=== PATIENT | male | born 1960 | race Caucasian/White ===

== ENCOUNTER → 2016-11-28 | Outpatient (CLI) | payer BC ==
--- NOTE | 2016-11-28 08:28 | US ---
EXAMINATION TYPE: US abdomen complete DATE OF EXAM: 11/28/2016 7:59 AM COMPARISON: NONE CLINICAL HISTORY: 56-year-old male Alcoholic cirrhosis of liver without ascites k70.3. TECHNIQUE: Multiple sonographic images of the abdomen were obtained. FINDINGS: EXAM MEASUREMENTS: Liver Length: 14.6 cm Gallbladder Wall: 0.3 cm CBD: 0.4 cm Spleen: 19.2 cm Right Kidney: 10.2 x 5.6 x 5.4 cm Left Kidney: 12.0 x 5.5 x 4.5 cm Pancreas: Slightly heterogeneous appearance of the pancreatic body of uncertain clinical significanc e. Liver: 2 small adjacent simple cysts are present measuring 1.1 cm and 0.9 cm near the junction of th e right and left hepatic lobes. Otherwise, no focal lesion is seen. The main portal vein is patent wi th appropriate hepatopedal flow and monophasic waveform. Gallbladder: The gallbladder is mildly hydropic but shows no abnormal wall thickening or pericholecy stic fluid. 9 mm shadowing calculus is noted near the gallbladder neck. Evidence for sonographic Griffin's sign: No CBD: Within normal limits. Spleen: Enlarged. Right Kidney: No hydronephrosis. Left Kidney: 1.7 cm cyst in the upper to midpole. No hydronephrosis. Upper IVC: Within normal limits. Abd Aorta: Moderate atherosclerotic calcifications noted in the distal abdominal aorta. IMPRESSION: 1. A couple small simple cysts in the liver measuring up to 1.1 cm. No sonographic evidence for hepat noel. 2. Patent main portal vein with appropriate directional flow. 3. Splenomegaly (19.2 cm) suggests underlying portal venous hypertension.
== END | disposition home or self-care (01) ==
LOC: RADUSWWP 07:24
PROVIDERS: ATTEND Internal Medicine
DX: K76.89 Other specified diseases of liver (principal); R16.1 Splenomegaly, not elsewhere classified
CPT/HCPCS: 76700

== ENCOUNTER → 2017-07-20 | Outpatient (CLI) | payer OTHER ==
--- NOTE | 2017-07-20 11:42 | US ---
EXAMINATION TYPE: US abdomen complete DATE OF EXAM: 07/20/2017 COMPARISON: Prior US and CT in PACS CLINICAL HISTORY: K70.30 Alcoholic cirrhosis of liver. Difficult exam due to overlying bowel gas. EXAM MEASUREMENTS: Liver Length: 14.4 cm Gallbladder Wall: 0.4 cm CBD: 0.5 cm Spleen: 19.8 cm Right Kidney: 10.3 x 5.5 x 5.0 cm Left Kidney: 11.4 x 4.2 x 4.4 cm Pancreas: Obscured by bowel gas Liver: Heterogeneous, echogenic echotexture. This finding limits evaluation for hepatic masses. Nodu lar contour. Cyst visualized right lobe measuring 1.0 x 0.6 x 0.8 cm Gallbladder: Wall appears thickened, stone visualized measuring 0.8 cm Evidence for sonographic Griffin's sign: No CBD: wnl as visualized Spleen: Enlarged Right Kidney: No hydronephrosis or masses seen Left Kidney: Cystic area visualized measuring 2.2 x 1.1 x 1.4 cm Upper IVC: wnl Abd Aorta: Obscured by overlying bowel gas, visualized portions appear to measuring wnl Mild amount of ascites visualized within the abdomen IMPRESSION: 1. Coarsened hepatic echotexture compatible with the patient's known history of hepatic cirrhosis. Pe rihepatic ascites is small volume. No gross evidence of hepatic mass. 1 cm simple hepatic cyst is pre sent. 2. Portal vein appears patent. 3. Diffuse gallbladder wall thickening that may be partially attributable to the patient's adjacent h epatocellular disease, however an 8 mm shadowing stone is seen near the gallbladder neck in could bec ome intermittently impacted resulting in acute cholecystitis. No enlargement of the common bile duct at this time, gallbladder enlargement, or pericholecystic fluid to currently suggest acute cholecysti tis. 4. Splenomegaly as a result of portal venous hypertension. 5. Minimally complex left renal sinus cyst.
== END | disposition home or self-care (01) ==
LOC: RADUSWWP 09:55
PROVIDERS: ATTEND Internal Medicine
DX: K76.89 Other specified diseases of liver (principal); K82.8 Other specified diseases of gallbladder; K76.6 Portal hypertension; R18.8 Other ascites; R16.1 Splenomegaly, not elsewhere classified; N28.1 Cyst of kidney, acquired
CPT/HCPCS: 76700

== ENCOUNTER 2017-08-31 06:27 | Day surgery (SDC) | payer OTHER ==
[2017-08-29 14:29] VITALS: BMI 24.4
[~2017-08-31 06:27] MED LIST: LACTATED RINGERS 1,000 ML IV SCH; MIDAZOLAM 2 MG/2 ML VIAL IV PRN; MORPHINE SULFATE 2 MG/ML SYRINGE IV PRN; ONDANSETRON 4 MG/2 ML VIAL IVP PRN; SODIUM CHLORIDE 0.9% 500 ML IV ONE
[2017-08-31 06:56] VITALS: TEMP 97.4
[2017-08-31 07:02] LABS: Glucose,Whole Blood 194 mg/dL (75-99)
[2017-08-31] MEDS ORDERED: LIDOCAINE 1% INJ 10MG/ML (20 ML MDV) ONE (07:09)
[2017-08-31] MEDS ORDERED: PROPOFOL 10 MG/ML 20 ML VIAL IV ONE (07:09)
[2017-08-31 07:36] VITALS: RESP 15
[2017-08-31 07:46] VITALS: BP 108/59; PULSE 75
[2017-08-31 07:49] LABS: Glucose,Whole Blood 179 mg/dL (75-99)
[2017-08-31 08:07] LABS: Anisocytosis Slight; Basophils % (A) 0 %; CH 33.4; CHCM 32.1; Eosinophils % (A) 0 %; HCT 24.5 % (39.0-53.0); HDW 2.81; HGB 7.9 gm/dL (13.0-17.5); Luc # (Auto) 0; Luc % (Auto) 0; Lymphocytes # (A) 0.2 k/uL (1.0-4.8); Lymphocytes % (A) 9 %; MCH 33.8 pg (25.0-35.0); MCHC 32.1 g/dL (31.0-37.0); Macrocytosis Marked; Mean Platelet Volume 8.8; Monocytes # (A) 0.1 k/uL (0-1.0); Monocytes % (A) 4 %; Neutrophils # (A) 2.4 k/uL (1.3-7.7); Neutrophils % (A) 87 %; RBC 2.33 m/uL (4.30-5.90); WBC 2.8 k/uL (3.8-10.6); WBC (Perox) 2.79
[2017-08-31 08:10] LABS: MCV 105.2 fL (80.0-100.0)
--- NOTE | 2017-08-31 09:41 | PCN ---
PROCEDURE NOTE DATE OF PROCEDURE: 08/31/2017 PREOPERATIVE DIAGNOSIS: Pancytopenia. POSTOPERATIVE DIAGNOSIS: Pancytopenia. PROCEDURE: Bone marrow aspirate and biopsies right iliac crest. DESCRIPTION OF PROCEDURE: Utilizing sterile technique, the skin overlying the right iliac crest was prepared with Betadine and alcohol. After adequate sterile draping, local anesthesia and systemic sedation, size 11, 4-inch Jamshidi needle was utilized to access the periosteum with ease. A total of 18 mL of aspirate as well as four centimeter bone core biopsies were obtained. The patient tolerated the procedure very well. There was no immediate procedure-related complication. TOTAL BLOOD LOSS: Less than 1 mL. RESULTS: Pending. MMODL / IJN: [id number] /
[2017-08-31 09:58] LABS: Manual Review Performed
[2017-09-07 15:57] LABS: Bone Marrow Cell Count See Pathology Report
== END 2017-08-31 08:03 | disposition home or self-care (01) ==
LOC: OR 06:27
PROVIDERS: ATTEND Internal Medicine Hematology & Oncology
DX: D61.818 Other pancytopenia (principal); J45.909 Unspecified asthma, uncomplicated; M15.9 Polyosteoarthritis, unspecified; K74.60 Unspecified cirrhosis of liver; D83.9 Common variable immunodeficiency, unspecified; Z79.899 Other long term (current) drug therapy
CPT/HCPCS: 85025; 38221; J2001; J2704; G0364

== ENCOUNTER → 2017-09-11 | Outpatient (CLI) | payer OTHER ==
[2017-09-11 14:39] LABS: ALT 67 U/L (21-72); AST 75 U/L (17-59); Alkaline Phosphatase 235 U/L (38-126); Anion Gap 8 mmol/L; Blood Urea Nitrogen 26 mg/dL (9-20); Calcium 8.7 mg/dL (8.4-10.2); Carbon Dioxide 23 mmol/L (22-30); Chloride 105 mmol/L (98-107); Glucose 153 mg/dL (74-99); Non-African American GFR(MDRD) >60 (>60 ml/min/1.73 sqM); Potassium 4.8 mmol/L (3.5-5.1); Sodium 136 mmol/L (137-145); Total Bilirubin 2.7 mg/dL (0.2-1.3); Total Protein 5.7 g/dL (6.3-8.2)
== END | disposition home or self-care (01) ==
LOC: LABWHC1 13:45
PROVIDERS: ATTEND Internal Medicine
DX: K70.31 Alcoholic cirrhosis of liver with ascites (principal)
CPT/HCPCS: 36415; 80053

== ENCOUNTER 2017-11-14 11:00 | Inpatient (IN) | payer OTHER ==
[2017-11-14 12:16] LABS: Glucose,Whole Blood 206 mg/dL (75-99)
[2017-11-14 12:54] LABS: Anisocytosis Slight; Basophils % (A) 0 %; Eosinophils % (A) 0 %; HCT 33.8 % (39.0-53.0); HGB 10.8 gm/dL (13.0-17.5); Hypochromasia Slight; Lymphocytes # (A) 0.2 k/uL (1.0-4.8); Lymphocytes % (A) 4 %; MCHC 31.9 g/dL (31.0-37.0); MCV 106.5 fL (80.0-100.0); Macrocytosis Marked; Mean Platelet Volume 8.7; Monocytes # (A) 0.3 k/uL (0-1.0); Monocytes % (A) 5 %; Neutrophils % (A) 90 %; RBC 3.17 m/uL (4.30-5.90); RDW 17.9 % (11.5-15.5); WBC 5.5 k/uL (3.8-10.6)
[2017-11-14 12:58] LABS: ALT 101 U/L (21-72); AST 89 U/L (17-59); Albumin 2.9 g/dL (3.5-5.0); Alkaline Phosphatase 238 U/L (38-126); Anion Gap 9 mmol/L; Blood Urea Nitrogen 34 mg/dL (9-20); Calcium 8.8 mg/dL (8.4-10.2); Carbon Dioxide 21 mmol/L (22-30); Chloride 107 mmol/L (98-107); Glucose 192 mg/dL (74-99); Sodium 137 mmol/L (137-145); Total Protein 5.7 g/dL (6.3-8.2)
[2017-11-14 13:26] LABS: INR 1.2 (<1.2); Prothrombin Time 11.5 sec (9.0-12.0)
[2017-11-14] MEDS: ACETAMINOPHEN TAB 325 MG TAB PO PRN ×2 (13:45→21:43)
[2017-11-14] MEDS: SODIUM CHLORIDE 0.9% 1,000 ML IV SCH ×2 (13:53→21:43)
[2017-11-14] MEDS ORDERED: PNEUMONIA PROTOCOL UTILIZED 1 EACH MISC PO PRN (13:55)
[2017-11-14] MEDS ORDERED: IPRATROPIUM-ALBUTEROL 3 ML NEB INHALATION PRN (13:55)
--- NOTE | 2017-11-14 13:55 | P.HPIM ---
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 Osullivan's office for severe bronchitis or pneumonia. Patient has been using systemic strides in his medicine at home patient has is worsening shortness of breath for a few days denied any fever chills denied any nausea vomiting. Patient does have chronically elevated liver enzymes his liver enzymes are bit elevated patient is on the liver transplant list patient appears to have had alcholic cirrhosis. Patient will be started on systemic steroids antibiotic regimen decisions. Will be left to pulmonology who knows the patient very well and patient is comparing of illicit sputum production. Review of Systems REVIEW OF SYSTEMS: CONSTITUTIONAL: No fever, no malaise, no fatigue. HEENT: No recent visual problems or hearing problems. Denied any sore throat. CARDIOVASCULAR: No chest pain, orthopnea, PND, no palpitations, no syncope. PULMONARY: Mentioned in HPI GASTROINTESTINAL: No diarrhea, no nausea, no vomiting, no abdominal pain. Normoactive bowel sounds. NEUROLOGICAL: No headaches, no weakness, no numbness. HEMATOLOGICAL: Denies any bleeding or petechiae. GENITOURINARY: Denies any burning micturition, frequency, or urgency. MUSCULOSKELETAL/RHEUMATOLOGICAL: Denies any joint pain, swelling, or any muscle pain. ENDOCRINE: Denies any polyuria or polydipsia. The rest of the 14-point review of systems is negative. Past Medical History Past Medical History: Asthma, GI Bleed, Hypertension, Pneumonia Additional Past Medical History / Comment(s): Cirrhosis-pt completing testing in order to go onto liver transplant list, hypogammaglobulinemia, common variable immunoglobulin deficiency-receives IV IG with last infusion 11/08/17- gets infusions q 3 weeks, ascities, anemia, bronchitis, neuropathy in hands and legs but less so since gluten free diet, ciliac disease, diverticulosis, rectal bleed, umbilical hernia, R inguinal hernia, necrotizing fascitis under L arm 20 yrs ago. History of Any Multi-Drug Resistant Organisms: None Reported Additional Past Surgical History / Comment(s): vasectomy, mediport placement x 3 -for IVIG-currently in L side of chest, bilateral cataract/lens surgery, removal of cervical lymph node-benign, BMA, colonoscopies and EGDs, bilateral myringotomy, abdominal paracentesis. Past Anesthesia/Blood Transfusion Reactions: No Reported Reaction Additional Past Anesthesia/Blood Transfusion Reaction / Comment(s): no problems prior blood transfusion Smoking Status: Former smoker - Past Family History Father Family Medical History: Thyroid Disorder Additional Family Medical History / Comment(s): Father has hypothyroidism. He is 89 yrs old. Mother Family Medical History: Liver Disease Additional Family Medical History / Comment(s): Mother from hepatitis C at the age of 60. Medications and Allergies Home Medications Medication Instructions Recorded Confirmed Type Montelukast [Singulair] 10 mg PO DAILY 10/15/14 11/14/17 History Ferrous Sulfate [Iron] 325 mg PO DAILY 07/20/17 11/14/17 History Albuterol Nebulized [Ventolin 2.5 mg INHALATION RT-QID PRN 08/29/17 11/14/17 History Nebulized] Azithromycin [Zithromax] 500 mg PO DAILY 08/29/17 11/14/17 History predniSONE See Taper PO DIRECTED 08/29/17 11/14/17 History Epoetin Messi [Procrit] 40,000 unit INJ Q14D 11/14/17 11/14/17 History Furosemide [Lasix] 20 mg PO DAILY 11/14/17 11/14/17 History Gabapentin [Neurontin] 300 mg PO BID 11/14/17 11/14/17 History Mometasone/Formoterol [Dulera 200 2 puff INHALATION RT-BID 11/14/17 11/14/17 History Mcg/5 Mcg Inhaler] Promethazine HCl/Codeine 5 ml PO Q6H PRN 11/14/17 11/14/17 History [Prometh-Codein 6.25-10 mg/5 ml] Spironolactone [Aldactone] 50 mg PO DAILY 11/14/17 11/14/17 History Allergies Allergy/AdvReac Type Severity Reaction Status Date / Time wheat AdvReac Severe Nausea & Verified 11/14/17 12:22 Vomiting & Diarrhea,flu like symptoms gluten AdvReac Nausea & Verified 11/14/17 12:22 Vomiting & Diarrhea Physical Exam Vitals: Vital Signs Temp Pulse Resp BP Pulse Ox 11/14/17 11:54 96.9 F L 80 16 133/60 99 Intake and Output 11/13/17 11/14/17 11/14/17 22:59 06:59 14:59 Other: Voiding Method Toilet Weight 83.461 kg Patient Weight 11/15/17 06:59 Weight 83.461 kg PHYSICAL EXAMINATION: GENERAL: The patient is alert and oriented x3, not in any acute distress. Well developed, well nourished. HEENT: Pupils are round and equally reacting to light. EOMI. No scleral icterus. No conjunctival pallor. Normocephalic, atraumatic. No pharyngeal erythema. No thyromegaly. CARDIOVASCULAR: S1 and S2 present. No murmurs, rubs, or gallops. PULMONARY: Fairly good air entry into bilateral lung ball from those with sounds minimal expiratory wheezing was appreciated. ABDOMEN: Soft, nontender, nondistended, normoactive bowel sounds. No palpable organomegaly. MUSCULOSKELETAL: No joint swelling or deformity. EXTREMITIES: No cyanosis, clubbing, or pedal edema. NEUROLOGICAL: Gross neurological examination did not reveal any focal deficits. SKIN: No rashes. Results CBC & Chem 7: 11/14/17 12:13 11/14/17 12:13 Labs: Abnormal Lab Results - Last 24 Hours (Table) 11/14/17 11/14/17 11/14/17 Range/Units 12:13 12:13 12:13 RBC 3.17 L (4.30-5.90) m/uL Hgb 10.8 L (13.0-17.5) gm/dL Hct 33.8 L (39.0-53.0) % MCV 106.5 H (80.0-100.0) fL RDW 17.9 H (11.5-15.5) % INR 1.2 H (<1.2) Carbon Dioxide 21 L (22-30) mmol/L BUN 34 H (9-20) mg/dL Glucose 192 H (74-99) mg/dL POC Glucose (mg/dL) (75-99) mg/dL Total Bilirubin 3.0 H (0.2-1.3) mg/dL AST 89 H (17-59) U/L ALT 101 H (21-72) U/L Alkaline Phosphatase 238 H (38-126) U/L Total Protein 5.7 L (6.3-8.2) g/dL Albumin 2.9 L (3.5-5.0) g/dL 11/14/17 Range/Units 12:14 RBC (4.30-5.90) m/uL Hgb (13.0-17.5) gm/dL Hct (39.0-53.0) % MCV (80.0-100.0) fL RDW (11.5-15.5) % INR (<1.2) Carbon Dioxide (22-30) mmol/L BUN (9-20) mg/dL Glucose (74-99) mg/dL POC Glucose (mg/dL) 206 H (75-99) mg/dL Total Bilirubin (0.2-1.3) mg/dL AST (17-59) U/L ALT (21-72) U/L Alkaline Phosphatase (38-126) U/L Total Protein (6.3-8.2) g/dL Albumin (3.5-5.0) g/dL Thrombosis Risk Factor Assmnt - Choose All That Apply Any of the Below Risk Factors Present?: Yes Each Factor Represents 1 point: Age 41-60 years, Serious lung disease incl. pneumonia (< 1month) Other Risk Factors: No Other congenital or acquired thrombophilia - If yes, enter type in comment: No Thrombosis Risk Factor Assessment Total Risk Factor Score: 2 Thrombosis Risk Factor Assessment Level: Low Risk Assessment and Plan Plan: I spent shortness of breath: Secondary to symmetrical bronchitis and pneumonia along with asthma exacerbation for which patient will be started on systemic steroids antibiotic regimen as per pulmonology. Inhalational treatments will be continued. -History of immunoglobulin deficiency for which patient receives IVIG transfusions to be continued -History of alcoholic cirrhosis with chronically elevated liver enzymes -History of chronic persistent asthma with acute exacerbation now -Hypertension next For above-mentioned chronic medical problems patient will be resumed on appropriate home medications.
[2017-11-14 14:09] LABS: Platelet Count 77 k/uL (150-450)
[2017-11-14] MEDS: LEVOFLOXACIN 750MG-D5W PMX 750 MG in DEXTROSE/WATER 1 150ML.BAG IVPB SCH (15:27)
[2017-11-14] MEDS ORDERED: methylPREDNISolone SOD SUCCI 40 MG/ML 1 ML VIAL IV SCH (16:00)
[2017-11-14] MEDS: IPRATROPIUM-ALBUTEROL 3 ML NEB INHALATION SCH ×2 (16:50→21:03)
[2017-11-14] MEDS: methylPREDNISolone SOD SUCCI 125 MG/2 ML VIAL IVP SCH ×2 (16:59→23:34)
[2017-11-14] MEDS: PIPERACILLIN-TAZOBACTAM 3.375 GM in DEXTROSE/WATER 1 50ML.BAG IVPB SCH ×2 (16:59→23:34)
[2017-11-14 17:09] LABS: Glucose,Whole Blood 152 mg/dL (75-99)
[2017-11-14] MEDS: INSULIN ASPART 100 UNIT/ML 1 ML 10 ML VIAL SQ SCH ×2 (17:46→21:42)
[2017-11-14] MEDS: SYMBICORT 160-4.5 MCG INHALER INHALATION SCH (21:02)
[2017-11-14 21:16] LABS: Glucose,Whole Blood 286 mg/dL (75-99)
[2017-11-14] MEDS: FERROUS SULFATE 325 MG TAB PO SCH (21:42)
[2017-11-14 23:40] LABS: Glucose,Whole Blood 198 mg/dL (75-99)
[2017-11-15] MEDS: methylPREDNISolone SOD SUCCI 125 MG/2 ML VIAL IVP SCH ×4 (06:18→23:46)
[2017-11-15] MEDS: IPRATROPIUM-ALBUTEROL 3 ML NEB INHALATION SCH ×4 (07:48→20:03)
[2017-11-15] MEDS: SYMBICORT 160-4.5 MCG INHALER INHALATION SCH ×2 (07:48→20:03)
[2017-11-15] MEDS: SPIRONOLACTONE 25 MG TAB PO SCH (07:55)
[2017-11-15] MEDS: SODIUM CHLORIDE 0.9% 1,000 ML IV SCH ×2 (07:56→16:56)
[2017-11-15] MEDS: PIPERACILLIN-TAZOBACTAM 3.375 GM in DEXTROSE/WATER 1 50ML.BAG IVPB SCH ×3 (07:56→23:46)
[2017-11-15] MEDS: MONTELUKAST 10 MG TAB PO SCH (07:56)
[2017-11-15] MEDS: FERROUS SULFATE 325 MG TAB PO SCH ×2 (07:56→20:06)
[2017-11-15] MEDS: INSULIN ASPART 100 UNIT/ML 1 ML 10 ML VIAL SQ SCH ×4 (07:56→21:23)
[2017-11-15] MEDS: FUROSEMIDE 20 MG TAB PO SCH (07:56)
[2017-11-15] MEDS: PANTOPRAZOLE 40 MG TABLET PO SCH (07:56)
[2017-11-15 08:00] LABS: Glucose,Whole Blood 161 mg/dL (75-99)
[2017-11-15 08:30] LABS: ALT 91 U/L (21-72); AST 71 U/L (17-59); Albumin 2.5 g/dL (3.5-5.0); Alkaline Phosphatase 229 U/L (38-126); Anion Gap 7 mmol/L; Blood Urea Nitrogen 32 mg/dL (9-20); Calcium 8.5 mg/dL (8.4-10.2); Carbon Dioxide 22 mmol/L (22-30); Chloride 108 mmol/L (98-107); Glucose 160 mg/dL (74-99); Potassium 4.8 mmol/L (3.5-5.1); Sodium 137 mmol/L (137-145); Total Bilirubin 2.3 mg/dL (0.2-1.3); Total Protein 5.1 g/dL (6.3-8.2)
[2017-11-15 08:44] LABS: Anisocytosis Slight; Basophils % (A) 0 %; Eosinophils % (A) 0 %; HCT 31.7 % (39.0-53.0); HGB 9.7 gm/dL (13.0-17.5); Hypochromasia Moderate; Lymphocytes # (A) 0.1 k/uL (1.0-4.8); Lymphocytes % (A) 6 %; MCH 33.2 pg (25.0-35.0); MCHC 30.6 g/dL (31.0-37.0); MCV 108.6 fL (80.0-100.0); Macrocytosis Marked; Mean Platelet Volume 9.2; Monocytes # (A) 0.1 k/uL (0-1.0); Monocytes % (A) 3 %; Neutrophils # (A) 2.2 k/uL (1.3-7.7); Neutrophils % (A) 91 %; RBC 2.92 m/uL (4.30-5.90); RDW 18.9 % (11.5-15.5); WBC 2.4 k/uL (3.8-10.6)
[2017-11-15] MEDS ORDERED: FERROUS SULFATE 325 MG TAB PO SCH (09:00)
[2017-11-15 10:29] LABS: Platelet Count 43 k/uL (150-450)
--- NOTE | 2017-11-15 11:23 | XR ---
EXAMINATION TYPE: XR chest 2V DATE OF EXAM: 11/15/2017 COMPARISON: 05/10/2016 HISTORY: Follow-up for pneumonia TECHNIQUE: Frontal and lateral views of the chest are obtained. FINDINGS: The left-sided Mediport coils within the region of the left internal jugular vein, however this is unchanged in comparison to the exam of 05/10/2016 and terminates in the region of the brachio cephalic vein. Minimal platelike left midlung atelectasis is seen peripherally. No focal consolidation, pleural effu paz or pneumothorax. Cardiomediastinal silhouette is upper limits of normal. IMPRESSION: 1. No focal consolidation to suggest pneumonia. 2. Left midlung platelike subsegmental atelectasis.
[2017-11-15 12:22] LABS: Glucose,Whole Blood 366 mg/dL (75-99)
[2017-11-15] MEDS: LEVOFLOXACIN 750MG-D5W PMX 750 MG in DEXTROSE/WATER 1 150ML.BAG IVPB SCH (15:05)
--- NOTE | 2017-11-15 15:18 | P.CNPUL ---
History of Present Illness Consult date: 11/15/17 Requesting physician: Renu Moss Reason for consult: dyspnea, cough Chief complaint: Increased dyspnea, cough, wheezing History of present illness: Franc is a 57-year-old white male patient that sees Dr. Norris in our office for his chronic persistent bronchial asthma, with a baseline FEV1 of 51% of predicted, who went to see Dr. Norris/Dr. Andrade on Monday with complaints of cough, chest congestion, and increasing shortness of breath. He was given a Depo-Medrol IM, a new course of Zithromax. He had completed his Bactrim course on 11/10/2017, and he was finishing his prednisone taper, prescribed to him by Dr. Norris. However his symptoms did not get better, actually got worse, and he was seen again in the office by Dr. Osullivan on 11/14/2017. He was still on his last day of 40 mg of prednisone, was feeling worse. He was then admitted to the hospital for further management for what appears to be acute exacerbation of asthma, with failed outpatient therapy. 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 Patient is currently awaiting evaluation for liver transplantation at [facility]. Patient's maintenance asthma medications include Dulera, Singulair, albuterol nebulizer and Ventolin HFA. Patient is a former smoker. Chest x-ray taken in the emergency room on 11/15/2017 shows no focal consolidation to suggest pneumonia, left midlung platelike subsegmental atelectasis. Patient is afebrile, on room air, O2 sat is 97-99%. Blood cultures were obtained and sent, and show no growth at the 24-hour timur. Patient was started on Symbicort, DuoNeb nebulized treatments, Levaquin, and Zosyn as well as IV steroids and admitted for further management. Review of Systems All systems: negative Constitutional: Denies chills, Denies fever Eyes: denies blurred vision, denies pain Ears, nose, mouth and throat: Denies headache, Denies sore throat Cardiovascular: Denies chest pain, Denies shortness of breath Respiratory: Denies cough Gastrointestinal: Denies abdominal pain, Denies diarrhea, Denies nausea, Denies vomiting Musculoskeletal: Denies myalgias Integumentary: Denies pruritus, Denies rash Neurological: Denies numbness, Denies weakness Psychiatric: Denies anxiety, Denies depression Endocrine: Denies fatigue, Denies weight change Past Medical History Past Medical History: Asthma, GI Bleed, Hypertension, Pneumonia Additional Past Medical History / Comment(s): Cirrhosis-pt completing testing in order to go onto liver transplant list, hypogammaglobulinemia, common variable immunoglobulin deficiency-receives IV IG with last infusion 11/08/17- gets infusions q 3 weeks, ascities, anemia, bronchitis, neuropathy in hands and legs but less so since gluten free diet, ciliac disease, diverticulosis, rectal bleed, umbilical hernia, R inguinal hernia, necrotizing fascitis under L arm 20 yrs ago. History of Any Multi-Drug Resistant Organisms: None Reported Additional Past Surgical History / Comment(s): vasectomy, mediport placement x 3 -for IVIG-currently in L side of chest, bilateral cataract/lens surgery, removal of cervical lymph node-benign, BMA, colonoscopies and EGDs, bilateral myringotomy, abdominal paracentesis. Past Anesthesia/Blood Transfusion Reactions: No Reported Reaction Additional Past Anesthesia/Blood Transfusion Reaction / Comment(s): no problems prior blood transfusion Smoking Status: Former smoker - Past Family History Father Family Medical History: Thyroid Disorder Additional Family Medical History / Comment(s): Father has hypothyroidism. He is 89 yrs old. Mother Family Medical History: Liver Disease Additional Family Medical History / Comment(s): Mother from hepatitis C at the age of 60. Medications and Allergies Home Medications Medication Instructions Recorded Confirmed Type Montelukast [Singulair] 10 mg PO DAILY 10/15/14 11/14/17 History Ferrous Sulfate [Iron] 325 mg PO DAILY 07/20/17 11/14/17 History Albuterol Nebulized [Ventolin 2.5 mg INHALATION RT-QID PRN 08/29/17 11/14/17 History Nebulized] Azithromycin [Zithromax] 500 mg PO DAILY 08/29/17 11/14/17 History predniSONE See Taper PO DIRECTED 08/29/17 11/14/17 History Epoetin Messi [Procrit] 40,000 unit INJ Q14D 11/14/17 11/14/17 History Furosemide [Lasix] 20 mg PO DAILY 11/14/17 11/14/17 History Gabapentin [Neurontin] 300 mg PO BID 11/14/17 11/14/17 History Mometasone/Formoterol [Dulera 200 2 puff INHALATION RT-BID 11/14/17 11/14/17 History Mcg/5 Mcg Inhaler] Promethazine HCl/Codeine 5 ml PO Q6H PRN 11/14/17 11/14/17 History [Prometh-Codein 6.25-10 mg/5 ml] Spironolactone [Aldactone] 50 mg PO DAILY 11/14/17 11/14/17 History Allergies Allergy/AdvReac Type Severity Reaction Status Date / Time wheat AdvReac Severe Nausea & Verified 11/14/17 12:22 Vomiting & Diarrhea,flu like symptoms gluten AdvReac Nausea & Verified 11/14/17 12:22 Vomiting & Diarrhea Physical Exam Vitals: Vital Signs Temp Pulse Pulse Resp BP Pulse Ox 11/15/17 11:36 96 11/15/17 11:24 92 11/15/17 08:01 80 11/15/17 07:48 76 11/15/17 07:00 97.1 F L 66 16 155/75 96 11/14/17 23:00 96.9 F L 79 18 131/62 94 L 11/14/17 21:19 82 11/14/17 21:03 80 11/14/17 17:03 78 11/14/17 16:51 80 11/14/17 15:00 97.4 F L 79 18 126/61 97 Intake and Output 11/14/17 11/15/17 11/15/17 22:59 06:59 14:59 Other: Voiding Method Toilet Toilet # Voids 1 2 1 GENERAL EXAM: Alert, active, comfortable in no apparent distress. HEAD: Normocephalic/atraumatic. EYES: Normal reaction of pupils, equal size. Conjunctiva pink, sclera white. NOSE: Clear with pink turbinates. THROAT: No erythema or exudates. NECK: No masses, no JVD, no thyroid enlargement, no adenopathy. CHEST: No chest wall deformity. Symmetrical expansion. LUNGS: Equal air entry with diffuse wheezes throughout, there is prolongation of expiratory phase CVS: Regular rate and rhythm, normal S1 and S2, no gallops, no murmurs, no rubs ABDOMEN: Soft, nontender. No hepatosplenomegaly, normal bowel sounds, no guarding or rigidity. EXTREMITIES: No clubbing, no edema, no cyanosis, 2+ pulses and upper and lower extremities. MUSCULOSKELETAL: Muscle strength and tone normal. SPINE: No scoliosis or deformity SKIN: No rashes CENTRAL NERVOUS SYSTEM: Alert and oriented -3. No focal deficits, tone is normal in all 4 extremities. PSYCHIATRIC: Alert and oriented -3. Appropriate affect. Intact judgment and insight. Results - Laboratory Findings CBC and BMP: 11/15/17 07:15 11/15/17 07:15 PT/INR, D-dimer PT 11.5 sec (9.0-12.0) 11/14/17 12:13 INR 1.2 (<1.2) H 11/14/17 12:13 Abnormal lab findings: Abnormal Labs 11/14/17 11/14/17 11/14/17 12:13 12:13 12:13 WBC RBC 3.17 L Hgb 10.8 L Hct 33.8 L MCV 106.5 H MCHC RDW 17.9 H Plt Count 77 L Lymphocytes # 0.2 L INR 1.2 H Chloride Carbon Dioxide 21 L BUN 34 H Glucose 192 H POC Glucose (mg/dL) Total Bilirubin 3.0 H AST 89 H ALT 101 H Alkaline Phosphatase 238 H Total Protein 5.7 L Albumin 2.9 L 11/14/17 11/14/17 11/14/17 12:14 17:05 21:14 WBC RBC Hgb Hct MCV MCHC RDW Plt Count Lymphocytes # INR Chloride Carbon Dioxide BUN Glucose POC Glucose (mg/dL) 206 H 152 H 286 H Total Bilirubin AST ALT Alkaline Phosphatase Total Protein Albumin 11/14/17 11/15/17 11/15/17 23:38 07:15 07:15 WBC 2.4 L RBC 2.92 L Hgb 9.7 L Hct 31.7 L MCV 108.6 H MCHC 30.6 L RDW 18.9 H Plt Count 43 L* Lymphocytes # 0.1 L INR Chloride 108 H Carbon Dioxide BUN 32 H Glucose 160 H POC Glucose (mg/dL) 198 H Total Bilirubin 2.3 H AST 71 H ALT 91 H Alkaline Phosphatase 229 H Total Protein 5.1 L Albumin 2.5 L 11/15/17 11/15/17 07:16 12:16 WBC RBC Hgb Hct MCV MCHC RDW Plt Count Lymphocytes # INR Chloride Carbon Dioxide BUN Glucose POC Glucose (mg/dL) 161 H 366 H Total Bilirubin AST ALT Alkaline Phosphatase Total Protein Albumin - Diagnostic Findings Chest x-ray: report reviewed Assessment and Plan Plan: Assessment: #1. Acute exacerbation of chronic persistent asthma, with failed outpatient treatment #2. Leukopenia, on today's labs, WBCs down to 2.4, possibly related to sepsis #3. Thrombocytopenia, patient has an underlying chronic liver disease, alcoholic cirrhosis, does have chronic thrombocytopenia, came in on 11/14/2017 with a platelet count of 77, on today's labs on 11/15/2017, platelet count is down to 43. Previously on 2016 his platelet count was at 102. This could be related to sepsis #4. Macrocytic anemia #5. Hypogammaglobulinemia, receives IVIG infusions every 3 weeks #6. History of alcoholic cirrhosis, ascites, with periodic paracentesis. His alcohol use is currently in remission, patient is awaiting evaluation for liver transplantation at [facility] #7. Neuropathy #8. History of benign cervical lymph node removal Plan: Continue patient on IV steroids, Zosyn, and Levaquin, continue DuoNeb, continue Symbicort, continue his Lasix and Aldactone. Blood cultures have been obtained and sent, will await the final results. Continue monitoring his white count and platelet count, sepsis related thrombocytopenia is suspected. I performed a history & physical examination of the patient and discussed their management with my nurse practitioner, Xochitl Briceno. I reviewed the nurse practitioner's note and agree with the documented findings and plan of care. Lung sounds are positive for diffuse wheezes throughout the lung ball. The findings and the impression was discussed with the patient. I attest to the documentation by the nurse practitioner. Time with Patient: Greater than 30
[2017-11-15] MEDS ORDERED: cefTRIAXone IN SWFI 1,000 MG/10 ML SYRINGE IVP SCH (16:00)
[2017-11-15 17:15] LABS: Glucose,Whole Blood 129 mg/dL (75-99)
[2017-11-15] MEDS: ACETAMINOPHEN TAB 325 MG TAB PO PRN (20:04)
[2017-11-15 20:55] LABS: Glucose,Whole Blood 207 mg/dL (75-99)
[2017-11-16] MEDS: SODIUM CHLORIDE 0.9% 1,000 ML IV SCH ×2 (06:07→11:40)
[2017-11-16] MEDS: methylPREDNISolone SOD SUCCI 125 MG/2 ML VIAL IVP SCH ×3 (06:08→17:13)
[2017-11-16] MEDS: PANTOPRAZOLE 40 MG TABLET PO SCH (07:14)
[2017-11-16] MEDS: FERROUS SULFATE 325 MG TAB PO SCH ×2 (07:14→21:27)
[2017-11-16] MEDS: MONTELUKAST 10 MG TAB PO SCH (07:14)
[2017-11-16] MEDS: INSULIN ASPART 100 UNIT/ML 1 ML 10 ML VIAL SQ SCH ×4 (07:15→21:27)
[2017-11-16] MEDS: PIPERACILLIN-TAZOBACTAM 3.375 GM in DEXTROSE/WATER 1 50ML.BAG IVPB SCH ×2 (07:16→15:44)
[2017-11-16] MEDS: SPIRONOLACTONE 25 MG TAB PO SCH (07:16)
[2017-11-16] MEDS: FUROSEMIDE 20 MG TAB PO SCH (07:16)
[2017-11-16 07:21] LABS: Glucose,Whole Blood 168 mg/dL (75-99)
[2017-11-16] MEDS: IPRATROPIUM-ALBUTEROL 3 ML NEB INHALATION SCH ×4 (07:44→20:27)
[2017-11-16] MEDS: SYMBICORT 160-4.5 MCG INHALER INHALATION SCH ×2 (07:44→20:27)
[2017-11-16] MEDS ORDERED: LIDOCAINE 1% INJ 10MG/ML (20 ML MDV) ONE (10:47)
[2017-11-16] MEDS ORDERED: PROPOFOL 10 MG/ML 20 ML VIAL IV ONE (10:47)
[2017-11-16] MEDS ORDERED: fentaNYL (PF) 50 MCG/ML 2 ML AMP ONE (10:47)
[2017-11-16] MEDS ORDERED: IV FLUID CONTINUATION 1,000 ML IV ONE (10:47)
[2017-11-16] MEDS ORDERED: MIDAZOLAM 2 MG/2 ML VIAL ONE (10:47)
[2017-11-16] MEDS ORDERED: GLYCOPYRROLATE 0.2 MG/ML 2 ML VIAL ONE (10:47)
--- NOTE | 2017-11-16 10:50 | P.PN ---
Subjective Progress Note Date: 11/16/17 Principal diagnosis: Acute exacerbation of chronic obstructive pulmonary disease Franc is a 57-year-old white male patient that sees Dr. Norris in the office for his chronic persistent bronchial asthma, with a baseline FEV1 of 51% of predicted, who went to see Dr. Norris/Dr. Andrade on Monday with complaints of cough, chest congestion, and increasing shortness of breath. He was given a Depo-Medrol IM, a new course of Zithromax. He had completed his Bactrim course on 11/10/2017, and he was finishing his prednisone taper, prescribed to him by Dr. Norris. However his symptoms did not get better, actually got worse, and he was seen again in the office by Dr. Osullivan on 11/14/2017. He was still on his last day of 40 mg of prednisone, was feeling worse. He was then admitted to the hospital for further management for what appears to be acute exacerbation of asthma, with failed outpatient therapy. 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 Patient is currently awaiting evaluation for liver transplantation at [facility]. Patient's maintenance asthma medications include Dulera, Singulair, albuterol nebulizer and Ventolin HFA. Patient is a former smoker. Chest x-ray taken in the emergency room on 11/15/2017 shows no focal consolidation to suggest pneumonia, left midlung platelike subsegmental atelectasis. Patient is afebrile, on room air, O2 sat is 97-99%. Blood cultures were obtained and sent, and show no growth at the 24-hour timur. Patient was started on Symbicort, DuoNeb nebulized treatments, Levaquin, and Zosyn as well as IV steroids and admitted for further management. The patient is seen again today 11/16/2017 in follow-up on in the bronchoscopy suite. He is awake and alert in no acute distress. He is breathing easier today as compared to yesterday. He continues with a loose nonproductive cough. No chills or night sweats. Maintaining good O2 saturations in the 90s on room air. He has been afebrile. Blood cultures reveal no growth. Objective - Vital Signs Vital signs: Vital Signs Temp 97.1 F L 11/16/17 07:00 Pulse 96 11/16/17 07:44 Resp 16 11/16/17 07:00 BP 137/72 11/16/17 07:00 Pulse Ox 95 11/16/17 07:00 Intake & Output 11/15/17 11/16/17 11/16/17 18:59 06:59 18:59 Other: Voiding Method Toilet Toilet Toilet # Voids 1 1 - Exam GENERAL EXAM: Alert, active, comfortable in no apparent distress. HEAD: Normocephalic/atraumatic. EYES: Normal reaction of pupils, equal size. Conjunctiva pink, sclera white. NOSE: Clear with pink turbinates. THROAT: No erythema or exudates. NECK: No masses, no JVD, no thyroid enlargement, no adenopathy. CHEST: No chest wall deformity. Symmetrical expansion. LUNGS: Equal air entry with diffuse wheezes throughout, there is prolongation of expiratory phase CVS: Regular rate and rhythm, normal S1 and S2, no gallops, no murmurs, no rubs ABDOMEN: Soft, nontender. No hepatosplenomegaly, normal bowel sounds, no guarding or rigidity. EXTREMITIES: No clubbing, no edema, no cyanosis, 2+ pulses and upper and lower extremities. MUSCULOSKELETAL: Muscle strength and tone normal. SPINE: No scoliosis or deformity SKIN: No rashes CENTRAL NERVOUS SYSTEM: Alert and oriented -3. No focal deficits, tone is normal in all 4 extremities. PSYCHIATRIC: Alert and oriented -3. Appropriate affect. Intact judgment and insight. - Labs CBC & Chem 7: 11/15/17 07:15 11/15/17 07:15 Labs: Abnormal Lab Results - Last 24 Hours (Table) 11/15/17 11/15/17 11/15/17 Range/Units 07:15 12:16 17:13 Lymphocytes # 0.1 L (1.0-4.8) k/uL POC Glucose (mg/dL) 366 H 129 H (75-99) mg/dL 11/15/17 11/16/17 Range/Units 20:52 07:11 Lymphocytes # (1.0-4.8) k/uL POC Glucose (mg/dL) 207 H 168 H (75-99) mg/dL Microbiology - Last 24 Hours (Table) 11/14/17 14:32 Blood Culture - Preliminary Blood No Growth after 24 hours 11/14/17 14:11 Blood Culture - Preliminary Blood No Growth after 24 hours 11/14/17 12:35 Blood Culture - Preliminary Blood No Growth after 24 hours 11/14/17 12:13 Blood Culture - Preliminary Blood No Growth after 24 hours Assessment and Plan Assessment: Assessment: #1. Acute exacerbation of chronic persistent asthma, with failed outpatient treatment #2. Leukopenia, on today's labs, WBCs down to 2.4, possibly related to sepsis #3. Thrombocytopenia, patient has an underlying chronic liver disease, alcoholic cirrhosis, does have chronic thrombocytopenia, came in on 11/14/2017 with a platelet count of 77, on today's labs on 11/15/2017, platelet count is up to 43. Previously on 2016 his platelet count was at 102. This could be related to sepsis #4. Macrocytic anemia #5. Hypogammaglobulinemia, receives IVIG infusions every 3 weeks #6. History of alcoholic cirrhosis, ascites, with periodic paracentesis. His alcohol use is currently in remission, patient is awaiting evaluation for liver transplantation at [facility] #7. Neuropathy #8. History of benign cervical lymph node removal Plan: The patient is seen and evaluated today by Dr. Norris. The plan is for bronchoscopy with BAL. We'll continue with his current medications for now. We 'll increase his activity as tolerated. We'll continue to follow. I, the cosigning physician, performed a history & physical examination of the patient. Lungs sounds have few scattered rhonchi. Maintaining good O2 saturations in the 90s on room air. I discussed the assessment and plan of care with my nurse practitioner, Padmini Andrade. I attest to the above note as dictated by her.
[2017-11-16] MEDS ORDERED: LIDOCAINE 2% INJ 20 MG/ML INTRATRACH ONE (11:05)
[2017-11-16] MEDS ORDERED: LACTATED RINGERS 1,000 ML IV ONE (11:06)
[2017-11-16 11:33] LABS: Glucose,Whole Blood 196 mg/dL (75-99)
--- NOTE | 2017-11-16 11:47 | PCN ---
PROCEDURE NOTE PROCEDURE: Bronchoscopy airway examination, therapeutic lavage, BAL right middle lobe. PREOPERATIVE DIAGNOSIS: Asthma/retained secretions. POSTOPERATIVE DIAGNOSIS: Asthma/retained secretions. There was universal timeout, there was informed consent. The patient's procedure took place in room #3 [facility]. GLOBE CHANGER provided general anesthesia, unconscious sedation. After the patient was adequately sedated and being fully monitored, the bronchoscope was inserted through the right nostril. It passed through the right nasopharynx into the oropharynx. The hypopharynx was identified and topicalized. The hypopharyngeal structures appear normal. There was some yeast noted in the hypopharynx. Anterior commissure, true cords, false cords, arytenoids, piriform sinuses, right and left vallecula all appeared relatively normal. After topicalization, bronchoscope was passed through the glottic opening into the trachea. Trachea appeared normal. Tracheal ino was sharp. Right and left mainstem were topicalized. Right upper lobe and its 3 segments, the right middle lobe and its 2 segments, the right lower lobe and its 5 segments, left upper lobe proper and its 2 segments, lingula and its 2 segments, left lower lobe and its 4 segments all have similar findings of diffuse erythema and hyperemia. The airways were very inflamed. There is vascular engorgement. There was mucosal friability. The airways bled easily. There were thick secretions noted throughout. They were yellow green in color. They were suctioned without difficulty. After all the secretions were removed, the bronchoscope was wedged into the right middle lobe. The BAL took place. The patient tolerated the procedure well. There was no immediate complication. The fluid will be sent to the laboratory for analysis. The patient will be recovered and sent back to his room. MMODL / IJN: [id number] /
--- NOTE | 2017-11-16 12:25 | P.PN ---
Subjective Progress Note Date: 11/15/17 Progress note being dictated for Dr. Morelos. 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 Osullivan's office for severe bronchitis or pneumonia. Patient has been using systemic strides in his medicine at home patient has is worsening shortness of breath for a few days denied any fever chills denied any nausea vomiting. Patient does have chronically elevated liver enzymes his liver enzymes are bit elevated patient is on the liver transplant list patient appears to have had alcholic cirrhosis. Patient will be started on systemic steroids antibiotic regimen decisions. Will be left to pulmonology who knows the patient very well and patient is comparing of illicit sputum production. Review of Systems REVIEW OF SYSTEMS: CONSTITUTIONAL: No fever, no malaise, no fatigue. HEENT: No recent visual problems or hearing problems. Denied any sore throat. CARDIOVASCULAR: No chest pain, orthopnea, PND, no palpitations, no syncope. PULMONARY: Mentioned in HPI GASTROINTESTINAL: No diarrhea, no nausea, no vomiting, no abdominal pain. Normoactive bowel sounds. NEUROLOGICAL: No headaches, no weakness, no numbness. HEMATOLOGICAL: Denies any bleeding or petechiae. GENITOURINARY: Denies any burning micturition, frequency, or urgency. MUSCULOSKELETAL/RHEUMATOLOGICAL: Denies any joint pain, swelling, or any muscle pain. ENDOCRINE: Denies any polyuria or polydipsia. The rest of the 14-point review of syst 11/15/17 maintained on nebulized bronchodilators, systemic steroids, antibiotics of Zosyn, Levaquin. Chest x-ray reporting left midlung platelike subsegmental atelectasis, no focal consolidation. Breathing mildly improved, nonproductive cough, wheezing persists. Denies chest pressure, chest pain, palpitations. Objective - Vital Signs Vital signs: Vital Signs Temp 96.1 F L 11/15/17 15:00 Pulse 100 11/15/17 16:39 Resp 16 11/15/17 15:00 BP 133/63 11/15/17 15:00 Pulse Ox 95 11/15/17 15:00 Intake & Output 11/14/17 11/15/17 11/15/17 18:59 06:59 18:59 Weight 83.461 kg Other: Voiding Method Toilet Toilet Toilet # Voids 2 2 1 - Exam GENERAL:Patient is sitting up in bed, alert and oriented x3, respiratory effort mildly increased. Well developed, well nourished. HEENT: Pupils are round and equally reacting to light. EOMI. No scleral icterus. No conjunctival pallor. Normocephalic, atraumatic. No pharyngeal erythema. No thyromegaly. CARDIOVASCULAR: S1 and S2 present. No murmurs, rubs, or gallops. PULMONARY: Fairly good air entry into bilateral lung ball from those with diffuse expiratory wheezing throughout ABDOMEN: Soft, nontender, nondistended, normoactive bowel sounds. No palpable organomegaly. MUSCULOSKELETAL: No joint swelling or deformity. EXTREMITIES: No cyanosis, clubbing, or pedal edema. NEUROLOGICAL: Gross neurological examination did not reveal any focal deficits. SKIN: No rashes. - Labs CBC & Chem 7: 11/15/17 07:15 11/15/17 07:15 Labs: Abnormal Lab Results - Last 24 Hours (Table) 11/14/17 11/14/17 11/15/17 Range/Units 21:14 23:38 07:15 WBC 2.4 L (3.8-10.6) k/uL RBC 2.92 L (4.30-5.90) m/uL Hgb 9.7 L (13.0-17.5) gm/dL Hct 31.7 L (39.0-53.0) % MCV 108.6 H (80.0-100.0) fL MCHC 30.6 L (31.0-37.0) g/dL RDW 18.9 H (11.5-15.5) % Plt Count 43 L* (150-450) k/uL Lymphocytes # 0.1 L (1.0-4.8) k/uL Chloride (98-107) mmol/L BUN (9-20) mg/dL Glucose (74-99) mg/dL POC Glucose (mg/dL) 286 H 198 H (75-99) mg/dL Total Bilirubin (0.2-1.3) mg/dL AST (17-59) U/L ALT (21-72) U/L Alkaline Phosphatase (38-126) U/L Total Protein (6.3-8.2) g/dL Albumin (3.5-5.0) g/dL 11/15/17 11/15/17 11/15/17 Range/Units 07:15 07:16 12:16 WBC (3.8-10.6) k/uL RBC (4.30-5.90) m/uL Hgb (13.0-17.5) gm/dL Hct (39.0-53.0) % MCV (80.0-100.0) fL MCHC (31.0-37.0) g/dL RDW (11.5-15.5) % Plt Count (150-450) k/uL Lymphocytes # (1.0-4.8) k/uL Chloride 108 H (98-107) mmol/L BUN 32 H (9-20) mg/dL Glucose 160 H (74-99) mg/dL POC Glucose (mg/dL) 161 H 366 H (75-99) mg/dL Total Bilirubin 2.3 H (0.2-1.3) mg/dL AST 71 H (17-59) U/L ALT 91 H (21-72) U/L Alkaline Phosphatase 229 H (38-126) U/L Total Protein 5.1 L (6.3-8.2) g/dL Albumin 2.5 L (3.5-5.0) g/dL 11/15/17 Range/Units 17:13 WBC (3.8-10.6) k/uL RBC (4.30-5.90) m/uL Hgb (13.0-17.5) gm/dL Hct (39.0-53.0) % MCV (80.0-100.0) fL MCHC (31.0-37.0) g/dL RDW (11.5-15.5) % Plt Count (150-450) k/uL Lymphocytes # (1.0-4.8) k/uL Chloride (98-107) mmol/L BUN (9-20) mg/dL Glucose (74-99) mg/dL POC Glucose (mg/dL) 129 H (75-99) mg/dL Total Bilirubin (0.2-1.3) mg/dL AST (17-59) U/L ALT (21-72) U/L Alkaline Phosphatase (38-126) U/L Total Protein (6.3-8.2) g/dL Albumin (3.5-5.0) g/dL Microbiology - Last 24 Hours (Table) 11/14/17 14:32 Blood Culture - Preliminary Blood No Growth after 24 hours 11/14/17 14:11 Blood Culture - Preliminary Blood No Growth after 24 hours 11/14/17 12:35 Blood Culture - Preliminary Blood No Growth after 24 hours 11/14/17 12:13 Blood Culture - Preliminary Blood No Growth after 24 hours Assessment and Plan Assessment: Acute shortness of breath: Secondary to symmetrical bronchitis along with asthma exacerbation, failed outpatient treatment, pneumonia ruled out as per pulmonary. 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 Maintain nebulized bronchodilators, empiric antibiotics, steroids. Bronchoscopy scheduled for tomorrow pulmonary. The impression and plan of care has been dictated as directed. : I performed a history and examination of this patient, discussed the same with the dictator. I agree with the dictator's note ,documented as a scribe. Any additional findings or plans will be noted.
--- NOTE | 2017-11-16 12:29 | P.PN ---
Subjective Progress Note Date: 11/16/17 Progress note being dictated for Dr. Morelos. 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 Osullivan's office for severe bronchitis or pneumonia. Patient has been using systemic strides in his medicine at home patient has is worsening shortness of breath for a few days denied any fever chills denied any nausea vomiting. Patient does have chronically elevated liver enzymes his liver enzymes are bit elevated patient is on the liver transplant list patient appears to have had alcholic cirrhosis. Patient will be started on systemic steroids antibiotic regimen decisions. Will be left to pulmonology who knows the patient very well and patient is comparing of illicit sputum production. Review of Systems REVIEW OF SYSTEMS: CONSTITUTIONAL: No fever, no malaise, no fatigue. HEENT: No recent visual problems or hearing problems. Denied any sore throat. CARDIOVASCULAR: No chest pain, orthopnea, PND, no palpitations, no syncope. PULMONARY: Mentioned in HPI GASTROINTESTINAL: No diarrhea, no nausea, no vomiting, no abdominal pain. Normoactive bowel sounds. NEUROLOGICAL: No headaches, no weakness, no numbness. HEMATOLOGICAL: Denies any bleeding or petechiae. GENITOURINARY: Denies any burning micturition, frequency, or urgency. MUSCULOSKELETAL/RHEUMATOLOGICAL: Denies any joint pain, swelling, or any muscle pain. ENDOCRINE: Denies any polyuria or polydipsia. The rest of the 14-point review of syst 11/15/17 maintained on nebulized bronchodilators, systemic steroids, antibiotics of Zosyn, Levaquin. Chest x-ray reporting left midlung platelike subsegmental atelectasis, no focal consolidation. Breathing mildly improved, nonproductive cough, wheezing persists. Denies chest pressure, chest pain, palpitations. 11/16/2017 breathing improved, continues to have nonproductive cough. Wheezing persists.NPO for Bronschopy today. Afebrile. Preliminary BC Negative. Objective - Vital Signs Vital signs: Vital Signs Temp 97.1 F L 11/16/17 07:00 Pulse 100 11/16/17 11:29 Resp 16 11/16/17 07:00 BP 137/72 11/16/17 07:00 Pulse Ox 95 11/16/17 07:00 Intake & Output 11/15/17 11/16/17 11/16/17 18:59 06:59 18:59 Intake Total 325 Balance 325 Intake: IV 325 Other: Voiding Method Toilet Toilet Toilet # Voids 1 1 2 - Exam GENERAL:Patient is sitting up in bed, alert and oriented x3, no acute distress. Well developed, well nourished. HEENT: Pupils are round and equally reacting to light. EOMI. No scleral icterus. No conjunctival pallor. Normocephalic, atraumatic. No pharyngeal erythema. No thyromegaly. CARDIOVASCULAR: S1 and S2 present. No murmurs, rubs, or gallops. PULMONARY: Fairly good air entry into bilateral lung ball from those with diffuse expiratory wheezing throughout ABDOMEN: Soft, nontender, nondistended, normoactive bowel sounds. No palpable organomegaly. MUSCULOSKELETAL: No joint swelling or deformity. EXTREMITIES: No cyanosis, clubbing, or pedal edema. NEUROLOGICAL: Gross neurological examination did not reveal any focal deficits. SKIN: No rashes. Microbiology 11/14/17 14:32 Blood Blood Culture - Preliminary No Growth after 24 hours 11/14/17 14:11 Blood Blood Culture - Preliminary No Growth after 24 hours 11/14/17 12:35 Blood Blood Culture - Preliminary No Growth after 24 hours 11/14/17 12:13 Blood Blood Culture - Preliminary No Growth after 24 hours - Labs CBC & Chem 7: 11/15/17 07:15 11/15/17 07:15 Labs: Abnormal Lab Results - Last 24 Hours (Table) 11/15/17 11/15/17 11/15/17 Range/Units 07:15 12:16 17:13 Lymphocytes # 0.1 L (1.0-4.8) k/uL POC Glucose (mg/dL) 366 H 129 H (75-99) mg/dL 11/15/17 11/16/17 11/16/17 Range/Units 20:52 07:11 11:32 Lymphocytes # (1.0-4.8) k/uL POC Glucose (mg/dL) 207 H 168 H 196 H (75-99) mg/dL Microbiology - Last 24 Hours (Table) 11/14/17 14:32 Blood Culture - Preliminary Blood No Growth after 24 hours 01/16/18 14:11 Blood Culture - Preliminary Blood No Growth after 24 hours 11/14/17 12:35 Blood Culture - Preliminary Blood No Growth after 24 hours 11/14/17 12:13 Blood Culture - Preliminary Blood No Growth after 24 hours Assessment and Plan Assessment: Acute shortness of breath: Secondary to symmetrical bronchitis along with asthma exacerbation, failed outpatient treatment, pneumonia ruled out as per pulmonary. 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 Maintain nebulized bronchodilators, empiric antibiotics, steroids. Bronchoscopy pending. The impression and plan of care has been dictated as directed. : I performed a history and examination of this patient, discussed the same with the dictator. I agree with the dictator's note ,documented as a scribe. Any additional findings or plans will be noted.
[2017-11-16 15:09] LABS: Appearance,BF Bloody; Color,BF Red; Nucleated Cells, Body Fluid 500 /uL; RBC, Body Fluid 31100 /uL
[2017-11-16 15:19] LABS: Mononuclear WBC,Body Fluid 5 %; Polynuclear WBC,Body Fluid 95 %; Total Cells Counted,Body Fluid 100
[2017-11-16] MEDS: FLUCONAZOLE 100 MG TAB PO SCH (15:47)
[2017-11-16] MEDS: ACETAMINOPHEN TAB 325 MG TAB PO PRN (15:57)
[2017-11-16] MEDS ORDERED: LEVOFLOXACIN 750 MG TAB PO SCH (16:00)
[2017-11-16 17:32] LABS: Glucose,Whole Blood 237 mg/dL (75-99)
[2017-11-16 20:56] LABS: Glucose,Whole Blood 245 mg/dL (75-99)
[2017-11-17] MEDS: PIPERACILLIN-TAZOBACTAM 3.375 GM in DEXTROSE/WATER 1 50ML.BAG IVPB SCH ×2 (00:28→08:42)
[2017-11-17] MEDS: methylPREDNISolone SOD SUCCI 125 MG/2 ML VIAL IVP SCH ×2 (00:28→06:31)
[2017-11-17] MEDS: SODIUM CHLORIDE 0.9% 1,000 ML IV SCH ×3 (00:29→08:11)
[2017-11-17 07:03] LABS: Glucose,Whole Blood 205 mg/dL (75-99)
[2017-11-17 08:10] VITALS: BP 130/63; RESP 18; TEMP 97.7
[2017-11-17] MEDS: SPIRONOLACTONE 25 MG TAB PO SCH (08:41)
[2017-11-17] MEDS: FUROSEMIDE 20 MG TAB PO SCH (08:41)
[2017-11-17] MEDS: FERROUS SULFATE 325 MG TAB PO SCH (08:41)
[2017-11-17] MEDS: MONTELUKAST 10 MG TAB PO SCH (08:41)
[2017-11-17] MEDS: FLUCONAZOLE 100 MG TAB PO SCH (08:41)
[2017-11-17] MEDS ORDERED: predniSONE 20 MG TAB PO SCH (09:00)
--- NOTE | 2017-11-17 09:03 | P.DS ---
Providers Date of admission: 11/14/17 11:20 Attending physician: Renu Moss Consults: 11/14/17 11:54 Consult Physician Routine Consulting Provider: Brian Norris Consult Reason/Comments: pneumonia Do you want consulting provider notified?: Yes Primary care physician: Renu Moss Hospital Course: Patient was admitted for bronchial asthma exacerbation with possibility of pneumonia and patient underwent bronchoscopy significant improvement in his respiratory status. Patient is presently on Zosyn and levofloxacin and Diflucan orally with anti-medic management to pulmonary and patient will be discharged today patient also has alcoholic cirrhosis with thrombocytopenia. PHYSICAL EXAMINATION: GENERAL: The patient is alert and oriented x3, not in any acute distress. Well developed, well nourished. HEENT: Pupils are round and equally reacting to light. EOMI. No scleral icterus. No conjunctival pallor. Normocephalic, atraumatic. No pharyngeal erythema. No thyromegaly. CARDIOVASCULAR: S1 and S2 present. No murmurs, rubs, or gallops. PULMONARY: Chest is clear to auscultation, no wheezing or crackles. Mild rhonchus breath sounds ABDOMEN: Soft, nontender, nondistended, normoactive bowel sounds. No palpable organomegaly. MUSCULOSKELETAL: No joint swelling or deformity. EXTREMITIES: No cyanosis, clubbing, or pedal edema. NEUROLOGICAL: Gross neurological examination did not reveal any focal deficits. SKIN: No rashes. 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, continued -History of alcoholic cirrhosis with chronically elevated liver enzymes -chronic persistent asthma with acute exacerbation now -Hypertension -Thrombocytopenia secondary to chronic liver disease Plan - Discharge Summary Discharge Rx Participant: Yes New Discharge Prescriptions: New predniSONE 10 mg PO DAILY #30 tab Discontinued Azithromycin [Zithromax] 500 mg PO DAILY No Action Montelukast [Singulair] 10 mg PO DAILY Ferrous Sulfate [Iron] 325 mg PO DAILY Albuterol Nebulized [Ventolin Nebulized] 2.5 mg INHALATION RT-QID PRN PRN Reason: Shortness Of Breath predniSONE See Taper PO DIRECTED Epoetin Messi [Procrit] 40,000 unit INJ Q14D Furosemide [Lasix] 20 mg PO DAILY Gabapentin [Neurontin] 300 mg PO BID Mometasone/Formoterol [Dulera 200 Mcg/5 Mcg Inhaler] 2 puff INHALATION RT-BID Promethazine HCl/Codeine [Prometh-Codein 6.25-10 mg/5 ml] 5 ml PO Q6H PRN PRN Reason: Cough Spironolactone [Aldactone] 50 mg PO DAILY Discharge Medication List Montelukast [Singulair] 10 mg PO DAILY 10/15/14 [History] Ferrous Sulfate [Iron] 325 mg PO DAILY 07/20/17 [History] Albuterol Nebulized [Ventolin Nebulized] 2.5 mg INHALATION RT-QID PRN 08/29/17 [ History] predniSONE See Taper PO DIRECTED 08/29/17 [History] Epoetin Messi [Procrit] 40,000 unit INJ Q14D 11/14/17 [History] Furosemide [Lasix] 20 mg PO DAILY 11/14/17 [History] Gabapentin [Neurontin] 300 mg PO BID 11/14/17 [History] Mometasone/Formoterol [Dulera 200 Mcg/5 Mcg Inhaler] 2 puff INHALATION RT-BID [History] Promethazine HCl/Codeine [Prometh-Codein 6.25-10 mg/5 ml] 5 ml PO Q6H PRN [History] Spironolactone [Aldactone] 50 mg PO DAILY 11/14/17 [History] predniSONE 10 mg PO DAILY #30 tab 11/17/17 [Rx] Patient Instructions/Handouts: Pneumonia (DC)
[2017-11-17 09:10] LABS: Anisocytosis Slight; Basophils % (A) 0 %; Eosinophils % (A) 0 %; Hypochromasia Slight; Lymphocytes # (A) 0.1 k/uL (1.0-4.8); Lymphocytes % (A) 4 %; MCH 34.6 pg (25.0-35.0); MCHC 32.3 g/dL (31.0-37.0); MCV 107.1 fL (80.0-100.0); Macrocytosis Marked; Monocytes # (A) 0.2 k/uL (0-1.0); Monocytes % (A) 6 %; Neutrophils # (A) 2.8 k/uL (1.3-7.7); Neutrophils % (A) 89 %; RDW 17.6 % (11.5-15.5); WBC 3.2 k/uL (3.8-10.6)
[2017-11-17] MEDS: PANTOPRAZOLE 40 MG TABLET PO SCH (09:13)
[2017-11-17] MEDS: INSULIN ASPART 100 UNIT/ML 1 ML 10 ML VIAL SQ SCH (09:13)
[2017-11-17 09:21] LABS: Platelet Count 34 k/uL (150-450)
[2017-11-17] MEDS: IPRATROPIUM-ALBUTEROL 3 ML NEB INHALATION SCH (09:24)
[2017-11-17] MEDS: SYMBICORT 160-4.5 MCG INHALER INHALATION SCH (09:24)
[2017-11-17 09:28] LABS: Anion Gap 8 mmol/L; Blood Urea Nitrogen 56 mg/dL (9-20); Calcium 8.5 mg/dL (8.4-10.2); Carbon Dioxide 19 mmol/L (22-30); Chloride 113 mmol/L (98-107); Glucose 190 mg/dL (74-99); Potassium 4.1 mmol/L (3.5-5.1); Sodium 140 mmol/L (137-145)
[2017-11-17 09:35] VITALS: PULSE 88
--- NOTE | 2017-11-17 09:47 | P.PN ---
Subjective Progress Note Date: 11/17/17 Principal diagnosis: Acute exacerbation of chronic obstructive pulmonary disease Franc is a 57-year-old white male patient that sees Dr. Norris in the office for his chronic persistent bronchial asthma, with a baseline FEV1 of 51% of predicted, who went to see Dr. Norris/Dr. Andrade on Monday with complaints of cough, chest congestion, and increasing shortness of breath. He was given a Depo-Medrol IM, a new course of Zithromax. He had completed his Bactrim course on 11/10/2017, and he was finishing his prednisone taper, prescribed to him by Dr. Norris. However his symptoms did not get better, actually got worse, and he was seen again in the office by Dr. Osullivan on 11/14/2017. He was still on his last day of 40 mg of prednisone, was feeling worse. He was then admitted to the hospital for further management for what appears to be acute exacerbation of asthma, with failed outpatient therapy. 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 Patient is currently awaiting evaluation for liver transplantation at [facility]. Patient's maintenance asthma medications include Dulera, Singulair, albuterol nebulizer and Ventolin HFA. Patient is a former smoker. Chest x-ray taken in the emergency room on 11/15/2017 shows no focal consolidation to suggest pneumonia, left midlung platelike subsegmental atelectasis. Patient is afebrile, on room air, O2 sat is 97-99%. Blood cultures were obtained and sent, and show no growth at the 24-hour timur. Patient was started on Symbicort, DuoNeb nebulized treatments, Levaquin, and Zosyn as well as IV steroids and admitted for further management. The patient is seen again today 11/16/2017 in follow-up on in the bronchoscopy suite. He is awake and alert in no acute distress. He is breathing easier today as compared to yesterday. He continues with a loose nonproductive cough. No chills or night sweats. Maintaining good O2 saturations in the 90s on room air. He has been afebrile. Blood cultures reveal no growth. On 11/17/2017 patient seen in follow-up on medical surgical floor. Reports significant improvement in terms of his dyspnea, and wheezing. No significant cough, or sputum production. Patient underwent bronchoscopy with bronchoalveolar lavage on 11/16/2017. Bronchial washing cultures are still pending at this time. Patient was started on Diflucan, for evidence of candidiasis in upper airways during the bronchoscopy. Patient remains stable, afebrile. Currently on room air with O2 sat at 96-97%. Has been ambulating, tolerating it well. From pulmonary standpoint he is stable for discharge home today. We'll need follow-up with Dr. Norris in the office next week. Objective - Vital Signs Vital signs: Vital Signs Temp 97.7 F 11/17/17 07:00 Pulse 88 11/17/17 09:34 Resp 18 11/17/17 07:00 BP 130/63 11/17/17 07:00 Pulse Ox 97 11/17/17 07:00 Intake & Output 11/16/17 11/17/17 11/17/17 18:59 06:59 18:59 Intake Total 325 Balance 325 Intake: IV 325 Other: Voiding Method Toilet Toilet # Voids 2 2 - Exam GENERAL EXAM: Alert, active, comfortable in no apparent distress. HEAD: Normocephalic/atraumatic. EYES: Normal reaction of pupils, equal size. Conjunctiva pink, sclera white. NOSE: Clear with pink turbinates. THROAT: No erythema or exudates. NECK: No masses, no JVD, no thyroid enlargement, no adenopathy. CHEST: No chest wall deformity. Symmetrical expansion. LUNGS: Equal air entry with hardly any wheezing, there is prolongation of expiratory phase CVS: Regular rate and rhythm, normal S1 and S2, no gallops, no murmurs, no rubs ABDOMEN: Soft, nontender. No hepatosplenomegaly, normal bowel sounds, no guarding or rigidity. EXTREMITIES: No clubbing, no edema, no cyanosis, 2+ pulses and upper and lower extremities. MUSCULOSKELETAL: Muscle strength and tone normal. SPINE: No scoliosis or deformity SKIN: No rashes CENTRAL NERVOUS SYSTEM: Alert and oriented -3. No focal deficits, tone is normal in all 4 extremities. PSYCHIATRIC: Alert and oriented -3. Appropriate affect. Intact judgment and insight. - Labs CBC & Chem 7: 11/17/17 08:08 11/17/17 08:08 Labs: Abnormal Lab Results - Last 24 Hours (Table) 11/16/17 11/16/17 11/16/17 Range/Units 11:32 17:01 20:53 WBC (3.8-10.6) k/uL RBC (4.30-5.90) m/uL Hgb (13.0-17.5) gm/dL Hct (39.0-53.0) % MCV (80.0-100.0) fL RDW (11.5-15.5) % Plt Count (150-450) k/uL Chloride (98-107) mmol/L Carbon Dioxide (22-30) mmol/L BUN (9-20) mg/dL Creatinine (0.66-1.25) mg/dL Glucose (74-99) mg/dL POC Glucose (mg/dL) 196 H 237 H 245 H (75-99) mg/dL 11/17/17 11/17/17 11/17/17 Range/Units 06:51 08:08 08:08 WBC 3.2 L (3.8-10.6) k/uL RBC 2.90 L (4.30-5.90) m/uL Hgb 10.0 L (13.0-17.5) gm/dL Hct 31.0 L (39.0-53.0) % MCV 107.1 H (80.0-100.0) fL RDW 17.6 H (11.5-15.5) % Plt Count 34 L* (150-450) k/uL Chloride 113 H (98-107) mmol/L Carbon Dioxide 19 L (22-30) mmol/L BUN 56 H (9-20) mg/dL Creatinine 1.27 H (0.66-1.25) mg/dL Glucose 190 H (74-99) mg/dL POC Glucose (mg/dL) 205 H (75-99) mg/dL Microbiology - Last 24 Hours (Table) 11/16/17 10:30 Acid Fast Bacilli Smear - Final Bronchial Washings - Right Acid Fast Bacilli Culture - Preliminary 11/16/17 10:30 Gram Stain - Preliminary Bronchial Washings - Right Bronchial Washings Culture - Preliminary 11/16/17 10:30 Fungal Culture - Preliminary Bronchial Washings - Right 11/14/17 14:32 Blood Culture - Preliminary Blood No Growth after 48 hours 11/14/17 14:11 Blood Culture - Preliminary Blood No Growth after 48 hours 11/14/17 12:35 Blood Culture - Preliminary Blood No Growth after 48 hours 11/14/17 12:13 Blood Culture - Preliminary Blood No Growth after 48 hours Assessment and Plan Plan: Assessment: #1. Acute exacerbation of chronic persistent asthma, with failed outpatient treatment #2. Leukopenia, on today's labs, WBCs down to 2.4, possibly related to sepsis. Improving, WBC is up to 3.2 on today's labs #3. Thrombocytopenia, patient has an underlying chronic liver disease, alcoholic cirrhosis, does have chronic thrombocytopenia, came in on 11/14/2017 with a platelet count of 77, on today's labs on 11/15/2017, platelet count is down to 43. Previously on 2016 his platelet count was at 102. On today' s blood work, platelet count is 34, no evidence of bleeding. We will stop the Zosyn. Patient will be sent home on oral Levaquin and Diflucan. #4. Macrocytic anemia #5. Hypogammaglobulinemia, receives IVIG infusions every 3 weeks #6. History of alcoholic cirrhosis, ascites, with periodic paracentesis. His alcohol use is currently in remission, patient is awaiting evaluation for liver transplantation at [facility] #7. Neuropathy #8. History of benign cervical lymph node removal Plan: Patient is improved in terms of dyspnea and wheezing. Has been ambulating, tolerating it well. On room air, vitals are stable. Bronchial washing cultures are pending. Blood cultures remain negative so far. Patient is stable for discharge home today on outpatient course of Levaquin, Diflucan, prednisone taper. Continue maintenance inhalers and nebulizers. Will need a follow-up appointment with Dr. Norris next week. I performed a history & physical examination of the patient and discussed their management with my nurse practitioner, Xochitl Briceno. I reviewed the nurse practitioner's note and agree with the documented findings and plan of care. Lung sounds reveal hardly any wheezing. The findings and the impression was discussed with the patient. I attest to the documentation by the nurse practitioner. Time with Patient: Less than 30
[2017-11-17 10:23] LABS: Poikilocytosis (M) Present
== END 2017-11-17 11:27 | disposition home or self-care (01) | DRG 166 ==
LOC: 4MS4W 11:20
PROVIDERS: ADMIT Hospitalist; ATTEND Hospitalist
PROC: 0B9D8ZX Drainage of Right Middle Lung Lobe, Via Natural or Artificial Opening Endoscopic, Diagnostic (ICD-10-PCS; principal; 2017-11-16 11:00)
DX: J44.1 Chronic obstructive pulmonary disease with (acute) exacerbation (principal); J18.9 Pneumonia, unspecified organism; D80.1 Nonfamilial hypogammaglobulinemia; D69.59 Other secondary thrombocytopenia; J45.901 Unspecified asthma with (acute) exacerbation; G62.9 Polyneuropathy, unspecified; K70.30 Alcoholic cirrhosis of liver without ascites; J44.0 Chronic obstructive pulmonary disease with (acute) lower respiratory infection; Z96.1 Presence of intraocular lens; K21.9 Gastro-esophageal reflux disease without esophagitis; K90.0 Celiac disease; D53.9 Nutritional anemia, unspecified; J30.9 Allergic rhinitis, unspecified; F10.21 Alcohol dependence, in remission; I10 Essential (primary) hypertension; Z91.018 Allergy to other foods; Z79.899 Other long term (current) drug therapy; Z87.891 Personal history of nicotine dependence; Z87.01 Personal history of pneumonia (recurrent); Z87.19 Personal history of other diseases of the digestive system; Z98.41 Cataract extraction status, right eye; Z98.42 Cataract extraction status, left eye
CPT/HCPCS: 31624; 71046; 80048; 80053; 83036; 85025; 85610; 86140; 87040; 87070; 87102; 87116; 87205; 87206; 87252; 87496; 87498; 87502; 87529; 87634; 87798; 88108; 88305; 89050; 94640

== ENCOUNTER → 2018-01-08 | Outpatient (CLI) | payer OTHER ==
--- NOTE | 2018-01-08 11:12 | US ---
EXAMINATION TYPE: US abdomen complete DATE OF EXAM: 01/08/2018 COMPARISON: Abdominal ultrasound 2017 CLINICAL HISTORY: K70.31 ALCOHOLIC CIRRHOSIS OF LIVER WITH ASCITIES. Patient states no other symptoms . EXAM MEASUREMENTS: Liver Length: 15.6 cm Gallbladder Wall: 0.3 cm CBD: 0.5 cm Spleen: 19.9 cm Right Kidney: 10.3 x 5.9 x 5.4 cm Left Kidney: 11.6 x 6.6 x 4.1 cm Pancreas: limited by overlying midline bowel gas Liver: heterogeneous, increased echogenicity, somewhat nodular contour, cystic lesion right lobe aureliano suring 1.7cm that previously measured 1.0 cm on the exam of 07/20/2017, prominent portal vein appears patent with hepatopedal flow Gallbladder: wall measures in upper limits of normal, 2 echogenic shadowing foci seen: smaller one w ithin neck measures 0.5cm, larger one measures 1.0cm Evidence for sonographic Griffin's sign: no CBD: visualized portions wnl, limited by overlying bowel gas Spleen: enlarged Right Kidney: wnl Left Kidney: cystic area mid pole measuring 1.6 x 2.0 x 1.6cm Upper IVC: wnl Abd Aorta: visualized portions wnl, prox/mid portion limited by overlying midline bowel gas The liver is homogenous. The intrahepatic portion of the IVC and proximal abdominal aorta are within normal limits. There is no evidence of cholelithiasis. Common bile duct is unremarkable. The visu alized portions of the pancreas are homogenous. The spleen is unremarkable. Kidneys are symmetric a nd free of hydronephrosis. No renal lesions are seen. IMPRESSION: 1. Interval growth of the previously seen cystic appearing lesion within the right lobe of the liver now measuring 1.7 cm and previously measuring 1.0 cm on the exam of 07/20/2017. Therefore given the pa sully's background hepatocellular disease and cirrhosis further evaluation with dynamic enhanced CT o r MR of the abdomen is recommended despite the appearance of a cystic nature this lesion. 2. Sequela portal venous hypertension with splenomegaly and prominence of the main portal vein. Hepat opedal flow is seen. 3. Cholelithiasis and redemonstration of gallbladder wall prominence likely secondary to the adjacent hepatocellular disease. 4. Overall stable left renal cyst.
== END | disposition home or self-care (01) ==
LOC: RADUSWWP 08:27
PROVIDERS: ATTEND Internal Medicine
DX: N28.1 Cyst of kidney, acquired (principal); K80.20 Calculus of gallbladder without cholecystitis without obstruction; K76.89 Other specified diseases of liver; K76.6 Portal hypertension; R16.1 Splenomegaly, not elsewhere classified; K74.60 Unspecified cirrhosis of liver
CPT/HCPCS: 76700

== ENCOUNTER → 2018-02-06 | Outpatient (CLI) | payer OTHER ==
[2018-02-06 10:09] LABS: Albumin 2.9 g/dL (3.5-5.0); Calcium 8.6 mg/dL (8.4-10.2); Potassium 4.8 mmol/L (3.5-5.1); Total Bilirubin 2.3 mg/dL (0.2-1.3); Total Protein 6.2 g/dL (6.3-8.2)
== END | disposition home or self-care (01) ==
LOC: LABWHC1 08:58
PROVIDERS: ATTEND Internal Medicine
DX: K70.30 Alcoholic cirrhosis of liver without ascites (principal)
CPT/HCPCS: 36415; 80053

== ENCOUNTER → 2018-02-09 | Outpatient (CLI) | payer OTHER | END | disposition home or self-care (01) | LOC: LABWHC1 15:54 | PROVIDERS: ATTEND Internal Medicine | DX: R50.9 Fever, unspecified (principal) | CPT/HCPCS: 36415; 87040; 87077; 87186 ==

== ENCOUNTER → 2018-02-09 | Outpatient (CLI) | payer OTHER ==
--- NOTE | 2018-02-09 15:59 | XR ---
EXAMINATION TYPE: XR chest 2V DATE OF EXAM: 02/09/2018 COMPARISON: 12/02/2017 INDICATION: Fever, chills TECHNIQUE: Frontal and lateral views of the chest are obtained. FINDINGS: The heart size is normal. The pulmonary vasculature is normal. Some posterior pleural thickening or fluid may be present.. There is a port present on the left with the tip directed towards the brachiocephalic vein. There is a curl within the neck which is stable f rom prior exam IMPRESSION: 1. Clinical consideration for posterior pleural effusion or some pleural thickening is recommended. 2. An acute pulmonary process is not otherwise identified.
== END | disposition home or self-care (01) ==
LOC: RADXRMAIN 15:41
PROVIDERS: ATTEND Internal Medicine
DX: R50.9 Fever, unspecified (principal)
CPT/HCPCS: 71046

== ENCOUNTER 2018-02-12 10:12 | Emergency (ER) | payer OTHER ==
[2018-02-12 10:41] VITALS: RESP 18
[2018-02-12] MEDS ORDERED: SODIUM CHLORIDE 0.9% 1,000 ML IV STA (11:15)
[2018-02-12 12:09] LABS: Anisocytosis Slight; Basophils % (A) 1 %; Eosinophils # (A) 0.1 k/uL (0-0.7); Eosinophils % (A) 2 %; HCT 31.1 % (39.0-53.0); Lymphocytes # (A) 0.9 k/uL (1.0-4.8); Lymphocytes % (A) 26 %; MCHC 32.3 g/dL (31.0-37.0); MCV 96.1 fL (80.0-100.0); Macrocytosis Slight; Mean Platelet Volume 8.5; Monocytes # (A) 0.2 k/uL (0-1.0); Monocytes % (A) 7 %; Neutrophils # (A) 2.2 k/uL (1.3-7.7); Neutrophils % (A) 63 %; Poikilocytosis Slight; RBC 3.23 m/uL (4.30-5.90); RDW 18.9 % (11.5-15.5); WBC 3.5 k/uL (3.8-10.6)
[2018-02-12 12:15] LABS: Platelet Count 97 k/uL (150-450)
[2018-02-12 12:19] LABS: ALT 23 U/L (21-72); AST 52 U/L (17-59); Albumin 2.4 g/dL (3.5-5.0); Alkaline Phosphatase 173 U/L (38-126); Anion Gap 10 mmol/L; Blood Urea Nitrogen 20 mg/dL (9-20); Calcium 8.1 mg/dL (8.4-10.2); Carbon Dioxide 20 mmol/L (22-30); Chloride 107 mmol/L (98-107); Glucose 140 mg/dL (74-99); Magnesium 1.5 mg/dL (1.6-2.3); Phosphorus 3.4 mg/dL (2.5-4.5); Potassium 4.7 mmol/L (3.5-5.1); Sodium 137 mmol/L (137-145); Total Bilirubin 3.2 mg/dL (0.2-1.3)
--- NOTE | 2018-02-12 12:24 | ED ---
General Adult HPI - General Chief complaint: Recheck/Abnormal Lab/Rx Stated complaint: abnormal labs Time Seen by Provider: 02/12/18 10:47 Source: patient, RN notes reviewed, old records reviewed Mode of arrival: ambulatory Limitations: no limitations - History of Present Illness Initial comments: This is a 37-year-old male to the ER for evaluation. Patient is ER today for evaluation of abnormal outpatient lab test. Patient is liver transplant patient. Patient had outpatient labs done 3 days ago, including x-ray. Patient was told that he had positive blood cultures, patient does admit to feeling fevers and chills. Denies cough or congestion no specific abdominal pain nausea vomiting or diarrhea. - Related Data Home Medications Medication Instructions Recorded Confirmed Montelukast [Singulair] 10 mg PO DAILY 10/15/14 02/12/18 Ferrous Sulfate [Iron] 325 mg PO DAILY 07/20/17 02/12/18 Albuterol Nebulized [Ventolin 2.5 mg INHALATION RT-QID PRN 08/29/17 02/12/18 Nebulized] Epoetin Messi [Procrit] 40,000 unit INJ Q14D 11/14/17 02/12/18 Furosemide [Lasix] 20 mg PO DAILY 11/14/17 02/12/18 Gabapentin [Neurontin] 300 mg PO BID 11/14/17 02/12/18 Mometasone/Formoterol [Dulera 200 2 puff INHALATION RT-BID 11/14/17 02/12/18 Mcg/5 Mcg Inhaler] Spironolactone [Aldactone] 50 mg PO DAILY 11/14/17 02/12/18 Allergies Allergy/AdvReac Type Severity Reaction Status Date / Time wheat AdvReac Severe Nausea & Verified 02/12/18 10:57 Vomiting & Diarrhea,flu like symptoms gluten AdvReac Nausea & Verified 02/12/18 10:57 Vomiting & Diarrhea levofloxacin [From Levaquin] AdvReac TENDON PAIN Verified 02/12/18 10:57 Review of Systems ROS Statement: Those systems with pertinent positive or pertinent negative responses have been documented in the HPI. ROS Other: All systems not noted in ROS Statement are negative. Past Medical History Past Medical History: Asthma, GI Bleed, Hypertension, Pneumonia Additional Past Medical History / Comment(s): Cirrhosis-pt on liver transplant list, hypogammaglobulinemia, common variable immunoglobulin deficiency-receives IV IG with last infusion 11/08/17-gets infusions q 3 weeks, ascities, anemia, bronchitis, neuropathy in hands and legs but less so since gluten free diet, ciliac disease, diverticulosis, rectal bleed, umbilical hernia, R inguinal hernia, necrotizing fascitis under L arm 20 yrs ago. History of Any Multi-Drug Resistant Organisms: None Reported Additional Past Surgical History / Comment(s): vasectomy, mediport placement x 3 -for IVIG-currently in L side of chest, bilateral cataract/lens surgery, removal of cervical lymph node-benign, BMA, colonoscopies and EGDs, bilateral myringotomy, abdominal paracentesis. Past Anesthesia/Blood Transfusion Reactions: No Reported Reaction Additional Past Anesthesia/Blood Transfusion Reaction / Comment(s): no problems prior blood transfusion Past Psychological History: No Psychological Hx Reported Smoking Status: Former smoker Past Alcohol Use History: None Reported Past Drug Use History: None Reported - Past Family History Father Family Medical History: Thyroid Disorder Additional Family Medical History / Comment(s): Father has hypothyroidism. He is 89 yrs old. Mother Family Medical History: Liver Disease Additional Family Medical History / Comment(s): Mother from hepatitis C at the age of 60. General Exam Limitations: no limitations General appearance: alert, in no apparent distress Head exam: Present: atraumatic, normocephalic, normal inspection Eye exam: Present: normal appearance, PERRL, EOMI. Absent: scleral icterus, conjunctival injection, periorbital swelling ENT exam: Present: normal exam, mucous membranes moist Neck exam: Present: normal inspection. Absent: tenderness, meningismus, lymphadenopathy Respiratory exam: Present: normal lung sounds bilaterally. Absent: respiratory distress, wheezes, rales, rhonchi, stridor Cardiovascular Exam: Present: regular rate, normal rhythm, normal heart sounds. Absent: systolic murmur, diastolic murmur, rubs, gallop, clicks GI/Abdominal exam: Present: soft, normal bowel sounds. Absent: distended, tenderness, guarding, rebound, rigid Extremities exam: Present: normal inspection, full ROM, normal capillary refill. Absent: tenderness, pedal edema, joint swelling, calf tenderness Back exam: Present: normal inspection Neurological exam: Present: alert, oriented X3, CN II-XII intact Psychiatric exam: Present: normal affect, normal mood Skin exam: Present: warm, dry, intact, normal color. Absent: rash Course Vital Signs 02/12/18 10:38 Temperature 98.9 F Pulse Rate 87 Respiratory 18 Rate Blood Pressure 122/63 O2 Sat by Pulse 100 Oximetry - Reevaluation(s) Reevaluation #1: 02/12/18 12:24 Medical record outpatient lab tests are reviewed including cultures Medical Decision Making - Medical Decision Making 57 male the ER for outpatient lab tests abnormality. Lab tests are reviewed, patient had positive blood cultures although positive for contaminant. Patient can be discharged home as he is asymptomatic lab values are normal and patient has no fever - Lab Data Result diagrams: 02/12/18 11:48 02/12/18 11:48 Lab Results 02/12/18 02/12/18 02/12/18 Range/Units 11:48 11:48 11:48 WBC 3.5 L (3.8-10.6) k/uL RBC 3.23 L (4.30-5.90) m/uL Hgb 10.0 L (13.0-17.5) gm/dL Hct 31.1 L (39.0-53.0) % MCV 96.1 (80.0-100.0) fL MCH 31.0 (25.0-35.0) pg MCHC 32.3 (31.0-37.0) g/dL RDW 18.9 H (11.5-15.5) % Plt Count 97 L (150-450) k/uL Neutrophils % 63 % Lymphocytes % 26 % Monocytes % 7 % Eosinophils % 2 % Basophils % 1 % Neutrophils # 2.2 (1.3-7.7) k/uL Lymphocytes # 0.9 L (1.0-4.8) k/uL Monocytes # 0.2 (0-1.0) k/uL Eosinophils # 0.1 (0-0.7) k/uL Basophils # 0.0 (0-0.2) k/uL Poikilocytosis Slight Anisocytosis Slight Macrocytosis Slight PT (9.0-12.0) sec INR (<1.2) APTT (22.0-30.0) sec Sodium 137 (137-145) mmol/L Potassium 4.7 (3.5-5.1) mmol/L Chloride 107 (98-107) mmol/L Carbon Dioxide 20 L (22-30) mmol/L Anion Gap 10 mmol/L BUN 20 (9-20) mg/dL Creatinine 0.90 (0.66-1.25) mg/dL Est GFR (CKD-EPI)AfAm >90 (>60 ml/min/1.73 sqM) Est GFR (CKD-EPI)NonAf >90 (>60 ml/min/1.73 sqM) Glucose 140 H (74-99) mg/dL Plasma Lactic Acid Sky (0.7-2.0) mmol/L Calcium 8.1 L (8.4-10.2) mg/dL Phosphorus 3.4 (2.5-4.5) mg/dL Magnesium 1.5 L (1.6-2.3) mg/dL Total Bilirubin 3.2 H (0.2-1.3) mg/dL AST 52 (17-59) U/L ALT 23 (21-72) U/L Alkaline Phosphatase 173 H (38-126) U/L Total Creatine Kinase <20 L (55-170) U/L CK-MB (CK-2) 0.3 (0.0-2.4) ng/mL CK-MB (CK-2) Rel Index Troponin I <0.012 (0.000-0.034) ng/mL Total Protein 5.0 L (6.3-8.2) g/dL Albumin 2.4 L (3.5-5.0) g/dL 02/12/18 02/12/18 Range/Units 11:48 11:48 WBC (3.8-10.6) k/uL RBC (4.30-5.90) m/uL Hgb (13.0-17.5) gm/dL Hct (39.0-53.0) % MCV (80.0-100.0) fL MCH (25.0-35.0) pg MCHC (31.0-37.0) g/dL RDW (11.5-15.5) % Plt Count (150-450) k/uL Neutrophils % % Lymphocytes % % Monocytes % % Eosinophils % % Basophils % % Neutrophils # (1.3-7.7) k/uL Lymphocytes # (1.0-4.8) k/uL Monocytes # (0-1.0) k/uL Eosinophils # (0-0.7) k/uL Basophils # (0-0.2) k/uL Poikilocytosis Anisocytosis Macrocytosis PT 11.5 (9.0-12.0) sec INR 1.2 H (<1.2) APTT 29.1 (22.0-30.0) sec Sodium (137-145) mmol/L Potassium (3.5-5.1) mmol/L Chloride (98-107) mmol/L Carbon Dioxide (22-30) mmol/L Anion Gap mmol/L BUN (9-20) mg/dL Creatinine (0.66-1.25) mg/dL Est GFR (CKD-EPI)AfAm (>60 ml/min/1.73 sqM) Est GFR (CKD-EPI)NonAf (>60 ml/min/1.73 sqM) Glucose (74-99) mg/dL Plasma Lactic Acid Sky 2.0 (0.7-2.0) mmol/L Calcium (8.4-10.2) mg/dL Phosphorus (2.5-4.5) mg/dL Magnesium (1.6-2.3) mg/dL Total Bilirubin (0.2-1.3) mg/dL AST (17-59) U/L ALT (21-72) U/L Alkaline Phosphatase (38-126) U/L Total Creatine Kinase (55-170) U/L CK-MB (CK-2) (0.0-2.4) ng/mL CK-MB (CK-2) Rel Index Troponin I (0.000-0.034) ng/mL Total Protein (6.3-8.2) g/dL Albumin (3.5-5.0) g/dL Disposition Clinical Impression: Abnormal laboratory test Narrative: Normal Lab test Disposition: HOME SELF-CARE Condition: Fair Instructions: Normal Exam (ED) Is patient prescribed a controlled substance at discharge?: No If prescribed controlled substance>3 days was MAPS reviewed?: No When asked, does pt state using other controlled substances?: No Referrals: None,Stated [Primary Care Provider] - 1-2 days
[2018-02-12 12:28] LABS: Creatine Kinase <20 U/L (55-170)
[2018-02-12 12:42] LABS: Creatine Kinase MB 0.3 ng/mL (0.0-2.4); Troponin I <0.012 ng/mL (0.000-0.034)
[2018-02-12 12:48] LABS: INR 1.2 (<1.2); Partial Thromboplastin Time 29.1 sec (22.0-30.0); Prothrombin Time 11.5 sec (9.0-12.0)
[2018-02-12] MEDS ORDERED: SODIUM CHLORIDE 0.9% 1,000 ML IV ONE (12:51)
[2018-02-12] MEDS ORDERED: VANCOMYCIN IV PER PHARMACY 1 EACH MISC MISCELLANE PRN (12:51)
[2018-02-12] MEDS ORDERED: AMPICILLIN-SULBACTAM 3 GM in SODIUM CHLORIDE 0.9% 100 ML IVPB STA (12:56)
[2018-02-12 13:06] VITALS: BP 113/57; PULSE 82; TEMP 97.8
[2018-02-12] MEDS ORDERED: AMPICILLIN-SULBACTAM 3 GM in SODIUM CHLORIDE 0.9% 100 ML IVPB SCH (18:00)
== END 2018-02-12 13:07 | disposition home or self-care (01) ==
LOC: EC 10:12
DX: R78.9 Finding of unspecified substance, not normally found in blood (principal); J45.909 Unspecified asthma, uncomplicated; D64.9 Anemia, unspecified; K74.60 Unspecified cirrhosis of liver; Z87.891 Personal history of nicotine dependence; Z79.51 Long term (current) use of inhaled steroids; Z79.899 Other long term (current) drug therapy; Z88.1 Allergy status to other antibiotic agents; Z91.018 Allergy to other foods; Z87.01 Personal history of pneumonia (recurrent)
CPT/HCPCS: 36415; 80053; 82550; 82553; 83605; 83735; 84100; 84484; 85025; 85610; 85730; 87040; 87077; 87186; 96360; 99284

== ENCOUNTER → 2018-02-12 | Outpatient (CLI) | payer OTHER | END | disposition home or self-care (01) | LOC: LABWHC1 15:26 | PROVIDERS: ATTEND Internal Medicine | DX: R78.81 Bacteremia (principal) | CPT/HCPCS: 36415; 87040; 87077; 87186 ==

== ENCOUNTER → 2018-02-28 | Outpatient (CLI) | payer OTHER ==
--- NOTE | 2018-02-28 14:50 | US ---
EXAMINATION TYPE: US venous doppler duplex LE BI DATE OF EXAM: 02/28/2018 2:39 PM COMPARISON: NONE CLINICAL HISTORY: 57-year-old male swelling R22.41 R22.42. swelling to lower legs, no h/o DVT, not in jury SIDE PERFORMED: Bilateral TECHNIQUE: The lower extremity deep venous system is examined utilizing real time linear array sonog selene with graded compression, doppler sonography and color-flow sonography. FINDINGS: VESSELS IMAGED: External Iliac Vein (EIV) Common Femoral Vein Deep Femoral Vein Greater Saphenous Vein * Femoral Vein Popliteal Vein Small Saphenous Vein * Proximal Calf Veins (* superficial vessels) Right Leg: Appears negative for DVT Left Leg: Appears negative for DVT tech impression to Zehra at office Mild subcutaneous edema of both legs. IMPRESSION: No evidence for DVT within the bilateral lower extremities imaged from the groin to the upper calves. Mild subcutaneous edema noted in both legs.
--- NOTE | 2018-02-28 15:14 | XR ---
EXAMINATION TYPE: XR chest 2V DATE OF EXAM: 02/28/2018 COMPARISON: 02/09/2018 HISTORY: Shortness of breath TECHNIQUE: Frontal and lateral views of the chest are obtained. FINDINGS: Scattered senescent parenchymal changes noted. Right-sided PICC line is appropriately placed with its distal tip overlying the SVC. Increasing left basilar pleural-parenchymal density which may reflect pleural effusion however underl jose de jesus infiltrate or other process is not excluded. Continued follow-up advised. Heart size is stable. Mediastinal structures are stable and grossly unremarkable. No evidence for hilar prominence. Degenerative changes dorsal spine. IMPRESSION: 1. Increasing left basilar pleural-parenchymal density which may reflect pleural effusion however und erlying infiltrate or other process is not excluded. Continued follow-up advised.
== END | disposition home or self-care (01) ==
LOC: RADUSWWP 14:06
PROVIDERS: ATTEND Internal Medicine Hematology & Oncology
DX: R91.8 Other nonspecific abnormal finding of lung field (principal); R60.0 Localized edema
CPT/HCPCS: 71046; 80053; 83735; 93970

== ENCOUNTER → 2018-03-22 | Outpatient (CLI) | payer OTHER ==
[2018-03-22 09:18] LABS: Anisocytosis Slight; Basophils % (A) 1 %; Eosinophils # (A) 0.3 k/uL (0-0.7); Eosinophils % (A) 9 %; HCT 29.5 % (39.0-53.0); HGB 9.2 gm/dL (13.0-17.5); Hypochromasia Moderate; Lymphocytes # (A) 1.2 k/uL (1.0-4.8); Lymphocytes % (A) 32 %; MCH 31.6 pg (25.0-35.0); MCHC 31.4 g/dL (31.0-37.0); MCV 100.6 fL (80.0-100.0); Macrocytosis Moderate; Mean Platelet Volume 8.4; Monocytes # (A) 0.2 k/uL (0-1.0); Monocytes % (A) 5 %; Neutrophils % (A) 51 %; Platelet Count 108 k/uL (150-450); RBC 2.93 m/uL (4.30-5.90); RDW 19.5 % (11.5-15.5); WBC 3.8 k/uL (3.8-10.6)
[2018-03-22 09:23] LABS: Albumin 2.6 g/dL (3.5-5.0); Calcium 8.3 mg/dL (8.4-10.2); Potassium 5.1 mmol/L (3.5-5.1); Total Bilirubin 2.6 mg/dL (0.2-1.3); Total Protein 4.7 g/dL (6.3-8.2)
== END | disposition home or self-care (01) ==
LOC: LABWHC1 08:52
PROVIDERS: ATTEND Nurse Practitioner Family
DX: R78.81 Bacteremia (principal); D83.9 Common variable immunodeficiency, unspecified
CPT/HCPCS: 36415; 80053; 85025

== ENCOUNTER → 2018-04-02 | Outpatient (CLI) | payer OTHER ==
[2018-04-02 13:46] LABS: INR 1.2 (<1.2); Prothrombin Time 11.7 sec (9.0-12.0)
[2018-04-02 13:53] LABS: Albumin 2.6 g/dL (3.5-5.0); Calcium 8.3 mg/dL (8.4-10.2); Potassium 3.8 mmol/L (3.5-5.1); Total Bilirubin 2.6 mg/dL (0.2-1.3); Total Protein 5.1 g/dL (6.3-8.2)
== END | disposition home or self-care (01) ==
LOC: LABWHC1 12:58
PROVIDERS: ATTEND Internal Medicine
DX: Z01.812 Encounter for preprocedural laboratory examination (principal); K70.30 Alcoholic cirrhosis of liver without ascites
CPT/HCPCS: 36415; 80053; 85610; 86850; 86900; 86901

== ENCOUNTER 2018-04-22 02:32 | Inpatient (IN) | payer OTHER ==
[2018-04-22] MEDS ORDERED: PIPERACILLIN-TAZOBACTAM 3.375 GM in DEXTROSE/WATER 1 50ML.BAG IVPB STA (03:07)
[2018-04-22] MEDS ORDERED: MORPHINE SULFATE 2 MG/ML SYRINGE IV STA ×2 (03:08→06:01)
[2018-04-22] MEDS ORDERED: VANCOMYCIN IV PER PHARMACY 1 EACH MISC MISCELLANE PRN (03:08)
[2018-04-22 03:15] LABS: Anisocytosis Moderate; Basophils % (A) 0 %; Eosinophils % (A) 0 %; HCT 30.1 % (39.0-53.0); HGB 9.4 gm/dL (13.0-17.5); Hypochromasia Moderate; Lymphocytes # (A) 0.4 k/uL (1.0-4.8); Lymphocytes % (A) 15 %; MCH 31.2 pg (25.0-35.0); MCHC 31.1 g/dL (31.0-37.0); MCV 100.2 fL (80.0-100.0); Macrocytosis Moderate; Mean Platelet Volume 8.7; Monocytes # (A) 0.1 k/uL (0-1.0); Monocytes % (A) 3 %; Neutrophils # (A) 2.3 k/uL (1.3-7.7); Neutrophils % (A) 80 %; Platelet Count 149 k/uL (150-450); Poikilocytosis Slight; RBC 3.01 m/uL (4.30-5.90); RDW 20.3 % (11.5-15.5); WBC 2.8 k/uL (3.8-10.6)
[2018-04-22 03:26] LABS: INR 1.3 (<1.2); Partial Thromboplastin Time 24.7 sec (22.0-30.0); Prothrombin Time 12.3 sec (9.0-12.0)
[2018-04-22 03:28] LABS: Albumin 2.4 g/dL (3.5-5.0); Calcium 7.7 mg/dL (8.4-10.2); Potassium 4.7 mmol/L (3.5-5.1); Total Bilirubin 2.6 mg/dL (0.2-1.3)
[2018-04-22 03:28] LABS: Appearance,Urine Clear (Clear); Bilirubin,Urine Negative (Negative); Blood,Urine Negative (Negative); Color,Urine Yellow; Glucose,Urine (UA) Negative (Negative); Ketones,Urine Negative (Negative); Leukocyte Esterase,Urine Negative (Negative); Nitrite,Urine Negative (Negative); PH, Urine 5.5 (5.0-8.0); Protein,Urine Negative (Negative); Specific Gravity,Urine 1.012 (1.001-1.035); Urobilinogen,Urine <2.0 mg/dL (<2.0)
[2018-04-22] MEDS ORDERED: VANCOMYCIN 1,500 MG in SODIUM CHLORIDE 0.9% 250 ML IVPB ONE (03:30)
[2018-04-22] MEDS: SODIUM CHLORIDE 0.9% 500 ML IV SCH (03:34)
[2018-04-22] MEDS ORDERED: IBUPROFEN 800 MG TAB PO STA (03:38)
--- NOTE | 2018-04-22 03:59 | XR ---
EXAMINATION TYPE: XR chest 1V portable DATE OF EXAM: 04/22/2018 COMPARISON: February 28, 2018 HISTORY: Fever leg swelling TECHNIQUE: Single frontal view of the chest is obtained. FINDINGS: Heart is normal. There is some blunting of the costophrenic angles and more on the left si de. There is no gross heart failure. There is probably infiltrate behind the heart in the left lower lobe. There is some lucency at the left lung apex on the lateral aspect that could relate to a pneumo thorax. IMPRESSION: Possible new pneumothorax compared to old exam. There is been removal of the right centr al venous catheter. Left pleural effusion and left lower lobe infiltrate appear not significantly dif ferent. This exam was discussed with ER physician at 4:00 AM.
--- NOTE | 2018-04-22 04:59 | XR ---
EXAMINATION TYPE: XR chest 2V DATE OF EXAM: 04/22/2018 COMPARISON: Today HISTORY: Possible pneumothorax. Short of breath. TECHNIQUE: Frontal and lateral views of the chest are obtained. FINDINGS: Inspiration and expiration views of the chest and lateral view were obtained and show no s ign of a pneumothorax. There is blunting of the left posterior costophrenic angle consistent with ple ural fluid. There is evidence for some infiltrates at the left lung base. IMPRESSION: No pneumothorax. Pleural fluid and infiltrate at the left posterior lung base. No heart failure.
[2018-04-22] MEDS ORDERED: ENOXAPARIN 100 MG/ML SYRINGE SQ STA (05:17)
[2018-04-22] MEDS ORDERED: SODIUM CHLORIDE 0.9% 2,600 ML IV ONE (05:20)
[2018-04-22] MEDS ORDERED: GENTAMICIN PER PHARMACY MISCELLANE SCH (06:15)
--- NOTE | 2018-04-22 07:06 | ED ---
Fever HPI - General Chief Complaint: Extremity Injury, Lower Stated Complaint: Leg swelling, MOE Time Seen by Provider: 04/22/18 02:41 Source: patient, EMS Mode of arrival: EMS Limitations: no limitations - History of Present Illness Initial Comments: This patient is a 57-year-old man who presents with chief complaint of having left leg pain and swelling. This is been coming on over the past hours tonight. The patient also noted that the leg is feeling somewhat warmer than usual. Patient states that the pain is now limiting his getting up and walking. He does have some history of recent bilateral lower extremity edema and recently had a duplex study that was negative. Here the patient does have fever, and on the review of systems he notes that he has a chronic cough with some occasional yellow sputum. MD Complaint: fever, other -: hour(s) (Left leg pain) Temperature Source: subjective Associated Symptoms: cough - Related Data Home Medications Medication Instructions Recorded Confirmed Montelukast [Singulair] 10 mg PO DAILY 10/15/14 04/22/18 Ferrous Sulfate [Iron] 325 mg PO DAILY 07/20/17 04/22/18 Albuterol Nebulized [Ventolin 2.5 mg INHALATION RT-QID PRN 08/29/17 04/22/18 Nebulized] Furosemide [Lasix] 20 mg PO DAILY 11/14/17 04/22/18 Gabapentin [Neurontin] 300 mg PO BID 11/14/17 04/22/18 Mometasone/Formoterol [Dulera 200 2 puff INHALATION RT-BID 11/14/17 04/22/18 Mcg/5 Mcg Inhaler] Spironolactone [Aldactone] 50 mg PO DAILY 11/14/17 04/22/18 Epoetin Messi [Procrit] 60,000 unit INJ WE 04/22/18 04/22/18 Allergies Allergy/AdvReac Type Severity Reaction Status Date / Time wheat AdvReac Severe Nausea & Verified 04/22/18 10:43 Vomiting & Diarrhea,flu like symptoms gluten AdvReac Nausea & Verified 04/22/18 10:43 Vomiting & Diarrhea levofloxacin [From Levaquin] AdvReac TENDON PAIN Verified 04/22/18 10:43 Review of Systems ROS Statement: Those systems with pertinent positive or pertinent negative responses have been documented in the HPI. ROS Other: All systems not noted in ROS Statement are negative. Constitutional: Reports: fever. Denies: chills, weakness Respiratory: Reports: cough. Denies: dyspnea, wheezes Cardiovascular: Reports: edema. Denies: chest pain, palpitations, dyspnea on exertion, orthopnea, syncope Gastrointestinal: Denies: abdominal pain, nausea, vomiting, diarrhea Genitourinary: Denies: dysuria, hematuria Musculoskeletal: Denies: back pain Skin: Denies: rash Neurological: Denies: headache, weakness, numbness Past Medical History Past Medical History: Asthma, GI Bleed, Hypertension, Pneumonia Additional Past Medical History / Comment(s): Cirrhosis-pt on liver transplant list, hypogammaglobulinemia, common variable immunoglobulin deficiency-receives IV IG with last infusion 11/08/17-gets infusions q 3 weeks, ascities, anemia, bronchitis, neuropathy in hands and legs but less so since gluten free diet, ciliac disease, diverticulosis, rectal bleed, umbilical hernia, R inguinal hernia, necrotizing fascitis under L arm 20 yrs ago. History of Any Multi-Drug Resistant Organisms: MRSA Additional Past Surgical History / Comment(s): vasectomy, mediport placement x 3 -for IVIG-currently in L side of chest, bilateral cataract/lens surgery, removal of cervical lymph node-benign, BMA, colonoscopies and EGDs, bilateral myringotomy, abdominal paracentesis. Past Anesthesia/Blood Transfusion Reactions: No Reported Reaction Additional Past Anesthesia/Blood Transfusion Reaction / Comment(s): no problems prior blood transfusion Past Psychological History: No Psychological Hx Reported Smoking Status: Former smoker Past Alcohol Use History: None Reported Past Drug Use History: None Reported - Past Family History Father Family Medical History: Thyroid Disorder Additional Family Medical History / Comment(s): Father has hypothyroidism. He is 89 yrs old. Mother Family Medical History: Liver Disease Additional Family Medical History / Comment(s): Mother from hepatitis C at the age of 60. General Exam Limitations: no limitations General appearance: alert, in distress Head exam: Present: normocephalic Eye exam: Present: normal appearance. Absent: scleral icterus, conjunctival injection ENT exam: Present: mucous membranes dry Neck exam: Present: normal inspection, full ROM. Absent: meningismus Respiratory exam: Present: normal lung sounds bilaterally. Absent: respiratory distress, wheezes, rales, rhonchi, stridor, accessory muscle use, decreased breath sounds, prolonged expiratory Cardiovascular Exam: Present: normal rhythm, tachycardia, normal heart sounds. Absent: systolic murmur, diastolic murmur, rubs, gallop GI/Abdominal exam: Present: soft. Absent: distended, tenderness, guarding, rebound, rigid, mass, pulsatile mass, hernia Extremities exam: Present: tenderness, pedal edema, calf tenderness, other ( Patient has bilateral leg edema but it is worse on the left, and the left is associated with erythema and warmth, consistent with cellulitis.). Absent: normal capillary refill Back exam: Present: normal inspection. Absent: CVA tenderness (R), CVA tenderness (L) Neurological exam: Present: alert, oriented X3 Skin exam: Present: warm, dry, intact Course Vital Signs 04/22/18 04/22/18 04/22/18 02:42 03:43 04:23 Temperature 103.1 F H 102.7 F H Pulse Rate 125 H 116 H 113 H Respiratory 16 20 20 Rate Blood Pressure 144/65 147/70 117/58 Blood Pressure [Right Arm] O2 Sat by Pulse 98 98 97 Oximetry 04/22/18 04/22/18 04/22/18 05:43 07:15 07:25 Temperature 98.7 F 97.0 F L Pulse Rate 103 H 104 H 105 H Respiratory 20 16 Rate Blood Pressure 111/53 89/51 82/49 Blood Pressure [Right Arm] O2 Sat by Pulse 97 96 Oximetry 04/22/18 04/22/18 04/22/18 07:44 08:10 09:08 Temperature Pulse Rate 105 H 100 100 Respiratory 16 16 16 Rate Blood Pressure 91/49 86/47 112/61 Blood Pressure [Right Arm] O2 Sat by Pulse 97 95 95 Oximetry 04/22/18 04/22/18 04/22/18 10:08 11:00 11:14 Temperature 97.7 F Pulse Rate 98 92 Respiratory 16 18 24 Rate Blood Pressure 100/61 94/54 Blood Pressure 83/46 [Right Arm] O2 Sat by Pulse 96 94 L Oximetry 04/22/18 04/22/18 04/22/18 11:15 11:30 11:49 Temperature 97.4 F L Pulse Rate 94 96 97 Respiratory 18 18 18 Rate Blood Pressure 97/53 98/50 91/54 Blood Pressure [Right Arm] O2 Sat by Pulse 93 L 98 98 Oximetry 04/22/18 04/22/18 04/22/18 12:00 13:15 15:29 Temperature 97.0 F L Pulse Rate 96 96 100 Respiratory 18 18 18 Rate Blood Pressure 95/53 98/56 92/54 Blood Pressure [Right Arm] O2 Sat by Pulse 94 L 99 98 Oximetry Procedures - Sepsis Sepsis Focused Exam #1 Sepsis Focused Exam Complete: Yes Vital Signs & RN Notes Reviewed: Yes Capillary Refill: < 2 Seconds: Fingers Peripheral Pulses: Normal: Radial (R) Skin Color: Erythema Respiratory Exam: normal lung sounds Cardiovascular Exam: normal rhythm, tachycardia (Rate approximately 104 at my exam), normal heart sounds Medical Decision Making - Medical Decision Making Patient's 57-year-old man presenting with acute onset of left lower extremity pain and swelling worsening over tonight. The primary concern is for left leg cellulitis, and the patient is started on empiric anabiotic's here, and cultures are sent. He is also found to have probable left lower lobe infiltrate. Case discussed with Dr. Romero, covering for the physicians primary care doctor. We'll also consult infectious disease and given that the patient appears septic will consult Dr. Mcintyre. - Lab Data Result diagrams: 04/23/18 05:40 04/23/18 05:40 Lab Results 04/22/18 04/22/18 04/22/18 Range/Units 02:45 02:45 02:45 WBC 2.8 L (3.8-10.6) k/uL RBC 3.01 L (4.30-5.90) m/uL Hgb 9.4 L (13.0-17.5) gm/dL Hct 30.1 L (39.0-53.0) % MCV 100.2 H (80.0-100.0) fL MCH 31.2 (25.0-35.0) pg MCHC 31.1 (31.0-37.0) g/dL RDW 20.3 H (11.5-15.5) % Plt Count 149 L (150-450) k/uL Neutrophils % 80 % Lymphocytes % 15 % Monocytes % 3 % Eosinophils % 0 % Basophils % 0 % Neutrophils # 2.3 (1.3-7.7) k/uL Lymphocytes # 0.4 L (1.0-4.8) k/uL Monocytes # 0.1 (0-1.0) k/uL Eosinophils # 0.0 (0-0.7) k/uL Basophils # 0.0 (0-0.2) k/uL Hypochromasia Moderate Poikilocytosis Slight Anisocytosis Moderate Macrocytosis Moderate PT (9.0-12.0) sec INR (<1.2) APTT (22.0-30.0) sec Sodium 136 L (137-145) mmol/L Potassium 4.7 (3.5-5.1) mmol/L Chloride 107 (98-107) mmol/L Carbon Dioxide 13 L (22-30) mmol/L Anion Gap 16 mmol/L BUN 52 H (9-20) mg/dL Creatinine 1.50 H (0.66-1.25) mg/dL Est GFR (CKD-EPI)AfAm 60 (>60 ml/min/1.73 sqM) Est GFR (CKD-EPI)NonAf 52 (>60 ml/min/1.73 sqM) Glucose 124 H (74-99) mg/dL Lactic Ac Sepsis Rflx Plasma Lactic Acid Sky 5.1 H* (0.7-2.0) mmol/L Calcium 7.7 L (8.4-10.2) mg/dL Total Bilirubin 2.6 H (0.2-1.3) mg/dL AST 50 (17-59) U/L ALT 32 (21-72) U/L Alkaline Phosphatase 233 H (38-126) U/L Total Protein 5.0 L (6.3-8.2) g/dL Albumin 2.4 L (3.5-5.0) g/dL Urine Color Urine Appearance (Clear) Urine pH (5.0-8.0) Ur Specific [place] (1.001-1.035) Urine Protein (Negative) Urine Glucose (UA) (Negative) Urine Ketones (Negative) Urine Blood (Negative) Urine Nitrite (Negative) Urine Bilirubin (Negative) Urine Urobilinogen (<2.0) mg/dL Ur Leukocyte Esterase (Negative) 04/22/18 04/22/18 04/22/18 Range/Units 02:45 03:19 03:31 WBC (3.8-10.6) k/uL RBC (4.30-5.90) m/uL Hgb (13.0-17.5) gm/dL Hct (39.0-53.0) % MCV (80.0-100.0) fL MCH (25.0-35.0) pg MCHC (31.0-37.0) g/dL RDW (11.5-15.5) % Plt Count (150-450) k/uL Neutrophils % % Lymphocytes % % Monocytes % % Eosinophils % % Basophils % % Neutrophils # (1.3-7.7) k/uL Lymphocytes # (1.0-4.8) k/uL Monocytes # (0-1.0) k/uL Eosinophils # (0-0.7) k/uL Basophils # (0-0.2) k/uL Hypochromasia Poikilocytosis Anisocytosis Macrocytosis PT 12.3 H (9.0-12.0) sec INR 1.3 H (<1.2) APTT 24.7 (22.0-30.0) sec Sodium (137-145) mmol/L Potassium (3.5-5.1) mmol/L Chloride (98-107) mmol/L Carbon Dioxide (22-30) mmol/L Anion Gap mmol/L BUN (9-20) mg/dL Creatinine (0.66-1.25) mg/dL Est GFR (CKD-EPI)AfAm (>60 ml/min/1.73 sqM) Est GFR (CKD-EPI)NonAf (>60 ml/min/1.73 sqM) Glucose (74-99) mg/dL Lactic Ac Sepsis Rflx Y Plasma Lactic Acid Sky (0.7-2.0) mmol/L Calcium (8.4-10.2) mg/dL Total Bilirubin (0.2-1.3) mg/dL AST (17-59) U/L ALT (21-72) U/L Alkaline Phosphatase (38-126) U/L Total Protein (6.3-8.2) g/dL Albumin (3.5-5.0) g/dL Urine Color Yellow Urine Appearance Clear (Clear) Urine pH 5.5 (5.0-8.0) Ur Specific [place] 1.012 (1.001-1.035) Urine Protein Negative (Negative) Urine Glucose (UA) Negative (Negative) Urine Ketones Negative (Negative) Urine Blood Negative (Negative) Urine Nitrite Negative (Negative) Urine Bilirubin Negative (Negative) Urine Urobilinogen <2.0 (<2.0) mg/dL Ur Leukocyte Esterase Negative (Negative) Disposition Clinical Impression: Fever, Cellulitis, Pneumonia, Sepsis Disposition: ADMITTED IP TO THIS HOSP Condition: Serious
[2018-04-22] MEDS ORDERED: NOREPINEPHRINE 4 MG in DEXTROSE 5% IN WATER 250 ML IV SCH ×2 (07:30)
--- NOTE | 2018-04-22 07:44 | US ---
EXAMINATION TYPE: US venous doppler duplex LE LT DATE OF EXAM: 04/22/2018 6:10 AM COMPARISON: US 02/28/2018 CLINICAL HISTORY: 57-year-old male Pain. Left leg swelling, fever, and skin redness since last night; patient stated ran out of Lasix and is on a liver transplant list SIDE PERFORMED: Left TECHNIQUE: The lower extremity deep venous system is examined utilizing real time linear array sonog selene with graded compression, doppler sonography and color-flow sonography. FINDINGS: VESSELS IMAGED: Common Femoral Vein Deep Femoral Vein Greater Saphenous Vein * Femoral Vein Popliteal Vein Small Saphenous Vein * Proximal Calf Veins Posterior tibial vein (* superficial vessels) Some subcutaneous soft tissue edema is noted while scanning the calf. Left Leg: Negative for DVT; couple of lymph nodes are noted left groin with the largest measuring 2. 2 x 1.2 x 0.7cm, prominent but not enlarged by size criteria IMPRESSION: 1. No evidence for DVT within the left lower extremity. 2. Some subcutaneous edema in the calf.
[2018-04-22] MEDS ORDERED: SPIRONOLACTONE 25 MG TAB PO SCH (09:00)
[2018-04-22] MEDS ORDERED: GENTAMICIN 160 MG in SODIUM CHLORIDE 0.9% 100 ML IVPB SCH (09:00)
[2018-04-22] MEDS: FERROUS SULFATE 325 MG TAB PO SCH (09:05)
[2018-04-22] MEDS: GABAPENTIN 300 MG CAP PO SCH ×2 (09:05→21:22)
[2018-04-22] MEDS: MONTELUKAST 10 MG TAB PO SCH (09:06)
[2018-04-22] MEDS: SYMBICORT 160-4.5 MCG INHALER INHALATION SCH ×2 (09:10→19:31)
[2018-04-22] MEDS: PIPERACILLIN-TAZOBACTAM 3.375 GM in DEXTROSE/WATER 1 50ML.BAG IVPB SCH ×2 (12:21→21:22)
[2018-04-22] MEDS ORDERED: HEPARIN SODIUM,PORCINE 5,000 UNIT/ML 1 ML VIAL SQ SCH (16:00)
[2018-04-22 16:09] LABS: Glucose,Whole Blood 107 mg/dL (75-99)
--- NOTE | 2018-04-22 16:28 | P.CNPUL ---
History of Present Illness Consult date: 04/22/18 Chief complaint: Sepsis, lower extremity cellulitis, edema. History of present illness: 57-year-old patient presented with lower extremity swelling in addition to erythema warmth and hotness in the left lower extremity more than the right. The patient was suspected of cellulitis with secondary sepsis. The patient was hypotensive and the MRSA problem. The patient had a lactic acidosis of 5.2. Given a total of 2 L of IV fluids and following that the patient was started on pressors and currently he is on 70 mics of levo fed for hemodynamic support. Urine output is no other of 30 mL an hour. He will placed on normal saline today to 75 mL. Follow-up lactic acid level is pending. Doppler of lower extremities shows no evidence of DVT. The patient has also no evidence of pneumonia on his chest x-ray. 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 No nausea. No vomiting. Some abdominal essentially due to liver cirrhosis and the patient is an umbilical hernia and the right groin hernia. Review of Systems 12 point review of system was done positive findings were mentioned above Past Medical History Past Medical History: Asthma, GI Bleed, Hypertension, Pneumonia Additional Past Medical History / Comment(s): Cirrhosis-pt on liver transplant list, hypogammaglobulinemia, common variable immunoglobulin deficiency-receives IV IG with last infusion 11/08/17-gets infusions q 3 weeks, ascities, anemia, bronchitis, neuropathy in hands and legs but less so since gluten free diet, ciliac disease, diverticulosis, rectal bleed, umbilical hernia, R inguinal hernia, necrotizing fascitis under L arm 20 yrs ago. History of Any Multi-Drug Resistant Organisms: MRSA Additional Past Surgical History / Comment(s): vasectomy, mediport placement x 3 -for IVIG-currently in L side of chest, bilateral cataract/lens surgery, removal of cervical lymph node-benign, BMA, colonoscopies and EGDs, bilateral myringotomy, abdominal paracentesis. Past Anesthesia/Blood Transfusion Reactions: No Reported Reaction Additional Past Anesthesia/Blood Transfusion Reaction / Comment(s): no problems prior blood transfusion Past Psychological History: No Psychological Hx Reported Smoking Status: Former smoker Past Alcohol Use History: None Reported Past Drug Use History: None Reported - Past Family History Father Family Medical History: Thyroid Disorder Additional Family Medical History / Comment(s): Father has hypothyroidism. He is 89 yrs old. Mother Family Medical History: Liver Disease Additional Family Medical History / Comment(s): Mother from hepatitis C at the age of 60. Medications and Allergies Home Medications Medication Instructions Recorded Confirmed Type Montelukast [Singulair] 10 mg PO DAILY 10/15/14 04/22/18 History Ferrous Sulfate [Iron] 325 mg PO DAILY 07/20/17 04/22/18 History Albuterol Nebulized [Ventolin 2.5 mg INHALATION RT-QID PRN 08/29/17 04/22/18 History Nebulized] Furosemide [Lasix] 20 mg PO DAILY 11/14/17 04/22/18 History Gabapentin [Neurontin] 300 mg PO BID 11/14/17 04/22/18 History Mometasone/Formoterol [Dulera 200 2 puff INHALATION RT-BID 11/14/17 04/22/18 History Mcg/5 Mcg Inhaler] Spironolactone [Aldactone] 50 mg PO DAILY 11/14/17 04/22/18 History Epoetin Messi [Procrit] 60,000 unit INJ WE 04/22/18 04/22/18 History Allergies Allergy/AdvReac Type Severity Reaction Status Date / Time wheat AdvReac Severe Nausea & Verified 04/22/18 10:43 Vomiting & Diarrhea,flu like symptoms gluten AdvReac Nausea & Verified 04/22/18 10:43 Vomiting & Diarrhea levofloxacin [From Levaquin] AdvReac TENDON PAIN Verified 04/22/18 10:43 Physical Exam Vitals: Vital Signs Temp Pulse Resp BP Pulse Ox 04/22/18 15:29 97.0 F L 100 18 92/54 98 04/22/18 13:15 96 18 98/56 99 04/22/18 12:00 96 18 95/53 94 L 04/22/18 11:49 97.4 F L 97 18 91/54 98 04/22/18 11:30 96 18 98/50 98 04/22/18 11:15 94 18 97/53 93 L 04/22/18 11:00 92 18 94/54 94 L 04/22/18 10:08 98 16 100/61 96 04/22/18 09:08 100 16 112/61 95 04/22/18 08:10 100 16 86/47 95 04/22/18 07:44 105 H 16 91/49 97 04/22/18 07:25 105 H 82/49 04/22/18 07:15 97.0 F L 104 H 16 89/51 96 04/22/18 05:43 98.7 F 103 H 20 111/53 97 04/22/18 04:23 102.7 F H 113 H 20 117/58 97 04/22/18 03:43 116 H 20 147/70 98 04/22/18 02:42 103.1 F H 125 H 16 144/65 98 Intake and Output 04/22/18 04/22/18 04/22/18 06:59 14:59 22:59 Output Total 100 Balance -100 Output: Urine 100 Other: Weight 86.183 kg GENERAL EXAM: Alert, active, comfortable in no apparent distress. HEAD: Normocephalic/atraumatic. EYES: Normal reaction of pupils, equal size. Conjunctiva pink, sclera white. NOSE: Clear with pink turbinates. THROAT: No erythema or exudates. NECK: No masses, no JVD, no thyroid enlargement, no adenopathy. CHEST: No chest wall deformity. Symmetrical expansion. LUNGS: Equal air entry with diffuse wheezes throughout, there is prolongation of expiratory phase CVS: Regular rate and rhythm, normal S1 and S2, no gallops, no murmurs, no rubs ABDOMEN: Soft, nontender. No hepatosplenomegaly, normal bowel sounds, no guarding or rigidity patient has ascites and the patient has an umbilical hernia.. EXTREMITIES: No clubbing, no edema, no cyanosis, 2+ pulses and upper and lower extremities. The patient has increased edema lower extremities bilaterally, more than right and the patient has some increased erythema and warmth and hotness in the upper thigh area. MUSCULOSKELETAL: Muscle strength and tone normal. SPINE: No scoliosis or deformity SKIN: No rashes CENTRAL NERVOUS SYSTEM: Alert and oriented -3. No focal deficits, tone is normal in all 4 extremities. PSYCHIATRIC: Alert and oriented -3. Appropriate affect. Intact judgment and insight. Results - Laboratory Findings CBC and BMP: 04/22/18 02:45 04/22/18 02:45 PT/INR, D-dimer PT 12.3 sec (9.0-12.0) H 04/22/18 02:45 INR 1.3 (<1.2) H 04/22/18 02:45 Abnormal lab findings: Abnormal Labs 04/22/18 04/22/18 04/22/18 02:45 02:45 02:45 WBC 2.8 L RBC 3.01 L Hgb 9.4 L Hct 30.1 L MCV 100.2 H RDW 20.3 H Plt Count 149 L Lymphocytes # 0.4 L PT INR Sodium 136 L Carbon Dioxide 13 L BUN 52 H Creatinine 1.50 H Glucose 124 H POC Glucose (mg/dL) Plasma Lactic Acid Sky 5.1 H* Calcium 7.7 L Total Bilirubin 2.6 H Alkaline Phosphatase 233 H Total Protein 5.0 L Albumin 2.4 L 04/22/18 04/22/18 02:45 16:06 WBC RBC Hgb Hct MCV RDW Plt Count Lymphocytes # PT 12.3 H INR 1.3 H Sodium Carbon Dioxide BUN Creatinine Glucose POC Glucose (mg/dL) 107 H Plasma Lactic Acid Sky Calcium Total Bilirubin Alkaline Phosphatase Total Protein Albumin - Diagnostic Findings Chest x-ray: image reviewed Assessment and Plan Plan: Assessment 1 acute sepsis, likely secondary left lower extremity cellulitis 2 acute hypotension currently on pressors at 7 mics of levo fed. The patient was resuscitated IV fluids and the patient is already received 2 L of IV fluids since arrival to the emergency department 3 chronic immunosuppression related to common variable hypogammaglobulinemia maintained on IVIG 4 liver cirrhosis of an alcoholic in nature 5 chronic ascites 6 severe persistent bronchial asthma 7 a medical hernia 8 right inguinal hernia 9 chronic pancytopenia related to hypersplenism and liver cirrhosis 10 lactic acidosis/anion gap metabolic acidosis secondary to sepsis Plan Give the patient additional bolus of 1 L. Maintenance normal saline at the rate of 75 mL's an hour. Continue Zosyn and vancomycin. Pressors to maintain a systolic blood pressure above 90. Monitor lactic acid level. Triple lumen catheter was inserted. We'll continue to follow. Condition is critical and the patient will be monitored here in the intensive care unit. Outpatient medication will be resumed with the exception of Lasix and Aldactone which will placed on hold for now.
[2018-04-22] MEDS ORDERED: NALOXONE 0.4 MG/ML 1 ML VIAL IV PRN (16:36)
[2018-04-22] MEDS ORDERED: SODIUM CHLORIDE 0.9% 1,000 ML IV ONE (16:40)
[2018-04-22] MEDS ORDERED: ALBUTEROL NEBULIZED 2.5 MG/3 ML INHALATION PRN (16:41)
[2018-04-22 16:50] VITALS: BMI 26.4
[2018-04-22] MEDS: VANCOMYCIN 1,500 MG in SODIUM CHLORIDE 0.9% 250 ML IVPB SCH ×2 (16:52→21:24)
[2018-04-22] MEDS: PANTOPRAZOLE 40 MG/10 ML VIAL IVP SCH (17:01)
[2018-04-22] MEDS: SODIUM CHLORIDE 0.9% 1,000 ML IV SCH (17:01)
[2018-04-22] MEDS: NOREPINEPHRINE 16 MG in SODIUM CHLORIDE 0.9% 250 ML IV SCH (17:56)
[2018-04-22] MEDS ORDERED: SODIUM CHLORIDE 0.9% 2,000 ML IV ONE (18:48)
[2018-04-22] MEDS: ALBUTEROL NEBULIZED 2.5 MG/3 ML INHALATION PRN (22:26)
--- NOTE | 2018-04-23 00:31 | OP ---
OPERATIVE REPORT PREOPERATIVE DIAGNOSIS: Sepsis. POSTOPERATIVE DIAGNOSIS: Sepsis. PROCEDURE: Triple lumen catheter placement. INDICATIONS: Hemodynamic monitoring/Intravenous access. DESCRIPTION OF PROCEDURE: A time-out was completed verifying correct patient, procedure, site, positioning, and implant(s) or special equipment if applicable. The patient was placed in a dependent position appropriate for triple lumen catheter placement based on the vein to be cannulated. The patient's right groin was prepped and draped in sterile fashion. 1% Lidocaine was used to anesthetize the surrounding skin area. A triple lumen 9F Cordis catheter was introduced into the subclavian or internal jugular or common femoral vein using Seldinger technique. The catheter was threaded smoothly over the guide wire and appropriate blood return was obtained. Each lumen of the catheter was evacuated of air and flushed with sterile saline. The catheter was then sutured in place to the skin and a sterile dressing applied. Perfusion to the extremity distal to the point of catheter insertion was checked and found to be adequate. No bedside complications or bleeding. MMODL / IJN: [id number] /
[2018-04-23] MEDS: PIPERACILLIN-TAZOBACTAM 3.375 GM in DEXTROSE/WATER 1 50ML.BAG IVPB SCH ×2 (03:22→11:18)
[2018-04-23 05:16] VITALS: TEMP 98.3
[2018-04-23 05:55] LABS: Anisocytosis Moderate; HGB 9.6 gm/dL (13.0-17.5); Hypochromasia Marked; MCH 31.5 pg (25.0-35.0); MCHC 30.2 g/dL (31.0-37.0); MCV 104.4 fL (80.0-100.0); Macrocytosis Marked; Mean Platelet Volume 8.8; Platelet Count 105 k/uL (150-450); Poikilocytosis Slight; RBC 3.06 m/uL (4.30-5.90); RDW 20.4 % (11.5-15.5); WBC 19.2 k/uL (3.8-10.6)
[2018-04-23] MEDS ORDERED: ACETAMINOPHEN TAB 500 MG TAB PO PRN (06:11)
[2018-04-23] MEDS: SODIUM CHLORIDE 0.9% 1,000 ML IV SCH (06:14)
[2018-04-23 06:27] LABS: Calcium 6.8 mg/dL (8.4-10.2); Magnesium 1.6 mg/dL (1.6-2.3); Phosphorus 4.4 mg/dL (2.5-4.5); Potassium 4.8 mmol/L (3.5-5.1)
[2018-04-23 06:40] LABS: Band Neutrophils % 10 %; Lymphocytes # (M) 1.54 k/uL (1.0-4.8); Monocytes # (M) 0.19 k/uL (0-1.0); Myelocytes # (M) 0.19 k/uL (0); Myelocytes % 1 %; Neutrophils % (M) 80 %; Nucleated Red Blood Cells 0 /100 WBC (0-0); RBC Fragments Present; Total Cells Counted 200
[2018-04-23] MEDS: SYMBICORT 160-4.5 MCG INHALER INHALATION SCH (07:52)
[2018-04-23] MEDS: ALBUTEROL NEBULIZED 2.5 MG/3 ML INHALATION PRN ×2 (07:52→12:05)
[2018-04-23] MEDS: MAGNESIUM SULFATE-D5W PMX 1 GM in DEXTROSE/WATER 1 100ML.BAG IVPB SCH ×2 (08:26→09:43)
[2018-04-23] MEDS: MONTELUKAST 10 MG TAB PO SCH (08:29)
[2018-04-23] MEDS: GABAPENTIN 300 MG CAP PO SCH (08:29)
[2018-04-23] MEDS: FERROUS SULFATE 325 MG TAB PO SCH (08:29)
[2018-04-23] MEDS: PANTOPRAZOLE 40 MG/10 ML VIAL IVP SCH (08:29)
[2018-04-23] MEDS ORDERED: DILTIAZEM DRIP BOLUS FROM BAG 1 MG SOLN IV ONE (09:31)
[2018-04-23] MEDS ORDERED: FUROSEMIDE 10 MG/ML 4 ML VIAL IV STA (09:34)
[2018-04-23] MEDS: DILTIAZEM 50 MG in SODIUM CHLORIDE 0.9% 40 ML IV SCH ×2 (09:41→10:47)
[2018-04-23] MEDS ORDERED: METOPROLOL TARTRATE 25 MG TAB PO SCH (10:15)
[2018-04-23 11:01] VITALS: RESP 22
--- NOTE | 2018-04-23 11:08 | CT ---
EXAMINATION TYPE: CT lower extremity LT wo con DATE OF EXAM: 04/23/2018 COMPARISON: Correlation Doppler ultrasound 04/22/2018 HISTORY: 57-year-old male complains of leg pain and difficulty holding leg still. Patients leg is swo llen and red. TECHNIQUE: Contiguous axial scanning of the left lower extremity without IV contrast. Coronal and sag ittal reconstructions performed. CT DLP: 1285.1 mGycm Automated exposure control for dose reduction was used. FINDINGS: There is marked diffuse anasarca-type change and underlying ascites as well as sigmoid diverticulosis . Dunham catheter is present. Severe subcutaneous soft tissue swelling throughout the left lower extremity up to the hip level. Some deep fascial edema is present in the upper to mid thigh. The fluid measuring 3.0 cm tracking maribeth ng the popliteus tendon sheath. Mild tracking deep soft tissue edema in the upper calf, axial image 1 10. No tracking soft tissue air at this time. No discrete abscess. Extensive vascular calcifications are present. Small to moderate knee joint effusion is nonspecific. IMPRESSION: 1. MARKED DIFFUSE SOFT TISSUE SWELLING THROUGHOUT THE LEFT LOWER EXTREMITY. THE MOST CONFLUENT EDEMA IS LOCATED IN THE SUBCUTANEOUS TISSUES. CORRELATE FOR CELLULITIS OR FLUID OVERLOAD. 2. HOWEVER, ADDITIONAL DEEP FASCIAL EDEMA IS PRESENT IN THE UPPER TO MID THIGH AND ALSO IN THE UPPER CALF. DIFFERENTIAL CONSIDERATIONS FOR THIS FINDING INCLUDE MYOSITIS, AGGRESSIVE SOFT TISSUE INFECTION INCLUDING NECROTIZING FASCIITIS, NONSPECIFIC CAUSES OF NONNECROTIZING FASCIITIS, COMPARTMENT SYNDROM E, AND DVT (NO DVT WAS SEEN ON THE ULTRASOUND PERFORMED YESTERDAY). FURTHER CLINICAL CORRELATION AND WORKUP IS RECOMMENDED.
[2018-04-23] MEDS: NOREPINEPHRINE 16 MG in SODIUM CHLORIDE 0.9% 250 ML IV SCH (11:14)
[2018-04-23 12:07] VITALS: PULSE 95
--- NOTE | 2018-04-23 12:13 | P.PN ---
Subjective Progress Note Date: 04/23/18 Principal diagnosis: Acute septic shock secondary to gram-negative sepsis and bacteremia. 57-year-old patient presented with lower extremity swelling in addition to erythema warmth and hotness in the left lower extremity more than the right. The patient was suspected of cellulitis with secondary sepsis. The patient was hypotensive and the MRSA problem. The patient had a lactic acidosis of 5.2. Given a total of 2 L of IV fluids and following that the patient was started on pressors and currently he is on 70 mics of levo fed for hemodynamic support. Urine output is no other of 30 mL an hour. He will placed on normal saline today to 75 mL. Follow-up lactic acid level is pending. Doppler of lower extremities shows no evidence of DVT. The patient has also no evidence of pneumonia on his chest x-ray. 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 No nausea. No vomiting. Some abdominal essentially due to liver cirrhosis and the patient is an umbilical hernia and the right groin hernia. I evaluated this patient briefly this morning on 04/23/2018, and shortly after I saw him patient had a CT of the lower extremity, it showed marked diffuse soft tissue swelling throughout the left lower extremity, and confluent edema located in the subcutaneous tissues and there was evidence of deep fascial edema present in the upper to mid thigh and also in the upper calf were and the possibility of necrotizing fasciitis was strongly considered. Patient came back to the ICU and transferred planning to [facility] is in progress at this point. During my evaluation, patient was in acute supraventricular tachycardia, and RVR, hence I recommended cardiac consultation, and the meantime I recommended Cardizem bolus and Cardizem drip. Reviewed his cultures , and blood cultures came back positive for gram-negative bacilli. Labs showed leukocytosis with WBC count of 19.2 hemoglobin 9.6. There is evidence of acute kidney injury with BUN of 56 and creatinine of 2.03. There was also evidence of persistently elevated lactic acid in the range of 4.7. All of this is clearly pointing to acute sepsis, septic shock, and most likely secondary to cellulitis/necrotizing fasciitis. Infectious disease consultation is pending. In the meantime the patient did receive Broad-spectrum antibiotics coverage. Patient was complaining of shortness of breath earlier, however he was in SVT with rapid ventricular response, given Lasix 40 mg IV push times one. Chest x-ray from yesterday showed left pleural effusion at the left base, no evidence of infiltrate. Objective - Vital Signs Vital signs: Vital Signs Temp 98.3 F 04/23/18 08:00 Pulse 123 H 04/23/18 11:00 Resp 22 04/23/18 11:00 BP 95/39 04/23/18 11:00 Pulse Ox 98 04/23/18 11:00 Intake & Output 04/22/18 04/23/18 04/23/18 18:59 06:59 18:59 Intake Total 6168.930 8543.042 599.412 Output Total 185 595 295 Balance 082.753 1098.042 304.412 Weight 86.2 kg 91.4 kg Intake: IV 1075 2100 575 Magnesium Sulfate-D5w Pmx 200 1 gm In Dextrose/Water 1 100ml.bag @ 100 mls/hr IVPB Q1H [facility] Rx#: [id number] Sodium Chloride 0.9% 1, 75 600 375 000 ml @ 75 mls/hr IV . [id number] [facility] Rx#:[id number] Sodium Chloride 0.9% 1, 1000 000 ml @ 999 mls/hr IV . Q1H1M ONE Rx#:[id number] Sodium Chloride 0.9% 2, 1500 000 ml @ 999 mls/hr IV . Q2H1M ONE Rx#:[id number] Intake, IV Titration 21.546 231.042 24.412 Amount Diltiazem 50 mg In Sodium 11 Chloride 0.9% 40 ml @ 10 MG/HR 10 mls/hr IV .Q5H [facility] Rx#:[id number] Norepinephrine 16 mg In 21.546 231.042 13.412 Sodium Chloride 0.9% 250 ml @ Titrate IV .Q0M [facility] Rx#:[id number] Output: Urine 185 595 295 Other: Voiding Method Indwelling Catheter Indwelling Catheter Indwelling Catheter - Exam GENERAL EXAM: Revealed a 57-year-old white male, tachycardic, in mild respiratory distress. HEAD: Normocephalic/atraumatic. EYES: Normal reaction of pupils, equal size. Conjunctiva pink, sclera white. NOSE: Clear with pink turbinates. THROAT: No erythema or exudates. NECK: No masses, no JVD, no thyroid enlargement, no adenopathy. CHEST: No chest wall deformity. Symmetrical expansion. LUNGS: Equal air entry with diffuse wheezes throughout, there is prolongation of expiratory phase CVS: Tachycardic, irregular rhythm, no S3 gallop was appreciated. ABDOMEN: Soft, nontender. No hepatosplenomegaly, normal bowel sounds, no guarding or rigidity patient has ascites and the patient has an umbilical hernia.. EXTREMITIES: No clubbing, no edema, no cyanosis, 2+ pulses and upper and lower extremities. The patient has increased edema lower extremities bilaterally, more than right and the patient has some increased erythema and warmth and hotness in the upper thigh area. MUSCULOSKELETAL: Muscle strength and tone normal. SPINE: No scoliosis or deformity SKIN: No rashes CENTRAL NERVOUS SYSTEM: Alert and oriented -3. No focal deficits, tone is normal in all 4 extremities. PSYCHIATRIC: Alert and oriented -3. Appropriate affect. Intact judgment and insight. - Labs CBC & Chem 7: 04/23/18 05:40 04/23/18 05:40 Labs: Abnormal Lab Results - Last 24 Hours (Table) 04/22/18 04/22/18 04/22/18 Range/Units 16:06 17:06 20:38 WBC (3.8-10.6) k/uL RBC (4.30-5.90) m/uL Hgb (13.0-17.5) gm/dL Hct (39.0-53.0) % MCV (80.0-100.0) fL MCHC (31.0-37.0) g/dL RDW (11.5-15.5) % Plt Count (150-450) k/uL Neutrophils # (Manual) (1.3-7.7) k/uL Myelocytes # (Manual) (0) k/uL Sodium (137-145) mmol/L Chloride (98-107) mmol/L Carbon Dioxide (22-30) mmol/L BUN (9-20) mg/dL Creatinine (0.66-1.25) mg/dL Glucose (74-99) mg/dL POC Glucose (mg/dL) 107 H (75-99) mg/dL Plasma Lactic Acid Sky 5.3 H* 4.7 H* (0.7-2.0) mmol/L Calcium (8.4-10.2) mg/dL 04/23/18 04/23/18 04/23/18 Range/Units 05:40 05:40 05:40 WBC 19.2 H (3.8-10.6) k/uL RBC 3.06 L (4.30-5.90) m/uL Hgb 9.6 L (13.0-17.5) gm/dL Hct 32.0 L (39.0-53.0) % MCV 104.4 H (80.0-100.0) fL MCHC 30.2 L (31.0-37.0) g/dL RDW 20.4 H (11.5-15.5) % Plt Count 105 L (150-450) k/uL Neutrophils # (Manual) 17.20 H (1.3-7.7) k/uL Myelocytes # (Manual) 0.19 H (0) k/uL Sodium 136 L (137-145) mmol/L Chloride 110 H (98-107) mmol/L Carbon Dioxide 12 L (22-30) mmol/L BUN 56 H (9-20) mg/dL Creatinine 2.03 H (0.66-1.25) mg/dL Glucose 113 H (74-99) mg/dL POC Glucose (mg/dL) (75-99) mg/dL Plasma Lactic Acid Sky 4.6 H* (0.7-2.0) mmol/L Calcium 6.8 L (8.4-10.2) mg/dL 04/23/18 Range/Units 09:38 WBC (3.8-10.6) k/uL RBC (4.30-5.90) m/uL Hgb (13.0-17.5) gm/dL Hct (39.0-53.0) % MCV (80.0-100.0) fL MCHC (31.0-37.0) g/dL RDW (11.5-15.5) % Plt Count (150-450) k/uL Neutrophils # (Manual) (1.3-7.7) k/uL Myelocytes # (Manual) (0) k/uL Sodium (137-145) mmol/L Chloride (98-107) mmol/L Carbon Dioxide (22-30) mmol/L BUN (9-20) mg/dL Creatinine (0.66-1.25) mg/dL Glucose (74-99) mg/dL POC Glucose (mg/dL) (75-99) mg/dL Plasma Lactic Acid Sky 4.7 H* (0.7-2.0) mmol/L Calcium (8.4-10.2) mg/dL Microbiology - Last 24 Hours (Table) 04/22/18 03:19 Blood Culture - Final Blood 04/22/18 03:19 Blood Culture Gram Stain - Preliminary Blood Blood Culture - Preliminary Gram Neg Bacilli 04/22/18 03:19 Urine Culture - Preliminary Urine,Catheterized Assessment and Plan Assessment: 1 acute sepsis, septic shock, gram-negative bacteremia and necrotizing fasciitis. 2 acute hypotension currently on pressors at 4 mics of levo fed. 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 Plan: Agree with transfer plans to [facility], especially with the findings on the CT of the lower extremity suggestive of necrotizing fasciitis. Critical care time is 40 minutes. Time with Patient: Greater than 30
[2018-04-23] MEDS ORDERED: CLINDAMYCIN 900 MG in DEXTROSE 5% IN WATER 50 ML IVPB SCH ×2 (12:15)
--- NOTE | 2018-04-23 12:36 | ECHOF ---
Referral Reason:afib MEASUREMENTS -------- HEIGHT: 162.6 cm WEIGHT: 91.2 kg BP: IVSd: 1.3 cm (0.6 - 1.1) LVIDd: 3.8 cm (3.9 - 5.3) LVPWd: 1.0 cm (0.6 - 1.1) IVSs: 1.4 cm LVIDs: 2.8 cm LVPWs: 1.4 cm LA Diam: 4.5 cm (2.7 - 3.8) LAESV Index (A-L): 53.96 ml/m Ao Diam: 3.0 cm (2.0 - 3.7) AV Cusp: 1.5 cm (1.5 - 2.6) LA Diam: 5.3 cm (2.7 - 3.8) MV EXCURSION: 22.126 mm (> 18.000) MV EF SLOPE: 95 mm/s (70 - 150) EPSS: 0.3 cm AV maxP.50 mmHg AV meanP.89 mmHg RAP: 5.00 mmHg RVSP: 49.31 mmHg FINDINGS -------- Atrial fibrillation. This was a technically adequate study. The left ventricular size is normal. There is mild concentric left ventricular hypertrophy. Overa ll left ventricular systolic function is normal with, an EF between 60 - 65 %. The right ventricle is normal in size. The left atrium is markedly dilated. LA is severely dilated >40 ml/m2 The right atrial size is normal. There is mild aortic valve sclerosis. There is moderate aortic stenosis present. Peak/mean gradie nt across the Aortic Valve is 40.50mmHg / 23.89mmHg. Mild mitral annular calcification present. Mild mitral regurgitation is present. Mild tricuspid regurgitation present. There is mild to moderate pulmonary hypertension. The right ventricular systolic pressure, as measured by Doppler, is 49.31mmHg. Trace/mild (physiologic) pulmonic regurgitation. The aortic root size is normal. There is no pericardial effusion. CONCLUSIONS -------- 1. The left ventricular size is normal. 2. There is mild concentric left ventricular hypertrophy. 3. Overall left ventricular systolic function is normal with, an EF between 60 - 65 %. 4. The right ventricle is normal in size. 5. The left atrium is markedly dilated. 6. LA is severely dilated >40 ml/m2 7. The right atrial size is normal. 8. There is mild aortic valve sclerosis. 9. There is moderate aortic stenosis present. 10. Peak/mean gradient across the Aortic Valve is 40.50mmHg / 23.89mmHg. 11. Mild mitral annular calcification present. 12. Mild mitral regurgitation is present. 13. Mild tricuspid regurgitation present. 14. There is mild to moderate pulmonary hypertension. 15. The right ventricular systolic pressure, as measured by Doppler, is 49.31mmHg. 16. Trace/mild (physiologic) pulmonic regurgitation. 17. The aortic root size is normal. 18. There is no pericardial effusion. RAND MAKER: Rosalva Oquendo RDCS
[2018-04-23] MEDS ORDERED: DILTIAZEM 50 MG in SODIUM CHLORIDE 0.9% 40 ML IV SCH (13:00)
[2018-04-23 13:15] VITALS: BP 75/45
[2018-04-23] MEDS ORDERED: VANCOMYCIN 1,500 MG in SODIUM CHLORIDE 0.9% 250 ML IVPB SCH (14:00)
--- NOTE | 2018-04-23 16:23 | CONS ---
CONSULTATION CHIEF COMPLAINT: Atrial fibrillation. Franc is a 57-year-old gentleman with complex medical history including chronic pancytopenia, cirrhosis of the liver. The patient is on liver transplant list. 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 He had cellulitis with sepsis and had elevated lactic acid at 5.2. The patient was resuscitated with fluids, pressors and is currently in ICU. The patient was in atrial fibrillation with poorly controlled ventricular rate when he came in, but the atrial fibrillation, the heart rate got elevated this morning, for which I have been consulted. The patient has already been started on IV Cardizem and will adjust the dose as needed for better control of the heart rate. He is not a candidate for anticoagulation at this time given the pancytopenia including the low platelet count. 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 MEDICATIONS: At home included: Aldactone, Singulair, Neurontin, Lasix, iron, Procrit. ALLERGIES: TO LEVAQUIN AND GLUTEN. FAMILY HISTORY: Negative for premature coronary artery disease. SOCIAL HISTORY: Negative for current smoking. REVIEW OF SYSTEMS: HEENT is unremarkable. Cardiac as described above. Respiratory as described. GI as described. Genitourinary negative. Allergy negative. Musculoskeletal as described above. Psychosocial negative. HEMATOLOGICAL: Negative. Derm as described. Constitutional as described. Rest of the system review is not relevant. PHYSICAL EXAM: Heart rate is 123 beats per minute, irregularly irregular. Blood pressure is 110/54, respiratory rate 18. Chest exam reveals diminished air entry at the bases. Heart exam reveals first and second heart sounds. Irregular rhythm. Abdomen appears distended. Exam of the extremities reveals bilateral edema more on the left side than on the right side with erythema and cellulitis. EKG shows atrial fibrillation with poorly controlled ventricular rate. LAB: Show a hemoglobin of 9.6, platelet count is 19.2. Potassium is 4.8, BUN is 56, creatinine is 2. ASSESSMENT: 1. New onset atrial fibrillation with poorly controlled ventricular rate. 2. Chronic thrombocytopenia and anemia. 3. Renal insufficiency. 4. Sepsis with lactic acidosis. PLAN: We will control the heart rate at this time. Obtain a 2D echo to evaluate her LV function. Not a candidate for anticoagulation at this time. We will reassess the issue later. MMODL / IJN: [id number] /
--- NOTE | 2018-04-23 17:38 | P.HPIM ---
History of Present Illness H&P Date: 04/23/18 Chief Complaint: BLE swelling, RLE pain, MOE Mr. Bruner is a very pleasant male pt of Dr. Scott who is seen for common variable immunodeficiency for which he receives IVIG every 3-4 weeks-for many years, he is also on procrit for low grade MDS anemia. Pt has cirrhosis of the liver for which he is being worked up by Dr. Sommers for at [facility] to be a transplant candidate. Pt states that about 2 weeks he forgot to take/was not taking his lasix, the swelling in his abd and BLE progressed to the point he could not stand, he came to ER last night, febrile, fluid bolus for hypotension, he is on vasopressors, doppler was negative for DVT, CXR suspicious for pneumothorax, possible pneumonia, cultures were pending, empiric abx started, he was transferred to [facility]. Right leg continued to increase in size , it is now hot and unrealistically tender to touch, he has blisters on the medial ankle. The abd, RLE, scrotal and penile distension and redness are not as painful as the left leg, CT suspicious for myositis, compartment syndrome or necrotizing fascitis, pt is being transferred out via [facility] to tertiary care facility. Review of Systems ROS as stated in HPI Past Medical History Past Medical History: Asthma, GI Bleed, Hypertension, Pneumonia Additional Past Medical History / Comment(s): Cirrhosis-pt on liver transplant list, hypogammaglobulinemia, common variable immunoglobulin deficiency-receives IV IG with last infusion 11/08/17-gets infusions q 3 weeks, ascities, anemia, bronchitis, neuropathy in hands and legs but less so since gluten free diet, ciliac disease, diverticulosis, rectal bleed, umbilical hernia, R inguinal hernia, necrotizing fascitis under L arm 20 yrs ago. History of Any Multi-Drug Resistant Organisms: MRSA Additional Past Surgical History / Comment(s): vasectomy, mediport placement x 3 -for IVIG-currently in L side of chest, bilateral cataract/lens surgery, removal of cervical lymph node-benign, BMA, colonoscopies and EGDs, bilateral myringotomy, abdominal paracentesis. Past Anesthesia/Blood Transfusion Reactions: No Reported Reaction Additional Past Anesthesia/Blood Transfusion Reaction / Comment(s): no problems prior blood transfusion Past Psychological History: No Psychological Hx Reported Smoking Status: Former smoker Past Alcohol Use History: None Reported Past Drug Use History: None Reported - Past Family History Father Family Medical History: Thyroid Disorder Additional Family Medical History / Comment(s): Father has hypothyroidism. He is 89 yrs old. Mother Family Medical History: Liver Disease Additional Family Medical History / Comment(s): Mother from hepatitis C at the age of 60. Medications and Allergies Home Medications Medication Instructions Recorded Confirmed Type Montelukast [Singulair] 10 mg PO DAILY 10/15/14 04/22/18 History Ferrous Sulfate [Iron] 325 mg PO DAILY 07/20/17 04/22/18 History Albuterol Nebulized [Ventolin 2.5 mg INHALATION RT-QID PRN 08/29/17 04/22/18 History Nebulized] Furosemide [Lasix] 20 mg PO DAILY 11/14/17 04/22/18 History Gabapentin [Neurontin] 300 mg PO BID 11/14/17 04/22/18 History Mometasone/Formoterol [Dulera 200 2 puff INHALATION RT-BID 11/14/17 04/22/18 History Mcg/5 Mcg Inhaler] Spironolactone [Aldactone] 50 mg PO DAILY 11/14/17 04/22/18 History Epoetin Messi [Procrit] 60,000 unit INJ WE 04/22/18 04/22/18 History Allergies Allergy/AdvReac Type Severity Reaction Status Date / Time wheat AdvReac Severe Nausea & Verified 04/22/18 10:43 Vomiting & Diarrhea,flu like symptoms gluten AdvReac Nausea & Verified 04/22/18 10:43 Vomiting & Diarrhea levofloxacin [From Levaquin] AdvReac TENDON PAIN Verified 04/22/18 10:43 Physical Exam Vitals: Vital Signs Temp Pulse Resp BP Pulse Ox 04/23/18 13:00 75/45 94 L 04/23/18 12:14 95 04/23/18 12:05 95 04/23/18 12:00 98 22 82/49 96 04/23/18 11:00 123 H 22 95/39 98 04/23/18 10:00 146 H 28 H 116/54 97 04/23/18 09:00 110 H 26 H 112/51 100 04/23/18 08:07 113 H 04/23/18 08:00 98.3 F 108 H 28 H 118/58 100 06/25/18 07:52 110 H 04/23/18 07:00 102 H 31 H 114/54 100 04/23/18 06:00 101 H 33 H 109/42 98 04/23/18 05:00 113 H 20 136/63 92 L 04/23/18 04:00 98.3 F 97 28 H 119/53 98 04/23/18 03:00 94 26 H 120/54 98 04/23/18 02:00 95 27 H 111/55 99 04/23/18 01:00 93 25 H 101/45 97 04/23/18 00:00 98.2 F 95 20 96/46 97 04/22/18 23:00 94 20 100/54 99 04/22/18 22:54 95 20 110/52 99 04/22/18 22:35 96 04/22/18 22:28 93 04/22/18 22:00 95 21 119/55 97 04/22/18 21:00 90 18 113/52 98 04/22/18 20:00 98.3 F 86 21 101/54 99 04/22/18 19:00 87 19 89/51 98 04/22/18 18:45 84 23 97/56 99 04/22/18 18:30 89 26 H 85/50 99 04/22/18 18:15 90 34 H 96/47 99 04/22/18 18:00 91 25 H 84/51 99 04/22/18 17:45 94 23 117/56 96 04/22/18 17:30 93 24 87/46 98 Intake and Output 04/23/18 04/23/18 04/23/18 06:59 14:59 22:59 Intake Total 831.042 756.323 Output Total 425 420 Balance 406.042 336.323 Intake: IV 600 725 Magnesium Sulfate-D5w Pmx 200 1 gm In Dextrose/Water 1 100ml.bag @ 100 mls/hr IVPB Q1H [facility] Rx#: [id number] Sodium Chloride 0.9% 1, 600 525 000 ml @ 75 mls/hr IV . [id number] [facility] Rx#:[id number] Intake, IV Titration 231.042 31.323 Amount Diltiazem 50 mg In Sodium 11 Chloride 0.9% 40 ml @ 10 MG/HR 10 mls/hr IV .Q5H [facility] Rx#:[id number] Norepinephrine 16 mg In 231.042 20.323 Sodium Chloride 0.9% 250 ml @ Titrate IV .Q0M [facility] Rx#:[id number] Output: Urine 425 420 Other: Voiding Method Indwelling Catheter Indwelling Catheter Weight 91.4 kg - Constitutional General appearance: average body habitus, cooperative, mild distress - EENT Eyes: anicteric sclerae, EOMI ENT: hearing grossly normal, normal oropharynx - Neck Neck: no lymphadenopathy - Respiratory Respiratory: bilateral: rales - Cardiovascular Heart sounds: normal: S1, S2 leg Peripheral Edema: right: 3+, left: 4+, Other (pain, blistering medial ankle), bilateral: Pitting - Gastrointestinal General gastrointestinal: distended Localized gastrointestinal: tender: epigastric periumbilical - Genitourinary Male genitourinary: scrotal edema - Integumentary blistering noted on lower abd, LLE Integumentary: pale - Neurologic Neurologic: CNII-XII intact - Musculoskeletal Musculoskeletal: generalized weakness, strength equal bilaterally - Psychiatric Psychiatric: A&O x's 3, appropriate affect, intact judgment & insight Results CBC & Chem 7: 04/23/18 05:40 04/23/18 05:40 Labs: Abnormal Lab Results - Last 24 Hours (Table) 04/22/18 04/22/18 04/23/18 Range/Units 17:06 20:38 05:40 WBC 19.2 H (3.8-10.6) k/uL RBC 3.06 L (4.30-5.90) m/uL Hgb 9.6 L (13.0-17.5) gm/dL Hct 32.0 L (39.0-53.0) % MCV 104.4 H (80.0-100.0) fL MCHC 30.2 L (31.0-37.0) g/dL RDW 20.4 H (11.5-15.5) % Plt Count 105 L (150-450) k/uL Neutrophils # (Manual) 17.20 H (1.3-7.7) k/uL Myelocytes # (Manual) 0.19 H (0) k/uL Sodium (137-145) mmol/L Chloride (98-107) mmol/L Carbon Dioxide (22-30) mmol/L BUN (9-20) mg/dL Creatinine (0.66-1.25) mg/dL Glucose (74-99) mg/dL Plasma Lactic Acid Sky 5.3 H* 4.7 H* (0.7-2.0) mmol/L Calcium (8.4-10.2) mg/dL 04/23/18 04/23/18 04/23/18 Range/Units 05:40 05:40 09:38 WBC (3.8-10.6) k/uL RBC (4.30-5.90) m/uL Hgb (13.0-17.5) gm/dL Hct (39.0-53.0) % MCV (80.0-100.0) fL MCHC (31.0-37.0) g/dL RDW (11.5-15.5) % Plt Count (150-450) k/uL Neutrophils # (Manual) (1.3-7.7) k/uL Myelocytes # (Manual) (0) k/uL Sodium 136 L (137-145) mmol/L Chloride 110 H (98-107) mmol/L Carbon Dioxide 12 L (22-30) mmol/L BUN 56 H (9-20) mg/dL Creatinine 2.03 H (0.66-1.25) mg/dL Glucose 113 H (74-99) mg/dL Plasma Lactic Acid Sky 4.6 H* 4.7 H* (0.7-2.0) mmol/L Calcium 6.8 L (8.4-10.2) mg/dL Microbiology - Last 24 Hours (Table) 04/22/18 03:19 Urine Culture - Final Urine,Catheterized 04/22/18 03:19 Blood Culture - Final Blood 04/22/18 03:19 Blood Culture Gram Stain - Preliminary Blood Blood Culture - Preliminary Gram Neg Bacilli Comments: CT LLE report reviewed Venous US: report reviewed Thrombosis Risk Factor Assmnt - Choose All That Apply Any of the Below Risk Factors Present?: Yes Each Factor Represents 1 point: Age 41-60 years, Medical pt on bed rest, Sepsis (< 1month) Other Risk Factors: Yes Each Risk Factor Represents 2 Points: Central venous access Other congenital or acquired thrombophilia - If yes, enter type in comment: No Thrombosis Risk Factor Assessment Total Risk Factor Score: 5 Thrombosis Risk Factor Assessment Level: High Risk Assessment and Plan (1) Pain and swelling of lower extremity Narrative/Plan: CT scan suspicious for myositis, compartment syndrom or necrotizing fascitis. Pt being transferred STAT to [facility]. Worked with Case Management, spoke to accepting Physicians Status: Acute Priority: High Code(s): M79.606 - PAIN IN LEG, UNSPECIFIED; M79.89 - OTHER SPECIFIED SOFT TISSUE DISORDERS SNOMED Code(s): 53275072 (2) Ascites due to alcoholic cirrhosis Narrative/Plan: Pt is being worked up for possible transplant with Dr. Sommers at [facility]. Status: Acute Priority: High Code(s): K70.31 - ALCOHOLIC CIRRHOSIS OF LIVER WITH ASCITES SNOMED Code(s): 2627693129009285 (3) Hypogammaglobulinemia Narrative/Plan: Pt receives IVIG about every 3-4 weeks outpatient Status: Chronic Priority: High Code(s): D80.1 - NONFAMILIAL HYPOGAMMAGLOBULINEMIA SNOMED Code(s): 730853819 (4) Common variable immunodeficiency Status: Chronic Priority: High Code(s): D83.9 - COMMON VARIABLE IMMUNODEFICIENCY, UNSPECIFIED SNOMED Code(s): 10002913 Plan: Pt is being transferred out via [facility]. Did start clindamycin per accepting Physician's recommendations. Doctor attests:I have performed a history and physical exam of this pt, discussed with dictator. I agree with dictated note, documented as a scribe. Time with Patient: Greater than 30 (coordinating care)
--- NOTE | 2018-04-23 17:40 | P.DS ---
Providers Date of admission: 04/22/18 06:06 Expected date of discharge: 04/23/18 Attending physician: Harris Scott Consults: 04/22/18 06:49 Consult Physician Urgent Consulting Provider: Felipe Healy Consult Reason/Comments: Cellulitis, Pneumonia Do you want consulting provider notified?: Yes 04/22/18 06:52 Consult Physician Routine Consulting Provider: aHrris Scott Consult Reason/Comments: Your patient Do you want consulting provider notified?: Already Contacted 04/22/18 07:03 Consult Physician Routine Consulting Provider: Peter Mcintyre Consult Reason/Comments: sepsis Do you want consulting provider notified?: Already Contacted 04/23/18 09:31 Consult Physician Urgent Consulting Provider: Jennifer Sparks Consult Reason/Comments: tachycardia Do you want consulting provider notified?: Yes 04/23/18 11:53 Consult Physician Stat Consulting Provider: Taran Tidwell Consult Reason/Comments: STAT eval LLE, CT was done, possible necrotizing fascitis Do you want consulting provider notified?: Already Contacted Primary care physician: Harris Scott - Discharge Diagnosis(es) (1) Pain and swelling of lower extremity Status: Acute Priority: High (2) Ascites due to alcoholic cirrhosis Status: Acute Priority: High (3) Hypogammaglobulinemia Status: Chronic Priority: High (4) Common variable immunodeficiency Status: Chronic Priority: High Hospital Course: Pt transferred to tertiary care facility for higher level of care after admit yesterday for fever/sepsis. Concern is for compartment syndrome or necrotizing fascitis. Patient Condition at Discharge: Serious Plan - Discharge Summary New Discharge Prescriptions: No Action Montelukast [Singulair] 10 mg PO DAILY Ferrous Sulfate [Iron] 325 mg PO DAILY Albuterol Nebulized [Ventolin Nebulized] 2.5 mg INHALATION RT-QID PRN PRN Reason: Shortness Of Breath Furosemide [Lasix] 20 mg PO DAILY Gabapentin [Neurontin] 300 mg PO BID Mometasone/Formoterol [Dulera 200 Mcg/5 Mcg Inhaler] 2 puff INHALATION RT-BID Spironolactone [Aldactone] 50 mg PO DAILY Epoetin Messi [Procrit] 60,000 unit INJ WE Discharge Medication List Montelukast [Singulair] 10 mg PO DAILY 10/15/14 [History] Ferrous Sulfate [Iron] 325 mg PO DAILY 07/20/17 [History] Albuterol Nebulized [Ventolin Nebulized] 2.5 mg INHALATION RT-QID PRN 08/29/17 [ History] Furosemide [Lasix] 20 mg PO DAILY 11/14/17 [History] Gabapentin [Neurontin] 300 mg PO BID 11/14/17 [History] Mometasone/Formoterol [Dulera 200 Mcg/5 Mcg Inhaler] 2 puff INHALATION RT-BID [History] Spironolactone [Aldactone] 50 mg PO DAILY 11/14/17 [History] Epoetin Messi [Procrit] 60,000 unit INJ WE 04/22/18 [History] Follow up Appointment(s)/Referral(s): Harris Scott MD [Primary Care Provider] - 1 Week Discharge Disposition: OTHER INSTITUTION NOT DEFINED Pending Studies Pending Results: Blood culture final pending
--- NOTE | 2018-05-01 10:00 | CDI ---
Last Revision, September 2017 Documentation Clarification Form Date: 05/01/18 From: Joaquina Blair Yojana Johnson, Ceo Na Hours-8:30 am & 5 pm M-F Admit Date: 04/22/2018 6:06:00 AM Patient Name: Franc Echavarria Visit Number: [id number] Discharge Date: 04/23/18 ATTENTION: The Clinical Documentation Specialists (CDI) and [facility] Coding Staff appreciate your assistance in clarifying documentation. Please respond to the clarification below the line at the bottom and electronically sign. The CDI & [facility] Coding staff will review the response and follow-up if needed. Please note: Queries are made part of the Legal Health Record. If you have any questions, please contact the author of this message via ITS. Dr. Bird Ty New onset atrial fibrillation is documented in your consult. History/Risk Factors: chr pancytopenia, cirrhosis, awaiting liver transplant, common variable immunoglobulin deficiency EKG/telemetry: atrial fibrilliation w poorly controlled ventricular rate Treatment: IV Cardizem In your professional opinion, can you please clarify the type of atrial fibrillation, if known? Chronic/Permanent Paroxysmal Persistent Other, please specify Unable to determine Please continue to document in your progress notes and discharge summary in order to capture severity of illness and risk of mortality. Include clinical findings that support your diagnosis. MTDD
--- NOTE | 2018-05-07 10:37 | CDI ---
Last Revision, September 2017 Documentation Clarification Form Date: 05/07/18 From: Joaquina Blair Yojana Johnson, Associate Professor Of Psychology Hours-8:30 am & 5 pm M-F Admit Date: 04/22/2018 6:06:00 AM Patient Name: Franc Echavarria Visit Number: [id number] Discharge Date: 04/23/18 ATTENTION: The Clinical Documentation Specialists (CDI) and [facility] Coding Staff appreciate your assistance in clarifying documentation. Please respond to the clarification below the line at the bottom and electronically sign. The CDI & [facility] Coding staff will review the response and follow-up if needed. Please note: Queries are made part of the Legal Health Record. If you have any questions, please contact the author of this message via ITS. Dr. Bird Ty New onset atrial fibrillation is documented in your consult. History/Risk Factors: chr pancytopenia, cirrhosis, awaiting liver transplant, common variable immunoglobulin deficiency EKG/telemetry: atrial fibrilliation w poorly controlled ventricular rate Treatment: IV Cardizem In your professional opinion, can you please clarify the type of atrial fibrillation, if known? Chronic/Permanent Paroxysmal Persistent Other, please specify Unable to determine Please continue to document in your progress notes and discharge summary in order to capture severity of illness and risk of mortality. Include clinical findings that support your diagnosis. MTDD
== END 2018-04-23 13:55 | disposition short-term general hospital (02) | DRG 871 ==
LOC: EC 02:32 → 6SEL 06:06 → 6ICU 08:59
PROVIDERS: ADMIT Internal Medicine Hematology & Oncology; ATTEND Internal Medicine Hematology & Oncology
PROC: 06HM33Z Insertion of Infusion Device into Right Femoral Vein, Percutaneous Approach (ICD-10-PCS; principal; 2018-04-22)
DX: A41.50 Gram-negative sepsis, unspecified (principal); R65.21 Severe sepsis with septic shock; M72.6 Necrotizing fasciitis; D80.1 Nonfamilial hypogammaglobulinemia; D83.9 Common variable immunodeficiency, unspecified; L03.116 Cellulitis of left lower limb; E87.2 Acidosis; D61.818 Other pancytopenia; I47.1 Supraventricular tachycardia; N17.9 Acute kidney failure, unspecified; J90 Pleural effusion, not elsewhere classified; Z76.82 Awaiting organ transplant status; G62.9 Polyneuropathy, unspecified; K70.31 Alcoholic cirrhosis of liver with ascites; D46.9 Myelodysplastic syndrome, unspecified; D63.8 Anemia in other chronic diseases classified elsewhere; K90.0 Celiac disease; D73.1 Hypersplenism; J45.50 Severe persistent asthma, uncomplicated; I10 Essential (primary) hypertension; K57.90 Diverticulosis of intestine, part unspecified, without perforation or abscess without bleeding; K42.9 Umbilical hernia without obstruction or gangrene; K40.90 Unilateral inguinal hernia, without obstruction or gangrene, not specified as recurrent; Z79.51 Long term (current) use of inhaled steroids; Z79.899 Other long term (current) drug therapy; Z86.14 Personal history of Methicillin resistant Staphylococcus aureus infection; Z87.01 Personal history of pneumonia (recurrent); Z98.42 Cataract extraction status, left eye; Z98.41 Cataract extraction status, right eye; Z96.1 Presence of intraocular lens; Z98.52 Vasectomy status; Z87.891 Personal history of nicotine dependence; Z88.1 Allergy status to other antibiotic agents; Z91.018 Allergy to other foods; Z83.49 Family history of other endocrine, nutritional and metabolic diseases; Z83.1 Family history of other infectious and parasitic diseases
CPT/HCPCS: 36415; 51702; 71045; 71046; 80048; 80053; 80202; 81003; 83605; 83735; 84100; 85025; 85610; 85730; 87040; 87077; 87086; 87186; 93005; 93306; 94640; 96365; 96366; 96367; 96368; 96372; 96375; 96376; 99285

== ENCOUNTER 2018-06-13 14:06 | Inpatient (IN) | payer OTHER ==
[2018-06-13] MEDS ORDERED: SODIUM CHLORIDE 0.9% 1,000 ML IV STA ×2 (15:37)
[2018-06-13 16:10] LABS: Anisocytosis Moderate; Basophils # (A) 0.1 k/uL (0-0.2); Basophils % (A) 1 %; Eosinophils # (A) 0.7 k/uL (0-0.7); Eosinophils % (A) 13 %; HCT 25.3 % (39.0-53.0); HGB 8.5 gm/dL (13.0-17.5); Lymphocytes # (A) 1.8 k/uL (1.0-4.8); Lymphocytes % (A) 34 %; MCH 31.8 pg (25.0-35.0); MCHC 33.7 g/dL (31.0-37.0); Macrocytosis Slight; Mean Platelet Volume 8.2; Monocytes # (A) 0.4 k/uL (0-1.0); Monocytes % (A) 7 %; Neutrophils # (A) 2.3 k/uL (1.3-7.7); Neutrophils % (A) 43 %; Platelet Count 123 k/uL (150-450); Poikilocytosis Slight; RBC 2.68 m/uL (4.30-5.90); WBC 5.4 k/uL (3.8-10.6)
[2018-06-13 16:14] LABS: MCV 94.4 fL (80.0-100.0)
[2018-06-13 16:19] LABS: Albumin 3.1 g/dL (3.5-5.0); Calcium 8.7 mg/dL (8.4-10.2); Magnesium 1.4 mg/dL (1.6-2.3); Potassium 3.8 mmol/L (3.5-5.1); Total Bilirubin 5.2 mg/dL (0.2-1.3)
--- NOTE | 2018-06-13 16:23 | ED ---
Fever HPI - General Chief Complaint: Fever Stated Complaint: Fever/Hx Blood issues Time Seen by Provider: 06/13/18 15:13 Source: patient, RN notes reviewed Mode of arrival: wheelchair Limitations: no limitations - History of Present Illness Initial Comments: This is a 51-year-old male who presents with complaints of the onset of a fever last evening. Was greater than 100. He's had a slight cough. Patient was just discharged from [facility] 2 days ago. He had a prolonged stay which included fasciotomies of his lower extremities sepsis VRE pneumonia. He brought in today because of recurrent fever. No dysuria no hematuria no overt chest pain no other complaints. MD Complaint: fever, other - Related Data Home Medications Medication Instructions Recorded Confirmed Montelukast [Singulair] 10 mg PO HS 10/15/14 06/13/18 Ferrous Sulfate [Iron] 325 mg PO DAILY 07/20/17 06/13/18 Albuterol Nebulized [Ventolin 2.5 mg INHALATION RT-QID PRN 08/29/17 06/13/18 Nebulized] Mometasone/Formoterol [Dulera 200 2 puff INHALATION RT-BID 11/14/17 06/13/18 Mcg/5 Mcg Inhaler] Aspirin EC [Ecotrin Low Dose] 81 mg PO DAILY 06/13/18 06/13/18 Atorvastatin [Lipitor] 10 mg PO HS 06/13/18 06/13/18 Digoxin [Lanoxin] 62.5 mcg PO Q48H 06/13/18 06/13/18 Epoetin Messi [Procrit] 40,000 unit INJ Q14D 06/13/18 06/13/18 Gabapentin [Neurontin] 100 mg PO Q12H 06/13/18 06/13/18 Gamunex-C(Immune Globulin 10% 1 dose IV Q21D 06/13/18 06/13/18 10gm/100ml Alley) Lactulose 20 gm PO BID 06/13/18 06/13/18 Melatonin 6 mg PO HS 06/13/18 06/13/18 Metoprolol Tartrate [Lopressor] 25 mg PO Q8H 06/13/18 06/13/18 Midodrine HCl [ProAmatine] 10 mg PO AC-TID 06/13/18 06/13/18 Omeprazole 20 mg PO AC-BID 06/13/18 06/13/18 Sodium Bicarbonate Tab 1,300 mg PO BID 06/13/18 06/13/18 diphenhydrAMINE [Benadryl] 50 mg PO Q21D 06/13/18 06/13/18 traMADol HCL [Ultram] 50 mg PO Q6HR PRN 06/13/18 06/13/18 Allergies Allergy/AdvReac Type Severity Reaction Status Date / Time wheat AdvReac Severe Nausea & Verified 06/13/18 15:44 Vomiting & Diarrhea,flu like symptoms gluten AdvReac Nausea & Verified 06/13/18 15:44 Vomiting & Diarrhea levofloxacin [From Levaquin] AdvReac TENDON PAIN Verified 06/13/18 15:44 Review of Systems ROS Statement: Those systems with pertinent positive or pertinent negative responses have been documented in the HPI. ROS Other: All systems not noted in ROS Statement are negative. Past Medical History Past Medical History: Asthma, GI Bleed, Hypertension, Pneumonia Additional Past Medical History / Comment(s): Cirrhosis-pt on liver transplant list, hypogammaglobulinemia, common variable immunoglobulin deficiency-receives IV IG with last infusion 11/08/17-gets infusions q 3 weeks, ascities, anemia, bronchitis, neuropathy in hands and legs but less so since gluten free diet, ciliac disease, diverticulosis, rectal bleed, umbilical hernia, R inguinal hernia, necrotizing fascitis under L arm 20 yrs ago. History of Any Multi-Drug Resistant Organisms: MRSA Additional Past Surgical History / Comment(s): vasectomy, mediport placement x 3 -for IVIG-currently in L side of chest, bilateral cataract/lens surgery, removal of cervical lymph node-benign, BMA, colonoscopies and EGDs, bilateral myringotomy, abdominal paracentesis. Past Anesthesia/Blood Transfusion Reactions: No Reported Reaction Additional Past Anesthesia/Blood Transfusion Reaction / Comment(s): no problems prior blood transfusion Past Psychological History: No Psychological Hx Reported Smoking Status: Former smoker Past Alcohol Use History: None Reported Past Drug Use History: None Reported - Past Family History Father Family Medical History: Thyroid Disorder Additional Family Medical History / Comment(s): Father has hypothyroidism. He is 89 yrs old. Mother Family Medical History: Liver Disease Additional Family Medical History / Comment(s): Mother from hepatitis C at the age of 60. General Exam - General Exam Comments Initial Comments: This is a well-developed asthenic appearing male who is awake alert oriented 3 Limitations: no limitations General appearance: alert, in no apparent distress Head exam: Present: atraumatic, normocephalic, normal inspection Eye exam: Present: normal appearance, PERRL, EOMI. Absent: scleral icterus, conjunctival injection, periorbital swelling ENT exam: Present: mucous membranes dry Neck exam: Present: normal inspection. Absent: tenderness, meningismus, lymphadenopathy Respiratory exam: Present: rhonchi (Some scattered rhonchi in the lower ball) , decreased breath sounds. Absent: respiratory distress, wheezes, rales, stridor Cardiovascular Exam: Present: regular rate, normal rhythm, normal heart sounds. Absent: systolic murmur, diastolic murmur, rubs, gallop, clicks GI/Abdominal exam: Present: soft, normal bowel sounds. Absent: distended, tenderness, guarding, rebound, rigid Extremities exam: Present: full ROM, normal capillary refill, other (( Fasciotomy wounds to the lower extremities which appear to be healing well no evidence of any localized cellulitis). Absent: tenderness, pedal edema, joint swelling, calf tenderness Back exam: Present: normal inspection Neurological exam: Present: alert, oriented X3, CN II-XII intact Psychiatric exam: Present: normal affect, normal mood Skin exam: Present: warm, dry, normal color. Absent: rash Course Vital Signs 06/13/18 06/13/18 14:47 17:08 Temperature 98.6 F Pulse Rate 70 69 Respiratory 20 20 Rate Blood Pressure 109/60 124/79 O2 Sat by Pulse 97 Oximetry Medical Decision Making - Medical Decision Making I did discuss findings with patient family and did discuss case Dr. Romero. Patient be admitted to Dr. Costello service. After Curtis will be consulted. - Lab Data Result diagrams: 06/13/18 15:50 06/13/18 15:50 Lab Results 06/13/18 06/13/18 06/13/18 Range/Units 15:50 15:50 15:50 WBC 5.4 (3.8-10.6) k/uL RBC 2.68 L (4.30-5.90) m/uL Hgb 8.5 L (13.0-17.5) gm/dL Hct 25.3 L (39.0-53.0) % MCV 94.4 D (80.0-100.0) fL MCH 31.8 (25.0-35.0) pg MCHC 33.7 (31.0-37.0) g/dL RDW 23.0 H (11.5-15.5) % Plt Count 123 L (150-450) k/uL Neutrophils % 43 % Lymphocytes % 34 % Monocytes % 7 % Eosinophils % 13 % Basophils % 1 % Neutrophils # 2.3 (1.3-7.7) k/uL Lymphocytes # 1.8 (1.0-4.8) k/uL Monocytes # 0.4 (0-1.0) k/uL Eosinophils # 0.7 (0-0.7) k/uL Basophils # 0.1 (0-0.2) k/uL Poikilocytosis Slight Anisocytosis Moderate Macrocytosis Slight D-Dimer 4.21 H (<0.60) mg/L FEU Sodium 139 (137-145) mmol/L Potassium 3.8 (3.5-5.1) mmol/L Chloride 111 H (98-107) mmol/L Carbon Dioxide 19 L (22-30) mmol/L Anion Gap 9 mmol/L BUN 35 H (9-20) mg/dL Creatinine 1.84 H (0.66-1.25) mg/dL Est GFR (CKD-EPI)AfAm 46 (>60 ml/min/1.73 sqM) Est GFR (CKD-EPI)NonAf 40 (>60 ml/min/1.73 sqM) Glucose 91 (74-99) mg/dL Plasma Lactic Acid Sky (0.7-2.0) mmol/L Calcium 8.7 (8.4-10.2) mg/dL Magnesium 1.4 L (1.6-2.3) mg/dL Total Bilirubin 5.2 H (0.2-1.3) mg/dL AST 42 (17-59) U/L ALT 26 (21-72) U/L Alkaline Phosphatase 149 H (38-126) U/L Total Protein 5.0 L (6.3-8.2) g/dL Albumin 3.1 L (3.5-5.0) g/dL Urine Color Urine Appearance (Clear) Urine pH (5.0-8.0) Ur Specific Hiltons (1.001-1.035) Urine Protein (Negative) Urine Glucose (UA) (Negative) Urine Ketones (Negative) Urine Blood (Negative) Urine Nitrite (Negative) Urine Bilirubin (Negative) Urine Urobilinogen (<2.0) mg/dL Ur Leukocyte Esterase (Negative) Urine RBC (0-5) /hpf Urine WBC (0-5) /hpf Urine WBC Clumps (None) /hpf Ur Squamous Epith Cells (0-4) /hpf Amorphous Sediment (None) /hpf Urine Bacteria (None) /hpf Granular Casts (0) /lpf Urine Mucus (None) /hpf 06/13/18 06/13/18 Range/Units 15:50 19:05 WBC (3.8-10.6) k/uL RBC (4.30-5.90) m/uL Hgb (13.0-17.5) gm/dL Hct (39.0-53.0) % MCV (80.0-100.0) fL MCH (25.0-35.0) pg MCHC (31.0-37.0) g/dL RDW (11.5-15.5) % Plt Count (150-450) k/uL Neutrophils % % Lymphocytes % % Monocytes % % Eosinophils % % Basophils % % Neutrophils # (1.3-7.7) k/uL Lymphocytes # (1.0-4.8) k/uL Monocytes # (0-1.0) k/uL Eosinophils # (0-0.7) k/uL Basophils # (0-0.2) k/uL Poikilocytosis Anisocytosis Macrocytosis D-Dimer (<0.60) mg/L FEU Sodium (137-145) mmol/L Potassium (3.5-5.1) mmol/L Chloride (98-107) mmol/L Carbon Dioxide (22-30) mmol/L Anion Gap mmol/L BUN (9-20) mg/dL Creatinine (0.66-1.25) mg/dL Est GFR (CKD-EPI)AfAm (>60 ml/min/1.73 sqM) Est GFR (CKD-EPI)NonAf (>60 ml/min/1.73 sqM) Glucose (74-99) mg/dL Plasma Lactic Acid Sky 1.5 (0.7-2.0) mmol/L Calcium (8.4-10.2) mg/dL Magnesium (1.6-2.3) mg/dL Total Bilirubin (0.2-1.3) mg/dL AST (17-59) U/L ALT (21-72) U/L Alkaline Phosphatase (38-126) U/L Total Protein (6.3-8.2) g/dL Albumin (3.5-5.0) g/dL Urine Color Dark Yellow Urine Appearance Cloudy (Clear) Urine pH 6.0 (5.0-8.0) Ur Specific Hiltons 1.013 (1.001-1.035) Urine Protein 2+ H (Negative) Urine Glucose (UA) Negative (Negative) Urine Ketones Negative (Negative) Urine Blood Small H (Negative) Urine Nitrite Negative (Negative) Urine Bilirubin 1+ H (Negative) Urine Urobilinogen <2.0 (<2.0) mg/dL Ur Leukocyte Esterase Small H (Negative) Urine RBC 2 (0-5) /hpf Urine WBC 25 H (0-5) /hpf Urine WBC Clumps Rare H (None) /hpf Ur Squamous Epith Cells <1 (0-4) /hpf Amorphous Sediment Rare H (None) /hpf Urine Bacteria Occasional H (None) /hpf Granular Casts 25 (0) /lpf Urine Mucus Rare H (None) /hpf - Radiology Data Radiology results: report reviewed (I did review the imaging and report or is some evidence of right lower lobe pneumonia and blunting of left costophrenic angle consistent with a small effusion.), image reviewed Disposition Clinical Impression: Pneumonia, Febrile illness, Anemia, History of recent hospitalization Disposition: ADMITTED IP TO THIS [facility] Condition: Stable Referrals: Harris Scott MD [Primary Care Provider] - 1-2 days
--- NOTE | 2018-06-13 17:20 | XR ---
EXAMINATION TYPE: XR chest 2V DATE OF EXAM: 06/13/2018 COMPARISON: 04/22/2018 HISTORY: Cough and fever TECHNIQUE: Frontal and lateral views of the chest are obtained. FINDINGS: There is coarsening of pulmonary interstitial markings. There is blunting of costophrenic angles. There is mild pulmonary vascular congestion. Bony thorax is intact. IMPRESSION: Mild congestive heart failure with pleural effusions. This is slightly worse than last e xam. Pleural fluid is increased. Acute pneumonia on the right side is possible.
[2018-06-13 19:20] LABS: Amorphous Sediment,Urine Rare /hpf; Appearance,Urine Cloudy (Clear); Bacteria,Urine Occasional /hpf; Bilirubin,Urine 1+ (Negative); Blood,Urine Small (Negative); Color,Urine Dark Yellow; Glucose,Urine (UA) Negative (Negative); Granular Casts,Urine 25 /lpf (0); Ketones,Urine Negative (Negative); Leukocyte Esterase,Urine Small (Negative); Mucus,Urine Rare /hpf; Nitrite,Urine Negative (Negative); Protein,Urine 2+ (Negative); RBC,Urine 2 /hpf (0-5); Specific Gravity,Urine 1.013 (1.001-1.035); Squamous Epithelial Cell,Urine <1 /hpf (0-4); Urobilinogen,Urine <2.0 mg/dL (<2.0); WBC,Urine 25 /hpf (0-5)
[2018-06-13] MEDS ORDERED: PNEUMONIA PROTOCOL UTILIZED 1 EACH MISC PO PRN (20:45)
[2018-06-13] MEDS ORDERED: VANCOMYCIN IV PER PHARMACY 1 EACH MISC MISCELLANE PRN (20:47)
[2018-06-13] MEDS ORDERED: ALBUTEROL NEBULIZED 2.5 MG/3 ML INHALATION PRN (20:48)
[2018-06-13] MEDS ORDERED: EPOETIN ALFA 40000 UNIT INJ SCH (21:00)
[2018-06-13] MEDS ORDERED: diphenhydrAMINE 50 MG CAP PO SCH (21:00)
[2018-06-13] MEDS ORDERED: GAMUNEX C IV SCH (21:00)
[2018-06-13] MEDS ORDERED: TOBRAMYCIN PER PHARMACY MISCELLANE ONE (21:30)
[2018-06-13] MEDS ORDERED: VANCOMYCIN 1,500 MG in SODIUM CHLORIDE 0.9% 250 ML IVPB ONE (22:00)
[2018-06-13] MEDS ORDERED: AZITHROMYCIN 500 MG in SODIUM CHLORIDE 0.9% 250 ML IVPB SCH (22:00)
[2018-06-13] MEDS: METOPROLOL TARTRATE 25 MG TAB PO SCH (23:04)
[2018-06-13] MEDS: SODIUM BICARBONATE TAB 650 MG TAB PO SCH (23:04)
[2018-06-13] MEDS: GABAPENTIN 100 MG CAP PO SCH (23:04)
[2018-06-13] MEDS: MELATONIN 3 MG TABLET PO SCH (23:04)
[2018-06-13] MEDS: ATORVASTATIN 10 MG TAB PO SCH (23:04)
[2018-06-13] MEDS: MONTELUKAST 10 MG TAB PO SCH (23:04)
[2018-06-13] MEDS: SODIUM CHLORIDE 0.9% 1,000 ML IV SCH (23:04)
[2018-06-13] MEDS: LACTULOSE 20 GM/30 ML CUP PO SCH (23:05)
[2018-06-14] MEDS ORDERED: TOBRAMYCIN SULFATE 160 MG in SODIUM CHLORIDE 0.9% 100 ML IVPB SCH ×2
[2018-06-14] MEDS ORDERED: IPRATROPIUM-ALBUTEROL 3 ML NEB INHALATION PRN (00:38)
[2018-06-14] MEDS: PIPERACILLIN-TAZOBACTAM 3.375 GM in DEXTROSE/WATER 1 50ML.BAG IVPB SCH ×4 (03:03→23:00)
[2018-06-14] MEDS: METOPROLOL TARTRATE 25 MG TAB PO SCH ×3 (05:41→21:13)
--- NOTE | 2018-06-14 06:05 | HP ---
HISTORY AND PHYSICAL DATE OF SERVICE: 06/14/2018 CHIEF COMPLAINT: Fever. HISTORY OF PRESENT ILLNESS: This 57-year-old gentleman with a past medical history of atrial fibrillation, asthma, GI bleed, hypertension, pneumonia, history of cirrhosis of the liver, patient is on transplant list, hypogammaglobinemia, common variable immunodeficiency and multiple other medical problems being followed by Dr. Scott in the outpatient setting recently was evaluated in the emergency room in [place] and the patient was found to have possible necrotizing fasciitis of the left lower leg and the patient was subsequently airlifted to [facility] where the patient spent about 52 days where the patient had multiple fasciotomies including the upper thigh and leg also. The patient apparently was in rehab also. The patient went home. Patient also had VRE pneumonia, sepsis, also. Currently the visiting nurse noted that the patient is running a fever and the patient is feeling weak and tired and patient came to [facility] and admitted for evaluation and treatment. WBC is 5.4, hemoglobin is 8.5, and the chest x- ray which was reviewed personally by me showed some mild CHF and pleural effusions. The patient admitted for further evaluation and treatment. There is no history of any headache, loss of consciousness, or seizures. No hematochezia or melena at this time. The patient had significant wounds which is partially healing at this time. PAST MEDICAL HISTORY: History of recent necrotizing fasciitis, multiple fasciotomies and complicated hospital course prolonged hospital course as detailed above, the atrial fibrillation, asthma, GI bleed, hypertension, hyperlipidemia, cirrhosis of the liver. MEDICATIONS: Medications prior to admission currently shows home medications: 1. Ultram 50 mg q.6h p.r.n. 2. Benadryl 50 mg b.i.d. 3. Sodium bicarbonate 1300 mg p.o. b.i.d. 4. Omeprazole 20 mg b.i.d. 5. Singular 10 mg at bedtime. 6. Dulera 2 puffs b.i.d. 7. ProAmatine 10 mg a.c. t.i.d. 8. Lopressor 25 mg p.o. q.8. 9. Melatonin 6 mg at bedtime. 10.Lactulose 20 grams p.o. b.i.d. 11.Immune Globulin q.21 days. 12.Neurontin 100 mg p.o. b.i.d. 13.Iron 325 mg daily. 14.Procrit 40,000 units take q.14 days. 15.Lanoxin 62.5 mg p.o. q.48 hours. 16.Lipitor 10 mg at bedtime. 17.Ecotrin 81 mg daily. 18.Ventolin 2.5 q.i.d. p.r.n. ALLERGIES: Allergies are WHEAT, GLUTEN and LEVAQUIN. FAMILY HISTORY: History of liver disease in the family. History of hepatitis C. SOCIAL HISTORY: Previous history of smoking, no current history of smoking or alcohol intake. REVIEW OF SYSTEMS: ENT: No diminished hearing or diminished vision. CARDIOVASCULAR SYSTEM: No angina. RESPIRATORY SYSTEM: As mentioned earlier. GI: As mentioned earlier. : No dysuria. NERVOUS SYSTEM: No numbness or weakness. ALLERGY/IMMUNOLOGY: ntd_. MUSCULOSKELETAL: As mentioned earlier. HEMATOLOGY/ONCOLOGY: No history of anemia. ENDOCRINE: As mentioned earlier. CONSTITUTIONAL: As mentioned earlier. DERMATOLOGY: As mentioned earlier. RHEUMATOLOGY: Negative. PSYCHIATRY: As mentioned earlier. PHYSICAL EXAMINATION: The patient is alert and oriented x3. Pulse 66, blood pressure 115/57, respirations 17, temperature 98.2, pulse ox 98% on room air. HEENT: Conjunctivae normal. Oral mucosa moist. Neck is no jugular venous distention. No carotid bruit. No lymph node enlargement. CARDIOVASCULAR: S1 and S2 muffled. RESPIRATORY: Breath sounds diminished at the bases. A few scattered rhonchi and crackles. ABDOMEN: Soft, nontender. No mass palpable. LEGS: Status post multiple surgeries and some minimal discharge also present and some tenderness also present. NERVOUS SYSTEM: Higher functions as mentioned. Moves all 4 limbs. No focal motor deficits. LYMPHATICS: No lymphadenopathy of the neck, axillae or groin. SKIN: No ulcer, rash or bleeding. LABS: WBC 5.4, hemoglobin is 8.5. Creatinine 1.84. ASSESSMENT: 1. Fever, possible sepsis. 2. Possible bilateral pneumonia possibly hospital-acquired pneumonia. 3. History of recent necrotizing fasciitis and multiple fasciotomies in the left leg. 4. History of VRE and history of pneumonia. 5. Increased creatinine with chronic kidney disease stage III. 6. History of cirrhosis of liver, on liver transplant list. 7. Hypogammaglobinemia. 8. History of atrial fibrillation. 9. History of asthma. 10.History of gastrointestinal bleed. 11.Hypertension. 12.History of pneumonia. 13.History of ascites. 14.History of peripheral neuropathy. 15.History of methicillin-resistant Staphylococcus aureus. 16.History of nicotine dependence. RECOMMENDATIONS AND DISCUSSION: In this 57-year-old gentleman who presented with multiple complex medical issues , will monitor the patient closely. Continue the current mediations, continue symptomatic treatment. Will initiate broad-spectrum IV antibiotics, obtain cultures. I would recommend continue the current medication, infectious disease evaluation, pulmonary evaluation. Otherwise, overall prognosis guarded because of multiple complex medical issues. We will also obtain old records from [facility]. Continue the rest of the medications and continue with DVT prophylaxis and proton pump inhibitors also. Once again, the prognosis guarded, Further recommendations to follow. See orders for details. MMODL / IJN: [id number] / MTDD
[2018-06-14] MEDS: SYMBICORT 160-4.5 MCG INHALER INHALATION SCH ×2 (07:31→19:28)
[2018-06-14] MEDS: IPRATROPIUM-ALBUTEROL 3 ML NEB INHALATION SCH ×3 (07:31→19:29)
[2018-06-14] MEDS: LACTULOSE 20 GM/30 ML CUP PO SCH ×3 (08:01→21:13)
[2018-06-14] MEDS: ASPIRIN 81 MG PO SCH (08:01)
[2018-06-14] MEDS: MIDODRINE 5 MG TAB PO SCH ×3 (08:01→18:22)
[2018-06-14] MEDS: PANTOPRAZOLE 40 MG TABLET PO SCH ×2 (08:01→18:21)
[2018-06-14] MEDS: SODIUM BICARBONATE TAB 650 MG TAB PO SCH ×2 (08:01→21:13)
[2018-06-14] MEDS: GABAPENTIN 100 MG CAP PO SCH ×2 (08:01→21:13)
[2018-06-14] MEDS: SODIUM CHLORIDE 0.9% 1,000 ML IV SCH (08:01)
[2018-06-14] MEDS: DIGOXIN 125 MCG TAB PO SCH (08:42)
[2018-06-14] MEDS ORDERED: HEPARIN SODIUM,PORCINE 5,000 UNIT/ML 1 ML VIAL SQ SCH (09:00)
--- NOTE | 2018-06-14 09:04 | XR ---
EXAMINATION TYPE: XR chest 2V DATE OF EXAM: 06/14/2018 COMPARISON: 06/13/2018 TECHNIQUE: PA and lateral views submitted. HISTORY: Cough FINDINGS: There is coarsening of pulmonary interstitial markings. There is blunting of costophrenic angles. The re is mild pulmonary vascular congestion. Bony thorax is intact. Subsegmental consolidation bilateral ly. IMPRESSION: 1. Bilateral infiltrate with small effusion. Correlate for underlying chronic interstitial lung disea se with superimposed acute pneumonitis or vascular congestion in the differential diagnosis.
--- NOTE | 2018-06-14 11:31 | P.CNPUL ---
History of Present Illness Consult date: 06/14/18 Reason for consult: dyspnea, cough, asthma, pneumonia, abnormal CXR/CT Chief complaint: Shortness of breath/cough/pneumonia History of present illness: Pulmonary consultation 06/14/2018 57-year-old male way see for chronic bronchial asthma. More recently, he's been extremely low. This started months ago, at which time he apparently developed an infection in his left thigh and leg area. The patient apparently was airlifted from here to [facility]. The patient ended up with overwhelming sepsis and respiratory failure and ended up there for 52 days about 3 weeks on the mechanical ventilator. He was eventually extubated. He apparently asked abated himself actually and eventually was discharged there and sent to rehab. Subsequent to that, right before discharge and rehab he apparently developed a fever again and developed pneumonia secondary to vancomycin-resistant enterococci. He apparently was readmitted for a number of days and then recently discharged against. More recently, he comes into the hospital with complaints of fever chest congestion cough phlegm production. He is possibly thought to have pneumonia again. Chest x-ray showed bilateral infiltrates. Some of these infiltrates could affect B chronic in nature. He is certainly behaving like; pneumonia given his fever chills cough phlegm chest congestion, etc. Most of the history is obtained from his was in the room with him. In addition to asthma, the patient has chronic liver disease from alcohol, and was previously being evaluated for liver transplantation at [facility]. In addition, the patient has a history of anemia hyperlipidemia and also hypogammaglobulinemia. For this, he gets immunoglobulin every 3 weeks. He also has a history of hypertension and in addition to seeing me, sees one of the oncologist here in town. He was laying flat in bed room he first walked into the room. I barely recognized him. Review of Systems A 14 point review of system is positive for chest congestion cough phlegm production fever chills shortness of breath, etc. He appears to have pneumonia again. 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 History of Any Multi-Drug Resistant Organisms: MRSA Date of last positivie culture/infection: unknown MDRO Source:: unknown Additional Past Surgical History / Comment(s): vasectomy, mediport placement and removed. bilateral cataract/lens surgery, removal of cervical lymph node- benign, BMA, colonoscopies and EGDs, bilateral myringotomy, abdominal paracentesis. Past Anesthesia/Blood Transfusion Reactions: No Reported Reaction Additional Past Anesthesia/Blood Transfusion Reaction / Comment(s): no problems prior blood transfusion Past Psychological History: No Psychological Hx Reported Additional Psychological History / Comment(s): Pt resides with his spouse and 1 adult children. He is independent. He uses no assistive device. He drives.has a nebulizer. Smoking Status: Former smoker Past Alcohol Use History: None Reported Additional Past Alcohol Use History / Comment(s): Pt used to drink Vodka 2 drinks/day and quit drinking August 2016. Pt chews 1 can of tobacco a week He used to smoke cigarettes-quit them in 1987 and only smoked for about 1-2 yrs. Past Drug Use History: None Reported Additional Drug Use History / Comment(s): Chews tobacco. - Past Family History Father Family Medical History: Thyroid Disorder Additional Family Medical History / Comment(s): Father has hypothyroidism. He is 89 yrs old. Mother Family Medical History: Liver Disease Additional Family Medical History / Comment(s): Mother from hepatitis C at the age of 60. Medications and Allergies Home Medications Medication Instructions Recorded Confirmed Type Montelukast [Singulair] 10 mg PO HS 10/15/14 06/13/18 History Ferrous Sulfate [Iron] 325 mg PO DAILY 07/20/17 06/13/18 History Albuterol Nebulized [Ventolin 2.5 mg INHALATION RT-QID PRN 08/29/17 06/13/18 History Nebulized] Mometasone/Formoterol [Dulera 200 2 puff INHALATION RT-BID 11/14/17 06/13/18 History Mcg/5 Mcg Inhaler] Aspirin EC [Ecotrin Low Dose] 81 mg PO DAILY 06/13/18 06/13/18 History Atorvastatin [Lipitor] 10 mg PO 06/13/18 06/13/18 History Digoxin [Lanoxin] 62.5 mcg PO Q48H 06/13/18 06/14/18 History Epoetin Messi [Procrit] 40,000 unit INJ Q14D 06/13/18 06/13/18 History Gabapentin [Neurontin] 100 mg PO Q12H 06/13/18 06/13/18 History Gamunex-C(Immune Globulin 10% 1 dose IV Q21D 06/13/18 06/13/18 History 10gm/100ml Alley) Lactulose 20 gm PO BID 06/13/18 06/13/18 History Melatonin 6 mg PO HS 06/13/18 06/13/18 History Metoprolol Tartrate [Lopressor] 25 mg PO Q8H 06/13/18 06/13/18 History Midodrine HCl [ProAmatine] 10 mg PO AC-TID 06/13/18 06/13/18 History Omeprazole 20 mg PO AC-BID 06/13/18 06/13/18 History Sodium Bicarbonate Tab 1,300 mg PO BID 06/13/18 06/13/18 History diphenhydrAMINE [Benadryl] 50 mg PO Q21D 06/13/18 06/13/18 History traMADol HCL [Ultram] 50 mg PO Q6HR PRN 06/13/18 06/13/18 History Allergies Allergy/AdvReac Type Severity Reaction Status Date / Time wheat AdvReac Severe Nausea & Verified 06/13/18 15:44 Vomiting & Diarrhea,flu like symptoms gluten AdvReac Nausea & Verified 06/13/18 15:44 Vomiting & Diarrhea levofloxacin [From Levaquin] AdvReac TENDON PAIN Verified 06/13/18 15:44 Physical Exam Osteopathic Statement: *. No significant issues noted on an osteopathic structural exam other than those noted in the History and Physical/Consult. Vitals: Vital Signs Temp Pulse Pulse Resp BP BP Pulse Ox 06/14/18 08:00 18 06/14/18 07:50 76 06/14/18 07:32 78 98 06/14/18 05:30 97.4 F L 76 28 H 108/52 96 06/13/18 21:33 98.2 F 66 17 115/57 98 06/13/18 21:05 97.5 F L 65 15 118/59 98 06/13/18 17:08 69 20 124/79 06/13/18 14:47 98.6 F 70 20 109/60 97 Intake and Output 06/13/18 06/14/18 06/14/18 22:59 06:59 14:59 Intake Total 1400 Balance 1400 Intake: Amount of Fluid Infused ( 1400 ml) Other: Voiding Method Toilet Urinal # Voids 2 No acute distress, oriented 3, he looks chronically ill and is very gaunt. HEENT examination is grossly unremarkable. Mucous membranes are moist. No oral lesions. Neck supple. Full range of motion. No adenopathy thyromegaly or neck vein distention. Cardiovascular examination reveals regular rhythm rate. S1-S2 normal. No S3 or S4. No discernible murmur noted. Lungs reveal coarse inspiratory and expiratory rhonchi and expiratory wheezes. A few crackles are noted. Her sounds are congested sounding. Breath sounds equal bilaterally. Abdomen soft bowel sounds are heard. No masses or tenderness. Extremities are intact. Left thigh and left leg is wrapped from previous fasciotomy because of compartment syndrome Skin is without rash or lesion. Neurologic examination is brief but nonfocal. Results - Laboratory Findings CBC and BMP: 06/13/18 15:50 06/13/18 15:50 PT/INR, D-dimer D-Dimer 4.21 mg/L FEU (<0.60) H 06/13/18 15:50 Abnormal lab findings: Abnormal Labs 06/13/18 06/13/18 06/13/18 15:50 15:50 15:50 RBC 2.68 L Hgb 8.5 L Hct 25.3 L RDW 23.0 H Plt Count 123 L D-Dimer 4.21 H Chloride 111 H Carbon Dioxide 19 L BUN 35 H Creatinine 1.84 H Magnesium 1.4 L Total Bilirubin 5.2 H Alkaline Phosphatase 149 H Total Protein 5.0 L Albumin 3.1 L Urine Protein Urine Blood Urine Bilirubin Ur Leukocyte Esterase Urine WBC Urine WBC Clumps Amorphous Sediment Urine Bacteria Urine Mucus 06/13/18 19:05 RBC Hgb Hct RDW Plt Count D-Dimer Chloride Carbon Dioxide BUN Creatinine Magnesium Total Bilirubin Alkaline Phosphatase Total Protein Albumin Urine Protein 2+ H Urine Blood Small H Urine Bilirubin 1+ H Ur Leukocyte Esterase Small H Urine WBC 25 H Urine WBC Clumps Rare H Amorphous Sediment Rare H Urine Bacteria Occasional H Urine Mucus Rare H - Diagnostic Findings Chest x-ray: report reviewed (Chest x-ray, labs and medications are reviewed.), image reviewed Assessment and Plan Assessment: Assessment Asthma exacerbation likely complicated by purulent tracheobronchitis and possible bronchopneumonia Previous history of vancomycin-resistant enterococcal pneumonia Previous history of severe left thigh infection with compartment syndrome sepsis fasciotomy and long-term mechanical ventilation History of chronic bronchial asthma History of hyperlipidemia History of hypogammaglobulinemia History of chronic liver disease and liver cirrhosis secondary to previous alcohol abuse History of GERD Anemia of chronic disease Chronic kidney disease Plan: Plan dated 06/14/2018 Labs medications and x-rays are all reviewed. The patient will be placed on standard therapy. Infectious disease has been consulted. He may very well have pneumonia again. It's hard to tell by his chest x-ray because some the changes are likely chronic. Clinically, he is behaving like pneumonia with fever chills cough chest congestion and phlegm production. I'm sure he'll be treated as such. His overall health has significantly declined. His was kind enough to give this all history. We will continue to follow make recommendations are appropriate. Time with Patient: Greater than 30
[2018-06-14] MEDS: FERROUS SULFATE 325 MG TAB PO SCH (11:50)
[2018-06-14] MEDS ORDERED: VANCOMYCIN 1,250 MG in SODIUM CHLORIDE 0.9% 250 ML IVPB SCH (12:00)
[2018-06-14 12:24] LABS: Calcium 7.9 mg/dL (8.4-10.2); Potassium 3.5 mmol/L (3.5-5.1)
--- NOTE | 2018-06-14 14:32 | NM ---
EXAMINATION TYPE: NM pul vent and perfuse DATE OF EXAM: 06/14/2018 COMPARISON: NONE HISTORY: Chest x-ray 06/14/2018 TECHNIQUE: Utilizing inhalation of 40.2 mCi Tc 99m DTPA aerosol and intravenous injection of 5.22 mC i of Tc 99m MAA, ventilation and perfusion images are acquired post injection in multiple projections . FINDINGS: There is markedly reduced uptake involving the ventilation images which results in a significantly li mited exam. This likely is related to chronic lung disease. A triple match is seen in the right upper lobe. IMPRESSION: Markedly limited exam due to reduced ventilation uptake likely secondary to chronic lung disease or C OPD. This results in a indeterminate probability for pulmonary embolism.
[2018-06-14] MEDS ORDERED: HEPARIN SODIUM,PORCINE 5,000 UNIT/ML 1 ML VIAL IV PRN (15:02)
[2018-06-14] MEDS ORDERED: HEPARIN SODIUM,PORCINE 5,000 UNIT/ML 1 ML VIAL IV ONE (15:02)
[2018-06-14] MEDS ORDERED: HEPARIN SOD,PORK IN 0.45% NACL 25,000 UNIT in 0.45% NACL 1 500ML.BAG IV SCH (15:15)
[2018-06-14 16:20] LABS: Partial Thromboplastin Time 51.4 sec (22.0-30.0)
[2018-06-14 16:21] LABS: Anisocytosis Moderate; Basophils % (A) 1 %; Eosinophils # (A) 0.3 k/uL (0-0.7); Eosinophils % (A) 12 %; HCT 21.7 % (39.0-53.0); HGB 7.4 gm/dL (13.0-17.5); Lymphocytes # (A) 0.7 k/uL (1.0-4.8); Lymphocytes % (A) 28 %; MCHC 34.3 g/dL (31.0-37.0); MCV 93.4 fL (80.0-100.0); Macrocytosis Slight; Mean Platelet Volume 8.6; Monocytes # (A) 0.2 k/uL (0-1.0); Monocytes % (A) 7 %; Neutrophils # (A) 1.3 k/uL (1.3-7.7); Neutrophils % (A) 51 %; Poikilocytosis Slight; RBC 2.32 m/uL (4.30-5.90); RDW 22.5 % (11.5-15.5); WBC 2.6 k/uL (3.8-10.6)
[2018-06-14 17:00] LABS: Platelet Count 90 k/uL (150-450)
[2018-06-14] MEDS: traMADol 50 MG TAB PO PRN (18:23)
[2018-06-14] MEDS ORDERED: Potassium Replacement Protocol 1 EACH MISC MISCELLANE PRN (20:40)
[2018-06-14] MEDS ORDERED: Magnesium Replacement Protocol 1 EACH MISC MISCELLANE PRN (20:40)
--- NOTE | 2018-06-14 20:57 | P.PN ---
Subjective Progress Note Date: 06/14/18 Progress Note being dictated for Dr. Moss Interval history: This is a 57-year-old gentleman admitted with fever, possible sepsis, possible bilateral pneumonia history of recent necrotizing fasciitis and multiple fasciotomies of the left leg, acute on chronic renal failure and multiple other medical issues. Renal function unchanged, CBC pending. Afebrile. VQ scan pending. Maintaining O2 sats in the high 90s on room air. Complaints of generalized weakness, poor appetite. Review of systems: CONSTITUTIONAL: Positive fatigue, generalized weakness HEENT: No recent visual problems or hearing problems. Denied any sore throat. CARDIOVASCULAR: No chest pain, no palpitations, no syncope. PULMONARY: Shortness of breath, positive cough, no hemoptysis. GASTROINTESTINAL: No diarrhea, no nausea, no vomiting, no abdominal pain. Poor appetite NEUROLOGICAL: No headaches, generalized weakness, no numbness. HEMATOLOGICAL: Denies any bleeding or petechiae. GENITOURINARY: Denies any burning micturition, frequency, or urgency. No dysuria ENDOCRINE: Denies any polyuria or polydipsia. PSYCHIATRIC: No anxiety, no depression The rest of the 14 point review of systems is negative Active Medications Albuterol/Ipratropium (Duoneb 0.5 Mg-3 Mg/3 Ml Soln) 3 ml INHALATION RT-TID PRN PRN Reason: Shortness Of Breath Or Wheezing Albuterol/Ipratropium (Duoneb 0.5 Mg-3 Mg/3 Ml Soln) 3 ml INHALATION RT-TID [facility] Last Admin: 06/14/18 19:29 Dose: Not Given Aspirin (Aspirin) 81 mg PO DAILY [facility] Last Admin: 06/14/18 08:01 Dose: 81 mg Atorvastatin Calcium (Lipitor) 10 mg PO HS [facility] Last Admin: 06/13/18 23:04 Dose: 10 mg Budesonide/Formoterol Fumarate (Symbicort 160-4.5 Mcg Inhaler) 2 puff INHALATION RT-BID [facility] Last Admin: 06/14/18 19:28 Dose: 2 puff Digoxin (Lanoxin) 62.5 mcg PO Q48H [facility] Last Admin: 06/14/18 08:42 Dose: 62.5 mcg Ferrous Sulfate (Feosol) 325 mg PO 1200 [facility] Last Admin: 06/14/18 11:50 Dose: 325 mg Gabapentin (Neurontin) 100 mg PO Q12H [facility] Last Admin: 06/14/18 08:01 Dose: 100 mg Piperacillin/Tazobactam/ (Dextrose 3.375 gm/ IV Solution) 50 mls @ 12.5 mls/hr IVPB Q8HR [facility] Stop: 06/24/18 22:01 Last Admin: 06/14/18 16:01 Dose: 12.5 mls/hr Sodium Chloride (Saline 0.9%) 1,000 mls @ 50 mls/hr IV .Q20H [facility] Last Admin: 06/14/18 08:01 Dose: 50 mls/hr Vancomycin HCl 1,250 mg/ (Sodium Chloride) 250 mls @ 125 mls/hr IVPB Q16H [facility] Last Admin: 06/14/18 12:41 Dose: 125 mls/hr Tobramycin Sulfate 160 mg/ (Sodium Chloride) 104 mls @ 104 mls/hr IVPB Q24H [facility] Last Admin: 06/13/18 23:05 Dose: 104 mls/hr Azithromycin 500 mg/ Sodium (Chloride) 250 mls @ 125 mls/hr IVPB [facility] Lactulose (Cephulac) 20 gm PO BID [facility] Last Admin: 06/14/18 08:05 Dose: Not Given Megestrol Acetate (Megace) 400 mg PO DAILY [facility] Melatonin (Melatonin) 6 mg PO [facility] Last Admin: 06/13/18 23:04 Dose: 6 mg Metoprolol Tartrate (Lopressor) 25 mg PO Q8H [facility] Last Admin: 06/14/18 14:25 Dose: Not Given Midodrine (Proamatine) 10 mg PO AC-TID [facility] Last Admin: 06/14/18 18:22 Dose: 10 mg Miscellaneous Information (Pneumonia Protocol Utilized) 1 each PO ONCE PRN PRN Reason: Per Protocol Miscellaneous Information (Magnesium Per Protocol) 1 each MISCELLANE DAILY PRN ; Protocol PRN Reason: Per Protocol Miscellaneous Information (Potassium Per Protocol) 1 each MISCELLANE DAILY PRN ; Protocol PRN Reason: Per Protocol Montelukast Sodium (Singulair) 10 mg PO [facility] Last Admin: 06/13/18 23:04 Dose: 10 mg Pantoprazole Sodium (Protonix) 40 mg PO AC-BID [facility] Last Admin: 06/14/18 18:21 Dose: 40 mg Sodium Bicarbonate (Sodium Bicarbonate Tab) 1,300 mg PO BID [facility] Last Admin: 06/14/18 08:01 Dose: 1,300 mg Tramadol HCl (Ultram) 50 mg PO Q6HR PRN PRN Reason: Moderate Pain Last Admin: 06/14/18 18:23 Dose: 50 mg Objective - Vital Signs Vital signs: Vital Signs Temp 98.1 F 06/14/18 14:30 Pulse 78 06/14/18 19:38 Resp 16 06/14/18 16:50 BP 122/57 06/14/18 14:30 Pulse Ox 98 06/14/18 14:30 Intake & Output 06/14/18 06/14/18 06/15/18 06:59 18:59 06:59 Intake Total 1400 Output Total 300 Balance 1400 -300 Intake: Amount of Fluid Infused ( 1400 ml) Output: Urine 300 Other: Voiding Method Toilet Urinal # Voids 2 1 - Exam PHYSICAL EXAM: VITAL SIGNS: As above GENERAL: Sitting up in bed, no acute distress HEENT: Conjunctivae normal. eyes normal. Oral mucosa moist NECK: No JVD. No thyroid enlargement. No LNs CARDIOVASCULAR: S1, S2 muffled. No murmur RESPIRATION: Breath sounds diminished in the bases. Congested with Occasional scattered rhonchi and crackles. expiratory wheezing ABDOMEN: Soft, nontender . No guarding. no masses palpable. Bowel sounds heard. LEGS: Status post multiple surgeries, minimal serous drainage, mild tenderness. Left leg dressing clean, dry and intact PSYCHIATRY: Alert and oriented -3, mood and affect normal. NERVOUS SYSTEM: Cranial N 2-12 grossly normal. Moves all 4 limbs. Diffuse weakness No focal deficits. Lymphatic system. No LN neck axilla or groin. Microbiology 06/14/18 13:08 Urine,Voided Urine Culture - Preliminary 06/13/18 15:50 Blood Blood Culture - Preliminary No Growth after 24 hours - Labs CBC & Chem 7: 06/14/18 15:43 06/14/18 11:22 Labs: Abnormal Lab Results - Last 24 Hours (Table) 06/14/18 06/14/18 06/14/18 Range/Units 11:22 15:43 15:43 WBC 2.6 L (3.8-10.6) k/uL RBC 2.32 L (4.30-5.90) m/uL Hgb 7.4 L (13.0-17.5) gm/dL Hct 21.7 L (39.0-53.0) % RDW 22.5 H (11.5-15.5) % Plt Count 90 L (150-450) k/uL Lymphocytes # 0.7 L (1.0-4.8) k/uL PT 18.0 H (9.0-12.0) sec INR 2.0 H (<1.2) APTT 51.4 H (22.0-30.0) sec Chloride 111 H (98-107) mmol/L Carbon Dioxide 16 L (22-30) mmol/L BUN 34 H (9-20) mg/dL Creatinine 1.80 H (0.66-1.25) mg/dL Calcium 7.9 L (8.4-10.2) mg/dL Microbiology - Last 24 Hours (Table) 06/14/18 13:08 Urine Culture - Preliminary Urine,Voided 06/13/18 15:50 Blood Culture - Preliminary Blood No Growth after 24 hours Assessment and Plan Assessment: 1. Fever, possible sepsis 2. Possible bilateral pneumonia, possibly hospital acquired pneumonia. 3. Acute Asthma exacerbation with purulent tracheobronchitis 4. Recent necrotizing fasciitis and multiple fasciotomies , compartment syndrome. 5. Acute on chronic renal failure, stage III 6. History of VRE pneumonia 7. Chronic liver disease 8. Anemia of chronic disease Plan: Continue on current medication regime ,monitoring and symptomatic treatment. VQ scan, BMP pending. Follow cultures closely. Maintain IV antibiotics as per infectious disease.[facility]. PT/OT. Follow closely with pulmonary. Balwinderce, ensure supplements added to med regime. Plan of care discussed at bedside with both patient and significant other including possible subacute rehab at discharge. Further recommendations to follow. The impression and plan of care has been dictated as directed. : I performed a history and examination of this patient, discussed the same with the dictator. I agree with the dictator's note ,documented as a scribe. Any additional findings or plans will be noted.
[2018-06-14] MEDS ORDERED: AZITHROMYCIN 500 MG in SODIUM CHLORIDE 0.9% 250 ML IVPB SCH (21:00)
[2018-06-14] MEDS: ATORVASTATIN 10 MG TAB PO SCH (21:13)
[2018-06-14] MEDS: MELATONIN 3 MG TABLET PO SCH (21:13)
[2018-06-14] MEDS: MONTELUKAST 10 MG TAB PO SCH (21:13)
[2018-06-14] MEDS: MEGESTROL 400 MG/10 ML CUP PO SCH (21:14)
[2018-06-15] MEDS: SODIUM CHLORIDE 0.9% 1,000 ML IV SCH (02:39)
[2018-06-15] MEDS: METOPROLOL TARTRATE 25 MG TAB PO SCH ×3 (05:42→20:53)
[2018-06-15] MEDS: IPRATROPIUM-ALBUTEROL 3 ML NEB INHALATION SCH ×3 (07:39→20:27)
[2018-06-15] MEDS: SYMBICORT 160-4.5 MCG INHALER INHALATION SCH ×2 (07:39→20:27)
--- NOTE | 2018-06-15 07:49 | CONS ---
CONSULTATION DATE OF SERVICE: 06/14/2018. REASON FOR CONSULTATION: Fever, sepsis and antibiotic recommendation. HISTORY OF PRESENT ILLNESS: The patient is a 57-year-old male with a past medical history significant for a cirrhosis of the liver, common variable immune deficiency, who recently did have necrotizing fasciitis involving his right foot in the left lower extremity for which the patient did have a prolonged stay at the [facility] totaling almost 52 days between the hospital and the rehab. The patient did have multiple surgeries on the left leg for his fasciotomy and his clinical course was also complicated by development of VRE bacteremia. The patient has completed antibiotic therapy as of 06/11/2018 and the patient subsequently has been discharged home. The patient now presenting to the [facility] with chief complaints of fevers. Apparently symptoms have been going on for a day or two prior to presentation to the hospital. The patient denies having any headache. No URI symptoms. The patient denies having any chest pain. However, he had to have a cough bringing up some sputum mostly dark color, but no hemoptysis. No chest pain. No abdominal pain. The patient denies having any worsening pain to his left leg area. He did have multiple wounds on his left leg, both in the thigh and the lower leg area, currently being treated with wet-to-dry dressing changes. With these symptoms, the patient has been evaluated by the ER physician. On arrival to the ER, the patient has been afebrile. His white count was 5.4, repeat is 2.6. The patient UA was not significantly positive. He did have chest x-ray which shows mild congestive heart failure with pleural effusion slightly worse than the last exam. He also had a repeat x-ray done this morning shows bilateral infiltrate with small effusion for underlying chronic interstitial lung disease with same post acute pneumonitis or vascular congestion. The VQ scan was nondiagnostic. The patient has been treated with vancomycin, tobramycin, Zosyn and Zithromax. Infectious Disease has been consulted for further recommendation regarding antibiotic therapy. REVIEW OF SYSTEMS: Constitutional: Positive for weakness and fever. Eyes: No complaint. ENT no complaint. Respiratory as per HPI. Cardiovascular: No complaint. Genitourinary no complaint. GASTROINTESTINAL: No complaint. Musculoskeletal no complaint. INTEGUMENTARY: As per HPI. Psychological no complaint. Endocrine no complaint. Neurological no complaints. PAST MEDICAL HISTORY: His past medical history significant for hypertension, asthma, cirrhosis of the liver, common antibiotic immunodeficiency, necrotizing fasciitis, VRE bacteremia. PAST SURGERY HISTORY: Vasectomy, MediPort placement x3, bilateral cataract surgery, colonoscopy, EGD, abdominal/pelvis and multiple surgeries of his left leg. SOCIAL HISTORY: Remote history of smoking and drinking. No drug use. FAMILY HISTORY: Father hypothyroidism. Mother from hepatitis C at the age of 60. ALLERGIES: LEVOFLOXACIN. MEDICATION: Medications include the patient is currently on DuoNeb, aspirin, Lipitor, Symbicort, Lanoxin, iron sulfate, Neurontin, lactulose, Megace, melatonin, Lopressor, Singulair, Protonix Zosyn and Ultram. EXAMINATION: His blood pressure is 122/57 with a pulse of 74, temperature 98.1. He is 98% on room air. General description is a middle-aged male lying in bed in no distress. HEENT: Shows pallor. No scleral icterus. Oral mucosa membranes dry. No significant pharyngeal erythema or thrush. Neck: Trachea central. No thyromegaly. Lungs unlabored breathing, decreased breath sounds in the bases. No wheeze or crackles. Heart S1, S2. Regular rate and rhythm. ABDOMEN: Soft, no guarding or rigidity. No organomegaly. Left leg with multiple wounds. Those wound looks clean with no slough tissue, surrounding redness or any tenderness. Neurological: Patient is awake, alert, oriented x3. Mood and affect normal. LABS: Hemoglobin 7.4, white count 2.6, BUN of 34, creatinine is 1.0. Urine is not significantly positive. Chest report as mentioned above. DIAGNOSTIC IMPRESSION AND PLAN: 1. Patient with admission to the hospital with a fever in a patient who did recently have a complicated stay at the [facility] for necrotizing fasciitis of the left leg with multiple surgeries and now associated with VRE bacteremia and pneumonia, now with predominant respiratory symptoms. Underlying nosocomial pneumonia not entirely excluded, likely from resistant gram positive as well as gram-negative pathogen. The patient abdomen was soft on clinical examination and left leg wound looks clean with no evidence of any cellulitis or deep infection. 2. Patient does have a borderline kidney function, high risk of nephrotoxicity from the antibiotics. PLAN: 1. We will discontinue the vancomycin, tobramycin to decrease risk of nephrotoxicity. 2. We will keep the patient on Zosyn at 3.375 g q.8h. Add Zyvox 600 b.i.d. to cover for possible MRSA as well as VRE infection. 3. Local wound care to the left leg with Aquacel Silver dressing to be changed every 48 hours. 4. We will try to obtain sputum for Gram stain culture and sensitivity. 5. We will follow up on clinical condition and culture to further adjust medication if needed. Thank you for this consultation. We will follow this patient along with you. MMODL / IJN: [id number] /
[2018-06-15] MEDS: PANTOPRAZOLE 40 MG TABLET PO SCH ×2 (08:23→17:03)
[2018-06-15] MEDS: MIDODRINE 5 MG TAB PO SCH ×3 (08:23→17:03)
[2018-06-15] MEDS: SODIUM BICARBONATE TAB 650 MG TAB PO SCH ×2 (08:23→20:54)
[2018-06-15] MEDS: GABAPENTIN 100 MG CAP PO SCH ×2 (08:23→20:52)
[2018-06-15] MEDS: MEGESTROL 400 MG/10 ML CUP PO SCH (08:24)
[2018-06-15] MEDS: LINEZOLID 600 MG TAB PO SCH ×2 (08:24→20:53)
[2018-06-15] MEDS: ASPIRIN 81 MG PO SCH (08:24)
[2018-06-15] MEDS: LACTULOSE 20 GM/30 ML CUP PO SCH ×2 (08:25→20:53)
[2018-06-15] MEDS: PIPERACILLIN-TAZOBACTAM 3.375 GM in DEXTROSE/WATER 1 50ML.BAG IVPB SCH ×2 (08:29→17:02)
[2018-06-15] MEDS: traMADol 50 MG TAB PO PRN (08:30)
[2018-06-15] MEDS: HEPARIN SODIUM,PORCINE 5,000 UNIT/ML 1 ML VIAL SQ SCH ×2 (08:34→20:52)
[2018-06-15] MEDS ORDERED: MEGESTROL 400 MG/10 ML CUP PO SCH (09:00)
[2018-06-15 09:39] LABS: Anisocytosis Moderate; Basophils % (A) 1 %; Eosinophils # (A) 0.5 k/uL (0-0.7); Eosinophils % (A) 12 %; HCT 23.6 % (39.0-53.0); HGB 7.5 gm/dL (13.0-17.5); Hypochromasia Slight; Lymphocytes # (A) 1.5 k/uL (1.0-4.8); Lymphocytes % (A) 37 %; MCH 30.2 pg (25.0-35.0); MCV 94.4 fL (80.0-100.0); Macrocytosis Slight; Mean Platelet Volume 8.1; Monocytes # (A) 0.3 k/uL (0-1.0); Monocytes % (A) 6 %; Neutrophils # (A) 1.8 k/uL (1.3-7.7); Neutrophils % (A) 44 %; Platelet Count 105 k/uL (150-450); Poikilocytosis Slight; RDW 22.6 % (11.5-15.5); WBC 4.2 k/uL (3.8-10.6)
[2018-06-15 09:55] LABS: Magnesium 1.3 mg/dL (1.6-2.3); Potassium 3.6 mmol/L (3.5-5.1)
[2018-06-15] MEDS: FERROUS SULFATE 325 MG TAB PO SCH (12:09)
[2018-06-15] MEDS: MAGNESIUM OXIDE 400 MG TAB PO SCH ×2 (12:09→20:53)
[2018-06-15] MEDS: MAGNESIUM SULFATE-D5W PMX 1 GM in DEXTROSE/WATER 1 100ML.BAG IVPB SCH ×3 (12:09→14:18)
--- NOTE | 2018-06-15 13:24 | P.PN ---
Subjective Progress Note Date: 06/15/18 Principal diagnosis: Asthma exacerbation/pneumonia Progress note dated 06/15/2018 This is a 57-year-old male with a history of chronic bronchial asthma. The patient has had a rough number of months here recently with multiple admissions to [facility] respiratory failure compartment syndrome fasciotomy and vancomycin-resistant enterococcal pneumonia. The patient was readmitted to the emergency room with shortness of breath chest congestion cough phlegm production and fever. He was seen by infectious disease. His asthma was active and I addressed that yesterday when I saw him in consultation. The patient is so emaciated is also much weight, I almost did not recognize and when I went into the room. He also has a history of hypogammaglobulinemia. In addition, he was being evaluated for possible liver transplantation at [facility]. He has alcoholic cirrhosis. Objective - Vital Signs Vital signs: Vital Signs Temp 97.5 F L 06/15/18 05:52 Pulse 66 06/15/18 12:14 Resp 18 06/15/18 08:00 BP 105/55 06/15/18 12:14 Pulse Ox 96 06/15/18 05:52 Intake & Output 06/14/18 06/15/18 06/15/18 18:59 06:59 18:59 Intake Total 100 Output Total 300 200 Balance -300 -100 Weight 78.018 kg Intake: Oral 100 Output: Urine 300 200 Other: Voiding Method Toilet Toilet Urinal Urinal # Voids 1 1 # Bowel Movements 1 - Exam No acute distress, oriented 3, he looks chronically ill and is very gaunt. HEENT examination is grossly unremarkable. Mucous membranes are moist. No oral lesions. Neck supple. Full range of motion. No adenopathy thyromegaly or neck vein distention. Cardiovascular examination reveals regular rhythm rate. S1-S2 normal. No S3 or S4. No discernible murmur noted. Lungs reveal coarse inspiratory and expiratory rhonchi and expiratory wheezes. A few crackles are noted. Her sounds are congested sounding. Breath sounds equal bilaterally. The patient's breath sounds are about the same way they the day prior. Abdomen soft bowel sounds are heard. No masses or tenderness. Extremities are intact. Left thigh and left leg is wrapped from previous fasciotomy because of compartment syndrome Skin is without rash or lesion. Neurologic examination is brief but nonfocal. - Labs CBC & Chem 7: 06/15/18 08:47 06/15/18 08:47 Labs: Abnormal Lab Results - Last 24 Hours (Table) 06/14/18 06/14/18 06/14/18 Range/Units 15:43 15:43 15:43 WBC 2.6 L (3.8-10.6) k/uL RBC 2.32 L (4.30-5.90) m/uL Hgb 7.4 L (13.0-17.5) gm/dL Hct 21.7 L (39.0-53.0) % RDW 22.5 H (11.5-15.5) % Plt Count 90 L (150-450) k/uL Lymphocytes # 0.7 L (1.0-4.8) k/uL PT 18.0 H (9.0-12.0) sec INR 2.0 H (<1.2) APTT 51.4 H (22.0-30.0) sec Sodium (137-145) mmol/L Chloride (98-107) mmol/L Carbon Dioxide (22-30) mmol/L BUN (9-20) mg/dL Creatinine (0.66-1.25) mg/dL Calcium (8.4-10.2) mg/dL Magnesium 1.3 L (1.6-2.3) mg/dL 06/15/18 06/15/18 Range/Units 08:47 08:47 WBC (3.8-10.6) k/uL RBC 2.50 L (4.30-5.90) m/uL Hgb 7.5 L (13.0-17.5) gm/dL Hct 23.6 L (39.0-53.0) % RDW 22.6 H (11.5-15.5) % Plt Count 105 L (150-450) k/uL Lymphocytes # (1.0-4.8) k/uL PT (9.0-12.0) sec INR (<1.2) APTT (22.0-30.0) sec Sodium 136 L (137-145) mmol/L Chloride 110 H (98-107) mmol/L Carbon Dioxide 16 L (22-30) mmol/L BUN 35 H (9-20) mg/dL Creatinine 2.05 H (0.66-1.25) mg/dL Calcium 8.0 L (8.4-10.2) mg/dL Magnesium 1.3 L (1.6-2.3) mg/dL Microbiology - Last 24 Hours (Table) 06/13/18 21:44 Blood Culture - Preliminary Blood No Growth after 24 hours 06/14/18 13:08 Urine Culture - Preliminary Urine,Voided 06/13/18 15:50 Blood Culture - Preliminary Blood No Growth after 24 hours Assessment and Plan Assessment: Assessment Asthma exacerbation likely complicated by purulent tracheobronchitis and possible bronchopneumonia Previous history of vancomycin-resistant enterococcal pneumonia Previous history of severe left thigh infection with compartment syndrome sepsis fasciotomy and long-term mechanical ventilation History of chronic bronchial asthma History of hyperlipidemia History of hypogammaglobulinemia History of chronic liver disease and liver cirrhosis secondary to previous alcohol abuse History of GERD Anemia of chronic disease Chronic kidney disease Plan: Plan dated 06/14/2018 Labs medications and x-rays are all reviewed. The patient will be placed on standard therapy. Infectious disease has been consulted. He may very well have pneumonia again. It's hard to tell by his chest x-ray because some the changes are likely chronic. Clinically, he is behaving like pneumonia with fever chills cough chest congestion and phlegm production. I'm sure he'll be treated as such. His overall health has significantly declined. His was kind enough to give this all history. We will continue to follow make recommendations are appropriate. Plan dated 06/15/2018 Currently, all microbiologic studies are negative. White count 4.2 hemoglobin 7.5 hematocrit 23.6 and platelet count 105,000. Sodium 136, potassium 3.6, chlorides 110, CO2 16 and anion gap is 10. BUN and creatinine were 35 and 2.05. A VQ scan was indeterminate probability. Current antibiotics are Zosyn and Zyvox. This was a recommendation by infectious disease. He is also currently on all his usual asthma medications including updrafts Singulair and Symbicort. Prognosis is guarded. Time with Patient: Less than 30
--- NOTE | 2018-06-15 15:22 | PN ---
PROGRESS NOTE DATE 0F SERVICE: 06/15/2018 REASON FOR FOLLOWUP: Fever and a question of possible pneumonia. INTERVAL HISTORY: The patient is currently afebrile. He is feeling slightly better. Main symptom remains to be weakness and tired. No mass or any chest pain or minimal cough, not bringing up sputum. No abdominal pain. Denies any pain to the left leg area. PHYSICAL EXAMINATION: Blood pressure 130/54 with a pulse of 71, temperature 97.5, he is 96% on room air. GENERAL DESCRIPTION: A middle-aged male,lying in bed in no distress. RESPIRATORY SYSTEM: Unlabored breathing, clear to auscultation anteriorly, HEART: S1, S2. Regular rate and rhythm. ABDOMEN: Soft, no tenderness. Left leg wound is dressed with no obvious drainage on the dressing. LABS: Hemoglobin 7.5, white count of 4.2 with a BUN of 35, creatinine 2.05. DIAGNOSTIC IMPRESSION AND PLAN: 1. Patient admitted to the hospital with a fever with concern for possible pneumonia. He is currently covered with Zosyn and Zyvox. Will continue to try to obtain a sputum. No antibiotics. 2. Left leg wound currently with no evidence of cellulitis. Local wound care. Continue with Aquacel silver dressing. Continue supportive care. MMODL / IJN: [id number] /
--- NOTE | 2018-06-15 19:10 | P.PN ---
Subjective Progress Note Date: 06/15/18 Progress Note being dictated for Dr. Moss Interval history: This is a 57-year-old gentleman admitted with fever, possible sepsis, possible bilateral pneumonia history of recent necrotizing fasciitis and multiple fasciotomies of the left leg, acute on chronic renal failure and multiple other medical issues. Renal function unchanged, CBC pending. Afebrile. VQ scan pending. Maintaining O2 sats in the high 90s on room air. Complaints of generalized weakness, poor appetite. Review of systems: CONSTITUTIONAL: Positive fatigue, generalized weakness HEENT: No recent visual problems or hearing problems. Denied any sore throat. CARDIOVASCULAR: No chest pain, no palpitations, no syncope. PULMONARY: Shortness of breath, positive cough, no hemoptysis. GASTROINTESTINAL: No diarrhea, no nausea, no vomiting, no abdominal pain. Poor appetite NEUROLOGICAL: No headaches, generalized weakness, no numbness. HEMATOLOGICAL: Denies any bleeding or petechiae. GENITOURINARY: Denies any burning micturition, frequency, or urgency. No dysuria ENDOCRINE: Denies any polyuria or polydipsia. PSYCHIATRIC: No anxiety, no depression The rest of the 14 point review of systems is negative Active Medications Albuterol/Ipratropium (Duoneb 0.5 Mg-3 Mg/3 Ml Soln) 3 ml INHALATION RT-TID PRN PRN Reason: Shortness Of Breath Or Wheezing Albuterol/Ipratropium (Duoneb 0.5 Mg-3 Mg/3 Ml Soln) 3 ml INHALATION RT-TID [facility] Last Admin: 06/14/18 19:29 Dose: Not Given Aspirin (Aspirin) 81 mg PO DAILY [facility] Last Admin: 06/14/18 08:01 Dose: 81 mg Atorvastatin Calcium (Lipitor) 10 mg PO HS [facility] Last Admin: 06/13/18 23:04 Dose: 10 mg Budesonide/Formoterol Fumarate (Symbicort 160-4.5 Mcg Inhaler) 2 puff INHALATION RT-BID [facility] Last Admin: 06/14/18 19:28 Dose: 2 puff Digoxin (Lanoxin) 62.5 mcg PO Q48H [facility] Last Admin: 06/14/18 08:42 Dose: 62.5 mcg Ferrous Sulfate (Feosol) 325 mg PO 1200 [facility] Last Admin: 06/14/18 11:50 Dose: 325 mg Gabapentin (Neurontin) 100 mg PO Q12H [facility] Last Admin: 06/14/18 08:01 Dose: 100 mg Piperacillin/Tazobactam/ (Dextrose 3.375 gm/ IV Solution) 50 mls @ 12.5 mls/hr IVPB Q8HR [facility] Stop: 06/24/18 22:01 Last Admin: 06/14/18 16:01 Dose: 12.5 mls/hr Sodium Chloride (Saline 0.9%) 1,000 mls @ 50 mls/hr IV .Q20H [facility] Last Admin: 06/14/18 08:01 Dose: 50 mls/hr Vancomycin HCl 1,250 mg/ (Sodium Chloride) 250 mls @ 125 mls/hr IVPB Q16H [facility] Last Admin: 06/14/18 12:41 Dose: 125 mls/hr Tobramycin Sulfate 160 mg/ (Sodium Chloride) 104 mls @ 104 mls/hr IVPB Q24H [facility] Last Admin: 06/13/18 23:05 Dose: 104 mls/hr Azithromycin 500 mg/ Sodium (Chloride) 250 mls @ 125 mls/hr IVPB [facility] Lactulose (Cephulac) 20 gm PO BID [facility] Last Admin: 06/14/18 08:05 Dose: Not Given Megestrol Acetate (Megace) 400 mg PO DAILY [facility] Melatonin (Melatonin) 6 mg PO [facility] Last Admin: 06/13/18 23:04 Dose: 6 mg Metoprolol Tartrate (Lopressor) 25 mg PO Q8H [facility] Last Admin: 06/14/18 14:25 Dose: Not Given Midodrine (Proamatine) 10 mg PO AC-TID [facility] Last Admin: 06/14/18 18:22 Dose: 10 mg Miscellaneous Information (Pneumonia Protocol Utilized) 1 each PO ONCE PRN PRN Reason: Per Protocol Miscellaneous Information (Magnesium Per Protocol) 1 each MISCELLANE DAILY PRN ; Protocol PRN Reason: Per Protocol Miscellaneous Information (Potassium Per Protocol) 1 each MISCELLANE DAILY PRN ; Protocol PRN Reason: Per Protocol Montelukast Sodium (Singulair) 10 mg PO [facility] Last Admin: 06/13/18 23:04 Dose: 10 mg Pantoprazole Sodium (Protonix) 40 mg PO AC-BID [facility] Last Admin: 06/14/18 18:21 Dose: 40 mg Sodium Bicarbonate (Sodium Bicarbonate Tab) 1,300 mg PO BID [facility] Last Admin: 06/14/18 08:01 Dose: 1,300 mg Tramadol HCl (Ultram) 50 mg PO Q6HR PRN PRN Reason: Moderate Pain Last Admin: 06/14/18 18:23 Dose: 50 mg 06/15/2018 maintained on IV antibiotics of Zosyn, Zyvox as per infectious disease. Continues on nebulized bronchodilators. Occasional cough, nonproductive. VQ scan indeterminate probability, further recommendations from pulmonary pending. Denies chest pain, palpitations or increasing shortness of breath. Denies left leg pain. No abdominal pain. Afebrile. Review of systems: CONSTITUTIONAL: No fever, positive fatigue. HEENT: No recent visual problems or hearing problems. Denied any sore throat. CARDIOVASCULAR: No chest pain, no palpitations, no syncope. PULMONARY: No shortness of breath, minimal nonproductive cough, no hemoptysis. GASTROINTESTINAL: No diarrhea, no nausea, no vomiting, no abdominal pain. Normoactive bowel sounds. NEUROLOGICAL: No headaches, no weakness, no numbness. HEMATOLOGICAL: Denies any bleeding or petechiae. GENITOURINARY: Denies any burning micturition, frequency, or urgency. MUSCULOSKELETAL/RHEUMATOLOGICAL: Denies any joint pain, swelling, or any muscle pain. ENDOCRINE: Denies any polyuria or polydipsia. PSYCHIATRIC: No anxiety, no depression The rest of the 14 point review of systems is negative Active Medications Generic Name Dose Route Start Last Admin Trade Name Freq PRN Reason Stop Dose Admin Albuterol/Ipratropium 3 ml 06/14/18 00:38 Duoneb 0.5 Mg-3 Mg/3 Ml Soln INHALATION RT-TID PRN Shortness Of Breath Or Wheezing Albuterol/Ipratropium 3 ml 06/14/18 08:00 06/15/18 13:41 Duoneb 0.5 Mg-3 Mg/3 Ml Soln INHALATION 3 ml RT-TID [facility] Administration Aspirin 81 mg 06/14/18 09:00 06/15/18 08:24 Aspirin PO 81 mg DAILY [facility] Administration Atorvastatin Calcium 10 mg 06/13/18 21:00 06/14/18 21:13 Lipitor PO 10 mg HS [facility] Administration Budesonide/Formoterol Fumarate 2 puff 06/14/18 08:00 06/15/18 07:39 Symbicort 160-4.5 Mcg Inhaler INHALATION 2 puff RT-BID [facility] Administration Digoxin 62.5 mcg 06/14/18 09:00 06/14/18 08:42 Lanoxin PO 62.5 mcg Q48H [facility] Administration Ferrous Sulfate 325 mg 06/14/18 12:00 06/15/18 12:09 Feosol PO 325 mg 1200 [facility] Administration Gabapentin 100 mg 06/13/18 21:00 06/15/18 08:23 Neurontin PO 100 mg Q12H [facility] Administration Heparin Sodium (Porcine) 5,000 unit 06/15/18 09:00 06/15/18 08:34 Heparin SQ 5,000 unit Q12HR [facility] Administration Piperacillin/Tazobactam/ 50 mls @ 12.5 mls/hr 06/13/18 22:00 06/15/18 17:02 Dextrose 3.375 gm/ IV Solution IVPB 06/24/18 22:01 12.5 mls/hr Q8HR [facility] Administration Sodium Chloride 1,000 mls @ 50 mls/hr 06/13/18 20:45 06/15/18 02:39 Saline 0.9% IV 50 mls/hr .Q20H [facility] Administration Lactulose 20 gm 06/13/18 21:00 06/15/18 08:25 Cephulac PO Not Given BID [facility] Linezolid 600 mg 06/15/18 09:00 06/15/18 08:24 Zyvox PO 600 mg Q12HR [facility] Administration Magnesium Oxide 400 mg 06/15/18 11:45 06/15/18 12:09 Mag-Ox PO 400 mg BID [facility] Administration Megestrol Acetate 400 mg 06/14/18 20:31 06/15/18 08:24 Megace PO 400 mg DAILY [facility] Administration Melatonin 6 mg 06/13/18 21:00 06/14/18 21:13 Melatonin PO 6 mg HS [facility] Administration Metoprolol Tartrate 25 mg 06/13/18 21:00 06/15/18 12:12 Lopressor PO Not Given Q8H [facility] Midodrine 10 mg 06/14/18 07:30 06/15/18 17:03 Proamatine PO 10 mg AC-TID [facility] Administration Miscellaneous Information 1 each 06/13/18 20:45 Pneumonia Protocol Utilized PO ONCE PRN Per Protocol Miscellaneous Information 1 each 06/14/18 20:40 Magnesium Per Protocol MISCELLANE DAILY PRN Per Protocol Protocol Miscellaneous Information 1 each 06/14/18 20:40 Potassium Per Protocol MISCELLANE DAILY PRN Per Protocol Protocol Montelukast Sodium 10 mg 06/13/18 21:00 06/14/18 21:13 Singulair PO 10 mg HS [facility] Administration Pantoprazole Sodium 40 mg 06/14/18 07:30 06/15/18 17:03 Protonix PO 40 mg AC-BID [facility] Administration Sodium Bicarbonate 1,300 mg 06/13/18 21:00 06/15/18 08:23 Sodium Bicarbonate Tab PO 1,300 mg BID [facility] Administration Tramadol HCl 50 mg 06/13/18 20:48 06/15/18 08:30 Ultram PO 50 mg Q6HR PRN Administration Moderate Pain Objective - Vital Signs Vital signs: Vital Signs Temp 98.2 F 06/15/18 15:00 Pulse 72 06/15/18 15:00 Resp 18 06/15/18 15:11 BP 112/54 06/15/18 15:00 Pulse Ox 97 06/15/18 15:00 Intake & Output 06/14/18 06/15/18 06/15/18 18:59 06:59 18:59 Intake Total 100 Output Total 300 200 Balance -300 -100 Weight 78.018 kg Intake: Oral 100 Output: Urine 300 200 Other: Voiding Method Toilet Toilet Urinal Urinal # Voids 1 1 0 # Bowel Movements 1 1 - Exam PHYSICAL EXAM: VITAL SIGNS: As above GENERAL: Sitting up in bed, no acute distress, fatigued HEENT: Conjunctivae normal. eyes normal. Oral mucosa moist NECK: No JVD. No thyroid enlargement. No LNs CARDIOVASCULAR: S1, S2 muffled. No murmur RESPIRATION: Breath sounds diminished in the bases. Congested with Occasional scattered rhonchi and crackles,expiratory wheezing ABDOMEN: Soft, nontender . No guarding. no masses palpable. Bowel sounds heard. LEGS: Status post multiple surgeries, minimal serous drainage, mild tenderness. Left leg dressing clean, dry and intact PSYCHIATRY: Alert and oriented -3, mood and affect normal. NERVOUS SYSTEM: Cranial N 2-12 grossly normal. Moves all 4 limbs. Diffuse weakness No focal deficits. Lymphatic system. No LN neck axilla or groin. Microbiology 06/13/18 15:50 Blood Blood Culture - Preliminary No Growth after 48 hours 06/13/18 21:44 Blood Blood Culture - Preliminary No Growth after 24 hours 06/14/18 13:08 Urine,Voided Urine Culture - Preliminary - Labs CBC & Chem 7: 06/15/18 08:47 06/15/18 08:47 Labs: Abnormal Lab Results - Last 24 Hours (Table) 06/14/18 06/15/18 06/15/18 Range/Units 15:43 08:47 08:47 RBC 2.50 L (4.30-5.90) m/uL Hgb 7.5 L (13.0-17.5) gm/dL Hct 23.6 L (39.0-53.0) % RDW 22.6 H (11.5-15.5) % Plt Count 105 L (150-450) k/uL Sodium 136 L (137-145) mmol/L Chloride 110 H (98-107) mmol/L Carbon Dioxide 16 L (22-30) mmol/L BUN 35 H (9-20) mg/dL Creatinine 2.05 H (0.66-1.25) mg/dL Calcium 8.0 L (8.4-10.2) mg/dL Magnesium 1.3 L 1.3 L (1.6-2.3) mg/dL Microbiology - Last 24 Hours (Table) 06/13/18 15:50 Blood Culture - Preliminary Blood No Growth after 48 hours 06/13/18 21:44 Blood Culture - Preliminary Blood No Growth after 24 hours 06/14/18 13:08 Urine Culture - Preliminary Urine,Voided Assessment and Plan Assessment: 1. Fever, possible sepsis 2. Possible bilateral pneumonia, possibly hospital acquired pneumonia. 3. Acute Asthma exacerbation with purulent tracheobronchitis 4. Recent necrotizing fasciitis and multiple fasciotomies , compartment syndrome. 5. Acute on chronic renal failure, stage III 6. History of VRE pneumonia 7. Chronic liver disease 8. Anemia of chronic disease Plan: Continue on current medication regime ,monitoring and symptomatic treatment. Sputum culture ordered .Follow cultures closely. Maintain IV antibiotics as per infectious disease. PT/OT. Follow closely with pulmonary. Further recommendations to follow. The impression and plan of care has been dictated as directed. : I performed a history and examination of this patient, discussed the same with the dictator. I agree with the dictator's note ,documented as a scribe. Any additional findings or plans will be noted.
[2018-06-15] MEDS: ATORVASTATIN 10 MG TAB PO SCH (20:52)
[2018-06-15] MEDS: MONTELUKAST 10 MG TAB PO SCH (20:53)
[2018-06-15] MEDS: MELATONIN 3 MG TABLET PO SCH (20:53)
[2018-06-16] MEDS: PIPERACILLIN-TAZOBACTAM 3.375 GM in DEXTROSE/WATER 1 50ML.BAG IVPB SCH ×4 (01:00→23:16)
[2018-06-16] MEDS: SODIUM CHLORIDE 0.9% 1,000 ML IV SCH ×3 (01:24→17:50)
[2018-06-16] MEDS: METOPROLOL TARTRATE 25 MG TAB PO SCH ×3 (05:38→20:03)
[2018-06-16] MEDS: IPRATROPIUM-ALBUTEROL 3 ML NEB INHALATION SCH ×3 (07:35→19:37)
[2018-06-16] MEDS: SYMBICORT 160-4.5 MCG INHALER INHALATION SCH ×2 (07:35→19:38)
[2018-06-16] MEDS: LACTULOSE 20 GM/30 ML CUP PO SCH ×2 (08:00→20:04)
[2018-06-16] MEDS: ASPIRIN 81 MG PO SCH (08:05)
[2018-06-16] MEDS: MEGESTROL 400 MG/10 ML CUP PO SCH (08:05)
[2018-06-16] MEDS: MAGNESIUM OXIDE 400 MG TAB PO SCH ×2 (08:05→20:03)
[2018-06-16] MEDS: DIGOXIN 125 MCG TAB PO SCH (08:05)
[2018-06-16] MEDS: LINEZOLID 600 MG TAB PO SCH ×2 (08:06→20:03)
[2018-06-16] MEDS: SODIUM BICARBONATE TAB 650 MG TAB PO SCH ×2 (08:06→20:03)
[2018-06-16] MEDS: PANTOPRAZOLE 40 MG TABLET PO SCH ×2 (08:06→16:22)
[2018-06-16] MEDS: MIDODRINE 5 MG TAB PO SCH ×3 (08:06→16:22)
[2018-06-16] MEDS: GABAPENTIN 100 MG CAP PO SCH ×2 (08:07→20:02)
[2018-06-16] MEDS: HEPARIN SODIUM,PORCINE 5,000 UNIT/ML 1 ML VIAL SQ SCH ×2 (08:07→20:04)
[2018-06-16 08:35] LABS: Anisocytosis Moderate; Basophils % (A) 1 %; Eosinophils # (A) 0.4 k/uL (0-0.7); Eosinophils % (A) 10 %; HCT 23.5 % (39.0-53.0); HGB 7.9 gm/dL (13.0-17.5); Hypochromasia Slight; Lymphocytes # (A) 1.4 k/uL (1.0-4.8); Lymphocytes % (A) 41 %; MCH 31.9 pg (25.0-35.0); MCHC 33.7 g/dL (31.0-37.0); MCV 94.8 fL (80.0-100.0); Macrocytosis Slight; Mean Platelet Volume 8.1; Monocytes # (A) 0.2 k/uL (0-1.0); Monocytes % (A) 5 %; Neutrophils # (A) 1.4 k/uL (1.3-7.7); Neutrophils % (A) 40 %; Platelet Count 78 k/uL (150-450); Poikilocytosis Slight; RBC 2.48 m/uL (4.30-5.90); RDW 22.8 % (11.5-15.5); WBC 3.4 k/uL (3.8-10.6)
[2018-06-16 08:40] LABS: Calcium 7.7 mg/dL (8.4-10.2)
[2018-06-16 10:07] LABS: Crenated RBC Present; RBC Fragments Present
--- NOTE | 2018-06-16 11:33 | P.PN ---
Subjective Progress Note Date: 06/16/18 Principal diagnosis: Asthma exacerbation/pneumonia Progress note dated 06/15/2018 This is a 57-year-old male with a history of chronic bronchial asthma. The patient has had a rough number of months here recently with multiple admissions to respiratory failure compartment syndrome fasciotomy and vancomycin-resistant enterococcal pneumonia. The patient was readmitted to the emergency room with shortness of breath chest congestion cough phlegm production and fever. He was seen by infectious disease. His asthma was active and I addressed that yesterday when I saw him in consultation. The patient is so emaciated is also much weight, I almost did not recognize and when I went into the room. He also has a history of hypogammaglobulinemia. In addition, he was being evaluated for possible liver transplantation at . He has alcoholic cirrhosis. Progress note dated 06/16/2018 57-year-old male with history of chronic liver disease secondary to alcohol abuse, chronic bronchial asthma, and admission to this hospital for likely purulent tracheobronchitis versus bronchopneumonia. The patient has recently had an episode of respiratory failure at with 21 days on the ventilator and a 52 day hospital stay. At that time, the patient developed an infection in his left leg compartment syndrome and need for fasciotomy. He also developed a episode of VRE pneumonia. The patient also has a history of hypogammaglobulinemia. He is doing a bit better today. Less short of breath. Much less in the way of chest congestion. No fever or chills currently. Not coughing up any blood. No GI or complaints at the current time. He was seen by infectious disease and antibiotic recommendations were made by them. Objective - Vital Signs Vital signs: Vital Signs Temp 97.3 F L 06/16/18 05:40 Pulse 76 06/16/18 07:45 Resp 20 06/16/18 05:40 BP 109/59 06/16/18 05:40 Pulse Ox 97 06/16/18 05:40 Intake & Output 06/15/18 06/16/18 06/16/18 18:59 06:59 18:59 Output Total 250 200 Balance -250 -200 Weight 78.018 kg Output: Urine 250 200 Other: Voiding Method Toilet Urinal # Voids 0 3 # Bowel Movements 1 - Exam No acute distress, oriented 3, he looks chronically ill and is very gaunt. Not displaying any signs or symptoms of respiratory distress such as nasal flaring, use of accessory muscles or audible wheezes. HEENT examination is grossly unremarkable. Mucous membranes are moist. No oral lesions. Neck supple. Full range of motion. No adenopathy thyromegaly or neck vein distention. Cardiovascular examination reveals regular rhythm rate. S1-S2 normal. No S3 or S4. No discernible murmur noted. Lungs reveal coarse inspiratory and expiratory rhonchi and expiratory wheezes. A few crackles are noted. Her sounds are congested sounding. Breath sounds equal bilaterally. Breath sounds are improved compared to the day prior. Abdomen soft bowel sounds are heard. No masses or tenderness. Extremities are intact. Left thigh and left leg is wrapped from previous fasciotomy because of compartment syndrome Skin is without rash or lesion. Neurologic examination is brief but nonfocal. - Labs CBC & Chem 7: 06/16/18 07:52 06/16/18 07:52 Labs: Abnormal Lab Results - Last 24 Hours (Table) 06/16/18 06/16/18 Range/Units 07:52 07:52 WBC 3.4 L (3.8-10.6) k/uL RBC 2.48 L (4.30-5.90) m/uL Hgb 7.9 L (13.0-17.5) gm/dL Hct 23.5 L (39.0-53.0) % RDW 22.8 H (11.5-15.5) % Plt Count 78 L (150-450) k/uL Sodium 135 L (137-145) mmol/L Chloride 109 H (98-107) mmol/L Carbon Dioxide 18 L (22-30) mmol/L BUN 37 H (9-20) mg/dL Creatinine 2.10 H (0.66-1.25) mg/dL Calcium 7.7 L (8.4-10.2) mg/dL Microbiology - Last 24 Hours (Table) 06/13/18 21:44 Blood Culture - Preliminary Blood No Growth after 48 hours 06/13/18 15:50 Blood Culture - Preliminary Blood No Growth after 48 hours Assessment and Plan Assessment: Assessment Asthma exacerbation likely complicated by purulent tracheobronchitis and possible bronchopneumonia Previous history of vancomycin-resistant enterococcal pneumonia Previous history of severe left thigh infection with compartment syndrome sepsis fasciotomy and long-term mechanical ventilation History of chronic bronchial asthma History of hyperlipidemia History of hypogammaglobulinemia History of chronic liver disease and liver cirrhosis secondary to previous alcohol abuse History of GERD Anemia of chronic disease Chronic kidney disease Plan: Plan dated 06/14/2018 Labs medications and x-rays are all reviewed. The patient will be placed on standard therapy. Infectious disease has been consulted. He may very well have pneumonia again. It's hard to tell by his chest x-ray because some the changes are likely chronic. Clinically, he is behaving like pneumonia with fever chills cough chest congestion and phlegm production. I'm sure he'll be treated as such. His overall health has significantly declined. His was kind enough to give this all history. We will continue to follow make recommendations are appropriate. Plan dated 06/15/2018 Currently, all microbiologic studies are negative. White count 4.2 hemoglobin 7.5 hematocrit 23.6 and platelet count 105,000. Sodium 136, potassium 3.6, chlorides 110, CO2 16 and anion gap is 10. BUN and creatinine were 35 and 2.05. A VQ scan was indeterminate probability. Current antibiotics are Zosyn and Zyvox. This was a recommendation by infectious disease. He is also currently on all his usual asthma medications including updrafts Singulair and Symbicort. Prognosis is guarded. Plan dated 06/16/2018 The patient appears to be doing a bit better. He seems less short of breath and less congested in his chest. He is laying flat in bed. Breathing comfortably. White count 3.4 hemoglobin 7.9 hematocrit 23.5 and platelet count 78,000. Sodium 135 potassium 4 chlorides 109 and CO2 18. BUN and creatinine were 37 and 2.10. C. diff studies were negative. Thus far all microbiologic studies are negative. He is on all usual asthma medications and his antibiotics include both Zosyn and Zyvox. We will continue to follow make recommendations were needed. Gnosis is guarded. Time with Patient: Less than 30
--- NOTE | 2018-06-16 11:53 | PN ---
PROGRESS NOTE DATE OF SERVICE: June 16, 2018 CHIEF COMPLAINT: Tired. Franc is seen today as a followup. He feels a little tired but overall better. No fever or chills. No nausea or vomiting. No melena or hematochezia or hematuria. His medication reviewed in electronic record. PHYSICAL EXAM: Alert and oriented x3. No acute distress. His vital signs are temperature 97.3, afebrile, pulse 70 regular, respiration 20, blood pressure 109/59. HEENT: Normocephalic, atraumatic. NECK: Supple. Chest equal expansion bilaterally. LUNGS: Clear. Heart and lungs are clear with few crackles at the bases. ABDOMEN: Soft. No tenderness. Extremities revealed the left leg is wrapped. RADIOGRAPHIC DATA: Recent V/Q scan was limited due to severe COPD and it was considered intermediate probability. LABORATORY DATA: WBC of 3.4, hemoglobin 7.9, hematocrit 23.5, platelets are 78. Sodium 135, potassium 4.5, chloride 109, CO2 is 18. The BUN is 37, creatinine 2.1. IMPRESSION: 1. Common variable immunodeficiency syndrome. The patient has been receiving IVIG on a regular basis. His last 1 was on 06/08/2018 and he has been getting it every 3 weeks basis. 2. Possible bilateral pneumonia, hospital-acquired. 3. Pancytopenia in part related to his low-grade MDS and also in part related to his liver cirrhosis. 4. Recent necrotizing fasciitis and which required fasciotomy. RECOMMENDATION: 1. I reviewed V/Q scan with the patient today. I doubt there is a pulmonary embolus. 2. Continue current management per Pulmonary service and Infectious Disease. 3. Monitor blood count. MMODL / IJN: [id number] /
--- NOTE | 2018-06-16 12:28 | P.NPCON ---
History of Present Illness - Reason for Consult Consult date: 06/16/18 acute renal failure - Chief Complaint Acute kidney injury - History of Present Illness This is a 57-year-old male seen in consultation because of acute kidney injury. He has a complicated long-standing medical history. He is known with common variable immunodeficiency and is on IVIG every 3 weeks. He is also known with asthma. Recent history is significant for admission to multiple hospitals including [facility] for a span of 52 days with necrotizing fasciitis neck requiring multiple chest anatomy especially on the left leg. He was released on June 11 to home and then was readmitted because of weakness cough shortness of breath. Also had temperature. He is seen now because of worsening creatinine. He is currently feels fairly well afebrile has some loose stools, he is refusing to take his lactulose which is given to him because of his cirrhosis. Denies any nausea vomiting appetite is fair. No chest pain dizziness shortness of breath cough abdominal pain or any problem with urination. Past history significant for atrial fibrillation and cirrhosis history of alcohol abuse in the past supposedly Past Medical History Past Medical History: Atrial Fibrillation, Asthma, GI Bleed, Hypertension, Pneumonia Additional Past Medical History / Comment(s): Cirrhosis-pt on liver transplant list, hypogammaglobulinemia, common variable immunoglobulin deficiency-receives IV IG with last infusion 11/08/17-gets infusions q 3 weeks, ascities, anemia, bronchitis, neuropathy in hands and legs but less so since gluten free diet, ciliac disease, diverticulosis, rectal bleed, umbilical hernia, R inguinal hernia, necrotizing fascitis under L arm 20 yrs ago. History of Any Multi-Drug Resistant Organisms: MRSA Date of last positivie culture/infection: unknown MDRO Source:: unknown Additional Past Surgical History / Comment(s): vasectomy, mediport placement and removed. bilateral cataract/lens surgery, removal of cervical lymph node- benign, BMA, colonoscopies and EGDs, bilateral myringotomy, abdominal paracentesis. Past Anesthesia/Blood Transfusion Reactions: No Reported Reaction Additional Past Anesthesia/Blood Transfusion Reaction / Comment(s): no problems prior blood transfusion Past Psychological History: No Psychological Hx Reported Additional Psychological History / Comment(s): Pt resides with his spouse and 1 adult children. He is independent. He uses no assistive device. He drives.has a nebulizer. Smoking Status: Former smoker Past Alcohol Use History: None Reported Additional Past Alcohol Use History / Comment(s): Pt used to drink Vodka 2 drinks/day and quit drinking August 2016. Pt chews 1 can of tobacco a week He used to smoke cigarettes-quit them in 1987 and only smoked for about 1-2 yrs. Past Drug Use History: None Reported Additional Drug Use History / Comment(s): Chews tobacco. - Past Family History Father Family Medical History: Thyroid Disorder Additional Family Medical History / Comment(s): Father has hypothyroidism. He is 89 yrs old. Mother Family Medical History: Liver Disease Additional Family Medical History / Comment(s): Mother from hepatitis C at the age of 60. Medications and Allergies Home Medications Medication Instructions Recorded Confirmed Type Montelukast [Singulair] 10 mg PO HS 10/15/14 06/13/18 History Ferrous Sulfate [Iron] 325 mg PO DAILY 07/20/17 06/13/18 History Albuterol Nebulized [Ventolin 2.5 mg INHALATION RT-QID PRN 08/29/17 06/13/18 History Nebulized] Mometasone/Formoterol [Dulera 200 2 puff INHALATION RT-BID 11/14/17 06/13/18 History Mcg/5 Mcg Inhaler] Aspirin EC [Ecotrin Low Dose] 81 mg PO DAILY 06/13/18 06/13/18 History Atorvastatin [Lipitor] 10 mg PO 06/13/18 06/13/18 History Digoxin [Lanoxin] 62.5 mcg PO Q48H 06/13/18 06/14/18 History Epoetin Messi [Procrit] 40,000 unit INJ Q14D 06/13/18 06/13/18 History Gabapentin [Neurontin] 100 mg PO Q12H 06/13/18 06/13/18 History Gamunex-C(Immune Globulin 10% 1 dose IV Q21D 06/13/18 06/13/18 History 10gm/100ml Alley) Lactulose 20 gm PO BID 06/13/18 06/13/18 History Melatonin 6 mg PO HS 06/13/18 06/13/18 History Metoprolol Tartrate [Lopressor] 25 mg PO Q8H 06/13/18 06/13/18 History Midodrine HCl [ProAmatine] 10 mg PO AC-TID 06/13/18 06/13/18 History Omeprazole 20 mg PO AC-BID 06/13/18 06/13/18 History Sodium Bicarbonate Tab 1,300 mg PO BID 06/13/18 06/13/18 History diphenhydrAMINE [Benadryl] 50 mg PO Q21D 06/13/18 06/13/18 History traMADol HCL [Ultram] 50 mg PO Q6HR PRN 06/13/18 06/13/18 History Allergies Allergy/AdvReac Type Severity Reaction Status Date / Time wheat AdvReac Severe Nausea & Verified 06/13/18 15:44 Vomiting & Diarrhea,flu like symptoms gluten AdvReac Nausea & Verified 06/13/18 15:44 Vomiting & Diarrhea levofloxacin [From Levaquin] AdvReac TENDON PAIN Verified 06/13/18 15:44 Physical Exam Vitals: Vital Signs Temp Pulse Pulse Resp BP Pulse Ox 06/16/18 07:45 76 06/16/18 07:36 70 06/16/18 05:40 97.3 F L 60 20 109/59 97 06/15/18 22:57 98.4 F 66 16 117/58 98 06/15/18 20:41 75 06/15/18 20:29 75 06/15/18 15:11 18 06/15/18 15:00 98.2 F 72 16 112/54 97 06/15/18 13:51 76 06/15/18 13:41 76 Intake and Output 06/15/18 06/16/18 06/16/18 22:59 06:59 14:59 Output Total 250 200 Balance -250 -200 Output: Urine 250 200 Other: Voiding Method Toilet Urinal # Voids 3 On examination is awake alert oriented comfortable. He is mildly jaundiced HEENT exam no JVP lymphadenopathy thyromegaly neck is supple no facial asymmetry Lungs are significant for an occasional coarse crackle at bases good air entry bilaterally Heart sounds are unremarkable no murmur rub gallop Abdomen soft nontender there may be bladder distention felt clinically. No masses are felt. Extremity exam was minimal to trace edema. Multiple dressings on his left leg. Neurologically awake alert oriented. Results - Lab Results Most recent lab results Calcium 7.7 mg/dL (8.4-10.2) L 06/16/18 07:52 Magnesium 2.0 mg/dL (1.6-2.3) 06/16/18 07:52 06/16/18 07:52 06/16/18 07:52 Assessment and Plan Assessment: Impression 1. Acute kidney injury secondary to prerenal from pneumonia. Creatinine is 2.1 , his baseline creatinine was 0.9 on 02/12/2018. He does have 2+ proteinuria dated 06/13/2018 25 WBCs and occasional bacteria but urine culture is negative so far. 2. Mild degree of non-gap acidosis from acute kidney injury 3. Admitted with pneumonia. 4. Mild diarrhea. 5. History of cirrhosis, supposedly on transplant list 6. History of immunodeficiency syndrome on immunoglobulin IV every 3 weeks for last 20 some years. 7. Recent admitted for necrotizing fasciitis, admitted for 52 days and recently discharge 06/11/2018 5 days ago. 8. Rule out urinary retention. 9. Pancytopenia. Recommendation. 1. Check her scan postvoid. 2. Agree with fluids normal saline at 75 an hour. 3. Urine protein to creatinine ratio 4. Continue bicarb 1300 mg by mouth twice a day 5. Monitor labs intake and output and blood pressure. Thank you for this consultation and will continue to follow closely
[2018-06-16] MEDS: FERROUS SULFATE 325 MG TAB PO SCH (12:36)
--- NOTE | 2018-06-16 18:08 | PN ---
PROGRESS NOTE DATE OF SERVICE: 06/16/2018 This 57-year-old gentleman who was admitted with significant pneumonia also had a history of recent cellulitis. Patient also had features of sepsis. The patient is being closely monitored. No chest pain. No palpitations. No fever. V/Q scan is indeterminate. Creatinine is still elevated. PAST MEDICAL HISTORY: Reviewed. REVIEW OF SYSTEMS: CARDIOVASCULAR: No angina. RESPIRATORY: As mentioned earlier. GI: As mentioned earlier. : No dysuria. NERVOUS: Diffusely weak and wasted and emaciated. SKIN: As mentioned earlier. LABS: WBC 3.5, hemoglobin is 7.9. Sodium 135, creatinine is 2.10. C. diff. is negative. Cultures are negative so far. ASSESSMENT: 1. Acute bilateral pneumonia possibly, hospital-acquired pneumonia with possible sepsis with fever present on admission. 2. Acute asthma exacerbation with acute purulent tracheobronchitis. 3. Recent necrotizing fasciitis of the left leg with multiple fasciotomies, compartment syndrome. 4. Acute on chronic renal failure, stage 3. 5. History of vancomycin-resistant Enterococcus pneumonia. 6. Chronic liver disease. 7. Anemia of chronic disease. 8. Diffuse wasting and weakness, severe gait dysfunction. RECOMMENDATIONS AND DISCUSSION: In this 57-year-old gentleman who presented with multiple complex medical issues, will monitor the patient closely, continue with the current medical management and continue symptomatic treatment and repeat labs. Creatinine is 2.10. As noted earlier, the patient has extremely significant difficulties with walking and weakness. Also, I recommend a PT/OT evaluation, possible ECF rehab also for continued monitoring. Otherwise, prognosis guarded. Discussed with the family at length and they understand and agree. Further recommendations to follow. MMODL / IJN: [id number] /
[2018-06-16] MEDS: MONTELUKAST 10 MG TAB PO SCH (20:02)
[2018-06-16] MEDS: MELATONIN 3 MG TABLET PO SCH (20:02)
[2018-06-16] MEDS: ATORVASTATIN 10 MG TAB PO SCH (20:04)
--- NOTE | 2018-06-17 04:47 | PN ---
PROGRESS NOTE DATE OF SERVICE: 06/16/2018. REASON FOR FOLLOWUP: Possible pneumonia. INTERVAL HISTORY: The patient is currently afebrile. He is breathing more comfortably. Denies significant chest pain. He did have some cough but not bringing any sputum. No abdominal pain. No diarrhea. EXAMINATION: Blood pressure 119/55 with a pulse of 62. Temperature 97.2. He is 98% on room air. General description is a middle-aged male lying in bed in no distress. RESPIRATORY SYSTEM: Unlabored breathing with decreased breath sounds in the bases. No wheeze. HEART: S1, S2. Regular rate and rhythm. ABDOMEN: Soft, no tenderness. Left leg wound is currently dressed up with no obvious drainage on the dressing. LABS: BUN of 37, creatinine is 2.10. DIAGNOSTIC IMPRESSION AND PLAN: 1. Patient with fever with concern for possible pneumonia. The patient's fever seemed to have resolved. He was unable to provide any sputum. Currently on Zosyn and Zyvox will be continued. Will try to obtain a sputum to narrow down his antibiotics. 2. Patient with left leg wound with no cellulitis to continue with local wound care with Aquacel Silver dressing. Family present at bedside. Questions were answered. MMODL / IJN: [id number] /
[2018-06-17] MEDS: SODIUM CHLORIDE 0.9% 1,000 ML IV SCH (05:31)
[2018-06-17] MEDS: METOPROLOL TARTRATE 25 MG TAB PO SCH ×3 (05:31→19:40)
[2018-06-17] MEDS: IPRATROPIUM-ALBUTEROL 3 ML NEB INHALATION SCH ×3 (07:30→19:39)
[2018-06-17] MEDS: SYMBICORT 160-4.5 MCG INHALER INHALATION SCH ×2 (07:32→19:39)
[2018-06-17 08:22] LABS: Anisocytosis Moderate; Basophils # (A) 0.1 k/uL (0-0.2); Basophils % (A) 1 %; Eosinophils # (A) 0.4 k/uL (0-0.7); Eosinophils % (A) 9 %; HCT 22.7 % (39.0-53.0); HGB 7.6 gm/dL (13.0-17.5); Hypochromasia Slight; Lymphocytes # (A) 1.7 k/uL (1.0-4.8); Lymphocytes % (A) 38 %; MCH 31.7 pg (25.0-35.0); MCHC 33.6 g/dL (31.0-37.0); MCV 94.4 fL (80.0-100.0); Macrocytosis Slight; Monocytes # (A) 0.3 k/uL (0-1.0); Monocytes % (A) 6 %; Neutrophils % (A) 44 %; Poikilocytosis Slight; RDW 22.8 % (11.5-15.5); WBC 4.5 k/uL (3.8-10.6)
[2018-06-17 08:32] LABS: Platelet Count 76 k/uL (150-450)
[2018-06-17 08:36] LABS: Calcium 7.6 mg/dL (8.4-10.2); Potassium 3.8 mmol/L (3.5-5.1)
[2018-06-17] MEDS: LACTULOSE 20 GM/30 ML CUP PO SCH ×2 (08:41→19:44)
[2018-06-17] MEDS: LINEZOLID 600 MG TAB PO SCH ×2 (08:43→19:40)
[2018-06-17] MEDS: SODIUM BICARBONATE TAB 650 MG TAB PO SCH ×2 (08:43→19:39)
[2018-06-17] MEDS: MAGNESIUM OXIDE 400 MG TAB PO SCH ×2 (08:43→19:40)
[2018-06-17] MEDS: MEGESTROL 400 MG/10 ML CUP PO SCH (08:43)
[2018-06-17] MEDS: PIPERACILLIN-TAZOBACTAM 3.375 GM in DEXTROSE/WATER 1 50ML.BAG IVPB SCH ×3 (08:43→23:08)
[2018-06-17] MEDS: MIDODRINE 5 MG TAB PO SCH ×3 (08:43→17:27)
[2018-06-17] MEDS: ASPIRIN 81 MG PO SCH (08:43)
[2018-06-17] MEDS: PANTOPRAZOLE 40 MG TABLET PO SCH ×2 (08:43→17:28)
[2018-06-17] MEDS: HEPARIN SODIUM,PORCINE 5,000 UNIT/ML 1 ML VIAL SQ SCH ×2 (08:43→19:40)
[2018-06-17] MEDS: GABAPENTIN 100 MG CAP PO SCH ×2 (08:43→19:40)
--- NOTE | 2018-06-17 09:31 | XR ---
EXAMINATION TYPE: XR chest 2V DATE OF EXAM: 06/17/2018 HISTORY: pneumonia. REFERENCE: Previous study dated 06/14/2018. FINDINGS: The heart is mildly prominent. There continue to be bibasilar infiltrates. There is vascula r congestion without terri interstitial change. There are small, bilateral effusions. IMPRESSION: NO SIGNIFICANT INTERVAL CHANGE IN THE APPEARANCE OF THE CHEST.
--- NOTE | 2018-06-17 11:28 | P.PN ---
Subjective Progress Note Date: 06/17/18 This is a 57-year-old male seen in consultation because of acute kidney injury. This is deemed to be from pneumonia. He continues to have cough with mild shortness of breath. No fever chills. Denies any nausea vomiting. A bladder scan showed less than 200 mL urine. Creatinine stable. His chest x-ray shows bilateral diffuse disease possible congestive heart failure versus pneumonia Her urine output is 8 and 38 mL for the last 24 hours. He has mild ascites Objective - Vital Signs Vital signs: Vital Signs Temp 97.1 F L 06/17/18 05:45 Pulse 80 06/17/18 07:47 Resp 20 06/17/18 05:45 BP 122/63 06/17/18 05:45 Pulse Ox 98 06/17/18 05:45 Intake & Output 06/16/18 06/17/18 06/17/18 18:59 06:59 18:59 Intake Total 200 Output Total 438 400 Balance -238 -400 Intake: Oral 200 Output: Urine 250 400 Post Void Residual 188 Other: Voiding Method Toilet Urinal # Bowel Movements 1 On examination is awake alert oriented, he is mildly jaundiced. HEENT exam no JVP noted neck is supple no facial asymmetry Lungs are significant for occasional bilateral coarse crackle fairly good air entry bilaterally. No dullness to percussion. Heart sounds are unremarkable for any murmur rub gallop Abdomen is soft somewhat distended with ascites. No masses were felt. Extremity exam was minimal edema Neurologically awake alert oriented No asterixis. Is mildly jaundiced. - Labs CBC & Chem 7: 06/17/18 07:56 06/17/18 07:56 Labs: Abnormal Lab Results - Last 24 Hours (Table) 06/16/18 06/17/18 06/17/18 Range/Units 19:05 07:56 07:56 RBC 2.40 L (4.30-5.90) m/uL Hgb 7.6 L (13.0-17.5) gm/dL Hct 22.7 L (39.0-53.0) % RDW 22.8 H (11.5-15.5) % Plt Count 76 L (150-450) k/uL Sodium 136 L (137-145) mmol/L Chloride 110 H (98-107) mmol/L Carbon Dioxide 17 L (22-30) mmol/L BUN 36 H (9-20) mg/dL Creatinine 2.10 H (0.66-1.25) mg/dL Calcium 7.6 L (8.4-10.2) mg/dL U Random Total Protein 76 H (<12) mg/dL Microbiology - Last 24 Hours (Table) 06/14/18 13:08 Urine Culture - Final Urine,Voided Makenna albicans 06/13/18 21:44 Blood Culture - Preliminary Blood No Growth after 72 hours 06/13/18 15:50 Blood Culture - Preliminary Blood No Growth after 72 hours Assessment and Plan Assessment: Impression 1. Acute kidney injury secondary to prerenal from pneumonia. Creatinine is 2.1 , his baseline creatinine was 0.9 on 02/12/2018. He does have 2+ proteinuria dated 06/13/2018 25 WBCs and occasional bacteria but urine culture is negative so far. Urine protein to creatinine ratio is 76 mg/93 mg. A serum protein electrophoresis in 2016 was unremarkable. 2. Mild degree of non-gap acidosis from acute kidney injury. Bicarb is down from 18-17, he is on oral bicarb 3. Admitted with pneumonia. Chest x-ray shows stability. Possibly he has mild CHF 4. Mild diarrhea. 5. History of cirrhosis, supposedly on transplant list 6. History of immunodeficiency syndrome on immunoglobulin IV every 3 weeks for last 20 some years. 7. Recent admitted for necrotizing fasciitis, admitted for 52 days and recently discharge 06/11/2018 5 days ago. 8. Pancytopenia. Recommendation. 1. Will give him 1 dose of Lasix 20 mg. 2. Hold his IV fluids and make it KVO at 20 mL an hour. 4. Continue bicarb 1300 mg by mouth twice a day 5. Monitor labs intake and output and blood pressure. Thank you for this consultation and will continue to follow closely
--- NOTE | 2018-06-17 11:41 | P.PN ---
Subjective Progress Note Date: 06/17/18 Principal diagnosis: Asthma exacerbation/pneumonia Progress note dated 06/15/2018 This is a 57-year-old male with a history of chronic bronchial asthma. The patient has had a rough number of months here recently with multiple admissions to [facility] respiratory failure compartment syndrome fasciotomy and vancomycin-resistant enterococcal pneumonia. The patient was readmitted to the emergency room with shortness of breath chest congestion cough phlegm production and fever. He was seen by infectious disease. His asthma was active and I addressed that yesterday when I saw him in consultation. The patient is so emaciated is also much weight, I almost did not recognize and when I went into the room. He also has a history of hypogammaglobulinemia. In addition, he was being evaluated for possible liver transplantation at [facility]. He has alcoholic cirrhosis. Progress note dated 06/16/2018 57-year-old male with history of chronic liver disease secondary to alcohol abuse, chronic bronchial asthma, and admission to this hospital for likely purulent tracheobronchitis versus bronchopneumonia. The patient has recently had an episode of respiratory failure at [facility] with 21 days on the ventilator and a 52 day hospital stay. At that time, the patient developed an infection in his left leg compartment syndrome and need for fasciotomy. He also developed a episode of VRE pneumonia. The patient also has a history of hypogammaglobulinemia. He is doing a bit better today. Less short of breath. Much less in the way of chest congestion. No fever or chills currently. Not coughing up any blood. No GI or complaints at the current time. He was seen by infectious disease and antibiotic recommendations were made by them. Progress note dated 06/17/2018 57-year-old male well-known to me. He has a history of chronic liver disease secondary to alcohol abuse and is being evaluated for liver transplantation at [facility]. In addition, the patient has a history of chronic bronchial asthma and hypogammaglobulinemia. More recently, he developed an episode of respiratory failure at [facility] secondary to sepsis and spent 21 days on mechanical ventilator and 52 total days in the hospital. Everything started off as an infection in his left leg. He developed overwhelming sepsis, a compartment syndrome on the left and required fasciotomy. Subsequently, he was discharged to rehab and unfortunately developed a vancomycin-resistant enterococcal pneumonia. This required another hospitalization. The patient is currently being evaluated for and treated for purulent tracheobronchitis as bronchopneumonia. He has been seen by infectious disease. Currently the patient is doing reasonably well. States he's feeling better. Still very short of breath. Still coughing a bit. Cough is congested and wet. Not producing any phlegm. No fever or chills. Objective - Vital Signs Vital signs: Vital Signs Temp 97.1 F L 06/17/18 05:45 Pulse 80 06/17/18 07:47 Resp 20 06/17/18 05:45 BP 122/63 06/17/18 05:45 Pulse Ox 98 06/17/18 05:45 Intake & Output 06/16/18 06/17/18 06/17/18 18:59 06:59 18:59 Intake Total 200 Output Total 438 400 Balance -238 -400 Intake: Oral 200 Output: Urine 250 400 Post Void Residual 188 Other: Voiding Method Toilet Urinal # Bowel Movements 1 - Exam No acute distress, oriented 3, he looks chronically ill and is very gaunt. Not displaying any signs or symptoms of respiratory distress such as nasal flaring, use of accessory muscles or audible wheezes. The patient is not requiring any supplemental oxygen. HEENT examination is grossly unremarkable. Mucous membranes are moist. No oral lesions. Neck supple. Full range of motion. No adenopathy thyromegaly or neck vein distention. Cardiovascular examination reveals regular rhythm rate. S1-S2 normal. No S3 or S4. No discernible murmur noted. Lungs reveal coarse inspiratory and expiratory rhonchi and expiratory wheezes. A few crackles are noted. Her sounds are congested sounding. Breath sounds equal bilaterally. Breath sounds are much improved. Air exchange is better. Abdomen soft bowel sounds are heard. No masses or tenderness. Extremities are intact. Left thigh and left leg is wrapped from previous fasciotomy because of compartment syndrome Skin is without rash or lesion. Neurologic examination is brief but nonfocal. - Labs CBC & Chem 7: 06/17/18 07:56 06/17/18 07:56 Labs: Abnormal Lab Results - Last 24 Hours (Table) 06/16/18 06/17/18 06/17/18 Range/Units 19:05 07:56 07:56 RBC 2.40 L (4.30-5.90) m/uL Hgb 7.6 L (13.0-17.5) gm/dL Hct 22.7 L (39.0-53.0) % RDW 22.8 H (11.5-15.5) % Plt Count 76 L (150-450) k/uL Sodium 136 L (137-145) mmol/L Chloride 110 H (98-107) mmol/L Carbon Dioxide 17 L (22-30) mmol/L BUN 36 H (9-20) mg/dL Creatinine 2.10 H (0.66-1.25) mg/dL Calcium 7.6 L (8.4-10.2) mg/dL U Random Total Protein 76 H (<12) mg/dL Microbiology - Last 24 Hours (Table) 06/14/18 13:08 Urine Culture - Final Urine,Voided Makenna albicans 06/13/18 21:44 Blood Culture - Preliminary Blood No Growth after 72 hours 06/13/18 15:50 Blood Culture - Preliminary Blood No Growth after 72 hours Assessment and Plan Assessment: Assessment Asthma exacerbation likely complicated by purulent tracheobronchitis and possible bronchopneumonia Previous history of vancomycin-resistant enterococcal pneumonia Previous history of severe left thigh infection with compartment syndrome, overwhelming sepsis, need for fasciotomy and long-term mechanical ventilation History of chronic bronchial asthma History of hyperlipidemia History of hypogammaglobulinemia History of chronic liver disease and liver cirrhosis secondary to previous alcohol abuse History of GERD Anemia of chronic disease Chronic kidney disease Plan: Plan dated 06/14/2018 Labs medications and x-rays are all reviewed. The patient will be placed on standard therapy. Infectious disease has been consulted. He may very well have pneumonia again. It's hard to tell by his chest x-ray because some the changes are likely chronic. Clinically, he is behaving like pneumonia with fever chills cough chest congestion and phlegm production. I'm sure he'll be treated as such. His overall health has significantly declined. His was kind enough to give this all history. We will continue to follow make recommendations are appropriate. Plan dated 06/15/2018 Currently, all microbiologic studies are negative. White count 4.2 hemoglobin 7.5 hematocrit 23.6 and platelet count 105,000. Sodium 136, potassium 3.6, chlorides 110, CO2 16 and anion gap is 10. BUN and creatinine were 35 and 2.05. A VQ scan was indeterminate probability. Current antibiotics are Zosyn and Zyvox. This was a recommendation by infectious disease. He is also currently on all his usual asthma medications including updrafts Singulair and Symbicort. Prognosis is guarded. Plan dated 06/16/2018 The patient appears to be doing a bit better. He seems less short of breath and less congested in his chest. He is laying flat in bed. Breathing comfortably. White count 3.4 hemoglobin 7.9 hematocrit 23.5 and platelet count 78,000. Sodium 135 potassium 4 chlorides 109 and CO2 18. BUN and creatinine were 37 and 2.10. C. diff studies were negative. Thus far all microbiologic studies are negative. He is on all usual asthma medications and his antibiotics include both Zosyn and Zyvox. We will continue to follow make recommendations were needed. Gnosis is guarded. Plan dated 06/17/2018 Clinically, the patient seemed to be improving. His white count is 4.5 hemoglobin 7.6 hematocrit 22.7 and platelet count 76,000. Sodium 136 potassium 3.8 chlorides 110 CO2 17 anion gap is normal and BUN/creatinine were 36 and 2.10. Microbiology assess far negative. C. difficile studies were negative. He is on his usual asthma medications and continues on Zyvox and Zosyn as antibiotics. We will continue to follow. Prognosis is guarded. Time with Patient: Less than 30
[2018-06-17] MEDS ORDERED: FUROSEMIDE 10 MG/ML 2 ML VIAL IV ONE (12:00)
[2018-06-17] MEDS: FERROUS SULFATE 325 MG TAB PO SCH (12:15)
[2018-06-17] MEDS: SODIUM CHLORIDE 0.9% 500 ML IV SCH (12:16)
[2018-06-17] MEDS: MELATONIN 3 MG TABLET PO SCH (19:39)
[2018-06-17] MEDS: MONTELUKAST 10 MG TAB PO SCH (19:40)
[2018-06-17] MEDS: ATORVASTATIN 10 MG TAB PO SCH (19:41)
--- NOTE | 2018-06-17 20:45 | PN ---
PROGRESS NOTE DATE OF SERVICE: 06/17/2018. INTERVAL HISTORY: This 57-year-old gentleman admitted with acute bilateral pneumonia is being closely monitored. PT/OT evaluating the patient. The patient is significantly emaciated. The patient had a protracted prolonged hospital course recently lasting for 2 months with multiple complications. The patient on broad IV antibiotics. The most recent chest x- ray showed continued bilateral infiltrates. No chest pain. No palpitations. PHYSICAL EXAM: Alert and oriented times three. Pulse 68, blood pressure 109/63, respirations 18 , temperature 97.1, pulse ox 98 percent on room air. HEENT: Conjunctivae normal. Oral mucosa moist. Neck is no jugular venous distention. No carotid bruit. No lymph node enlargement. Cardiovascular system: S1, S2 muffled. Respiratory: Breath sounds diminished in the bases. Bilateral scattered rhonchi and crackles. ABDOMEN: Soft, nontender. Legs are no edema, no swelling. Central nervous system: No focal deficits. LABS: WBC 4.2, hemoglobin 7.6, creatinine is 2.10. ASSESSMENT: 1. Acute bilateral pneumonia possibly hospital-acquired pneumonia with sepsis and fever, present on admission. 2. Acute asthma exacerbation with acute purulent tracheobronchitis. 3. Recent compartment syndrome and fascitis of the left leg with multiple fasciotomies compartment syndrome. 4. Acute on chronic renal failure stage 3. 5. History of VRE pneumonia. 6. Chronic liver disease. 7. Anemia of chronic disease. 8. Diffuse wasting weakness and severe gait dysfunction. RECOMMENDATIONS AND DISCUSSION: Recommend to continue current medications, management and symptomatic treatment. Continue with antibiotics and monitor closely with multiple consultants. PT/OT evaluation, possible ECF rehab. Guarded prognosis because of multiple complex medical issues. Further recommendations to follow. MMODL / IJN: [id number] / MTDD
--- NOTE | 2018-06-18 05:18 | PN ---
PROGRESS NOTE DATE OF SERVICE: 06/17/2018 REASON FOR FOLLOWUP: 1. Pneumonia. 2. Left leg wound. INTERVAL HISTORY: The patient is afebrile. He seemed to be breathing more comfortably. Denies significant chest pain. Occasional cough. drainage. No abdominal pain. No pain to the left leg area. PHYSICAL EXAMINATION: On examination, blood pressure is 109/66, pulse of 80, temperature 97.1. He is 98% on room air. General description is a middle aged male up in the bed in no distress. RESPIRATORY SYSTEM: Unlabored breathing with decreased breath sounds in the bases. No wheeze. HEART: S1, S2. Regular rate and rhythm. ABDOMEN: Soft, no tenderness. Left leg is currently dressed up. No obvious drainage on the dressing. LABS: Hemoglobin 7.6, white count 4.5, BUN of 36, creatinine is 2.10. Blood culture negative. No sputum was provided. DIAGNOSTIC IMPRESSION AND PLAN: 1. Patient admitted to the hospital with fever and cough with concern for underlying pneumonia. So far blood culture has been negative. Patient was unable to provide any sputum. He is on Zyvox and Zosyn antibiotic on discharge. 2. Patient with left leg wound. Continue local wound care with Aquacel Silver dressing. Continue supportive care. MMODL / IJN: [id number] /
[2018-06-18] MEDS: METOPROLOL TARTRATE 25 MG TAB PO SCH ×3 (06:27→20:16)
[2018-06-18] MEDS: SYMBICORT 160-4.5 MCG INHALER INHALATION SCH ×2 (08:13→19:25)
[2018-06-18] MEDS: IPRATROPIUM-ALBUTEROL 3 ML NEB INHALATION SCH ×3 (08:13→19:25)
[2018-06-18] MEDS: MEGESTROL 400 MG/10 ML CUP PO SCH (08:48)
[2018-06-18] MEDS: DIGOXIN 125 MCG TAB PO SCH (08:48)
[2018-06-18] MEDS: LINEZOLID 600 MG TAB PO SCH ×2 (08:48→20:16)
[2018-06-18] MEDS: MAGNESIUM OXIDE 400 MG TAB PO SCH ×2 (08:48→20:16)
[2018-06-18] MEDS: MIDODRINE 5 MG TAB PO SCH ×3 (08:48→17:13)
[2018-06-18] MEDS: SODIUM BICARBONATE TAB 650 MG TAB PO SCH ×2 (08:48→20:15)
[2018-06-18] MEDS: ASPIRIN 81 MG PO SCH (08:48)
[2018-06-18] MEDS: GABAPENTIN 100 MG CAP PO SCH ×2 (08:48→20:16)
[2018-06-18] MEDS: LACTULOSE 20 GM/30 ML CUP PO SCH ×2 (08:49→20:18)
[2018-06-18] MEDS: PIPERACILLIN-TAZOBACTAM 3.375 GM in DEXTROSE/WATER 1 50ML.BAG IVPB SCH ×2 (08:49→15:39)
[2018-06-18] MEDS: PANTOPRAZOLE 40 MG TABLET PO SCH ×2 (08:49→17:13)
[2018-06-18] MEDS: HEPARIN SODIUM,PORCINE 5,000 UNIT/ML 1 ML VIAL SQ SCH ×2 (08:49→20:15)
[2018-06-18 09:04] LABS: Potassium 4.2 mmol/L (3.5-5.1)
--- NOTE | 2018-06-18 10:44 | P.PN ---
Subjective Patient is seen in follow-up for acute kidney injury. Renal function worse with creatinine at 2.26 today. Patient currently resting in bed. Admits to good urine output. No hematuria or dysuria. No vomiting or diarrhea. Denies chest pain or shortness of breath. Currently being treated for pneumonia. Vital signs are stable. General: The patient appeared well nourished and normally developed. HEENT: Head exam is unremarkable. Neck is without jugular venous distension. LUNGS: Lungs are clear to auscultation and percussion. Breath sounds decreased. HEART: Rate and Rhythm are regular. First and second heart sounds normal. No murmurs, rubs or gallops. ABDOMEN: Abdominal exam reveals normal bowel sounds. Non-tender and non- distended. No evidence of peritonitis. EXTREMITITES: Trace edema right lower extremity. Left lower extremity wrapped. No obvious drainage. Objective - Vital Signs Vital signs: Vital Signs Temp 98.1 F 06/18/18 07:00 Pulse 80 06/18/18 08:25 Resp 17 06/18/18 07:00 BP 94/47 06/18/18 07:00 Pulse Ox 98 06/18/18 07:00 Intake & Output 06/17/18 06/18/18 06/18/18 18:59 06:59 18:59 Intake Total 400 Output Total 300 Balance -300 400 Intake: Oral 400 Output: Urine 300 Other: Voiding Method Toilet Urinal # Voids 2 1 # Bowel Movements 1 - Labs CBC & Chem 7: 06/17/18 07:56 06/18/18 07:57 Labs: Abnormal Lab Results - Last 24 Hours (Table) 06/18/18 Range/Units 07:57 Chloride 109 H (98-107) mmol/L Carbon Dioxide 19 L (22-30) mmol/L BUN 38 H (9-20) mg/dL Creatinine 2.26 H (0.66-1.25) mg/dL Calcium 8.0 L (8.4-10.2) mg/dL Microbiology - Last 24 Hours (Table) 06/13/18 21:44 Blood Culture - Preliminary Blood No Growth after 96 hours 06/13/18 15:50 Blood Culture - Preliminary Blood No Growth after 96 hours Assessment and Plan Plan: assessment: 1. Nonoliguric acute kidney injury secondary to ATN secondary to pneumonia. Patient was admitted for nearly 2 months at [place] with local hospital and was just discharged less than a week ago. Patient states he did develop renal impairment but does not provide further details. Creatinine 2.26 today. 2. Metabolic acidosis secondary to acute kidney injury. Improved. 3. Anemia. Rule out iron deficiency. 4. Pneumonia maintained on antibiotics. 5. Left lower extremity necrotizing fasciitis status post multiple surgeries at [facility] with an extended stay of nearly 2 months area patient was discharged in the past week. 6. History of liver cirrhosis. 7. History of immunodeficiency syndrome maintained on IV immunoglobulin. Plan: Hold off on diuretics today. Encourage oral intake. Check iron studies. Maintain oral sodium bicarbonate. We'll try to obtain records from [facility]. Repeat electrolytes in the morning.
[2018-06-18] MEDS: FERROUS SULFATE 325 MG TAB PO SCH (12:57)
[2018-06-18] MEDS: SODIUM CHLORIDE 0.9% 500 ML IV SCH (12:58)
--- NOTE | 2018-06-18 15:01 | P.PN ---
Subjective Progress Note Date: 06/18/18 Principal diagnosis: Acute exacerbation of chronic obstructive pulmonary disease complicated by purulent tracheobronchitis and possible bronchopneumonia Pulmonary consultation 06/14/2018 57-year-old male way see for chronic bronchial asthma. More recently, he's been extremely low. This started months ago, at which time he apparently developed an infection in his left thigh and leg area. The patient apparently was airlifted from here to [facility]. The patient ended up with overwhelming sepsis and respiratory failure and ended up there for 52 days about 3 weeks on the mechanical ventilator. He was eventually extubated. He apparently asked abated himself actually and eventually was discharged there and sent to rehab. Subsequent to that, right before discharge and rehab he apparently developed a fever again and developed pneumonia secondary to vancomycin-resistant enterococci. He apparently was readmitted for a number of days and then recently discharged against. More recently, he comes into the hospital with complaints of fever chest congestion cough phlegm production. He is possibly thought to have pneumonia again. Chest x-ray showed bilateral infiltrates. Some of these infiltrates could affect B chronic in nature. He is certainly behaving like; pneumonia given his fever chills cough phlegm chest congestion, etc. Most of the history is obtained from his was in the room with him. In addition to asthma, the patient has chronic liver disease from alcohol, and was previously being evaluated for liver transplantation at [facility]. In addition, the patient has a history of anemia hyperlipidemia and also hypogammaglobulinemia. For this, he gets immunoglobulin every 3 weeks. He also has a history of hypertension and in addition to seeing me, sees one of the oncologist here in town. He was laying flat in bed room he first walked into the room. I barely recognized him. Progress note dated 06/15/2018 This is a 57-year-old male with a history of chronic bronchial asthma. The patient has had a rough number of months here recently with multiple admissions to [facility] respiratory failure compartment syndrome fasciotomy and vancomycin-resistant enterococcal pneumonia. The patient was readmitted to the emergency room with shortness of breath chest congestion cough phlegm production and fever. He was seen by infectious disease. His asthma was active and I addressed that yesterday when I saw him in consultation. The patient is so emaciated is also much weight, I almost did not recognize and when I went into the room. He also has a history of hypogammaglobulinemia. In addition, he was being evaluated for possible liver transplantation at [facility]. He has alcoholic cirrhosis. Progress note dated 06/17/2018 57-year-old male well-known to me. He has a history of chronic liver disease secondary to alcohol abuse and is being evaluated for liver transplantation at [facility]. In addition, the patient has a history of chronic bronchial asthma and hypogammaglobulinemia. More recently, he developed an episode of respiratory failure at [facility] secondary to sepsis and spent 21 days on mechanical ventilator and 52 total days in the hospital. Everything started off as an infection in his left leg. He developed overwhelming sepsis, a compartment syndrome on the left and required fasciotomy. Subsequently, he was discharged to rehab and unfortunately developed a vancomycin-resistant enterococcal pneumonia. This required another hospitalization. The patient is currently being evaluated for and treated for purulent tracheobronchitis as bronchopneumonia. He has been seen by infectious disease. Currently the patient is doing reasonably well. States he's feeling better. Still very short of breath. Still coughing a bit. Cough is congested and wet. Not producing any phlegm. No fever or chills. She is seen again today 06/18/2018 in follow-up on the regular medical floor. He remains awake and alert in no acute distress. He is feeling quite a bit better today as compared to previous. There was a loose nonproductive cough. No chills or night sweats. He is maintaining good O2 saturations up to 100% on room air. He's been afebrile. Creatinine 2.26. He is currently on Zyvox and Zosyn. Continue with bronchodilators and Symbicort Objective - Vital Signs Vital signs: Vital Signs Temp 98.1 F 06/18/18 07:00 Pulse 84 06/18/18 13:47 Resp 17 06/18/18 07:00 BP 94/47 06/18/18 07:00 Pulse Ox 98 06/18/18 07:00 Intake & Output 06/17/18 06/18/18 06/18/18 18:59 06:59 18:59 Intake Total 400 Output Total 300 Balance -300 400 Intake: Oral 400 Output: Urine 300 Other: Voiding Method Toilet Urinal # Voids 2 1 # Bowel Movements 1 - Labs CBC & Chem 7: 06/17/18 07:56 06/18/18 07:57 Labs: Abnormal Lab Results - Last 24 Hours (Table) 06/18/18 Range/Units 07:57 Chloride 109 H (98-107) mmol/L Carbon Dioxide 19 L (22-30) mmol/L BUN 38 H (9-20) mg/dL Creatinine 2.26 H (0.66-1.25) mg/dL Calcium 8.0 L (8.4-10.2) mg/dL Microbiology - Last 24 Hours (Table) 06/13/18 21:44 Blood Culture - Preliminary Blood No Growth after 96 hours 06/13/18 15:50 Blood Culture - Preliminary Blood No Growth after 96 hours
--- NOTE | 2018-06-18 17:09 | P.PN ---
Subjective Progress Note Date: 06/18/18 Progress Note being dictated for Dr. Moss Interval history: This is a 57-year-old gentleman admitted with fever, possible sepsis, possible bilateral pneumonia history of recent necrotizing fasciitis and multiple fasciotomies of the left leg, acute on chronic renal failure and multiple other medical issues. Renal function unchanged, CBC pending. Afebrile. VQ scan pending. Maintaining O2 sats in the high 90s on room air. Complaints of generalized weakness, poor appetite. Review of systems: CONSTITUTIONAL: Positive fatigue, generalized weakness HEENT: No recent visual problems or hearing problems. Denied any sore throat. CARDIOVASCULAR: No chest pain, no palpitations, no syncope. PULMONARY: Shortness of breath, positive cough, no hemoptysis. GASTROINTESTINAL: No diarrhea, no nausea, no vomiting, no abdominal pain. Poor appetite NEUROLOGICAL: No headaches, generalized weakness, no numbness. HEMATOLOGICAL: Denies any bleeding or petechiae. GENITOURINARY: Denies any burning micturition, frequency, or urgency. No dysuria ENDOCRINE: Denies any polyuria or polydipsia. PSYCHIATRIC: No anxiety, no depression The rest of the 14 point review of systems is negative Active Medications Albuterol/Ipratropium (Duoneb 0.5 Mg-3 Mg/3 Ml Soln) 3 ml INHALATION RT-TID PRN PRN Reason: Shortness Of Breath Or Wheezing Albuterol/Ipratropium (Duoneb 0.5 Mg-3 Mg/3 Ml Soln) 3 ml INHALATION RT-TID [facility] Last Admin: 06/14/18 19:29 Dose: Not Given Aspirin (Aspirin) 81 mg PO DAILY [facility] Last Admin: 06/14/18 08:01 Dose: 81 mg Atorvastatin Calcium (Lipitor) 10 mg PO HS [facility] Last Admin: 06/13/18 23:04 Dose: 10 mg Budesonide/Formoterol Fumarate (Symbicort 160-4.5 Mcg Inhaler) 2 puff INHALATION RT-BID [facility] Last Admin: 06/14/18 19:28 Dose: 2 puff Digoxin (Lanoxin) 62.5 mcg PO Q48H [facility] Last Admin: 06/14/18 08:42 Dose: 62.5 mcg Ferrous Sulfate (Feosol) 325 mg PO 1200 [facility] Last Admin: 06/14/18 11:50 Dose: 325 mg Gabapentin (Neurontin) 100 mg PO Q12H [facility] Last Admin: 06/14/18 08:01 Dose: 100 mg Piperacillin/Tazobactam/ (Dextrose 3.375 gm/ IV Solution) 50 mls @ 12.5 mls/hr IVPB Q8HR [facility] Stop: 06/24/18 22:01 Last Admin: 06/14/18 16:01 Dose: 12.5 mls/hr Sodium Chloride (Saline 0.9%) 1,000 mls @ 50 mls/hr IV .Q20H [facility] Last Admin: 06/14/18 08:01 Dose: 50 mls/hr Vancomycin HCl 1,250 mg/ (Sodium Chloride) 250 mls @ 125 mls/hr IVPB Q16H [facility] Last Admin: 06/14/18 12:41 Dose: 125 mls/hr Tobramycin Sulfate 160 mg/ (Sodium Chloride) 104 mls @ 104 mls/hr IVPB Q24H [facility] Last Admin: 06/13/18 23:05 Dose: 104 mls/hr Azithromycin 500 mg/ Sodium (Chloride) 250 mls @ 125 mls/hr IVPB [facility] Lactulose (Cephulac) 20 gm PO BID [facility] Last Admin: 06/14/18 08:05 Dose: Not Given Megestrol Acetate (Megace) 400 mg PO DAILY [facility] Melatonin (Melatonin) 6 mg PO [facility] Last Admin: 06/13/18 23:04 Dose: 6 mg Metoprolol Tartrate (Lopressor) 25 mg PO Q8H [facility] Last Admin: 06/14/18 14:25 Dose: Not Given Midodrine (Proamatine) 10 mg PO AC-TID [facility] Last Admin: 06/14/18 18:22 Dose: 10 mg Miscellaneous Information (Pneumonia Protocol Utilized) 1 each PO ONCE PRN PRN Reason: Per Protocol Miscellaneous Information (Magnesium Per Protocol) 1 each MISCELLANE DAILY PRN ; Protocol PRN Reason: Per Protocol Miscellaneous Information (Potassium Per Protocol) 1 each MISCELLANE DAILY PRN ; Protocol PRN Reason: Per Protocol Montelukast Sodium (Singulair) 10 mg PO [facility] Last Admin: 06/13/18 23:04 Dose: 10 mg Pantoprazole Sodium (Protonix) 40 mg PO AC-BID [facility] Last Admin: 06/14/18 18:21 Dose: 40 mg Sodium Bicarbonate (Sodium Bicarbonate Tab) 1,300 mg PO BID [facility] Last Admin: 06/14/18 08:01 Dose: 1,300 mg Tramadol HCl (Ultram) 50 mg PO Q6HR PRN PRN Reason: Moderate Pain Last Admin: 06/14/18 18:23 Dose: 50 mg 06/15/2018 maintained on IV antibiotics of Zosyn, Zyvox as per infectious disease. Continues on nebulized bronchodilators. Occasional cough, nonproductive. VQ scan indeterminate probability, further recommendations from pulmonary pending. Denies chest pain, palpitations or increasing shortness of breath. Denies left leg pain. No abdominal pain. Afebrile. Review of systems: CONSTITUTIONAL: No fever, positive fatigue. HEENT: No recent visual problems or hearing problems. Denied any sore throat. CARDIOVASCULAR: No chest pain, no palpitations, no syncope. PULMONARY: No shortness of breath, minimal nonproductive cough, no hemoptysis. GASTROINTESTINAL: No diarrhea, no nausea, no vomiting, no abdominal pain. Normoactive bowel sounds. NEUROLOGICAL: No headaches, no weakness, no numbness. HEMATOLOGICAL: Denies any bleeding or petechiae. GENITOURINARY: Denies any burning micturition, frequency, or urgency. MUSCULOSKELETAL/RHEUMATOLOGICAL: Denies any joint pain, swelling, or any muscle pain. ENDOCRINE: Denies any polyuria or polydipsia. PSYCHIATRIC: No anxiety, no depression The rest of the 14 point review of systems is negative Active Medications Generic Name Dose Route Start Last Admin Trade Name Freq PRN Reason Stop Dose Admin Albuterol/Ipratropium 3 ml 06/14/18 00:38 Duoneb 0.5 Mg-3 Mg/3 Ml Soln INHALATION RT-TID PRN Shortness Of Breath Or Wheezing Albuterol/Ipratropium 3 ml 06/14/18 08:00 06/15/18 13:41 Duoneb 0.5 Mg-3 Mg/3 Ml Soln INHALATION 3 ml RT-TID [facility] Administration Aspirin 81 mg 06/14/18 09:00 06/15/18 08:24 Aspirin PO 81 mg DAILY [facility] Administration Atorvastatin Calcium 10 mg 06/13/18 21:00 06/14/18 21:13 Lipitor PO 10 mg HS [facility] Administration Budesonide/Formoterol Fumarate 2 puff 06/14/18 08:00 06/15/18 07:39 Symbicort 160-4.5 Mcg Inhaler INHALATION 2 puff RT-BID [facility] Administration Digoxin 62.5 mcg 06/14/18 09:00 06/14/18 08:42 Lanoxin PO 62.5 mcg Q48H [facility] Administration Ferrous Sulfate 325 mg 06/14/18 12:00 06/15/18 12:09 Feosol PO 325 mg 1200 [facility] Administration Gabapentin 100 mg 06/13/18 21:00 06/15/18 08:23 Neurontin PO 100 mg Q12H [facility] Administration Heparin Sodium (Porcine) 5,000 unit 06/15/18 09:00 06/15/18 08:34 Heparin SQ 5,000 unit Q12HR [facility] Administration Piperacillin/Tazobactam/ 50 mls @ 12.5 mls/hr 06/13/18 22:00 06/15/18 17:02 Dextrose 3.375 gm/ IV Solution IVPB 06/24/18 22:01 12.5 mls/hr Q8HR [facility] Administration Sodium Chloride 1,000 mls @ 50 mls/hr 06/13/18 20:45 06/15/18 02:39 Saline 0.9% IV 50 mls/hr .Q20H [facility] Administration Lactulose 20 gm 06/13/18 21:00 06/15/18 08:25 Cephulac PO Not Given BID [facility] Linezolid 600 mg 06/15/18 09:00 06/15/18 08:24 Zyvox PO 600 mg Q12HR [facility] Administration Magnesium Oxide 400 mg 06/15/18 11:45 06/15/18 12:09 Mag-Ox PO 400 mg BID [facility] Administration Megestrol Acetate 400 mg 06/14/18 20:31 06/15/18 08:24 Megace PO 400 mg DAILY [facility] Administration Melatonin 6 mg 06/13/18 21:00 06/14/18 21:13 Melatonin PO 6 mg HS [facility] Administration Metoprolol Tartrate 25 mg 06/13/18 21:00 06/15/18 12:12 Lopressor PO Not Given Q8H [facility] Midodrine 10 mg 06/14/18 07:30 06/15/18 17:03 Proamatine PO 10 mg AC-TID [facility] Administration Miscellaneous Information 1 each 06/13/18 20:45 Pneumonia Protocol Utilized PO ONCE PRN Per Protocol Miscellaneous Information 1 each 06/14/18 20:40 Magnesium Per Protocol MISCELLANE DAILY PRN Per Protocol Protocol Miscellaneous Information 1 each 06/14/18 20:40 Potassium Per Protocol MISCELLANE DAILY PRN Per Protocol Protocol Montelukast Sodium 10 mg 06/13/18 21:00 06/14/18 21:13 Singulair PO 10 mg HS [facility] Administration Pantoprazole Sodium 40 mg 06/14/18 07:30 06/15/18 17:03 Protonix PO 40 mg AC-BID [facility] Administration Sodium Bicarbonate 1,300 mg 06/13/18 21:00 06/15/18 08:23 Sodium Bicarbonate Tab PO 1,300 mg BID [facility] Administration Tramadol HCl 50 mg 06/13/18 20:48 06/15/18 08:30 Ultram PO 50 mg Q6HR PRN Administration Moderate Pain 06/18/2018 maintained on IV antibiotics of Zosyn, Zyvox. Afebrile. Renal function worsening. Patient recently completed a prolonged hospital stay with continued extreme weakness-emaciated. Consumed only 25% at breakfast. Continues on nebulized bronchodilators, maintaining O2 sats of 100% on room air. Chest x-ray pending. Denies chest pain, palpitations. Objective - Vital Signs Vital signs: Vital Signs Temp 98.7 F 06/18/18 15:00 Pulse 65 06/18/18 15:00 Resp 17 06/18/18 15:00 BP 100/51 06/18/18 15:00 Pulse Ox 97 06/18/18 15:00 Intake & Output 06/17/18 06/18/18 06/18/18 18:59 06:59 18:59 Intake Total 690 Output Total 300 Balance -300 690 Intake: Intake, IV Titration 50 Amount Piperacillin-Tazobactam 3 50 .375 gm In Dextrose/Water 1 50ml.bag @ 12.5 mls/hr IVPB Q8HR [facility] Rx#: [id number] Oral 640 Output: Urine 300 Other: Voiding Method Toilet Toilet Urinal Urinal # Voids 2 1 2 # Bowel Movements 1 0 - Exam PHYSICAL EXAM: VITAL SIGNS: As above GENERAL: Sitting up in bed, no acute distress, fatigued HEENT: Conjunctivae normal. eyes normal. Oral mucosa moist NECK: No JVD. No thyroid enlargement. No LNs CARDIOVASCULAR: S1, S2 muffled. No murmur RESPIRATION: Breath sounds diminished in the bases. Congested with Occasional scattered rhonchi and crackles, ABDOMEN: Soft, nontender . No guarding. no masses palpable. Bowel sounds heard. LEGS: Status post multiple surgeries, minimal serous drainage, mild tenderness. Left leg dressing clean, dry and intact PSYCHIATRY: Alert and oriented -3, mood and affect normal. NERVOUS SYSTEM: Cranial N 2-12 grossly normal. Moves all 4 limbs. Diffuse weakness No focal deficits. Lymphatic system. No LN neck axilla or groin. Microbiology 06/13/18 21:44 Blood Blood Culture - Preliminary No Growth after 96 hours 06/13/18 15:50 Blood Blood Culture - Preliminary No Growth after 96 hours 06/14/18 13:08 Urine,Voided Urine Culture - Final Makenna albicans - Labs CBC & Chem 7: 06/17/18 07:56 06/18/18 07:57 Labs: Abnormal Lab Results - Last 24 Hours (Table) 06/18/18 Range/Units 07:57 Chloride 109 H (98-107) mmol/L Carbon Dioxide 19 L (22-30) mmol/L BUN 38 H (9-20) mg/dL Creatinine 2.26 H (0.66-1.25) mg/dL Calcium 8.0 L (8.4-10.2) mg/dL Microbiology - Last 24 Hours (Table) 06/13/18 21:44 Blood Culture - Preliminary Blood No Growth after 96 hours 06/13/18 15:50 Blood Culture - Preliminary Blood No Growth after 96 hours Assessment and Plan Assessment: 1. Acute bilateral pneumonia, possibly hospital acquired with sepsis and fever , present on admission. 2. Acute Asthma exacerbation with purulent tracheobronchitis 3. Recent necrotizing fasciitis and multiple fasciotomies , compartment syndrome. 4. Acute on chronic renal failure, stage III 5. History of VRE pneumonia 6. Chronic liver disease 7. Anemia of chronic disease 8. history of immunodeficiency syndrome 9. Medical debility, recent prolonged hospital stay with multiple complications , muscle atrophy, wasting, gait dysfunction, imbalance, fall risk. Plan: Continue on current medication regime , oral sodium bicarb ,monitoring and symptomatic treatment. Renal function worsening, and diuretics on hold today. PT/OT Sputum culture ordered .Follow cultures closely. Maintain IV antibiotics as per infectious disease. Midline catheter ordered for IV therapy. [facility] records being obtained. Possible subacute rehab at discharge .Further recommendations to follow. The impression and plan of care has been dictated as directed. : I performed a history and examination of this patient, discussed the same with the dictator. I agree with the dictator's note ,documented as a scribe. Any additional findings or plans will be noted.
--- NOTE | 2018-06-18 17:23 | XR ---
EXAMINATION TYPE: XR chest 2V DATE OF EXAM: 06/18/2018 COMPARISON: Prior chest x-ray 06/17/2018 HISTORY: Pneumonia TECHNIQUE: Frontal and lateral views of the chest are obtained. FINDINGS: Abnormal increased density persists posteriorly on the lateral exam, the interstitium pravin ins increased but may be improved. Heart size is stable. IMPRESSION: May be some improvement in congestive heart failure or volume status. Probable minimal p leural effusions. Suspect underlying interstitial lung disease and possible pulmonary artery hyperten paz.
[2018-06-18 17:27] LABS: Iron Saturation 55.28 (15.00-50.00)
[2018-06-18] MEDS: ATORVASTATIN 10 MG TAB PO SCH (20:16)
[2018-06-18] MEDS: MELATONIN 3 MG TABLET PO SCH (20:16)
[2018-06-18] MEDS: MONTELUKAST 10 MG TAB PO SCH (20:16)
[2018-06-19] MEDS: METOPROLOL TARTRATE 25 MG TAB PO SCH ×3 (06:11→21:21)
[2018-06-19] MEDS: MIDODRINE 5 MG TAB PO SCH ×3 (07:46→17:44)
[2018-06-19] MEDS: MAGNESIUM OXIDE 400 MG TAB PO SCH ×2 (07:47→21:21)
[2018-06-19] MEDS: HEPARIN SODIUM,PORCINE 5,000 UNIT/ML 1 ML VIAL SQ SCH ×2 (07:47→21:22)
[2018-06-19] MEDS: SODIUM BICARBONATE TAB 650 MG TAB PO SCH ×2 (07:47→21:21)
[2018-06-19] MEDS: PANTOPRAZOLE 40 MG TABLET PO SCH ×2 (07:47→17:44)
[2018-06-19] MEDS: ASPIRIN 81 MG PO SCH (07:47)
[2018-06-19] MEDS: GABAPENTIN 100 MG CAP PO SCH ×2 (07:48→21:21)
[2018-06-19] MEDS: MEGESTROL 400 MG/10 ML CUP PO SCH (07:48)
[2018-06-19] MEDS: LACTULOSE 20 GM/30 ML CUP PO SCH ×2 (07:49→21:21)
[2018-06-19] MEDS: IPRATROPIUM-ALBUTEROL 3 ML NEB INHALATION SCH ×3 (07:50→19:29)
[2018-06-19] MEDS: SYMBICORT 160-4.5 MCG INHALER INHALATION SCH ×2 (07:51→19:29)
[2018-06-19] MEDS: LINEZOLID 600 MG TAB PO SCH ×2 (07:52→21:21)
--- NOTE | 2018-06-19 08:02 | PN ---
PROGRESS NOTE DATE OF SERVICE: 06/18/2018. REASON FOR FOLLOWUP: 1. Pneumonia. 2. Left leg wound. INTERVAL HISTORY: The patient is afebrile. He seemed to be breathing more comfortably. Denies significant chest pain. Occasional cough. No abdominal pain. No diarrhea. EXAMINATION: Blood pressure is 130/70 with a pulse of 72, temperature 97.5. He is 97% on room air. General description is a middle aged male up in the bed in no distress. Respiratory system: Unlabored breathing with decreased breath sounds at bases. No wheeze. Heart S1, S2. Regular rate and rhythm. Left leg with multiple wounds currently with good granulation tissue. No surrounding cellulitis or any foul-smelling drainage. LABS: Hemoglobin 7.6, white count 4.5. BUN of 38, creatinine is 2.06. DIAGNOSTIC IMPRESSION AND PLAN: 1. Patient admitted to the hospital with a fever with concern for possible pneumonia in a patient who recently was treated for pneumonia at [facility] for multi-drug resistant Enterobacter that seemed to have been resistant to the Zosyn. The x-rays here showing mostly heart failure Zosyn will be discontinued. The patient did have a VRE bacteremia, currently on oral Levaquin for short course. 2. Left lateral wound post surgical drainage of fasciitis. The patient to continue local wound care with Aquacel Silver. Continue supportive care. MMODL / IJN: [id number] /
[2018-06-19 09:14] LABS: Calcium 7.9 mg/dL (8.4-10.2); Potassium 4.2 mmol/L (3.5-5.1)
[2018-06-19 10:04] LABS: Anisocytosis Moderate; Basophils % (A) 1 %; Eosinophils # (A) 0.2 k/uL (0-0.7); Eosinophils % (A) 5 %; HCT 23.4 % (39.0-53.0); HGB 7.7 gm/dL (13.0-17.5); Hypochromasia Moderate; Lymphocytes # (A) 1.9 k/uL (1.0-4.8); Lymphocytes % (A) 38 %; MCH 31.6 pg (25.0-35.0); MCHC 32.9 g/dL (31.0-37.0); MCV 95.9 fL (80.0-100.0); Macrocytosis Moderate; Mean Platelet Volume 9.9; Monocytes # (A) 0.2 k/uL (0-1.0); Monocytes % (A) 5 %; Neutrophils # (A) 2.4 k/uL (1.3-7.7); Neutrophils % (A) 50 %; Poikilocytosis Slight; RBC 2.44 m/uL (4.30-5.90); RDW 22.5 % (11.5-15.5); WBC 4.8 k/uL (3.8-10.6)
[2018-06-19 10:13] LABS: Platelet Count 71 k/uL (150-450)
[2018-06-19] MEDS: SODIUM CHLORIDE 0.9% 500 ML IV SCH (11:59)
[2018-06-19] MEDS: FERROUS SULFATE 325 MG TAB PO SCH (12:03)
--- NOTE | 2018-06-19 13:15 | P.PN ---
Subjective Patient is seen in follow-up for acute kidney injury. Renal function stable - cr 2.3 today. Patient currently resting in bed. Admits to good urine output. No hematuria or dysuria. No vomiting or diarrhea. Denies chest pain or shortness of breath. Currently being treated for pneumonia. Vital signs are stable. General: The patient appeared well nourished and normally developed. HEENT: Head exam is unremarkable. Neck is without jugular venous distension. LUNGS: Lungs are clear to auscultation and percussion. Breath sounds decreased. HEART: Rate and Rhythm are regular. First and second heart sounds normal. No murmurs, rubs or gallops. ABDOMEN: Abdominal exam reveals normal bowel sounds. Non-tender and non- distended. No evidence of peritonitis. EXTREMITITES: Trace edema right lower extremity. Left lower extremity wrapped. No obvious drainage. Objective - Vital Signs Vital signs: Vital Signs Temp 97.3 F L 06/19/18 06:06 Pulse 68 06/19/18 12:02 Resp 18 06/19/18 12:02 BP 109/57 06/19/18 12:02 Pulse Ox 98 06/19/18 12:02 Intake & Output 06/18/18 06/19/18 06/19/18 18:59 06:59 18:59 Intake Total 890 Output Total 250 250 Balance 890 -250 -250 Weight 78.018 kg 78.018 kg Intake: Intake, IV Titration 50 Amount Piperacillin-Tazobactam 3 50 .375 gm In Dextrose/Water 1 50ml.bag @ 12.5 mls/hr IVPB Q8HR [facility] Rx#: [id number] Oral 840 Output: Urine 250 250 Other: Voiding Method Toilet Toilet Toilet Urinal Urinal Urinal # Voids 2 1 1 # Bowel Movements 0 - Labs CBC & Chem 7: 06/19/18 08:08 06/19/18 08:08 Labs: Abnormal Lab Results - Last 24 Hours (Table) 06/18/18 06/19/18 06/19/18 Range/Units 07:57 08:08 08:08 RBC 2.44 L (4.30-5.90) m/uL Hgb 7.7 L (13.0-17.5) gm/dL Hct 23.4 L (39.0-53.0) % RDW 22.5 H (11.5-15.5) % Plt Count 71 L (150-450) k/uL Sodium 135 L (137-145) mmol/L Chloride 110 H (98-107) mmol/L Carbon Dioxide 16 L (22-30) mmol/L BUN 38 H (9-20) mg/dL Creatinine 2.30 H (0.66-1.25) mg/dL Calcium 7.9 L (8.4-10.2) mg/dL TIBC 123 L (228-460) ug/dL Iron Saturation 55.28 H (15.00-50.00) Ferritin 891.9 H (22.0-322.0) ng/mL Microbiology - Last 24 Hours (Table) 06/13/18 21:44 Blood Culture - Preliminary Blood No Growth after 120 hours 06/13/18 15:50 Blood Culture - Preliminary Blood No Growth after 120 hours Assessment and Plan Plan: assessment: 1. Nonoliguric acute kidney injury secondary to ATN secondary to pneumonia. Patient was admitted for nearly 2 months at [place] with local hospital and was just discharged less than a week ago. Patient states he did develop renal impairment but does not provide further details. Creatinine 2.3 today. Patient is noted to have sub nephrotic range proteinuria. 2. Metabolic acidosis secondary to acute kidney injury. Bicarb level 16 today. 3. Anemia. Iron replete. 4. Pneumonia maintained on antibiotics. 5. Left lower extremity necrotizing fasciitis status post multiple surgeries at [facility] with an extended stay of nearly 2 months area patient was discharged in the past week. 6. History of liver cirrhosis. 7. History of immunodeficiency syndrome maintained on IV immunoglobulin. Plan: Hold off on diuretics today. Encourage oral intake. Increase oral sodium bicarbonate 1300 mg twice daily. We'll try to obtain records from [facility]. Repeat electrolytes in the morning. Check serologies and urine eosinophils.
--- NOTE | 2018-06-19 14:06 | P.PN ---
Subjective Progress Note Date: 06/19/18 Principal diagnosis: Acute exacerbation of chronic obstructive pulmonary disease complicated by purulent tracheobronchitis and possible bronchopneumonia Pulmonary consultation 06/14/2018 57-year-old male way see for chronic bronchial asthma. More recently, he's been extremely low. This started months ago, at which time he apparently developed an infection in his left thigh and leg area. The patient apparently was airlifted from here to [facility]. The patient ended up with overwhelming sepsis and respiratory failure and ended up there for 52 days about 3 weeks on the mechanical ventilator. He was eventually extubated. He apparently asked abated himself actually and eventually was discharged there and sent to rehab. Subsequent to that, right before discharge and rehab he apparently developed a fever again and developed pneumonia secondary to vancomycin-resistant enterococci. He apparently was readmitted for a number of days and then recently discharged against. More recently, he comes into the hospital with complaints of fever chest congestion cough phlegm production. He is possibly thought to have pneumonia again. Chest x-ray showed bilateral infiltrates. Some of these infiltrates could affect B chronic in nature. He is certainly behaving like; pneumonia given his fever chills cough phlegm chest congestion, etc. Most of the history is obtained from his was in the room with him. In addition to asthma, the patient has chronic liver disease from alcohol, and was previously being evaluated for liver transplantation at [facility]. In addition, the patient has a history of anemia hyperlipidemia and also hypogammaglobulinemia. For this, he gets immunoglobulin every 3 weeks. He also has a history of hypertension and in addition to seeing me, sees one of the oncologist here in town. He was laying flat in bed room he first walked into the room. I barely recognized him. Progress note dated 06/15/2018 This is a 57-year-old male with a history of chronic bronchial asthma. The patient has had a rough number of months here recently with multiple admissions to [facility] respiratory failure compartment syndrome fasciotomy and vancomycin-resistant enterococcal pneumonia. The patient was readmitted to the emergency room with shortness of breath chest congestion cough phlegm production and fever. He was seen by infectious disease. His asthma was active and I addressed that yesterday when I saw him in consultation. The patient is so emaciated is also much weight, I almost did not recognize and when I went into the room. He also has a history of hypogammaglobulinemia. In addition, he was being evaluated for possible liver transplantation at [facility]. He has alcoholic cirrhosis. Progress note dated 06/17/2018 57-year-old male well-known to me. He has a history of chronic liver disease secondary to alcohol abuse and is being evaluated for liver transplantation at [facility]. In addition, the patient has a history of chronic bronchial asthma and hypogammaglobulinemia. More recently, he developed an episode of respiratory failure at [facility] secondary to sepsis and spent 21 days on mechanical ventilator and 52 total days in the hospital. Everything started off as an infection in his left leg. He developed overwhelming sepsis, a compartment syndrome on the left and required fasciotomy. Subsequently, he was discharged to rehab and unfortunately developed a vancomycin-resistant enterococcal pneumonia. This required another hospitalization. The patient is currently being evaluated for and treated for purulent tracheobronchitis as bronchopneumonia. He has been seen by infectious disease. Currently the patient is doing reasonably well. States he's feeling better. Still very short of breath. Still coughing a bit. Cough is congested and wet. Not producing any phlegm. No fever or chills. The patient is seen again today 06/18/2018 in follow-up on the regular medical floor. He remains awake and alert in no acute distress. He is feeling quite a bit better today as compared to previous. There was a loose nonproductive cough. No chills or night sweats. He is maintaining good O2 saturations up to 100% on room air. He's been afebrile. Creatinine 2.26. He is currently on Zyvox and Zosyn. Continue with bronchodilators and Symbicort. The patient is seen again today 06/19/2018 in follow-up on the regular medical floor. He is resting quite comfortably in bed. He is stronger today as compared to yesterday. He continues to maintain good O2 saturations in the upper 90s on room air. He is afebrile. Hemodynamically stable. Blood cultures reveal no growth. White count 4.8. Hemoglobin 7.7. Platelet count 71,000. Creatinine 2.30. Bicarb 16. Nephrology is on the case as well. They're holding off on diuretics today. Increase oral intake. Increase sodium bicarb 1300 mg twice a day. Objective - Vital Signs Vital signs: Vital Signs Temp 97.3 F L 06/19/18 06:06 Pulse 72 06/19/18 13:35 Resp 16 06/19/18 13:35 BP 109/57 06/19/18 12:02 Pulse Ox 98 06/19/18 12:02 Intake & Output 06/18/18 06/19/18 06/19/18 18:59 06:59 18:59 Intake Total 890 Output Total 250 250 Balance 890 -250 -250 Weight 78.018 kg 78.018 kg Intake: Intake, IV Titration 50 Amount Piperacillin-Tazobactam 3 50 .375 gm In Dextrose/Water 1 50ml.bag @ 12.5 mls/hr IVPB Q8HR [facility] Rx#: [id number] Oral 840 Output: Urine 250 250 Other: Voiding Method Toilet Toilet Toilet Urinal Urinal Urinal # Voids 2 1 1 # Bowel Movements 0 - Exam GENERAL EXAM: Pale, cachectic. Alert, active, comfortable in no apparent distress. HEAD: Normocephalic. EYES: Normal reaction of pupils, equal size. NOSE: Clear with pink turbinates. THROAT: No erythema or exudates. NECK: No masses, no JVD. CHEST: No chest wall deformity. LUNGS: Equal air entry with faint crackles in the posterior bases, faint end expiratory wheeze. Diminished.. CVS: S1 and S2 normal with no audible murmur, regular rhythm. ABDOMEN: No hepatosplenomegaly, normal bowel sounds, no guarding or rigidity. SPINE: No scoliosis or deformity SKIN: No rashes CENTRAL NERVOUS SYSTEM: No focal deficits, tone is normal in all 4 extremities. EXTREMITIES: There is no peripheral edema. No clubbing, no cyanosis. Peripheral pulses are intact. - Labs CBC & Chem 7: 06/19/18 08:08 06/19/18 08:08 Labs: Abnormal Lab Results - Last 24 Hours (Table) 06/18/18 06/19/18 06/19/18 Range/Units 07:57 08:08 08:08 RBC 2.44 L (4.30-5.90) m/uL Hgb 7.7 L (13.0-17.5) gm/dL Hct 23.4 L (39.0-53.0) % RDW 22.5 H (11.5-15.5) % Plt Count 71 L (150-450) k/uL Sodium 135 L (137-145) mmol/L Chloride 110 H (98-107) mmol/L Carbon Dioxide 16 L (22-30) mmol/L BUN 38 H (9-20) mg/dL Creatinine 2.30 H (0.66-1.25) mg/dL Calcium 7.9 L (8.4-10.2) mg/dL TIBC 123 L (228-460) ug/dL Iron Saturation 55.28 H (15.00-50.00) Ferritin 891.9 H (22.0-322.0) ng/mL Microbiology - Last 24 Hours (Table) 06/13/18 21:44 Blood Culture - Preliminary Blood No Growth after 120 hours 06/13/18 15:50 Blood Culture - Preliminary Blood No Growth after 120 hours Assessment and Plan Assessment: Assessment Asthma exacerbation likely complicated by purulent tracheobronchitis and possible bronchopneumonia Previous history of vancomycin-resistant enterococcal pneumonia Previous history of severe left thigh infection with compartment syndrome sepsis fasciotomy and long-term mechanical ventilation History of chronic bronchial asthma History of hyperlipidemia History of hypogammaglobulinemia History of chronic liver disease and liver cirrhosis secondary to previous alcohol abuse History of GERD Anemia of chronic disease Chronic kidney disease Plan: The patient was seen and evaluated by Dr. Mcintyre. The patient is improved today as compared to yesterday. Getting stronger each day. Maintaining good O2 saturations in the 90s on room air. Continue bronchodilators. Continue antibiotics per ID which is currently Zyvox. Nephrology is on the case as well. We'll continue to follow. I, the cosigning physician, performed a history & physical examination of the patient. Lungs sounds with basilar crackles, end expiratory wheeze. Diminished. Maintaining good O2 saturations in the 90s on room air. I discussed the assessment and plan of care with my nurse practitioner, Padmini Andrade. I attest to the above note as dictated by her.
--- NOTE | 2018-06-19 16:11 | PN ---
PROGRESS NOTE DATE OF SERVICE: 06/19/2018. REASON FOR FOLLOWUP: 1. Possible pneumonia. 2. Left leg multiple wound. INTERVAL HISTORY: The patient is currently afebrile. He is breathing more comfortably. Denies significant chest pain. No cough. No abdominal pain and no diarrhea. EXAMINATION: Blood pressure 139/57, pulse of 68, temperature 97.3, he is 98% on room air. General description is a middle aged male up in the room in no distress. Respiratory system: Unlabored breathing, decreased breath sounds. No wheeze or crackles. Heart S1, S2. Regular rate and rhythm. Abdomen soft, no tenderness. Left leg wound is currently dressed up. No obvious drainage on the dressing. LABS: Hemoglobin 7.7, white count 4.8 with a BUN of 38, creatinine 2.30. DIAGNOSTIC IMPRESSION AND PLAN: 1. Patient admitted to the hospital with a fever with concern for possible pneumonia in a patient who has recently prolonged stay at the [facility]. The patient's sputum culture at that time did show which was multiresistant sensitive to Levaquin, however, the patient is allergic to Levaquin. Here the patient was on Zosyn that was discontinued yesterday as no fever has been recorded and his blood pressure was negative and chest x-ray mostly congestive heart failure patter, Plavix can be discontinued on discharge. 2. Patient with left leg wound. No cellulitis. Local wound care with Aquacel Silver dressing to be changed q.48 hours. 3. Continue supportive care. MMODL / IJN: [id number] /
--- NOTE | 2018-06-19 18:57 | P.PN ---
Subjective Progress Note Date: 06/19/18 Progress Note being dictated for Dr. Moss Interval history: This is a 57-year-old gentleman admitted with fever, possible sepsis, possible bilateral pneumonia history of recent necrotizing fasciitis and multiple fasciotomies of the left leg, acute on chronic renal failure and multiple other medical issues. Renal function unchanged, CBC pending. Afebrile. VQ scan pending. Maintaining O2 sats in the high 90s on room air. Complaints of generalized weakness, poor appetite. Review of systems: CONSTITUTIONAL: Positive fatigue, generalized weakness HEENT: No recent visual problems or hearing problems. Denied any sore throat. CARDIOVASCULAR: No chest pain, no palpitations, no syncope. PULMONARY: Shortness of breath, positive cough, no hemoptysis. GASTROINTESTINAL: No diarrhea, no nausea, no vomiting, no abdominal pain. Poor appetite NEUROLOGICAL: No headaches, generalized weakness, no numbness. HEMATOLOGICAL: Denies any bleeding or petechiae. GENITOURINARY: Denies any burning micturition, frequency, or urgency. No dysuria ENDOCRINE: Denies any polyuria or polydipsia. PSYCHIATRIC: No anxiety, no depression The rest of the 14 point review of systems is negative Active Medications Albuterol/Ipratropium (Duoneb 0.5 Mg-3 Mg/3 Ml Soln) 3 ml INHALATION RT-TID PRN PRN Reason: Shortness Of Breath Or Wheezing Albuterol/Ipratropium (Duoneb 0.5 Mg-3 Mg/3 Ml Soln) 3 ml INHALATION RT-TID [facility] Last Admin: 06/14/18 19:29 Dose: Not Given Aspirin (Aspirin) 81 mg PO DAILY [facility] Last Admin: 06/14/18 08:01 Dose: 81 mg Atorvastatin Calcium (Lipitor) 10 mg PO HS [facility] Last Admin: 06/13/18 23:04 Dose: 10 mg Budesonide/Formoterol Fumarate (Symbicort 160-4.5 Mcg Inhaler) 2 puff INHALATION RT-BID [facility] Last Admin: 06/14/18 19:28 Dose: 2 puff Digoxin (Lanoxin) 62.5 mcg PO Q48H [facility] Last Admin: 06/14/18 08:42 Dose: 62.5 mcg Ferrous Sulfate (Feosol) 325 mg PO 1200 [facility] Last Admin: 06/14/18 11:50 Dose: 325 mg Gabapentin (Neurontin) 100 mg PO Q12H [facility] Last Admin: 06/14/18 08:01 Dose: 100 mg Piperacillin/Tazobactam/ (Dextrose 3.375 gm/ IV Solution) 50 mls @ 12.5 mls/hr IVPB Q8HR [facility] Stop: 06/24/18 22:01 Last Admin: 06/14/18 16:01 Dose: 12.5 mls/hr Sodium Chloride (Saline 0.9%) 1,000 mls @ 50 mls/hr IV .Q20H [facility] Last Admin: 06/14/18 08:01 Dose: 50 mls/hr Vancomycin HCl 1,250 mg/ (Sodium Chloride) 250 mls @ 125 mls/hr IVPB Q16H [facility] Last Admin: 06/14/18 12:41 Dose: 125 mls/hr Tobramycin Sulfate 160 mg/ (Sodium Chloride) 104 mls @ 104 mls/hr IVPB Q24H [facility] Last Admin: 06/13/18 23:05 Dose: 104 mls/hr Azithromycin 500 mg/ Sodium (Chloride) 250 mls @ 125 mls/hr IVPB [facility] Lactulose (Cephulac) 20 gm PO BID [facility] Last Admin: 06/14/18 08:05 Dose: Not Given Megestrol Acetate (Megace) 400 mg PO DAILY [facility] Melatonin (Melatonin) 6 mg PO [facility] Last Admin: 06/13/18 23:04 Dose: 6 mg Metoprolol Tartrate (Lopressor) 25 mg PO Q8H [facility] Last Admin: 06/14/18 14:25 Dose: Not Given Midodrine (Proamatine) 10 mg PO AC-TID [facility] Last Admin: 06/14/18 18:22 Dose: 10 mg Miscellaneous Information (Pneumonia Protocol Utilized) 1 each PO ONCE PRN PRN Reason: Per Protocol Miscellaneous Information (Magnesium Per Protocol) 1 each MISCELLANE DAILY PRN ; Protocol PRN Reason: Per Protocol Miscellaneous Information (Potassium Per Protocol) 1 each MISCELLANE DAILY PRN ; Protocol PRN Reason: Per Protocol Montelukast Sodium (Singulair) 10 mg PO [facility] Last Admin: 06/13/18 23:04 Dose: 10 mg Pantoprazole Sodium (Protonix) 40 mg PO AC-BID [facility] Last Admin: 06/14/18 18:21 Dose: 40 mg Sodium Bicarbonate (Sodium Bicarbonate Tab) 1,300 mg PO BID [facility] Last Admin: 06/14/18 08:01 Dose: 1,300 mg Tramadol HCl (Ultram) 50 mg PO Q6HR PRN PRN Reason: Moderate Pain Last Admin: 06/14/18 18:23 Dose: 50 mg 06/15/2018 maintained on IV antibiotics of Zosyn, Zyvox as per infectious disease. Continues on nebulized bronchodilators. Occasional cough, nonproductive. VQ scan indeterminate probability, further recommendations from pulmonary pending. Denies chest pain, palpitations or increasing shortness of breath. Denies left leg pain. No abdominal pain. Afebrile. Review of systems: CONSTITUTIONAL: No fever, positive fatigue. HEENT: No recent visual problems or hearing problems. Denied any sore throat. CARDIOVASCULAR: No chest pain, no palpitations, no syncope. PULMONARY: No shortness of breath, minimal nonproductive cough, no hemoptysis. GASTROINTESTINAL: No diarrhea, no nausea, no vomiting, no abdominal pain. Normoactive bowel sounds. NEUROLOGICAL: No headaches, no weakness, no numbness. HEMATOLOGICAL: Denies any bleeding or petechiae. GENITOURINARY: Denies any burning micturition, frequency, or urgency. MUSCULOSKELETAL/RHEUMATOLOGICAL: Denies any joint pain, swelling, or any muscle pain. ENDOCRINE: Denies any polyuria or polydipsia. PSYCHIATRIC: No anxiety, no depression The rest of the 14 point review of systems is negative Active Medications Generic Name Dose Route Start Last Admin Trade Name Freq PRN Reason Stop Dose Admin Albuterol/Ipratropium 3 ml 06/14/18 00:38 Duoneb 0.5 Mg-3 Mg/3 Ml Soln INHALATION RT-TID PRN Shortness Of Breath Or Wheezing Albuterol/Ipratropium 3 ml 06/14/18 08:00 06/15/18 13:41 Duoneb 0.5 Mg-3 Mg/3 Ml Soln INHALATION 3 ml RT-TID [facility] Administration Aspirin 81 mg 06/14/18 09:00 06/15/18 08:24 Aspirin PO 81 mg DAILY [facility] Administration Atorvastatin Calcium 10 mg 06/13/18 21:00 06/14/18 21:13 Lipitor PO 10 mg HS [facility] Administration Budesonide/Formoterol Fumarate 2 puff 06/14/18 08:00 06/15/18 07:39 Symbicort 160-4.5 Mcg Inhaler INHALATION 2 puff RT-BID [facility] Administration Digoxin 62.5 mcg 06/14/18 09:00 06/14/18 08:42 Lanoxin PO 62.5 mcg Q48H [facility] Administration Ferrous Sulfate 325 mg 06/14/18 12:00 06/15/18 12:09 Feosol PO 325 mg 1200 [facility] Administration Gabapentin 100 mg 06/13/18 21:00 06/15/18 08:23 Neurontin PO 100 mg Q12H [facility] Administration Heparin Sodium (Porcine) 5,000 unit 06/15/18 09:00 06/15/18 08:34 Heparin SQ 5,000 unit Q12HR [facility] Administration Piperacillin/Tazobactam/ 50 mls @ 12.5 mls/hr 06/13/18 22:00 06/15/18 17:02 Dextrose 3.375 gm/ IV Solution IVPB 06/24/18 22:01 12.5 mls/hr Q8HR [facility] Administration Sodium Chloride 1,000 mls @ 50 mls/hr 06/13/18 20:45 06/15/18 02:39 Saline 0.9% IV 50 mls/hr .Q20H [facility] Administration Lactulose 20 gm 06/13/18 21:00 06/15/18 08:25 Cephulac PO Not Given BID [facility] Linezolid 600 mg 06/15/18 09:00 06/15/18 08:24 Zyvox PO 600 mg Q12HR [facility] Administration Magnesium Oxide 400 mg 06/15/18 11:45 06/15/18 12:09 Mag-Ox PO 400 mg BID [facility] Administration Megestrol Acetate 400 mg 06/14/18 20:31 06/15/18 08:24 Megace PO 400 mg DAILY [facility] Administration Melatonin 6 mg 06/13/18 21:00 06/14/18 21:13 Melatonin PO 6 mg HS [facility] Administration Metoprolol Tartrate 25 mg 06/13/18 21:00 06/15/18 12:12 Lopressor PO Not Given Q8H [facility] Midodrine 10 mg 06/14/18 07:30 06/15/18 17:03 Proamatine PO 10 mg AC-TID [facility] Administration Miscellaneous Information 1 each 06/13/18 20:45 Pneumonia Protocol Utilized PO ONCE PRN Per Protocol Miscellaneous Information 1 each 06/14/18 20:40 Magnesium Per Protocol MISCELLANE DAILY PRN Per Protocol Protocol Miscellaneous Information 1 each 06/14/18 20:40 Potassium Per Protocol MISCELLANE DAILY PRN Per Protocol Protocol Montelukast Sodium 10 mg 06/13/18 21:00 06/14/18 21:13 Singulair PO 10 mg HS [facility] Administration Pantoprazole Sodium 40 mg 06/14/18 07:30 06/15/18 17:03 Protonix PO 40 mg AC-BID [facility] Administration Sodium Bicarbonate 1,300 mg 06/13/18 21:00 06/15/18 08:23 Sodium Bicarbonate Tab PO 1,300 mg BID [facility] Administration Tramadol HCl 50 mg 06/13/18 20:48 06/15/18 08:30 Ultram PO 50 mg Q6HR PRN Administration Moderate Pain 06/18/2018 maintained on IV antibiotics of Zosyn, Zyvox. Afebrile. Renal function worsening. Patient recently completed a prolonged hospital stay with continued extreme weakness-emaciated. Consumed only 25% at breakfast. Continues on nebulized bronchodilators, maintaining O2 sats of 100% on room air. Chest x-ray pending. Denies chest pain, palpitations. 06/19/18 maintained on IV antibiotics. [facility] cultures reporting moderate drug- resistant organisms, antibiotics adjusted as per ID. Left leg wound care with aquacel silver. Afebrile, normal WBC. Diuretics remain on hold. Creatinine 2.3. Bicarb 16, continues on increased oral sodium bicarb. Nephrology workup in progress- urine eosinophils/serology ordered. Objective - Vital Signs Vital signs: Vital Signs Temp 97.0 F L 06/19/18 15:00 Pulse 63 06/19/18 15:00 Resp 20 06/19/18 15:00 BP 132/63 06/19/18 15:00 Pulse Ox 98 06/19/18 15:00 Intake & Output 06/18/18 06/19/18 06/19/18 18:59 06:59 18:59 Intake Total 890 120 Output Total 250 550 Balance 890 -250 -430 Weight 78.018 kg 78.018 kg Intake: Intake, IV Titration 50 Amount Piperacillin-Tazobactam 3 50 .375 gm In Dextrose/Water 1 50ml.bag @ 12.5 mls/hr IVPB Q8HR [facility] Rx#: [id number] Oral 840 120 Output: Urine 250 550 Other: Voiding Method Toilet Toilet Toilet Urinal Urinal Urinal # Voids 2 1 1 # Bowel Movements 0 - Exam PHYSICAL EXAM: VITAL SIGNS: As above GENERAL: Sitting up in bed, no acute distress, fatigued HEENT: Conjunctivae normal. eyes normal. Oral mucosa moist NECK: No JVD. No thyroid enlargement. No LNs CARDIOVASCULAR: S1, S2 muffled. No murmur RESPIRATION: Breath sounds diminished in the bases. Congested with Occasional scattered rhonchi and crackles, ABDOMEN: Soft, nontender . No guarding. no masses palpable. Bowel sounds heard. LEGS: Status post multiple surgeries, Left leg dressing clean, dry and intact PSYCHIATRY: Alert and oriented -3, mood and affect normal. NERVOUS SYSTEM: Cranial N 2-12 grossly normal. Moves all 4 limbs. Diffuse weakness No focal deficits. Lymphatic system. No LN neck axilla or groin. Microbiology 06/13/18 15:50 Blood Blood Culture - Final No Growth after 144 hours 06/13/18 21:44 Blood Blood Culture - Preliminary No Growth after 120 hours 06/14/18 13:08 Urine,Voided Urine Culture - Final Makenna albicans - Labs CBC & Chem 7: 06/19/18 08:08 06/19/18 08:08 Labs: Abnormal Lab Results - Last 24 Hours (Table) 06/18/18 06/19/18 06/19/18 Range/Units 07:57 08:08 08:08 RBC 2.44 L (4.30-5.90) m/uL Hgb 7.7 L (13.0-17.5) gm/dL Hct 23.4 L (39.0-53.0) % RDW 22.5 H (11.5-15.5) % Plt Count 71 L (150-450) k/uL Sodium 135 L (137-145) mmol/L Chloride 110 H (98-107) mmol/L Carbon Dioxide 16 L (22-30) mmol/L BUN 38 H (9-20) mg/dL Creatinine 2.30 H (0.66-1.25) mg/dL Calcium 7.9 L (8.4-10.2) mg/dL TIBC 123 L (228-460) ug/dL Iron Saturation 55.28 H (15.00-50.00) Ferritin 891.9 H (22.0-322.0) ng/mL Microbiology - Last 24 Hours (Table) 06/13/18 15:50 Blood Culture - Final Blood No Growth after 144 hours 06/13/18 21:44 Blood Culture - Preliminary Blood No Growth after 120 hours Assessment and Plan Assessment: 1. Acute bilateral pneumonia, possibly hospital acquired with sepsis and fever , present on admission. 2. Acute Asthma exacerbation with purulent tracheobronchitis 3. Recent necrotizing fasciitis and multiple fasciotomies , compartment syndrome. 4. Acute on chronic renal failure, stage III 5. History of VRE pneumonia 6. Chronic liver disease 7. Anemia of chronic disease 8. history of immunodeficiency syndrome 9. Medical debility, recent prolonged hospital stay with multiple complications , muscle atrophy, wasting, gait dysfunction, imbalance, fall risk. Plan: Continue on current medication regime , oral sodium bicarb ,monitoring and symptomatic treatment. Diuretics on hold today. Further [facility] records ordered as per nephrology .serologies, urine eosinophils pending .PT/OT. Maintain IV antibiotics as per infectious disease. Discharge planning in progress for tomorrow, possibly subacute rehab. The impression and plan of care has been dictated as directed. : I performed a history and examination of this patient, discussed the same with the dictator. I agree with the dictator's note ,documented as a scribe. Any additional findings or plans will be noted.
[2018-06-19] MEDS: ATORVASTATIN 10 MG TAB PO SCH (21:21)
[2018-06-19] MEDS: MONTELUKAST 10 MG TAB PO SCH (21:21)
[2018-06-19] MEDS: MELATONIN 3 MG TABLET PO SCH (21:21)
[2018-06-20] MEDS: METOPROLOL TARTRATE 25 MG TAB PO SCH ×3 (05:35→21:40)
[2018-06-20] MEDS: SYMBICORT 160-4.5 MCG INHALER INHALATION SCH ×2 (07:55→19:52)
[2018-06-20] MEDS: IPRATROPIUM-ALBUTEROL 3 ML NEB INHALATION SCH ×3 (07:55→19:52)
[2018-06-20] MEDS: LACTULOSE 20 GM/30 ML CUP PO SCH ×2 (10:54→21:41)
[2018-06-20] MEDS: MIDODRINE 5 MG TAB PO SCH ×3 (10:55→17:36)
[2018-06-20] MEDS: MAGNESIUM OXIDE 400 MG TAB PO SCH ×2 (10:55→21:40)
[2018-06-20] MEDS: HEPARIN SODIUM,PORCINE 5,000 UNIT/ML 1 ML VIAL SQ SCH ×2 (10:55→21:41)
[2018-06-20] MEDS: SODIUM BICARBONATE TAB 650 MG TAB PO SCH ×2 (10:55→21:41)
[2018-06-20] MEDS: DIGOXIN 125 MCG TAB PO SCH (10:55)
[2018-06-20] MEDS: MEGESTROL 400 MG/10 ML CUP PO SCH (10:55)
[2018-06-20] MEDS: ASPIRIN 81 MG PO SCH (10:56)
[2018-06-20] MEDS: GABAPENTIN 100 MG CAP PO SCH ×2 (10:56→22:34)
[2018-06-20] MEDS: LINEZOLID 600 MG TAB PO SCH ×2 (10:56→21:40)
[2018-06-20] MEDS: PANTOPRAZOLE 40 MG TABLET PO SCH ×2 (10:56→17:36)
[2018-06-20] MEDS: SODIUM CHLORIDE 0.9% 500 ML IV SCH (11:00)
[2018-06-20] MEDS: FERROUS SULFATE 325 MG TAB PO SCH (11:01)
--- NOTE | 2018-06-20 11:12 | PN ---
PROGRESS NOTE DATE OF SERVICE: 06/20/2018 REASON FOR FOLLOWUP: 1. Possible pneumonia. 2. Left leg wound, multiple. INTERVAL HISTORY: The patient is afebrile. He is breathing comfortably. Patient denies having any chest pain or no shortness of breath. Occasional cough. No abdominal pain. No pain to the left leg wound area. PHYSICAL EXAMINATION: On examination, blood pressure 120/68 with a pulse of 68, temperature 97.8. He is 97% on room air. General description is a middle-aged male lying in bed in no distress. RESPIRATORY SYSTEM: Unlabored breathing, clear to auscultation anteriorly. HEART: S1, S2. Regular rate and rhythm. ABDOMEN: Soft, no tenderness. Left leg wounds are dressed, no obvious drainage on the dressing. LABS: His creatinine is up to 2.30. White count normal at 4.8. Blood culture has been negative. DIAGNOSTIC IMPRESSION AND PLAN: 1. Patient admitted to the hospital with fever, concern for possible pneumonia. However, the patient has no fever during his hospital stay for almost a week now. Blood culture has been negative. He was unable to provide any sputum. Chest x-ray mostly suggestive of possible congestive heart failure, fluid overload pattern. The can be discontinued on discharge. No need for antibiotic on discharge. 2. Patient with left leg wound, multiple, postsurgical. Local wound care with Aquacel Silver dressing to be changed q.48 hours. Continue with supportive care. MMODL / IJN: [id number] /
[2018-06-20 11:58] LABS: Protein, Total 4.1 g/dL (6.2-8.2)
[2018-06-20 13:32] LABS: Anisocytosis Moderate; HCT 24.5 % (39.0-53.0); HGB 7.9 gm/dL (13.0-17.5); Hypochromasia Moderate; MCH 31.6 pg (25.0-35.0); MCHC 32.2 g/dL (31.0-37.0); MCV 98.1 fL (80.0-100.0); Macrocytosis Moderate; Mean Platelet Volume 10.4; Poikilocytosis Slight; RDW 22.4 % (11.5-15.5); WBC 4.9 k/uL (3.8-10.6)
[2018-06-20 13:33] LABS: Calcium 8.2 mg/dL (8.4-10.2); Potassium 4.2 mmol/L (3.5-5.1)
[2018-06-20 13:58] LABS: Platelet Count 67 k/uL (150-450)
--- NOTE | 2018-06-20 14:38 | P.PN ---
Subjective Progress Note Date: 06/20/18 This is a 57-year-old male seen in consultation because of acute kidney injury. This is deemed to be from pneumonia. His creatinine continues to slowly go up from 1.8-2.41 over the last 5 days. Bladder scans have been unremarkable with 180 mL. This morning we inserted the Dunham catheter and there was only about 10 mL of urine. He denies any dizziness cough fever chills shortness of breath nausea vomiting diarrhea. Does have mild edema. While signs have been stable. There are no medications to cause any kidney injury. So the cause of this worsening is not clear. He does have mild ascites and has liver disease. Objective - Vital Signs Vital signs: Vital Signs Temp 97.8 F 06/20/18 06:37 Pulse 72 06/20/18 07:55 Resp 16 06/20/18 06:37 BP 120/68 06/20/18 06:37 Pulse Ox 97 06/20/18 06:37 Intake & Output 06/19/18 06/20/18 06/20/18 18:59 06:59 18:59 Intake Total 120 300 Output Total 550 Balance -430 300 Weight 78.018 kg Intake: Oral 120 300 Output: Urine 550 Other: Voiding Method Toilet Toilet Urinal Urinal # Voids 1 1 On examination his is slightly short of breath at rest which he ask wraps to having warmth just before my exam HEENT exam no JVP neck supple no facial asymmetry Lungs are clear to auscultation with an occasional coarse crackle at bases. Heart sounds are unremarkable for any murmur rub gallop Abdomen soft nontender. No bladder distention noted Extremity exam was minimal to trace edema. He has multiple owns on his left leg from the fasciotomy. Neuro logically awake alert oriented. - Labs CBC & Chem 7: 06/20/18 06:20 06/20/18 06:20 Labs: Abnormal Lab Results - Last 24 Hours (Table) 06/20/18 06/20/18 06/20/18 Range/Units 06:20 06:20 06:20 RBC 2.50 L (4.30-5.90) m/uL Hgb 7.9 L (13.0-17.5) gm/dL Hct 24.5 L (39.0-53.0) % RDW 22.4 H (11.5-15.5) % Plt Count 67 L (150-450) k/uL Sodium 136 L (137-145) mmol/L Chloride 109 H (98-107) mmol/L Carbon Dioxide 16 L (22-30) mmol/L BUN 40 H (9-20) mg/dL Creatinine 2.41 H (0.66-1.25) mg/dL Glucose 102 H (74-99) mg/dL Calcium 8.2 L (8.4-10.2) mg/dL Total Protein (PEP) 4.1 L (6.2-8.2) g/dL Complement C3 69.0 L (80.0-207.0) mg/dL Microbiology - Last 24 Hours (Table) 06/13/18 21:44 Blood Culture - Final Blood No Growth after 144 hours 06/13/18 15:50 Blood Culture - Final Blood No Growth after 144 hours Assessment and Plan Assessment: Impression 1. Acute kidney injury secondary to prerenal from pneumonia. Creatinine is 2.1 , his baseline creatinine was 0.9 on 02/12/2018. He does have 2+ proteinuria dated 06/13/2018 25 WBCs and occasional bacteria but urine culture is negative so far. Urine protein to creatinine ratio is 76 mg/93 mg. A serum protein electrophoresis in 2016 was unremarkable. Creatinine has gone up again from 1.8 -2.4. Possible acute interstitial nephritis. Possible hepatorenal syndrome although unlikely. Possibly volume depletion. 2. Mild degree of non-gap acidosis from acute kidney injury. Bicarb is down from 18-17, he is on oral bicarb 3. Admitted with pneumonia. Chest x-ray shows stability. 4. History of cirrhosis, supposedly on transplant list 6. History of immunodeficiency syndrome on immunoglobulin IV every 3 weeks for last 20 some years. 7. Recent admitted for necrotizing fasciitis, admitted for 52 days and recently discharge 06/11/2018 5 days ago. 8. Pancytopenia. Recommendation. 1. Check urine sodium and creatinine to see if he is volume depleted. 2. Check orthostatic changes. 3. Hold off discharged. 4. Repeat labs tomorrow. 5. If urine sodium is low or orthostatic changes are suggestive of eczema IV fluids tonight. Thank you for this consultation and will continue to follow closely
[2018-06-20 15:04] LABS: Hepatitis A Antibody IgM Non-Reactive (Non-Reactive); Hepatitis B Core IgM Non-Reactive (Non-Reactive)
[2018-06-20] MEDS: SODIUM CHLORIDE 0.9% 1,000 ML IV SCH (17:35)
--- NOTE | 2018-06-20 18:43 | P.PN ---
Subjective Progress Note Date: 06/20/18 Progress Note being dictated for Dr. Moss Interval history: This is a 57-year-old gentleman admitted with fever, possible sepsis, possible bilateral pneumonia history of recent necrotizing fasciitis and multiple fasciotomies of the left leg, acute on chronic renal failure and multiple other medical issues. Renal function unchanged, CBC pending. Afebrile. VQ scan pending. Maintaining O2 sats in the high 90s on room air. Complaints of generalized weakness, poor appetite. Review of systems: CONSTITUTIONAL: Positive fatigue, generalized weakness HEENT: No recent visual problems or hearing problems. Denied any sore throat. CARDIOVASCULAR: No chest pain, no palpitations, no syncope. PULMONARY: Shortness of breath, positive cough, no hemoptysis. GASTROINTESTINAL: No diarrhea, no nausea, no vomiting, no abdominal pain. Poor appetite NEUROLOGICAL: No headaches, generalized weakness, no numbness. HEMATOLOGICAL: Denies any bleeding or petechiae. GENITOURINARY: Denies any burning micturition, frequency, or urgency. No dysuria ENDOCRINE: Denies any polyuria or polydipsia. PSYCHIATRIC: No anxiety, no depression The rest of the 14 point review of systems is negative Active Medications Albuterol/Ipratropium (Duoneb 0.5 Mg-3 Mg/3 Ml Soln) 3 ml INHALATION RT-TID PRN PRN Reason: Shortness Of Breath Or Wheezing Albuterol/Ipratropium (Duoneb 0.5 Mg-3 Mg/3 Ml Soln) 3 ml INHALATION RT-TID [facility] Last Admin: 06/14/18 19:29 Dose: Not Given Aspirin (Aspirin) 81 mg PO DAILY [facility] Last Admin: 06/14/18 08:01 Dose: 81 mg Atorvastatin Calcium (Lipitor) 10 mg PO HS [facility] Last Admin: 06/13/18 23:04 Dose: 10 mg Budesonide/Formoterol Fumarate (Symbicort 160-4.5 Mcg Inhaler) 2 puff INHALATION RT-BID [facility] Last Admin: 06/14/18 19:28 Dose: 2 puff Digoxin (Lanoxin) 62.5 mcg PO Q48H [facility] Last Admin: 06/14/18 08:42 Dose: 62.5 mcg Ferrous Sulfate (Feosol) 325 mg PO 1200 [facility] Last Admin: 06/14/18 11:50 Dose: 325 mg Gabapentin (Neurontin) 100 mg PO Q12H [facility] Last Admin: 06/14/18 08:01 Dose: 100 mg Piperacillin/Tazobactam/ (Dextrose 3.375 gm/ IV Solution) 50 mls @ 12.5 mls/hr IVPB Q8HR [facility] Stop: 06/24/18 22:01 Last Admin: 06/14/18 16:01 Dose: 12.5 mls/hr Sodium Chloride (Saline 0.9%) 1,000 mls @ 50 mls/hr IV .Q20H [facility] Last Admin: 06/14/18 08:01 Dose: 50 mls/hr Vancomycin HCl 1,250 mg/ (Sodium Chloride) 250 mls @ 125 mls/hr IVPB Q16H [facility] Last Admin: 06/14/18 12:41 Dose: 125 mls/hr Tobramycin Sulfate 160 mg/ (Sodium Chloride) 104 mls @ 104 mls/hr IVPB Q24H [facility] Last Admin: 06/13/18 23:05 Dose: 104 mls/hr Azithromycin 500 mg/ Sodium (Chloride) 250 mls @ 125 mls/hr IVPB [facility] Lactulose (Cephulac) 20 gm PO BID [facility] Last Admin: 06/14/18 08:05 Dose: Not Given Megestrol Acetate (Megace) 400 mg PO DAILY [facility] Melatonin (Melatonin) 6 mg PO [facility] Last Admin: 06/13/18 23:04 Dose: 6 mg Metoprolol Tartrate (Lopressor) 25 mg PO Q8H [facility] Last Admin: 06/14/18 14:25 Dose: Not Given Midodrine (Proamatine) 10 mg PO AC-TID [facility] Last Admin: 06/14/18 18:22 Dose: 10 mg Miscellaneous Information (Pneumonia Protocol Utilized) 1 each PO ONCE PRN PRN Reason: Per Protocol Miscellaneous Information (Magnesium Per Protocol) 1 each MISCELLANE DAILY PRN ; Protocol PRN Reason: Per Protocol Miscellaneous Information (Potassium Per Protocol) 1 each MISCELLANE DAILY PRN ; Protocol PRN Reason: Per Protocol Montelukast Sodium (Singulair) 10 mg PO [facility] Last Admin: 06/13/18 23:04 Dose: 10 mg Pantoprazole Sodium (Protonix) 40 mg PO AC-BID [facility] Last Admin: 06/14/18 18:21 Dose: 40 mg Sodium Bicarbonate (Sodium Bicarbonate Tab) 1,300 mg PO BID [facility] Last Admin: 06/14/18 08:01 Dose: 1,300 mg Tramadol HCl (Ultram) 50 mg PO Q6HR PRN PRN Reason: Moderate Pain Last Admin: 06/14/18 18:23 Dose: 50 mg 06/15/2018 maintained on IV antibiotics of Zosyn, Zyvox as per infectious disease. Continues on nebulized bronchodilators. Occasional cough, nonproductive. VQ scan indeterminate probability, further recommendations from pulmonary pending. Denies chest pain, palpitations or increasing shortness of breath. Denies left leg pain. No abdominal pain. Afebrile. Review of systems: CONSTITUTIONAL: No fever, positive fatigue. HEENT: No recent visual problems or hearing problems. Denied any sore throat. CARDIOVASCULAR: No chest pain, no palpitations, no syncope. PULMONARY: No shortness of breath, minimal nonproductive cough, no hemoptysis. GASTROINTESTINAL: No diarrhea, no nausea, no vomiting, no abdominal pain. Normoactive bowel sounds. NEUROLOGICAL: No headaches, no weakness, no numbness. HEMATOLOGICAL: Denies any bleeding or petechiae. GENITOURINARY: Denies any burning micturition, frequency, or urgency. MUSCULOSKELETAL/RHEUMATOLOGICAL: Denies any joint pain, swelling, or any muscle pain. ENDOCRINE: Denies any polyuria or polydipsia. PSYCHIATRIC: No anxiety, no depression The rest of the 14 point review of systems is negative Active Medications Generic Name Dose Route Start Last Admin Trade Name Freq PRN Reason Stop Dose Admin Albuterol/Ipratropium 3 ml 06/14/18 00:38 Duoneb 0.5 Mg-3 Mg/3 Ml Soln INHALATION RT-TID PRN Shortness Of Breath Or Wheezing Albuterol/Ipratropium 3 ml 06/14/18 08:00 06/15/18 13:41 Duoneb 0.5 Mg-3 Mg/3 Ml Soln INHALATION 3 ml RT-TID [facility] Administration Aspirin 81 mg 06/14/18 09:00 06/15/18 08:24 Aspirin PO 81 mg DAILY [facility] Administration Atorvastatin Calcium 10 mg 06/13/18 21:00 06/14/18 21:13 Lipitor PO 10 mg HS [facility] Administration Budesonide/Formoterol Fumarate 2 puff 06/14/18 08:00 06/15/18 07:39 Symbicort 160-4.5 Mcg Inhaler INHALATION 2 puff RT-BID [facility] Administration Digoxin 62.5 mcg 06/14/18 09:00 06/14/18 08:42 Lanoxin PO 62.5 mcg Q48H [facility] Administration Ferrous Sulfate 325 mg 06/14/18 12:00 06/15/18 12:09 Feosol PO 325 mg 1200 [facility] Administration Gabapentin 100 mg 06/13/18 21:00 06/15/18 08:23 Neurontin PO 100 mg Q12H [facility] Administration Heparin Sodium (Porcine) 5,000 unit 06/15/18 09:00 06/15/18 08:34 Heparin SQ 5,000 unit Q12HR [facility] Administration Piperacillin/Tazobactam/ 50 mls @ 12.5 mls/hr 06/13/18 22:00 06/15/18 17:02 Dextrose 3.375 gm/ IV Solution IVPB 06/24/18 22:01 12.5 mls/hr Q8HR [facility] Administration Sodium Chloride 1,000 mls @ 50 mls/hr 06/13/18 20:45 06/15/18 02:39 Saline 0.9% IV 50 mls/hr .Q20H [facility] Administration Lactulose 20 gm 06/13/18 21:00 06/15/18 08:25 Cephulac PO Not Given BID [facility] Linezolid 600 mg 06/15/18 09:00 06/15/18 08:24 Zyvox PO 600 mg Q12HR [facility] Administration Magnesium Oxide 400 mg 06/15/18 11:45 06/15/18 12:09 Mag-Ox PO 400 mg BID [facility] Administration Megestrol Acetate 400 mg 06/14/18 20:31 06/15/18 08:24 Megace PO 400 mg DAILY [facility] Administration Melatonin 6 mg 06/13/18 21:00 06/14/18 21:13 Melatonin PO 6 mg HS [facility] Administration Metoprolol Tartrate 25 mg 06/13/18 21:00 06/15/18 12:12 Lopressor PO Not Given Q8H [facility] Midodrine 10 mg 06/14/18 07:30 06/15/18 17:03 Proamatine PO 10 mg AC-TID [facility] Administration Miscellaneous Information 1 each 06/13/18 20:45 Pneumonia Protocol Utilized PO ONCE PRN Per Protocol Miscellaneous Information 1 each 06/14/18 20:40 Magnesium Per Protocol MISCELLANE DAILY PRN Per Protocol Protocol Miscellaneous Information 1 each 06/14/18 20:40 Potassium Per Protocol MISCELLANE DAILY PRN Per Protocol Protocol Montelukast Sodium 10 mg 06/13/18 21:00 06/14/18 21:13 Singulair PO 10 mg HS [facility] Administration Pantoprazole Sodium 40 mg 06/14/18 07:30 06/15/18 17:03 Protonix PO 40 mg AC-BID [facility] Administration Sodium Bicarbonate 1,300 mg 06/13/18 21:00 06/15/18 08:23 Sodium Bicarbonate Tab PO 1,300 mg BID [facility] Administration Tramadol HCl 50 mg 06/13/18 20:48 06/15/18 08:30 Ultram PO 50 mg Q6HR PRN Administration Moderate Pain 06/18/2018 maintained on IV antibiotics of Zosyn, Zyvox. Afebrile. Renal function worsening. Patient recently completed a prolonged hospital stay with continued extreme weakness-emaciated. Consumed only 25% at breakfast. Continues on nebulized bronchodilators, maintaining O2 sats of 100% on room air. Chest x-ray pending. Denies chest pain, palpitations. 06/19/18 maintained on IV antibiotics. [facility] cultures reporting moderate drug- resistant organisms, antibiotics adjusted as per ID. Left leg wound care with aquacel silver. Afebrile, normal WBC. Diuretics remain on hold. Creatinine 2.3. Bicarb 16, continues on increased oral sodium bicarb. Nephrology workup in progress- urine eosinophils/serology ordered. 06/20/2018 renal function continues to worsen, bicarb 16. Today intake improving, up to 75%. Denies nausea or vomiting. Denies chest pain, palpitations or increasing shortness of breath. Objective - Vital Signs Vital signs: Vital Signs Temp 98.6 F 06/20/18 15:00 Pulse 61 06/20/18 15:00 Resp 16 06/20/18 15:00 BP 132/63 06/20/18 15:00 Pulse Ox 99 06/20/18 15:00 Intake & Output 06/19/18 06/20/18 06/20/18 18:59 06:59 18:59 Intake Total 120 300 600 Output Total 550 Balance -430 300 600 Weight 78.018 kg Intake: Oral 120 300 600 Output: Urine 550 Other: Voiding Method Toilet Toilet Urinal Urinal # Voids 1 1 1 - Exam PHYSICAL EXAM: VITAL SIGNS: As above GENERAL: LAYING in bed, no acute distress, fatigued HEENT: Conjunctivae normal. eyes normal. Oral mucosa moist NECK: No JVD. No thyroid enlargement. No LNs CARDIOVASCULAR: S1, S2 muffled. No murmur RESPIRATION: Breath sounds diminished in the bases. Congested with Occasional scattered rhonchi and crackles, ABDOMEN: Soft, nontender . Mild ascites. No guarding. no masses palpable. Bowel sounds heard. LEGS: Status post multiple surgeries, Left leg dressing clean, dry and intact, mild edema PSYCHIATRY: Alert and oriented -3, mood and affect normal. NERVOUS SYSTEM: Cranial N 2-12 grossly normal. Moves all 4 limbs. Diffuse weakness No focal deficits. Lymphatic system. No LN neck axilla or groin. Microbiology 06/13/18 15:50 Blood Blood Culture - Final No Growth after 144 hours 06/13/18 21:44 Blood Blood Culture - Preliminary No Growth after 120 hours 06/14/18 13:08 Urine,Voided Urine Culture - Final Makenna albicans - Labs CBC & Chem 7: 06/20/18 06:20 06/20/18 06:20 Labs: Abnormal Lab Results - Last 24 Hours (Table) 06/20/18 06/20/18 06/20/18 Range/Units 06:20 06:20 06:20 RBC 2.50 L (4.30-5.90) m/uL Hgb 7.9 L (13.0-17.5) gm/dL Hct 24.5 L (39.0-53.0) % RDW 22.4 H (11.5-15.5) % Plt Count 67 L (150-450) k/uL Sodium 136 L (137-145) mmol/L Chloride 109 H (98-107) mmol/L Carbon Dioxide 16 L (22-30) mmol/L BUN 40 H (9-20) mg/dL Creatinine 2.41 H (0.66-1.25) mg/dL Glucose 102 H (74-99) mg/dL Calcium 8.2 L (8.4-10.2) mg/dL Total Protein (PEP) 4.1 L (6.2-8.2) g/dL Complement C3 69.0 L (80.0-207.0) mg/dL Microbiology - Last 24 Hours (Table) 06/13/18 21:44 Blood Culture - Final Blood No Growth after 144 hours 06/13/18 15:50 Blood Culture - Final Blood No Growth after 144 hours Assessment and Plan Assessment: 1. Acute bilateral pneumonia, possibly hospital acquired with sepsis and fever, present on admission., Improved 2. Acute Asthma exacerbation with purulent tracheobronchitis 3. Recent necrotizing fasciitis and multiple fasciotomies , compartment syndrome. 4. Acute on chronic renal failure, stage III, possible related to decreased oral intake, hypovolemic, possible acute interstitial nephritis 5. History of VRE pneumonia 6. Chronic liver disease 7. Anemia of chronic disease 8. history of immunodeficiency syndrome 9. Medical debility, recent prolonged hospital stay with multiple complications , muscle atrophy, wasting, gait dysfunction, imbalance, fall risk. Plan: Continue on current medication regime , oral sodium bicarb ,monitoring and symptomatic treatment. Orthostatic vital signs. Nephrology workup in progress including urine sodium and creatinine. Further [facility] records ordered as per nephrology .PT/OT. Discharge planning in progress for tomorrow, pending nephrology clearance. The impression and plan of care has been dictated as directed. : I performed a history and examination of this patient, discussed the same with the dictator. I agree with the dictator's note ,documented as a scribe. Any additional findings or plans will be noted.
[2018-06-20] MEDS: MELATONIN 3 MG TABLET PO SCH (21:40)
[2018-06-20] MEDS: ATORVASTATIN 10 MG TAB PO SCH (21:40)
[2018-06-20] MEDS: MONTELUKAST 10 MG TAB PO SCH (21:41)
[2018-06-20 22:22] VITALS: RESP 18
[2018-06-21] MEDS: METOPROLOL TARTRATE 25 MG TAB PO SCH ×2 (06:01→13:20)
[2018-06-21] MEDS: SODIUM CHLORIDE 0.9% 1,000 ML IV SCH ×2 (06:01→12:59)
[2018-06-21 06:36] VITALS: BP 117/56; TEMP 97.5
[2018-06-21] MEDS: SYMBICORT 160-4.5 MCG INHALER INHALATION SCH (07:37)
[2018-06-21] MEDS: IPRATROPIUM-ALBUTEROL 3 ML NEB INHALATION SCH ×2 (07:37→13:51)
[2018-06-21 07:55] VITALS: PULSE 68
[2018-06-21 08:22] LABS: Calcium 8.2 mg/dL (8.4-10.2); Potassium 4.2 mmol/L (3.5-5.1)
[2018-06-21] MEDS: GABAPENTIN 100 MG CAP PO SCH (09:05)
[2018-06-21] MEDS: LINEZOLID 600 MG TAB PO SCH (09:05)
[2018-06-21] MEDS: SODIUM BICARBONATE TAB 650 MG TAB PO SCH (09:05)
[2018-06-21] MEDS: ASPIRIN 81 MG PO SCH (09:05)
[2018-06-21] MEDS: HEPARIN SODIUM,PORCINE 5,000 UNIT/ML 1 ML VIAL SQ SCH (09:05)
[2018-06-21] MEDS: MIDODRINE 5 MG TAB PO SCH ×2 (09:05→13:20)
[2018-06-21] MEDS: MEGESTROL 400 MG/10 ML CUP PO SCH (09:05)
[2018-06-21] MEDS: LACTULOSE 20 GM/30 ML CUP PO SCH (09:05)
[2018-06-21] MEDS: MAGNESIUM OXIDE 400 MG TAB PO SCH (09:05)
[2018-06-21] MEDS: PANTOPRAZOLE 40 MG TABLET PO SCH (09:05)
[2018-06-21 12:59] LABS: C-ANCA <1:20 Titer (<1:20); P-ANCA <1:20 Titer (<1:20)
[2018-06-21] MEDS: FERROUS SULFATE 325 MG TAB PO SCH (13:20)
--- NOTE | 2018-06-21 13:21 | P.PN ---
Subjective This is a 57-year-old male seen in consultation because of acute kidney injury. This is deemed to be from pneumonia. Additionally he has immune deficiency syndrome on IV immunoglobulin every 3 weeks for the last 20 years, also has recently had necrotizing fasciitis and was admitted for a prolonged period of time and recently discharged on 06/11/2018 after about 52 days of hospitalization. He also has liver disease and is supposedly on the transplant list . In the hospital his creatinine continued to slowly worsen over the last few days. Yesterday we ruled out any urinary retention with a bladder scan and a Dunham catheter, a urinalysis was very benign. His complement C3 somewhat low his OZIEL is negative. He has low platelet count but he has liver disease as well as the immune deficiency syndrome. Yesterday because of worsening creatinine from 1.8-2.41, I started him on IV fluids because of slightly positive orthostatic changes. His creatinine today stable at 2.41. He wants to go home. He has poor appetite otherwise is stable. Objective - Vital Signs Vital signs: Vital Signs Temp 97.5 F L 06/21/18 06:35 Pulse 68 06/21/18 07:55 Resp 18 06/21/18 06:35 BP 117/56 06/21/18 06:35 Pulse Ox 97 06/21/18 06:35 Intake & Output 06/20/18 06/21/18 06/21/18 18:59 06:59 18:59 Intake Total 600 Output Total 150 Balance 600 -150 Weight 83 kg Intake: Oral 600 Output: Urine 150 Other: # Voids 1 1 On examinations awake alert oriented comfortable somewhat ill-looking and with pallor. His also mildly jaundiced. HEENT exam no JVP neck is supple no facial asymmetry. Lungs are clear to auscultation fair air entry bilaterally. Heart sounds are unremarkable for any murmur rub gallop. Abdomen is soft nontender slightly distended with possible ascites. Extreme exam reveals trace to minimal edema. Multiple dressing on his left leg from the face he ostomy. Neurologically awake alert oriented. - Labs CBC & Chem 7: 06/20/18 06:20 06/21/18 07:59 Labs: Abnormal Lab Results - Last 24 Hours (Table) 06/20/18 06/20/18 06/20/18 Range/Units 06:20 06:20 06:20 RBC 2.50 L (4.30-5.90) m/uL Hgb 7.9 L (13.0-17.5) gm/dL Hct 24.5 L (39.0-53.0) % RDW 22.4 H (11.5-15.5) % Plt Count 67 L (150-450) k/uL Sodium 136 L (137-145) mmol/L Chloride 109 H (98-107) mmol/L Carbon Dioxide 16 L (22-30) mmol/L BUN 40 H (9-20) mg/dL Creatinine 2.41 H (0.66-1.25) mg/dL Glucose 102 H (74-99) mg/dL Calcium 8.2 L (8.4-10.2) mg/dL Total Protein (PEP) 4.1 L (6.2-8.2) g/dL Complement C3 69.0 L (80.0-207.0) mg/dL 06/21/18 Range/Units 07:59 RBC (4.30-5.90) m/uL Hgb (13.0-17.5) gm/dL Hct (39.0-53.0) % RDW (11.5-15.5) % Plt Count (150-450) k/uL Sodium 136 L (137-145) mmol/L Chloride 110 H (98-107) mmol/L Carbon Dioxide 16 L (22-30) mmol/L BUN 40 H (9-20) mg/dL Creatinine 2.41 H (0.66-1.25) mg/dL Glucose (74-99) mg/dL Calcium 8.2 L (8.4-10.2) mg/dL Total Protein (PEP) (6.2-8.2) g/dL Complement C3 (80.0-207.0) mg/dL Assessment and Plan Assessment: Impression 1. Acute kidney injury secondary to prerenal from pneumonia. Creatinine is 2.1 , his baseline creatinine was 0.9 on 02/12/2018. He does have 2+ proteinuria dated 06/13/2018 25 WBCs and occasional bacteria but urine culture is negative so far. Urine protein to creatinine ratio is 76 mg/93 mg. A serum protein electrophoresis in 2016 was unremarkable. Creatinine has gone up again from 1.8 -2.4. Possible acute interstitial nephritis. Possible hepatorenal syndrome although unlikely. Possibly volume depletion. Urinalysis completely benign performed by me in the hospital on 06/20/2018. Urine sodium is 19, consistent with volume depletion. Of concern is slightly low complement C3 at 69 normal range being 80. Complement C4 and OZIEL is negative 2. Mild degree of non-gap acidosis from acute kidney injury. Bicarb is down from 18-16, he is on oral bicarb 3. Admitted with pneumonia. Chest x-ray shows stability. 4. History of cirrhosis, supposedly on transplant list 6. History of immunodeficiency syndrome on immunoglobulin IV every 3 weeks for last 20 some years. 7. Recent admitted for necrotizing fasciitis, admitted for 52 days and recently discharge 06/11/2018 5 days ago. 8. Pancytopenia. Recommendation. After discussion with the patient I have agreed that he can go home. Avoid giving any diuretics at this time. Discontinue pantoprazole and may use Zantac or Pepcid instead, because of the reports of PPI causing chronic kidney disease but not acute unless it is acute interstitial nephritis. Urinalysis are not suggestive of breath We'll repeat his labs in 2 days' time, a prescription was given to him for this. He will follow up in our office on Monday 4 days from now. He may need a kidney biopsy if creatinine continues to go up,.
[2018-06-21 13:42] LABS: Gamma Globulin 0.32 g/dL (0.70-1.50)
[2018-06-21 15:12] VITALS: BMI 25.4
--- NOTE | 2018-06-21 16:13 | P.PN ---
Subjective Progress Note Date: 06/21/18 Principal diagnosis: Acute exacerbation of chronic obstructive pulmonary disease complicated by purulent tracheobronchitis and possible bronchopneumonia Pulmonary consultation 06/14/2018 57-year-old male way see for chronic bronchial asthma. More recently, he's been extremely low. This started months ago, at which time he apparently developed an infection in his left thigh and leg area. The patient apparently was airlifted from here to [facility]. The patient ended up with overwhelming sepsis and respiratory failure and ended up there for 52 days about 3 weeks on the mechanical ventilator. He was eventually extubated. He apparently asked abated himself actually and eventually was discharged there and sent to rehab. Subsequent to that, right before discharge and rehab he apparently developed a fever again and developed pneumonia secondary to vancomycin-resistant enterococci. He apparently was readmitted for a number of days and then recently discharged against. More recently, he comes into the hospital with complaints of fever chest congestion cough phlegm production. He is possibly thought to have pneumonia again. Chest x-ray showed bilateral infiltrates. Some of these infiltrates could affect B chronic in nature. He is certainly behaving like; pneumonia given his fever chills cough phlegm chest congestion, etc. Most of the history is obtained from his was in the room with him. 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 In addition, the patient has a history of anemia hyperlipidemia and also hypogammaglobulinemia. For this, he gets immunoglobulin every 3 weeks. He also has a history of hypertension and in addition to seeing me, sees one of the oncologist here in town. He was laying flat in bed room he first walked into the room. I barely recognized him. Progress note dated 06/15/2018 This is a 57-year-old male with a history of chronic bronchial asthma. The patient has had a rough number of months here recently with multiple admissions to [facility] respiratory failure compartment syndrome fasciotomy and vancomycin-resistant enterococcal pneumonia. The patient was readmitted to the emergency room with shortness of breath chest congestion cough phlegm production and fever. He was seen by infectious disease. His asthma was active and I addressed that yesterday when I saw him in consultation. The patient is so emaciated is also much weight, I almost did not recognize and when I went into the room. He also has a history of hypogammaglobulinemia. In addition, he was being evaluated for possible liver transplantation at [facility]. He has alcoholic cirrhosis. Progress note dated 06/17/2018 57-year-old male well-known to me. He has a history of chronic liver disease secondary to alcohol abuse and is being evaluated for liver transplantation at [facility]. In addition, the patient has a history of chronic bronchial asthma and hypogammaglobulinemia. More recently, he developed an episode of respiratory failure at [facility] secondary to sepsis and spent 21 days on mechanical ventilator and 52 total days in the hospital. Everything started off as an infection in his left leg. He developed overwhelming sepsis, a compartment syndrome on the left and required fasciotomy. Subsequently, he was discharged to rehab and unfortunately developed a vancomycin-resistant enterococcal pneumonia. This required another hospitalization. The patient is currently being evaluated for and treated for purulent tracheobronchitis as bronchopneumonia. He has been seen by infectious disease. Currently the patient is doing reasonably well. States he's feeling better. Still very short of breath. Still coughing a bit. Cough is congested and wet. Not producing any phlegm. No fever or chills. The patient is seen again today 06/18/2018 in follow-up on the regular medical floor. He remains awake and alert in no acute distress. He is feeling quite a bit better today as compared to previous. There was a loose nonproductive cough. No chills or night sweats. He is maintaining good O2 saturations up to 100% on room air. He's been afebrile. Creatinine 2.26. He is currently on Zyvox and Zosyn. Continue with bronchodilators and Symbicort. The patient is seen again today 06/19/2018 in follow-up on the regular medical floor. He is resting quite comfortably in bed. He is stronger today as compared to yesterday. He continues to maintain good O2 saturations in the upper 90s on room air. He is afebrile. Hemodynamically stable. Blood cultures reveal no growth. White count 4.8. Hemoglobin 7.7. Platelet count 71,000. Creatinine 2.30. Bicarb 16. Nephrology is on the case as well. They're holding off on diuretics today. Increase oral intake. Increase sodium bicarb 1300 mg twice a day. Patient seen again today 06/21/2018 in follow-up on the regular medical floor. He is currently resting quite comfortably in bed. Maintaining good O2 saturations in the mid 90s on room air. He's been afebrile. Hemodynamically stable. Blood culture reveals no growth. The plan is for discharge to home today. Objective - Vital Signs Vital signs: Vital Signs Temp 97.5 F L 06/21/18 06:35 Pulse 68 06/21/18 07:55 Resp 18 06/21/18 06:35 BP 117/56 06/21/18 06:35 Pulse Ox 97 06/21/18 06:35 Intake & Output 06/20/18 06/21/18 06/21/18 18:59 06:59 18:59 Intake Total 600 Output Total 150 Balance 600 -150 Weight 83 kg 83 kg Intake: Oral 600 Output: Urine 150 Other: # Voids 1 1 - Exam GENERAL EXAM: Alert, active, comfortable in no apparent distress. HEAD: Normocephalic. EYES: Normal reaction of pupils, equal size. NOSE: Clear with pink turbinates. THROAT: No erythema or exudates. NECK: No masses, no JVD. CHEST: No chest wall deformity. LUNGS: Equal air entry with faint crackles in the posterior bases, faint end expiratory wheeze. Diminished. CVS: S1 and S2 normal with no audible murmur, regular rhythm. ABDOMEN: No hepatosplenomegaly, normal bowel sounds, no guarding or rigidity. SPINE: No scoliosis or deformity SKIN: No rashes CENTRAL NERVOUS SYSTEM: No focal deficits, tone is normal in all 4 extremities. EXTREMITIES: There is no peripheral edema. No clubbing, no cyanosis. Peripheral pulses are intact. - Labs CBC & Chem 7: 06/20/18 06:20 06/21/18 07:59 Labs: Abnormal Lab Results - Last 24 Hours (Table) 06/20/18 06/21/18 Range/Units 06:20 07:59 Sodium 136 L (137-145) mmol/L Chloride 110 H (98-107) mmol/L Carbon Dioxide 16 L (22-30) mmol/L BUN 40 H (9-20) mg/dL Creatinine 2.41 H (0.66-1.25) mg/dL Calcium 8.2 L (8.4-10.2) mg/dL Albumin (PEP) 3.00 L (3.80-4.90) g/dL Omcjn-0-Hqieyqwqz 0.30 L (0.60-1.00) g/dL Beta Globulins 0.22 L (0.60-1.30) g/dL Gamma Globulins 0.32 L (0.70-1.50) g/dL Assessment and Plan Assessment: Assessment Asthma exacerbation likely complicated by purulent tracheobronchitis and possible bronchopneumonia Previous history of vancomycin-resistant enterococcal pneumonia Previous history of severe left thigh infection with compartment syndrome sepsis fasciotomy and long-term mechanical ventilation History of chronic bronchial asthma History of hyperlipidemia History of hypogammaglobulinemia History of chronic liver disease and liver cirrhosis secondary to previous alcohol abuse History of GERD Anemia of chronic disease Chronic kidney disease Plan: The patient was seen and evaluated by Dr. Mcintyre. He is cleared for discharge from the pulmonary standpoint. He'll follow up with Dr. Norris in 1 week. He and his are both encouraged to call sooner with any recurrence of symptoms or other questions or concerns. I, the cosigning physician, performed a history & physical examination of the patient. Lungs sounds with basilar crackles, end expiratory wheeze. Diminished. Maintaining good O2 saturations in the 90s on room air. I discussed the assessment and plan of care with my nurse practitioner, Padmini Andrade. I attest to the above note as dictated by her.
--- NOTE | 2018-06-21 17:19 | PN ---
PROGRESS NOTE DATE OF SERVICE: 06/21/2018. REASON FOR FOLLOWUP: 1. Pneumonia that has been adequately treated. 2. Patient with left leg wound, multiple. No cellulitis. INTERVAL HISTORY: The patient is currently afebrile. He is breathing comfortably. Denies any chest pain, shortness of breath or cough, no abdominal pain or pain to the leg wound area. EXAMINATION: Blood pressure 117/56, pulse of 64, temperature 97.5. He is 97% on room air. General description is a middle-aged male lying in bed in no distress. Respiratory system: Unlabored breathing, clear to auscultation anteriorly. Heart S1, S2. Regular rate and rhythm. Abdomen soft, no tenderness. Left leg wound is currently dressed up. No obvious drainage on the dressing. LABS: White count 4.9. Creatinine is 2.41. DIAGNOSTIC IMPRESSION AND PLAN: 1. Patient admitted to the hospital with fever, initial concern for possible pneumonia. So far the patient has been afebrile. Blood cultures negative. Chest x-ray with no consolidation. Recommend discontinue Zosyn. 2. Patient with left leg wound, no cellulitis. Local wound care with Aquacel Silver dressing and follow up in [facility] in 1 week. MMODL / IJN: [id number] /
--- NOTE | 2018-06-21 19:01 | DS ---
DISCHARGE SUMMARY DATE OF SERVICE: 06/21/2018 FINAL DIAGNOSES: 1. Acute bilateral pneumonia possibly hospital acquired with sepsis and fever, present on admission. 2. Acute asthma exacerbation with acute purulent tracheobronchitis. 3. Recent necrotizing fasciitis with multiple fasciitis and compartment syndrome elsewhere. 4. Acute on chronic renal failure stage III with possibly later decreased p.o. intake, hypovolemia and acute interstitial nephritis. 5. History of VRE pneumonia. 6. Chronic liver disease. 7. Anemia of chronic disease. 8. History of syndrome. 9. Medical debility with recent prolonged hospital stay with multiple complications, muscle atrophy, wasting, gait dysfunction, imbalance, fall risk. DISCHARGE DISPOSITION: The patient discharged in stable condition with guarded prognosis. Total time taken 35 minutes. The patient refused rehab at this time. HISTORY OF PRESENT ILLNESS: This 57-year-old gentleman with a past medical history of multiple medical problems as mentioned earlier, being followed by Dr. Scott in the outpatient was admitted with acute bilateral pneumonia, treated symptomatically. Patient improved significantly. Patient also had multiple complex medical surgical issues recently as listed above. Treated symptomatically. PT/OT evaluated the patient and recommended rehab, but however the patient refused further rehab. On exam, vitals are stable. Cardiovascular: S1, S2. Abdomen: Soft. Nervous System: Diffusely weak. The patient will be discharged in stable condition with guarded prognosis with the following advice: 1. Diet is cardiac. 2. Activities limited until followup. 3. Follow up with Dr. Scott in 2-3 days. 4. Follow up with the Nephrology, Infectious Disease and Gastroenterology as recommended. MEDICATIONS: 1. Ecotrin 81 mg p.o. daily. 2. Lipitor 10 mg q.h.s. 3. Lanoxin 62.5 mg p.o. q.48h hours. 4. Benadryl 50 mg p.o. b.i.d. p.r.n. 5. Procrit 40,000 daily. 6. Iron 320 mg daily. 7. Neurontin 100 mg p.o. b.i.d. 8. Gamunex 1 dose IV 21 days. 9. Lactulose 20 g p.o. b.i.d. 10.Melatonin 6 mg q.h.s. 11.Lopressor 25 mg q.8h p.r.n. 12.ProAmatine 10 mg a.c. t.i.d. 13.Dulera 2 puffs b.i.d. 14.Singulair 10 mg q.h.s. 15.Sodium bicarb 1300 mg p.o. b.i.d. 16.Ultram 50 mg q.6h p.r.n. 17.Albuterol q.i.d. and p.r.n. 18.Magnesium oxide 400 mg p.o. b.i.d. 19.Megace 400 mg p.o. daily. 20.Zantac 150 mg p.o. b.i.d. 21.No antibiotics currently per Infectious Disease, Dr. Watson. Once again, the patient is discharged stable condition with guarded prognosis. MMYOHANNESL / MELODIEN: [id number] / MTDD
== END 2018-06-21 16:07 | disposition home health service (06) | DRG 871 ==
LOC: EC 14:06 → 4MS4W 20:45
PROVIDERS: ADMIT Internal Medicine; ATTEND Internal Medicine
DX: A41.9 Sepsis, unspecified organism (principal); J18.9 Pneumonia, unspecified organism; N17.0 Acute kidney failure with tubular necrosis; D61.818 Other pancytopenia; D83.9 Common variable immunodeficiency, unspecified; E87.2 Acidosis; I13.0 Hypertensive heart and chronic kidney disease with heart failure and stage 1 through stage 4 chronic kidney disease, or unspecified chronic kidney disease; J44.0 Chronic obstructive pulmonary disease with (acute) lower respiratory infection; J44.1 Chronic obstructive pulmonary disease with (acute) exacerbation; J45.901 Unspecified asthma with (acute) exacerbation; J84.9 Interstitial pulmonary disease, unspecified; R64 Cachexia; N10 Acute pyelonephritis; E78.5 Hyperlipidemia, unspecified; E86.9 Volume depletion, unspecified; I48.91 Unspecified atrial fibrillation; I50.9 Heart failure, unspecified; F17.220 Nicotine dependence, chewing tobacco, uncomplicated; Y95 Nosocomial condition; K21.9 Gastro-esophageal reflux disease without esophagitis; K70.31 Alcoholic cirrhosis of liver with ascites; N18.3 Chronic kidney disease, stage 3 (moderate); Z68.25 Body mass index [BMI] 25.0-25.9, adult; T36.8X5A Adverse effect of other systemic antibiotics, initial encounter; Z86.19 Personal history of other infectious and parasitic diseases; Z76.82 Awaiting organ transplant status; Z79.51 Long term (current) use of inhaled steroids; Z79.899 Other long term (current) drug therapy; Z86.14 Personal history of Methicillin resistant Staphylococcus aureus infection; Z87.01 Personal history of pneumonia (recurrent); Z88.1 Allergy status to other antibiotic agents; Z91.81 History of falling; Z87.19 Personal history of other diseases of the digestive system; R33.9 Retention of urine, unspecified; G62.9 Polyneuropathy, unspecified; Z79.82 Long term (current) use of aspirin; R19.7 Diarrhea, unspecified
CPT/HCPCS: 36415; 71046; 78582; 80048; 80053; 80074; 81001; 82140; 82272; 82570; 82728; 83540; 83550; 83605; 83735; 84156; 84165; 84300; 85025; 85027; 85379; 85610; 85730; 86038; 86160; 86162; 86255; 86334; 86335; 87040; 87086; 87205; 87324; 94640; 94760; 96360; 96361; 99284

== ENCOUNTER → 2018-06-25 | Outpatient (CLI) | payer OTHER ==
[2018-06-25 08:23] LABS: Anisocytosis Moderate; Basophils # (A) 0.1 k/uL (0-0.2); Basophils % (A) 1 %; Eosinophils # (A) 0.4 k/uL (0-0.7); Eosinophils % (A) 6 %; HCT 23.6 % (39.0-53.0); HGB 7.6 gm/dL (13.0-17.5); Hypochromasia Moderate; Lymphocytes # (A) 2.2 k/uL (1.0-4.8); Lymphocytes % (A) 34 %; MCH 31.5 pg (25.0-35.0); MCHC 32.4 g/dL (31.0-37.0); MCV 97.3 fL (80.0-100.0); Macrocytosis Moderate; Mean Platelet Volume 9.5; Monocytes # (A) 0.3 k/uL (0-1.0); Monocytes % (A) 4 %; Neutrophils # (A) 3.5 k/uL (1.3-7.7); Neutrophils % (A) 54 %; Poikilocytosis Slight; RBC 2.42 m/uL (4.30-5.90); RDW 21.4 % (11.5-15.5); WBC 6.5 k/uL (3.8-10.6)
[2018-06-25 08:29] LABS: Platelet Count 54 k/uL (150-450)
[2018-06-25 08:31] LABS: Appearance,Urine Cloudy (Clear); Bilirubin,Urine Negative (Negative); Color,Urine Yellow; Glucose,Urine (UA) Negative (Negative); Ketones,Urine Negative (Negative); PH, Urine 5.5 (5.0-8.0); Protein,Urine Trace (Negative); Specific Gravity,Urine 1.013 (1.001-1.035)
[2018-06-25 08:32] LABS: Blood,Urine Negative (Negative); Hyaline Casts,Urine 1 /lpf (0-2); Leukocyte Esterase,Urine Moderate (Negative); Mucus,Urine Rare /hpf; Nitrite,Urine Negative (Negative); Squamous Epithelial Cell,Urine <1 /hpf (0-4); Urobilinogen,Urine <2.0 mg/dL (<2.0); WBC,Urine 32 /hpf (0-5)
[2018-06-25 08:34] LABS: Calcium 8.8 mg/dL (8.4-10.2); Magnesium 1.7 mg/dL (1.6-2.3); Phosphorus 4.3 mg/dL (2.5-4.5); Potassium 4.7 mmol/L (3.5-5.1)
[2018-06-25 08:47] LABS: Creatinine,Urine Random 145.7 mg/dL
[2018-06-25 17:08] LABS: Iron Saturation 74.05 (15.00-50.00); Vitamin D 25 Hydroxy 12.2 ng/mL (30.0-100.0)
[2018-06-25 17:26] LABS: Parathyroid Hormone Intact 20.6 pg/mL (14.0-72.0)
== END | disposition home or self-care (01) ==
LOC: LABWHC1 07:31
PROVIDERS: ATTEND Internal Medicine Nephrology
DX: N17.9 Acute kidney failure, unspecified (principal); D64.9 Anemia, unspecified; E55.9 Vitamin D deficiency, unspecified; E21.3 Hyperparathyroidism, unspecified; M10.9 Gout, unspecified; R80.9 Proteinuria, unspecified; N39.0 Urinary tract infection, site not specified
CPT/HCPCS: 36415; 80048; 81001; 82306; 82570; 82728; 83540; 83550; 83735; 83970; 84100; 84156; 84550; 85025

== ENCOUNTER 2018-07-01 23:37 | Emergency (ER) | payer OTHER ==
[2018-07-01 23:43] VITALS: TEMP 100.1
[2018-07-02] MEDS ORDERED: HYDROmorphone 1 MG/ML 1 ML SYRINGE IVP STA ×2 (00:08→02:50)
[2018-07-02] MEDS ORDERED: ONDANSETRON 4 MG/2 ML VIAL IVP STA (00:08)
[2018-07-02] MEDS ORDERED: CEFEPIME 2 GM in SODIUM CHLORIDE 0.9% 50 ML IVPB STA (00:11)
[2018-07-02] MEDS ORDERED: CLINDAMYCIN 600 MG in DEXTROSE 5% IN WATER 50 ML IVPB STA ×2 (00:11)
[2018-07-02] MEDS ORDERED: VANCOMYCIN TROUGH DUE 1 EACH MISC MISCELLANE ONE (00:11)
--- NOTE | 2018-07-02 00:34 | ED ---
Skin/Abscess/FB HPI - General Chief complaint: Skin/Abscess/Foreign Body Stated complaint: SWOLLEN LEG,WOUNDS Time Seen by Provider: 07/01/18 23:49 Source: patient Mode of arrival: ambulatory Limitations: no limitations - History of Present Illness Initial comments: 57 year-old male patient presents to the emergency department today for evaluation of fever, increased pain and swelling of his left leg, and increased drainage from the left lateral thigh and physician. Patient has a complex past medical history including recent bilateral pneumonia and sepsis, recent necrotizing fasciitis to the left leg, chronic renal failure, chronic liver disease with IVIG infusions, and anemia of chronic disease. Patient states that today he has had some vomiting and diarrhea. States that this evening he started to have severe pain to the left leg. Patient states he is unable to ambulate on the leg. Patient states it is hot to touch. Patient does have healing fasciotomy incisions related to recent necrotizing fasciitis. Patient was diagnosed with the necrotizing fasciitis and 04/22/2018 and did spend 52 days at [facility]. Patient reports a slight cough with no sputum production. Patient states he has been short of breath. Patient has had low-grade fever this evening upon arrival he was 100.6F. Denies any chest pain, hematochezia, melena, hematuria, dysuria, urinary frequency, urinary urgency. Patient denies any recent rash, abdominal pain, back pain, numbness, tingling, dizziness, headache, visual changes, or any other complaints. Patient does have ascites related to chronic liver disease and did have 5.6 L of fluid removed on . - Related Data Home Medications Medication Instructions Recorded Confirmed Montelukast [Singulair] 10 mg PO HS 10/15/14 06/27/18 Ferrous Sulfate [Iron] 325 mg PO DAILY 07/20/17 06/27/18 Mometasone/Formoterol [Dulera 200 2 puff INHALATION RT-BID 11/14/17 06/27/18 Mcg/5 Mcg Inhaler] Aspirin EC [Ecotrin Low Dose] 81 mg PO DAILY 06/13/18 06/27/18 Atorvastatin [Lipitor] 10 mg PO HS 06/13/18 06/27/18 Digoxin [Lanoxin] 62.5 mcg PO Q48H 06/13/18 06/27/18 Epoetin Messi [Procrit] 40,000 unit INJ Q14D 06/13/18 06/27/18 Gabapentin [Neurontin] 100 mg PO Q12H 06/13/18 06/27/18 Gamunex-C(Immune Globulin 10% 1 dose IV Q21D 06/13/18 06/27/18 10gm/100ml Alley) Lactulose 20 gm PO BID 06/13/18 06/27/18 Melatonin 6 mg PO HS 06/13/18 06/27/18 Metoprolol Tartrate [Lopressor] 25 mg PO Q8H 06/13/18 06/27/18 Midodrine HCl [ProAmatine] 10 mg PO AC-TID 06/13/18 06/27/18 Sodium Bicarbonate Tab 1,300 mg PO BID 06/13/18 06/27/18 diphenhydrAMINE [Benadryl] 50 mg PO Q21D 06/13/18 06/27/18 traMADol HCL [Ultram] 50 mg PO Q6HR PRN 06/13/18 06/27/18 Previous Rx's Medication Instructions Recorded Albuterol Nebulized [Ventolin 2.5 mg INHALATION RT-QID #0 06/21/18 Nebulized] Magnesium Oxide [Mag-Ox] 400 mg PO BID #20 tab 06/21/18 Megestrol [Megace] 400 mg PO DAILY #30 cup 06/21/18 Ranitidine HCl [Zantac] 150 mg PO BID #60 tab 06/21/18 Allergies Allergy/AdvReac Type Severity Reaction Status Date / Time wheat AdvReac Severe Nausea & Verified 07/01/18 23:43 Vomiting & Diarrhea,flu like symptoms gluten AdvReac Nausea & Verified 07/01/18 23:43 Vomiting & Diarrhea levofloxacin [From Levaquin] AdvReac TENDON PAIN Verified 07/01/18 23:43 Review of Systems ROS Statement: Those systems with pertinent positive or pertinent negative responses have been documented in the HPI. ROS Other: All systems not noted in ROS Statement are negative. 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 History of Any Multi-Drug Resistant Organisms: CRE, VRE Date of last positivie culture/infection: 05/31/18 CRE-Enterobacter cloacae; VRE MDRO Source:: Sputum-CRE; Blood VRE Additional Past Surgical History / Comment(s): vasectomy, mediport placement and removed. bilateral cataract/lens surgery, removal of cervical lymph node- benign, BMA, colonoscopies and EGDs, bilateral myringotomy, abdominal paracentesis. Past Anesthesia/Blood Transfusion Reactions: No Reported Reaction Additional Past Anesthesia/Blood Transfusion Reaction / Comment(s): no problems prior blood transfusion Past Psychological History: No Psychological Hx Reported Smoking Status: Former smoker - Past Family History Father Family Medical History: Thyroid Disorder Additional Family Medical History / Comment(s): Father has hypothyroidism. He is 89 yrs old. Mother Family Medical History: Liver Disease Additional Family Medical History / Comment(s): Mother from hepatitis C at the age of 60. General Exam Limitations: no limitations General appearance: alert, in no apparent distress, other (This is a thin- appearing, ill-appearing adult male patient in no acute distress. Vital signs upon presentation are temperature 100.1F, pulse 68, respirations 16, blood pressure 140/67, pulse ox 99% on room air.) Eye exam: Present: normal appearance, PERRL, EOMI, scleral icterus. Absent: conjunctival injection, periorbital swelling Respiratory exam: Present: rales (To all posterior lung ball). Absent: normal lung sounds bilaterally, respiratory distress, wheezes, rhonchi, stridor Cardiovascular Exam: Present: regular rate, normal rhythm, normal heart sounds. Absent: systolic murmur, diastolic murmur, rubs, gallop, clicks GI/Abdominal exam: Present: soft, distended, normal bowel sounds, other (Ascites ). Absent: tenderness, guarding, rebound, rigid Extremities exam: Present: full ROM, normal capillary refill, other (Left leg is edematous, hot to touch. Patient has incisions to the medial and lateral aspect of the thigh and the medial and lateral aspect of the calves appear to be healing by secondary intention. Patient has yellow drainage to the left lateral thigh incision.). Absent: normal inspection, tenderness, pedal edema, joint swelling, calf tenderness Neurological exam: Present: alert, oriented X3, CN II-XII intact Psychiatric exam: Present: normal affect, normal mood Skin exam: Present: warm, dry, intact, normal color. Absent: rash Course Vital Signs 07/01/18 07/02/18 23:40 02:22 Temperature 100.1 F H Pulse Rate 68 73 Respiratory 16 20 Rate Blood Pressure 140/67 133/63 O2 Sat by Pulse 99 98 Oximetry Procedures - Sepsis Sepsis Focused Exam #1 Time Sepsis Criteria Met: : Sepsis Focused Exam Date: 07/02/18 Sepsis Focused Exam Time: : Sepsis Focused Exam Complete: Yes Vital Signs & RN Notes Reviewed: Yes Capillary Refill: < 2 Seconds: Fingers, Toes Peripheral Pulses: Absent: Radial (R), Radial (L), Weak: Posterior Tibialis (R) , Posterior Tibialis (L), Dorsalis Pedis (R), Dorsalis Pedis (L) Skin Color: Normal for Patient Respiratory Exam: rales Cardiovascular Exam: regular rate Medical Decision Making - Medical Decision Making 57 year-old male patient presents the emergency department today for evaluation of increased swelling and pain to the left leg. Patient has recent history of necrotizing fasciitis to the left leg diagnosed in March. Patient was also recently admitted to this facility for bilateral pneumonia. Physical examination did reveal an edematous left lower extremity, hot to touch, with draining incision to the left lateral thigh. Patient also had incision to the left medial thigh, left lateral calf, and left medial calf that appear to be healing secondary intention. Labs reviewed and did reveal elevated BUN and creatinine. Lactic acid of 4. The patient is chronically anemic his hemoglobin today is 8.8. Did perform CT of the left lower extremity which did reveal a 7 cm x 3 cm fluid collection just deep to the sartorius muscle on the left thigh. This is most probably an abscess. Patient did have elevated temperature at 100.1 upon arrival, patient is not tachycardiac or hypotensive at this time. Did recommend transfer back to [facility], patient requested to remain at this facility. My attending Dr. Sumner did speak to his primary care physician Dr. Scott who recommends patient be transferred down. We did discuss this with the patient once again, he is agreeable to be transferred at this time. Patient has received cefepime, clindamycin, and will be receiving vancomycin. Did discuss the case with Dr. Rosas at [facility] ED who accepts transfer. - Lab Data Result diagrams: 07/02/18 00:23 07/02/18 00:23 Lab Results 07/02/18 07/02/18 07/02/18 Range/Units 00:23 00:23 00:23 WBC 9.7 (3.8-10.6) k/uL RBC 2.86 L (4.30-5.90) m/uL Hgb 8.8 L (13.0-17.5) gm/dL Hct 28.6 L (39.0-53.0) % MCV 99.9 (80.0-100.0) fL MCH 30.8 (25.0-35.0) pg MCHC 30.9 L (31.0-37.0) g/dL RDW 23.8 H (11.5-15.5) % Plt Count 85 L D (150-450) k/uL Neutrophils % 85 % Lymphocytes % 9 % Monocytes % 4 % Eosinophils % 0 % Basophils % 0 % Neutrophils # 8.2 H (1.3-7.7) k/uL Lymphocytes # 0.9 L (1.0-4.8) k/uL Monocytes # 0.4 (0-1.0) k/uL Eosinophils # 0.0 (0-0.7) k/uL Basophils # 0.0 (0-0.2) k/uL Manual Slide Review Performed Polychromasia Present Hypochromasia Moderate Poikilocytosis Slight Anisocytosis Moderate Macrocytosis Moderate Posey-[place]ohn[place] Bodies Present Fragmented RBCs Present PT (9.0-12.0) sec INR (<1.2) APTT (22.0-30.0) sec Sodium 143 (137-145) mmol/L Potassium 5.0 (3.5-5.1) mmol/L Chloride 111 H (98-107) mmol/L Carbon Dioxide 18 L (22-30) mmol/L Anion Gap 14 mmol/L BUN 53 H (9-20) mg/dL Creatinine 2.30 H (0.66-1.25) mg/dL Est GFR (CKD-EPI)AfAm 35 (>60 ml/min/1.73 sqM) Est GFR (CKD-EPI)NonAf 31 (>60 ml/min/1.73 sqM) Glucose 144 H (74-99) mg/dL Plasma Lactic Acid Sky (0.7-2.0) mmol/L Calcium 8.8 (8.4-10.2) mg/dL Total Bilirubin 3.9 H (0.2-1.3) mg/dL AST 56 (17-59) U/L ALT 36 (21-72) U/L Alkaline Phosphatase 201 H (38-126) U/L Total Creatine Kinase <20 L (55-170) U/L CK-MB (CK-2) 0.5 (0.0-2.4) ng/mL CK-MB (CK-2) Rel Index Troponin I 0.021 (0.000-0.034) ng/mL Total Protein 5.7 L (6.3-8.2) g/dL Albumin 3.1 L (3.5-5.0) g/dL Urine Color Urine Appearance (Clear) Urine pH (5.0-8.0) Ur Specific [place] (1.001-1.035) Urine Protein (Negative) Urine Glucose (UA) (Negative) Urine Ketones (Negative) Urine Blood (Negative) Urine Nitrite (Negative) Urine Bilirubin (Negative) Urine Urobilinogen (<2.0) mg/dL Ur Leukocyte Esterase (Negative) Urine RBC (0-5) /hpf Urine WBC (0-5) /hpf Ur Squamous Epith Cells (0-4) /hpf Hyaline Casts (0-2) /lpf Urine Mucus (None) /hpf Urine Yeast (Budding) (None) /hpf 07/02/18 07/02/18 07/02/18 Range/Units 00:23 00:23 01:13 WBC (3.8-10.6) k/uL RBC (4.30-5.90) m/uL Hgb (13.0-17.5) gm/dL Hct (39.0-53.0) % MCV (80.0-100.0) fL MCH (25.0-35.0) pg MCHC (31.0-37.0) g/dL RDW (11.5-15.5) % Plt Count (150-450) k/uL Neutrophils % % Lymphocytes % % Monocytes % % Eosinophils % % Basophils % % Neutrophils # (1.3-7.7) k/uL Lymphocytes # (1.0-4.8) k/uL Monocytes # (0-1.0) k/uL Eosinophils # (0-0.7) k/uL Basophils # (0-0.2) k/uL Manual Slide Review Polychromasia Hypochromasia Poikilocytosis Anisocytosis Macrocytosis Posey-Mohnton Bodies Fragmented RBCs PT 12.8 H (9.0-12.0) sec INR 1.4 H (<1.2) APTT 25.3 (22.0-30.0) sec Sodium (137-145) mmol/L Potassium (3.5-5.1) mmol/L Chloride (98-107) mmol/L Carbon Dioxide (22-30) mmol/L Anion Gap mmol/L BUN (9-20) mg/dL Creatinine (0.66-1.25) mg/dL Est GFR (CKD-EPI)AfAm (>60 ml/min/1.73 sqM) Est GFR (CKD-EPI)NonAf (>60 ml/min/1.73 sqM) Glucose (74-99) mg/dL Plasma Lactic Acid Sky 4.0 H* (0.7-2.0) mmol/L Calcium (8.4-10.2) mg/dL Total Bilirubin (0.2-1.3) mg/dL AST (17-59) U/L ALT (21-72) U/L Alkaline Phosphatase (38-126) U/L Total Creatine Kinase (55-170) U/L CK-MB (CK-2) (0.0-2.4) ng/mL CK-MB (CK-2) Rel Index Troponin I (0.000-0.034) ng/mL Total Protein (6.3-8.2) g/dL Albumin (3.5-5.0) g/dL Urine Color Yellow Urine Appearance Clear (Clear) Urine pH 5.5 (5.0-8.0) Ur Specific [place] 1.012 (1.001-1.035) Urine Protein Trace H (Negative) Urine Glucose (UA) Negative (Negative) Urine Ketones Negative (Negative) Urine Blood Negative (Negative) Urine Nitrite Negative (Negative) Urine Bilirubin Negative (Negative) Urine Urobilinogen <2.0 (<2.0) mg/dL Ur Leukocyte Esterase Small H (Negative) Urine RBC 1 (0-5) /hpf Urine WBC 11 H (0-5) /hpf Ur Squamous Epith Cells <1 (0-4) /hpf Hyaline Casts 95 H (0-2) /lpf Urine Mucus Rare H (None) /hpf Urine Yeast (Budding) Rare H (None) /hpf - EKG Data -: EKG Interpreted by Me EKG Comments: EKG obtained at 0018 shows normal sinus rhythm with a ventricular rate is 77, MN interval 132, QRS duration 78, QT 378, QTC 427. No evidence of ST elevation or depression. - Radiology Data Radiology results: report reviewed, image reviewed CT of the left lower extremity without contrast was obtained. Left hip joint is intact per left knee joint is intact. There is diffuse subcutaneous edema around the left eye and left lower leg. There is similar edema of the right leg. There is a 7 x 3 cm oval shaped fluid collection within the medial thigh muscle Sartorius. There is some fluid on the muscle bundles of the biceps femoris muscle. I see no focal bone instruction. Ankle mortise is anatomic. Impression by Dr. Samuel shows extensive subcutaneous edema around the entire left leg. There is a fluid collection that is deep to the sartorius muscle the mid thigh that appears new compared to old CT scanning could be an abscess. Disposition Clinical Impression: Abscess of muscle, Sepsis, History of necrotizing fasciitis Disposition: OTHER INSTITUTION NOT DEFINED Condition: Serious Referrals: Harris Scott MD [Primary Care Provider] - 1-2 days - Out of Hospital Transfer - Req. Specs Out of Hospital Transfer - Requested Specifics: Other Emergency Center ([facility])
[2018-07-02 00:38] LABS: Anisocytosis Moderate; Basophils % (A) 0 %; Eosinophils % (A) 0 %; HCT 28.6 % (39.0-53.0); HGB 8.8 gm/dL (13.0-17.5); Hypochromasia Moderate; Lymphocytes # (A) 0.9 k/uL (1.0-4.8); Lymphocytes % (A) 9 %; MCH 30.8 pg (25.0-35.0); MCHC 30.9 g/dL (31.0-37.0); MCV 99.9 fL (80.0-100.0); Macrocytosis Moderate; Mean Platelet Volume 9.3; Monocytes # (A) 0.4 k/uL (0-1.0); Monocytes % (A) 4 %; Neutrophils # (A) 8.2 k/uL (1.3-7.7); Neutrophils % (A) 85 %; Poikilocytosis Slight; RBC 2.86 m/uL (4.30-5.90); RDW 23.8 % (11.5-15.5); WBC 9.7 k/uL (3.8-10.6)
[2018-07-02 00:47] LABS: Albumin 3.1 g/dL (3.5-5.0); Calcium 8.8 mg/dL (8.4-10.2); Total Bilirubin 3.9 mg/dL (0.2-1.3); Total Protein 5.7 g/dL (6.3-8.2)
[2018-07-02 00:50] LABS: INR 1.4 (<1.2); Partial Thromboplastin Time 25.3 sec (22.0-30.0); Prothrombin Time 12.8 sec (9.0-12.0)
[2018-07-02 00:55] LABS: Creatine Kinase <20 U/L (55-170)
[2018-07-02 01:00] LABS: Polychromasia Present
[2018-07-02 01:01] LABS: Howell-Jolly Bodies Present; RBC Fragments Present
[2018-07-02 01:02] LABS: Platelet Count 85 k/uL (150-450)
[2018-07-02] MEDS ORDERED: SODIUM CHLORIDE 0.9% 1,000 ML IV ONE (01:02)
--- NOTE | 2018-07-02 01:05 | XR ---
EXAMINATION TYPE: XR chest 2V DATE OF EXAM: 07/02/2018 COMPARISON: 06/18/2018 HISTORY: Fever TECHNIQUE: Frontal and lateral views of the chest are obtained. FINDINGS: There is coarsening of interstitial markings. There is some blunting of the posterior cost ophrenic angles. Heart size is normal. There is no gross heart failure. IMPRESSION: Patchy bilateral pulmonary infiltrates are predominantly interstitial. Small pleural eff usions. There is probably pulmonary fibrosis. There is slight improved aeration of the lungs compared to last exam.
[2018-07-02 01:08] LABS: Creatine Kinase MB 0.5 ng/mL (0.0-2.4); Troponin I 0.021 ng/mL (0.000-0.034)
[2018-07-02 01:26] LABS: Appearance,Urine Clear (Clear); Bilirubin,Urine Negative (Negative); Blood,Urine Negative (Negative); Budding Yeast,Urine Rare /hpf; Color,Urine Yellow; Glucose,Urine (UA) Negative (Negative); Hyaline Casts,Urine 95 /lpf (0-2); Ketones,Urine Negative (Negative); Leukocyte Esterase,Urine Small (Negative); Mucus,Urine Rare /hpf; Nitrite,Urine Negative (Negative); PH, Urine 5.5 (5.0-8.0); Protein,Urine Trace (Negative); RBC,Urine 1 /hpf (0-5); Specific Gravity,Urine 1.012 (1.001-1.035); Squamous Epithelial Cell,Urine <1 /hpf (0-4); Urobilinogen,Urine <2.0 mg/dL (<2.0); WBC,Urine 11 /hpf (0-5)
--- NOTE | 2018-07-02 01:34 | CT ---
EXAMINATION TYPE: CT lower extremity LT wo con DATE OF EXAM: 07/02/2018 COMPARISON: 04/23/2018 no fracture. Ascites fluid noted in the abdomen. HISTORY: left leg pain, history of non healing wounds CT DLP: 1276.50 mGycm Automated exposure control for dose reduction was used. FINDINGS: Multiple axial sections were obtained from the level of the left sacroiliac joint to the bottom of th e foot with no contrast. Left hip joint is intact. Left knee joint is intact. There is diffuse subcutaneous edema around the l eft thigh and left lower leg. There is similar edema of the right leg. There is a 7 x 3 cm oval-shape d fluid collection within the medial mid thigh muscle sartorius. There is some fluid around the muscl e bundles of the biceps femoris muscle. I see no focal bone destruction. The ankle mortise is anatomi c. IMPRESSION: EXTENSIVE SUBCUTANEOUS EDEMA AROUND THE ENTIRE LEFT LEG. THERE IS A FLUID COLLECTION THAT IS DEEP TO THE SARTORIUS MUSCLE IN THE MID THIGH THAT APPEARS NEW COMPARED TO OLD CT SCAN AND COULD BE AN ABSCES S.
[2018-07-02] MEDS ORDERED: VANCOMYCIN IV PER PHARMACY 1 EACH MISC MISCELLANE PRN (02:41)
[2018-07-02] MEDS ORDERED: VANCOMYCIN 1,500 MG in SODIUM CHLORIDE 0.9% 250 ML IVPB STA (02:46)
[2018-07-02 03:08] VITALS: BP 126/65; PULSE 71; RESP 16
== END 2018-07-02 03:26 | disposition short-term general hospital (02) ==
LOC: EC 23:37
DX: A41.9 Sepsis, unspecified organism (principal); M60.004 Infective myositis, unspecified left leg; Z86.19 Personal history of other infectious and parasitic diseases; R79.89 Other specified abnormal findings of blood chemistry; D64.9 Anemia, unspecified; H15.89 Other disorders of sclera; R09.89 Other specified symptoms and signs involving the circulatory and respiratory systems; R18.8 Other ascites; I10 Essential (primary) hypertension; I48.91 Unspecified atrial fibrillation; J45.909 Unspecified asthma, uncomplicated; K74.60 Unspecified cirrhosis of liver; D83.9 Common variable immunodeficiency, unspecified; G62.9 Polyneuropathy, unspecified; Z87.891 Personal history of nicotine dependence; Z88.1 Allergy status to other antibiotic agents; Z91.018 Allergy to other foods; Z79.51 Long term (current) use of inhaled steroids; Z79.82 Long term (current) use of aspirin; Z79.899 Other long term (current) drug therapy; Z87.19 Personal history of other diseases of the digestive system; Z98.890 Other specified postprocedural states
CPT/HCPCS: 36415; 93005; 80053; 82550; 82553; 83605; 84484; 85025; 85610; 85730; 81001; 87040; 87086; 71046; 73700; 99285; 96365; 96367; 96375 ×3; 96376; J3370; J2405; J0692; J1170; 87077; 87186

== ENCOUNTER → 2018-08-01 | Outpatient (CLI) | payer OTHER ==
--- NOTE | 2018-08-01 11:57 | XR ---
EXAMINATION TYPE: XR chest 2V DATE OF EXAM: 08/01/2018 COMPARISON: Prior chest 07/02/2018 and 06/18/2018, chest CT 05/10/2016 HISTORY: D83.9, shortness of breath and asthma TECHNIQUE: Frontal and lateral views of the chest are obtained. FINDINGS: The patient is rotated. Blunting the left costophrenic angle, posterior pleural thickening on the left is chronic. There is no focal air space opacity or pneumothorax seen. The cardiac silhou ette size is within normal limits. There is deformity at the sternoclavicular junction is chronic. IMPRESSION: No acute cardiopulmonary process.
== END | disposition home or self-care (01) ==
LOC: RADXRMAIN 11:14
PROVIDERS: ATTEND Internal Medicine Hematology & Oncology
DX: D83.9 Common variable immunodeficiency, unspecified (principal); D46.Z Other myelodysplastic syndromes; I10 Essential (primary) hypertension; G60.0 Hereditary motor and sensory neuropathy
CPT/HCPCS: 71046

== ENCOUNTER 2018-08-14 07:56 | Day surgery (SDC) | payer OTHER ==
[2018-08-14 08:30] VITALS: RESP 20; TEMP 97.4
[2018-08-14 08:45] LABS: INR 1.5 (<1.2)
[2018-08-14 08:46] LABS: Platelet Count 66 k/uL (150-450)
[2018-08-14] MEDS: ALBUMIN HUMAN 25% 50 ML in EMPTY BAG 1 BAG IVPB SCH ×2 (09:30→09:45)
[2018-08-14 10:05] VITALS: BP 120/67; PULSE 73
--- NOTE | 2018-08-14 11:50 | US ---
Therapeutic paracentesis. DATE OF EXAM: 08/14/2018 CLINICAL HISTORY: Ascites The procedure was discussed with the patient. The risks, complications, benefits, and alternatives we re discussed and any questions were answered. Informed consent was obtained. The patient was placed s upine on the ultrasound table and prepped and draped in the usual sterile fashion. All elements of maximal barrier technique were utilized. Under ultrasound guidance, access into the right lower quadrant was obtained, via the paracentesis catheter system and direct ultrasound guidanc e. Approximately 4.15 liters of straw-colored fluid was removed. The patient was stable throughout the p rocedure and remained stable upon discharge from Department of Radiology. IMPRESSION: Successful therapeutic paracentesis under ultrasound guidance.
== END 2018-08-14 10:20 | disposition home or self-care (01) ==
LOC: RADPROMAIN 07:56
PROVIDERS: ATTEND Internal Medicine Hematology & Oncology
DX: R18.8 Other ascites (principal); D83.9 Common variable immunodeficiency, unspecified; D46.9 Myelodysplastic syndrome, unspecified; I10 Essential (primary) hypertension; G60.8 Other hereditary and idiopathic neuropathies; K70.9 Alcoholic liver disease, unspecified; J45.21 Mild intermittent asthma with (acute) exacerbation; M15.9 Polyosteoarthritis, unspecified; F10.10 Alcohol abuse, uncomplicated; D61.818 Other pancytopenia; Z79.82 Long term (current) use of aspirin; Z79.899 Other long term (current) drug therapy; Z79.51 Long term (current) use of inhaled steroids; Z79.52 Long term (current) use of systemic steroids; Z76.82 Awaiting organ transplant status; Z88.1 Allergy status to other antibiotic agents; Z91.018 Allergy to other foods
CPT/HCPCS: 82565; 85049; 85610; 36415; 49083; P9047

== ENCOUNTER → 2018-08-14 | Outpatient (CLI) | payer OTHER ==
[2018-08-14 10:57] LABS: Appearance,Urine Clear (Clear); Bilirubin,Urine Negative (Negative); Blood,Urine Negative (Negative); Color,Urine Yellow; Glucose,Urine (UA) Negative (Negative); Ketones,Urine Negative (Negative); Leukocyte Esterase,Urine Negative (Negative); Nitrite,Urine Negative (Negative); Protein,Urine Negative (Negative); Urobilinogen,Urine <2.0 mg/dL (<2.0)
[2018-08-14 11:05] LABS: Anisocytosis Moderate; HGB 8.2 gm/dL (13.0-17.5); Hypochromasia Marked; MCH 32.7 pg (25.0-35.0); MCHC 31.5 g/dL (31.0-37.0); Macrocytosis Marked; Mean Platelet Volume 9.5; Poikilocytosis Slight; RDW 22.4 % (11.5-15.5); WBC 1.6 k/uL (3.8-10.6)
[2018-08-14 11:12] LABS: Albumin 2.9 g/dL (3.5-5.0); Magnesium 1.6 mg/dL (1.6-2.3); Uric Acid 14.7 mg/dL (3.5-8.5)
[2018-08-14 11:21] LABS: MCV 104.1 fL (80.0-100.0); Platelet Count 70 k/uL (150-450)
[2018-08-14 16:46] LABS: Iron Saturation 44.52 (15.00-50.00); Vitamin D 25 Hydroxy 33.5 ng/mL (30.0-100.0)
[2018-08-14 18:43] LABS: Parathyroid Hormone Intact 74.5 pg/mL (14.0-72.0)
== END | disposition home or self-care (01) ==
LOC: LABWHC1 10:20
PROVIDERS: ATTEND Nurse Practitioner Family
DX: N17.9 Acute kidney failure, unspecified (principal); D64.9 Anemia, unspecified; N39.0 Urinary tract infection, site not specified; E21.3 Hyperparathyroidism, unspecified; E55.9 Vitamin D deficiency, unspecified; M10.9 Gout, unspecified
CPT/HCPCS: 36415; 80048; 81003; 82040; 82306; 82728; 83540; 83550; 83735; 83970; 84100; 84550; 85027

== ENCOUNTER → 2018-08-30 | Outpatient (CLI) | payer OTHER ==
--- NOTE | 2018-08-30 15:11 | US ---
EXAMINATION TYPE: US kidneys/renal and bladder DATE OF EXAM: 08/30/2018 COMPARISON: ABD US dated 01/08/2018 CLINICAL HISTORY: N17.9 THUY. EXAM MEASUREMENTS: Right Kidney: 9.9 x 4.8 x 6.2 cm Left Kidney: 11.1 x 4.9 x 5.6 cm Right Kidney: No hydronephrosis or masses seen Left Kidney: hypoechoic area in the sinus that measures 1.8 x 1.7 x 1.9 cm, possible renal pelvis cys t versus other etiology. Bladder: wnl Bilateral Jets seen: No Incidental note is made of enlarged spleen at 19 cm. Incidental note is made of moderate amount of ascites. There is ascites. Kidneys show normal cortical medullary differentiation. Cortical echogenicity does appear increased within the left kidney and right kidney. IMPRESSION: Findings suggest medical renal disease. Cystic focus within the renal pelvis is a stable finding. There is splenomegaly and ascites.
== END | disposition home or self-care (01) ==
LOC: RADUSWWP 12:40
PROVIDERS: ATTEND Internal Medicine Nephrology
DX: N28.1 Cyst of kidney, acquired (principal); R16.1 Splenomegaly, not elsewhere classified; R18.8 Other ascites
CPT/HCPCS: 76770

== ENCOUNTER 2018-10-02 10:52 | Inpatient (IN) | payer OTHER ==
[2018-10-02] MEDS ORDERED: SODIUM CHLORIDE 0.9% 500 ML 500 ML IV STA (11:20)
[2018-10-02] MEDS ORDERED: IBUPROFEN 600 MG TAB PO STA (11:36)
--- NOTE | 2018-10-02 12:39 | ED ---
Weakness HPI - General Source: patient, family, EMS, RN notes reviewed Mode of arrival: EMS Limitations: altered mental status, physical limitation <Kevon Cisneros - Last Filed: 10/02/18 14:23> <Shahid Handley - Last Filed: 10/02/18 14:35> - General Chief complaint: Weakness Stated complaint: Hx Liver failure Time Seen by Provider: 10/02/18 10:58 - History of Present Illness Initial comments: This is a 58-year-old male presents emergency department via EMS with chief complaint of weakness. Patient has multiple deformities including liver failure with multiple bouts of sepsis, history of renal failure with sepsis. Patient reportedly has been more weak the last few days complaining of left leg pain in which she's had prior fasciotomy secondary to infections. Patient does see wound care for these wounds weekly. Patient reported fever today, too weak to ambulate. Patient has a cough though this is a chronic cough in nature. Patient was on prior liver transplant list though was removed secondary to infections. 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 Patient has been sober for 3-4 years. Patient denies any chest pain. He does have mild abdominal distention which is normal for him he has had prior paracentesis. He has no current dysuria no hematuria. (Kevon Cisneros) - Related Data Home Medications Medication Instructions Recorded Confirmed Montelukast [Singulair] 10 mg PO HS 10/15/14 10/02/18 Digoxin [Lanoxin] 62.5 mcg PO Q48H 06/13/18 10/02/18 Gabapentin [Neurontin] 100 mg PO BID 06/13/18 10/02/18 Metoprolol Tartrate [Lopressor] 25 mg PO BID 06/13/18 10/02/18 Sodium Bicarbonate Tab 1,300 mg PO BID 06/13/18 10/02/18 Bumetanide [BUMEX] 1 mg pe PO DAILY 07/20/18 10/02/18 Citalopram Hydrobromide 10 mg PO DAILY 08/14/18 10/02/18 [Citalopram HBr] Cholecalciferol [Vitamin D3] 1,000 unit PO DAILY 08/21/18 10/02/18 Dronabinol [Marinol] 10 mg PO AC-SUPPER 08/21/18 10/02/18 Misoprostol [Cytotec] 100 mcg PO BID 08/21/18 10/02/18 Diphenoxylate HCl/Atropine 1 - 2 tab PO Q6H PRN 10/02/18 10/02/18 [Lomotil 2.5-0.025 mg Tablet] Rifaximin [Xifaxan] 550 mg PO BID 10/02/18 10/02/18 traMADol HCl [Ultram] 50 mg PO Q6HR PRN 10/02/18 10/02/18 Allergies Allergy/AdvReac Type Severity Reaction Status Date / Time wheat AdvReac Severe Nausea & Verified 10/02/18 12:05 Vomiting & Diarrhea,flu like symptoms cephalexin [From Keflex] AdvReac Unknown Verified 10/02/18 12:05 gluten AdvReac Nausea & Verified 10/02/18 12:05 Vomiting & Diarrhea Iodinated Contrast- Oral and AdvReac KIDNEYS Verified 10/02/18 12:05 IV Dye levofloxacin [From Levaquin] AdvReac TENDON PAIN Verified 10/02/18 12:05 Review of Systems ROS Other: All systems not noted in ROS Statement are negative. <Kevon Cisneros - Last Filed: 10/02/18 14:23> ROS Other: All systems not noted in ROS Statement are negative. <Shahid Handley - Last Filed: 10/02/18 14:35> ROS Statement: Those systems with pertinent positive or pertinent negative responses have been documented in the HPI. 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 History of Any Multi-Drug Resistant Organisms: CRE, VRE Date of last positivie culture/infection: 05/31/18 CRE-Enterobacter cloacae; VRE MDRO Source:: Sputum-CRE; Blood VRE Additional Past Surgical History / Comment(s): vasectomy, mediport placement and removed. bilateral cataract/lens surgery, removal of cervical lymph node- benign, BMA, colonoscopies and EGDs, bilateral myringotomy, abdominal paracentesis. Past Anesthesia/Blood Transfusion Reactions: No Reported Reaction Additional Past Anesthesia/Blood Transfusion Reaction / Comment(s): no problems prior blood transfusion Past Psychological History: No Psychological Hx Reported Smoking Status: Former smoker Past Alcohol Use History: None Reported Past Drug Use History: None Reported - Past Family History Father Family Medical History: Thyroid Disorder Additional Family Medical History / Comment(s): Father has hypothyroidism. Mother Family Medical History: Liver Disease Additional Family Medical History / Comment(s): Mother from hepatitis C at the age of 60. <Kevon Cisneros - Last Filed: 10/02/18 14:23> General Exam Limitations: altered mental status, physical limitation General appearance: alert, in no apparent distress Head exam: Present: atraumatic, normocephalic, normal inspection Eye exam: Present: PERRL, EOMI, scleral icterus. Absent: normal appearance, conjunctival injection, periorbital swelling ENT exam: Present: normal exam, normal oropharynx, mucous membranes moist Neck exam: Present: normal inspection, full ROM. Absent: tenderness, meningismus, lymphadenopathy Respiratory exam: Present: rales. Absent: normal lung sounds bilaterally, respiratory distress, wheezes, rhonchi, stridor Cardiovascular Exam: Present: normal rhythm, tachycardia, normal heart sounds. Absent: systolic murmur, diastolic murmur, rubs, gallop, clicks GI/Abdominal exam: Present: soft, distended, tenderness (Mild), normal bowel sounds. Absent: guarding, rebound, rigid Neurological exam: Present: alert, CN II-XII intact. Absent: oriented X3 Skin exam: Present: warm, dry, intact, normal color. Absent: rash <Kevon Cisneros - Last Filed: 10/02/18 14:23> Course <Kevon Cisneros - Last Filed: 10/02/18 14:23> <Shahid Handley - Last Filed: 10/02/18 14:35> Vital Signs 10/02/18 10/02/18 10/02/18 11:09 11:30 12:00 Temperature 102.4 F H Pulse Rate 113 H 92 94 Respiratory 18 16 19 Rate Blood Pressure 140/76 140/76 122/70 O2 Sat by Pulse 93 L 94 L 97 Oximetry 10/02/18 10/02/18 10/02/18 12:30 13:00 13:30 Temperature Pulse Rate 91 93 89 Respiratory 18 17 16 Rate Blood Pressure 126/65 126/65 106/58 O2 Sat by Pulse 95 96 95 Oximetry 10/02/18 13:56 Temperature 99.1 F Pulse Rate Respiratory Rate Blood Pressure O2 Sat by Pulse Oximetry - Reevaluation(s) Reevaluation #1: 10/02/18 14:29 Sepsis diagnosis at 1415. IV fluid bolus and antibiotics were ordered (Kevon Cisneros) EKG Findings - EKG Comments: EKG Findings:: EKG performed at 11:55 normal sinus rhythm with a rate of 97 MA 140 QRS 90 QT /QTC 4:30/546 <Kevon Cisneros - Last Filed: 10/02/18 14:23> Medical Decision Making - Lab Data Result diagrams: 10/02/18 13:14 10/02/18 13:14 <Kevon Cisneros - Last Filed: 10/02/18 14:23> - Lab Data Result diagrams: 10/02/18 13:14 10/02/18 13:14 <Shahid Handley - Last Filed: 10/02/18 14:35> - Medical Decision Making 58-year-old male presented for weakness, altered mental status, fever. Patient had lab work, x-ray, urinalysis. Patient is found to have multifocal pneumonia , urinary tract infection with altered mental status secondary to elevated and ammonia level. Patient we given lactulose, admitted to the hospital on IV antibiotics with consults. (Kevon Cisneros) Patient reevaluated by myself, Dr. Handley. Patient resting comfortably in bed. Patient does appear to have dry mucous membranes. Patient and family are updated on results and plan. Case was discussed in detail with Dr. Moss, who has previously admitted this patient and will admit. He does request consult with Dr. Mcintyre. I did review and agree with PA findings. This includes all diagnostic interpretations and treatment plan. (Shahid Handley) - Lab Data Lab Results 10/02/18 10/02/18 10/02/18 Range/Units 11:45 13:04 13:14 WBC 5.4 (3.8-10.6) k/uL RBC 3.27 L (4.30-5.90) m/uL Hgb 10.6 L (13.0-17.5) gm/dL Hct 32.6 L (39.0-53.0) % MCV 99.8 (80.0-100.0) fL MCH 32.3 (25.0-35.0) pg MCHC 32.4 (31.0-37.0) g/dL RDW 19.4 H (11.5-15.5) % Plt Count 49 L (150-450) k/uL Neutrophils % 52 % Lymphocytes % 31 % Monocytes % 9 % Eosinophils % 4 % Basophils % 1 % Neutrophils # 2.8 (1.3-7.7) k/uL Lymphocytes # 1.6 (1.0-4.8) k/uL Monocytes # 0.5 (0-1.0) k/uL Eosinophils # 0.2 (0-0.7) k/uL Basophils # 0.1 (0-0.2) k/uL Manual Slide Review Performed Hypochromasia Slight Poikilocytosis Slight Anisocytosis Slight Macrocytosis Moderate Target Cells Present Fragmented RBCs Present PT (9.0-12.0) sec INR (<1.2) APTT (22.0-30.0) sec Sodium (137-145) mmol/L Potassium (3.5-5.1) mmol/L Chloride (98-107) mmol/L Carbon Dioxide (22-30) mmol/L Anion Gap mmol/L BUN (9-20) mg/dL Creatinine (0.66-1.25) mg/dL Est GFR (CKD-EPI)AfAm (>60 ml/min/1.73 sqM) Est GFR (CKD-EPI)NonAf (>60 ml/min/1.73 sqM) Glucose (74-99) mg/dL POC Glucose (mg/dL) 91 (75-99) mg/dL POC Glu Theology Professor Angela Bianchi Plasma Lactic Acid Sky (0.7-2.0) mmol/L Calcium (8.4-10.2) mg/dL Phosphorus (2.5-4.5) mg/dL Magnesium (1.6-2.3) mg/dL Total Bilirubin (0.2-1.3) mg/dL AST (17-59) U/L ALT (21-72) U/L Alkaline Phosphatase (38-126) U/L Ammonia (<30) umol/L Total Creatine Kinase (55-170) U/L CK-MB (CK-2) (0.0-2.4) ng/mL CK-MB (CK-2) Rel Index Troponin I (0.000-0.034) ng/mL Total Protein (6.3-8.2) g/dL Albumin (3.5-5.0) g/dL Urine Color Urine Appearance (Clear) Urine pH (5.0-8.0) Ur Specific Marissa (1.001-1.035) Urine Protein (Negative) Urine Glucose (UA) (Negative) Urine Ketones (Negative) Urine Blood (Negative) Urine Nitrite (Negative) Urine Bilirubin (Negative) Urine Urobilinogen (<2.0) mg/dL Ur Leukocyte Esterase (Negative) Urine RBC (0-5) /hpf Urine WBC (0-5) /hpf Urine WBC Clumps (None) /hpf Ur Squamous Epith Cells (0-4) /hpf Urine Bacteria (None) /hpf Hyaline Casts (0-2) /lpf Urine Yeast (Budding) (None) /hpf 10/02/18 10/02/18 10/02/18 Range/Units 13:14 13:14 13:14 WBC (3.8-10.6) k/uL RBC (4.30-5.90) m/uL Hgb (13.0-17.5) gm/dL Hct (39.0-53.0) % MCV (80.0-100.0) fL MCH (25.0-35.0) pg MCHC (31.0-37.0) g/dL RDW (11.5-15.5) % Plt Count (150-450) k/uL Neutrophils % % Lymphocytes % % Monocytes % % Eosinophils % % Basophils % % Neutrophils # (1.3-7.7) k/uL Lymphocytes # (1.0-4.8) k/uL Monocytes # (0-1.0) k/uL Eosinophils # (0-0.7) k/uL Basophils # (0-0.2) k/uL Manual Slide Review Hypochromasia Poikilocytosis Anisocytosis Macrocytosis Target Cells Fragmented RBCs PT 14.9 H (9.0-12.0) sec INR 1.6 H (<1.2) APTT 37.4 H (22.0-30.0) sec Sodium 139 (137-145) mmol/L Potassium 3.3 L (3.5-5.1) mmol/L Chloride 103 (98-107) mmol/L Carbon Dioxide 29 (22-30) mmol/L Anion Gap 7 mmol/L BUN 61 H (9-20) mg/dL Creatinine 2.83 H (0.66-1.25) mg/dL Est GFR (CKD-EPI)AfAm 27 (>60 ml/min/1.73 sqM) Est GFR (CKD-EPI)NonAf 24 (>60 ml/min/1.73 sqM) Glucose 96 (74-99) mg/dL POC Glucose (mg/dL) (75-99) mg/dL POC Glu Theology Professor ID Plasma Lactic Acid Sky (0.7-2.0) mmol/L Calcium 7.9 L (8.4-10.2) mg/dL Phosphorus 3.3 (2.5-4.5) mg/dL Magnesium 1.9 (1.6-2.3) mg/dL Total Bilirubin 5.7 H (0.2-1.3) mg/dL AST 80 H (17-59) U/L ALT 30 (21-72) U/L Alkaline Phosphatase 219 H (38-126) U/L Ammonia (<30) umol/L Total Creatine Kinase 31 L (55-170) U/L CK-MB (CK-2) 0.3 (0.0-2.4) ng/mL CK-MB (CK-2) Rel Index 1.0 Troponin I 0.084 H* (0.000-0.034) ng/mL Total Protein 4.7 L (6.3-8.2) g/dL Albumin 2.1 L (3.5-5.0) g/dL Urine Color Urine Appearance (Clear) Urine pH (5.0-8.0) Ur Specific Marissa (1.001-1.035) Urine Protein (Negative) Urine Glucose (UA) (Negative) Urine Ketones (Negative) Urine Blood (Negative) Urine Nitrite (Negative) Urine Bilirubin (Negative) Urine Urobilinogen (<2.0) mg/dL Ur Leukocyte Esterase (Negative) Urine RBC (0-5) /hpf Urine WBC (0-5) /hpf Urine WBC Clumps (None) /hpf Ur Squamous Epith Cells (0-4) /hpf Urine Bacteria (None) /hpf Hyaline Casts (0-2) /lpf Urine Yeast (Budding) (None) /hpf 10/02/18 10/02/18 Range/Units 13:14 13:14 WBC (3.8-10.6) k/uL RBC (4.30-5.90) m/uL Hgb (13.0-17.5) gm/dL Hct (39.0-53.0) % MCV (80.0-100.0) fL MCH (25.0-35.0) pg MCHC (31.0-37.0) g/dL RDW (11.5-15.5) % Plt Count (150-450) k/uL Neutrophils % % Lymphocytes % % Monocytes % % Eosinophils % % Basophils % % Neutrophils # (1.3-7.7) k/uL Lymphocytes # (1.0-4.8) k/uL Monocytes # (0-1.0) k/uL Eosinophils # (0-0.7) k/uL Basophils # (0-0.2) k/uL Manual Slide Review Hypochromasia Poikilocytosis Anisocytosis Macrocytosis Target Cells Fragmented RBCs PT (9.0-12.0) sec INR (<1.2) APTT (22.0-30.0) sec Sodium (137-145) mmol/L Potassium (3.5-5.1) mmol/L Chloride (98-107) mmol/L Carbon Dioxide (22-30) mmol/L Anion Gap mmol/L BUN (9-20) mg/dL Creatinine (0.66-1.25) mg/dL Est GFR (CKD-EPI)AfAm (>60 ml/min/1.73 sqM) Est GFR (CKD-EPI)NonAf (>60 ml/min/1.73 sqM) Glucose (74-99) mg/dL POC Glucose (mg/dL) (75-99) mg/dL POC Glu Theology Professor ID Plasma Lactic Acid Sky 3.2 H* (0.7-2.0) mmol/L Calcium (8.4-10.2) mg/dL Phosphorus (2.5-4.5) mg/dL Magnesium (1.6-2.3) mg/dL Total Bilirubin (0.2-1.3) mg/dL AST (17-59) U/L ALT (21-72) U/L Alkaline Phosphatase (38-126) U/L Ammonia 60 H (<30) umol/L Total Creatine Kinase (55-170) U/L CK-MB (CK-2) (0.0-2.4) ng/mL CK-MB (CK-2) Rel Index Troponin I (0.000-0.034) ng/mL Total Protein (6.3-8.2) g/dL Albumin (3.5-5.0) g/dL Urine Color Dark Yellow Urine Appearance Cloudy (Clear) Urine pH 5.0 (5.0-8.0) Ur Specific Marissa 1.012 (1.001-1.035) Urine Protein Trace H (Negative) Urine Glucose (UA) Negative (Negative) Urine Ketones Negative (Negative) Urine Blood Trace H (Negative) Urine Nitrite Negative (Negative) Urine Bilirubin Negative (Negative) Urine Urobilinogen <2.0 (<2.0) mg/dL Ur Leukocyte Esterase Moderate H (Negative) Urine RBC 1 (0-5) /hpf Urine WBC 17 H (0-5) /hpf Urine WBC Clumps Occasional H (None) /hpf Ur Squamous Epith Cells <1 (0-4) /hpf Urine Bacteria Rare H (None) /hpf Hyaline Casts 27 H (0-2) /lpf Urine Yeast (Budding) Rare H (None) /hpf Critical Care Time Critical Care Time: Yes Total Critical Care Time: 35 <Kevon Cisneros - Last Filed: 10/02/18 14:23> <Shahid Handley - Last Filed: 10/02/18 14:35> Critical Care Time: Critical care time 35 minutes. Patient presented for febrile illness, altered mental status. Patient had thorough evaluation and discussion with on initial exam. Patient had lab work, x-ray, urinalysis ordered. Patient is found to have multifocal pneumonia along with the urinary tract infection which explains patient's fever. Patient has evidence of sepsis, elevated lactic, fever, tachycardia and known source of infection. Patient was started on broad- spectrum antibiotics including Zosyn with azithromycin. Patient is found to be altered secondary to sepsis and elevated ammonia level. Patient does have a history of liver failure. Patient will be given lactulose, continued on lactulose on the floor. Patient was given IV hydration including fluid bolus for sepsis continue on 75 m/s per hour. All labs, imaging were reviewed and interpreted and discussed with patient and family member in the room. Patiently admitted to telemetry with consult to GI for liver failure, nephrology for renal failure, admitted to the hospitalist. (Kevon Cisneros) Disposition <Kevon Cisneros - Last Filed: 10/02/18 14:23> <Shahid Handley - Last Filed: 10/02/18 14:35> Clinical Impression: Sepsis, Hyperbilirubinemia, Ascites due to alcoholic cirrhosis, Multifocal pneumonia, Urinary tract infection, Liver failure, Renal failure, Hyperammonemia Disposition: ADMITTED IP TO THIS HOSP Condition: Critical Referrals: Baldo Flanagan MD [STAFF PHYSICIAN] - 1-2 days
[2018-10-02 13:09] LABS: Glucose,Whole Blood 91 mg/dL (75-99)
--- NOTE | 2018-10-02 13:39 | XR ---
EXAMINATION TYPE: XR chest 2V DATE OF EXAM: 10/02/2018 COMPARISON: 08/01/2018 HISTORY: Shortness of breath TECHNIQUE: Frontal and lateral views of the chest are obtained. FINDINGS: Scattered senescent parenchymal changes noted. Hyperinflation compatible with COPD. Patchy perihilar and basilar infiltrates may reflect underlying pneumonia. Small pleural effusions. P ulmonary venous congestion is also noted. Heart size is stable. Mediastinal structures are stable and grossly unremarkable. No evidence for hilar prominence. Degenerative changes dorsal spine. IMPRESSION: 1. The findings may reflect multifocal pneumonia with parapneumonic effusion although superimposed co ngestive failure is difficult to exclude. Correlate clinically and progress studies are recommended.
--- NOTE | 2018-10-02 13:40 | XR ---
EXAMINATION TYPE: XR femur LT DATE OF EXAM: 10/02/2018 CLINICAL HISTORY: pain TECHNIQUE: Two views of the left femur are obtained. COMPARISON: None. FINDINGS: There is no acute fracture or dislocation seen of the femur. The hip and knee joints nader ear within normal limits. The overlying soft tissue appears unremarkable. IMPRESSION: There is no acute fracture or dislocation seen of the femur. ICD 10 NO FRACTURE, INITIAL EVALUATION
[2018-10-02 13:44] LABS: Anisocytosis Slight; Basophils # (A) 0.1 k/uL (0-0.2); Basophils % (A) 1 %; Eosinophils # (A) 0.2 k/uL (0-0.7); Eosinophils % (A) 4 %; HCT 32.6 % (39.0-53.0); HGB 10.6 gm/dL (13.0-17.5); Hypochromasia Slight; Lymphocytes # (A) 1.6 k/uL (1.0-4.8); Lymphocytes % (A) 31 %; MCH 32.3 pg (25.0-35.0); MCHC 32.4 g/dL (31.0-37.0); MCV 99.8 fL (80.0-100.0); Macrocytosis Moderate; Mean Platelet Volume 6.9; Monocytes # (A) 0.5 k/uL (0-1.0); Monocytes % (A) 9 %; Neutrophils # (A) 2.8 k/uL (1.3-7.7); Neutrophils % (A) 52 %; Poikilocytosis Slight; RBC 3.27 m/uL (4.30-5.90); RDW 19.4 % (11.5-15.5); WBC 5.4 k/uL (3.8-10.6)
[2018-10-02 13:51] LABS: Albumin 2.1 g/dL (3.5-5.0); Calcium 7.9 mg/dL (8.4-10.2); INR 1.6 (<1.2); Magnesium 1.9 mg/dL (1.6-2.3); Partial Thromboplastin Time 37.4 sec (22.0-30.0); Phosphorus 3.3 mg/dL (2.5-4.5); Potassium 3.3 mmol/L (3.5-5.1); Prothrombin Time 14.9 sec (9.0-12.0); Total Bilirubin 5.7 mg/dL (0.2-1.3); Total Protein 4.7 g/dL (6.3-8.2)
[2018-10-02 13:52] LABS: Appearance,Urine Cloudy (Clear); Bacteria,Urine Rare /hpf; Bilirubin,Urine Negative (Negative); Blood,Urine Trace (Negative); Budding Yeast,Urine Rare /hpf; Color,Urine Dark Yellow; Glucose,Urine (UA) Negative (Negative); Hyaline Casts,Urine 27 /lpf (0-2); Ketones,Urine Negative (Negative); Lactic Acid, Venous 3.2 mmol/L (0.7-2.0); Leukocyte Esterase,Urine Moderate (Negative); Nitrite,Urine Negative (Negative); Protein,Urine Trace (Negative); RBC,Urine 1 /hpf (0-5); Specific Gravity,Urine 1.012 (1.001-1.035); Squamous Epithelial Cell,Urine <1 /hpf (0-4); Urobilinogen,Urine <2.0 mg/dL (<2.0); WBC,Urine 17 /hpf (0-5)
[2018-10-02 14:01] LABS: RBC Fragments Present; Target Cells Present
[2018-10-02 14:02] LABS: Platelet Count 49 k/uL (150-450)
[2018-10-02 14:16] LABS: Creatine Kinase MB 0.3 ng/mL (0.0-2.4)
[2018-10-02 14:22] LABS: Troponin I 0.084 ng/mL (0.000-0.034)
[2018-10-02] MEDS ORDERED: SODIUM CHLORIDE 0.9% 500 ML 500 ML IV ONE ×2 (14:22→14:35)
[2018-10-02] MEDS ORDERED: SODIUM CHLORIDE 0.9% 1,000 ML IV ONE (14:22)
[2018-10-02] MEDS ORDERED: PIPERACILLIN-TAZOBACTAM 3.375 GM in SODIUM CHLORIDE 0.9% 100 ML IVPB STA (14:22)
[2018-10-02] MEDS ORDERED: AZITHROMYCIN 500 MG in SODIUM CHLORIDE 0.9% 250 ML IVPB STA (14:28)
[2018-10-02] MEDS ORDERED: LACTULOSE 20 GM/30 ML CUP PO ONE (14:30)
[2018-10-02] MEDS ORDERED: POTASSIUM CHLORIDE ER 20 MEQ TAB.ER PO STA (15:45)
[2018-10-02] MEDS: SODIUM CHLORIDE 0.9% 1,000 ML IV SCH ×2 (16:47→23:47)
--- NOTE | 2018-10-02 20:54 | HP ---
HISTORY AND PHYSICAL DATE OF SERVICE: 10/02/2018 CHIEF COMPLAINTS: Weakness and change in mental status. HISTORY OF PRESENT ILLNESS: This 58-year-old gentleman with a past medical history of multiple medical problems including atrial fibrillation, history of asthma, GI bleed, hypertension, liver disease, pneumonia, renal disease, being followed by Dr. Scott in the outpatient setting also had history of cirrhosis. Patient . Patient apparently had abdominal distention, abdominal paracentesis recently in [facility]. Currently the patient complains of increased abdomen distention as well as change in mental status and fever and cough and the patient came to [facility] and admitted to the hospital for further evaluation and treatment. Patient was noted to have bilateral pneumonia, multilobar pneumonia and as well as features of sepsis. Patient also had features of acute respiratory failure. Patient also had features of sepsis. Lactic acid also elevated. There is no history of fever, rigors or chills. No history of any headache, loss of consciousness or seizures at this time. PAST MEDICAL HISTORY: History of atrial fibrillation, asthma, GI bleed, history of liver disease, history of renal disease, CRV, MRSA and VRE. FAMILY HISTORY: History of liver disease, hepatitis C in mother. SOCIAL HISTORY: Previous history of smoking. No history of current smoking. No alcohol intake alcohol intake. REVIEW OF SYSTEMS: ENT: No diminished vision. No diminished hearing. Cardiovascular: No angina. Respirations: As mentioned earlier. GI: As mentioned earlier. as mentioned earlier. Central nervous system: As mentioned earlier. Allergy/Immunology: No asthma or hayfever. MUSCULOSKELETAL as mentioned earlier. Hematology/Oncology: No history of anemia. Endocrine: No history of diabetes or hypothyroidism. CONSTITUTIONAL: As mentioned earlier. Dermatology: Negative. Rheumatology: Negative. Psychiatry: As mentioned earlier. PHYSICAL EXAMINATION: Alert and oriented x3. Pulse 80, blood pressure 105/54, respiratory rate 16, temperature 98.1, pulse ox 98% on room air. HEENT: Conjunctivae normal. Oral mucosa moist. Neck is no jugular venous distention. No carotid bruit. No lymph node node enlargement. Cardiovascular system: S1, S2. No S3. Ejection systolic murmur. RESPIRATORY: Breath sounds diminished in the bases. A few scattered rhonchi and crackles. Abdomen: Soft, otherwise, diffuse distention. Umbilical hernia also present. Ascites present. present. LEGS: Minimal bilateral leg edema. Nervous system: Higher functions as mentioned earlier. Moves all four extremities. Mild diffuse weakness. Hepatic flap also present. Otherwise, skin: No ulcer, rash or bleeding. Joints: No active deforming arthropathy. LABS: WBC 5.5, hemoglobin 10.6, and INR 1.6. Creatinine is 2.83. Other labs personally reviewed. ASSESSMENT: 1. Change in mental status acute hepatic encephalopathy. 2. Cirrhosis of liver, possibly secondary to alcohol and hepatic failure. 3. Possible acute sepsis with spontaneous bacterial peritonitis. 4. High lactic acid. 5. Troponin 0.085, indeterminate. 6. Elevated AST. 7. Acute on chronic renal failure, possibly chronic renal failure, stage 3 baseline. 8. Coagulopathy secondary to chronic liver disease. 9. Anemia secondary to liver disease. 10.Thrombocytopenia. 11.Atrial fibrillation. 12.History of asthma. 13.History of gastrointestinal bleed. 14.Hypertension. 15.History of pneumonia. 16.History of hypogammaglobinemia. 17.History of common variable immunodeficiency. 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 19.History of vasectomy. RECOMMENDATIONS AND DISCUSSION: In this 58-year-old gentleman who presented with multiple complex medical issues , we will monitor the patient closely, continue the current management and continue symptomatic treatment. We will initiate Zosyn and Zithromax at this time. Resume the home medications and I would also recommend lactulose. Cultures and monitor labs closely. I would also recommend consultation with Gastroenterology, Infectious Disease also and cardiology also. The prognosis is guarded because of multiple complex medical issues. Further recommendations to follow. A copy of dictation being forwarded to Dr. Scott who is the primary physician. MMODL / IJN: [id number] / MTDNicole
[2018-10-02] MEDS: LACTULOSE 20 GM/30 ML CUP PO SCH ×2 (21:49→21:51)
[2018-10-02] MEDS: METOPROLOL TARTRATE 25 MG TAB PO SCH (21:49)
[2018-10-02] MEDS: SODIUM BICARBONATE TAB 650 MG TAB PO SCH (21:49)
[2018-10-02] MEDS: MONTELUKAST 10 MG TAB PO SCH (21:49)
[2018-10-02] MEDS: GABAPENTIN 100 MG CAP PO SCH (21:50)
[2018-10-02] MEDS: RIFAXIMIN 550 MG TABLET PO SCH (21:51)
[2018-10-02] MEDS: MISOPROSTOL 100 MCG TAB PO SCH (21:51)
[2018-10-02] MEDS: PIPERACILLIN-TAZOBACTAM 3.375 GM in SODIUM CHLORIDE 0.9% 100 ML IVPB SCH (23:46)
--- NOTE | 2018-10-03 01:29 | CONS ---
CONSULTATION DATE OF SERVICE: 10/02/2018 REASON FOR CONSULTATION: Liver cirrhosis and ascites. HISTORY OF PRESENT ILLNESS: The patient is a 58-year-old pleasant white male admitted to the hospital and was brought in by his in the unit complaining of altered mental status and progressive weakness, not feeling well for the last few days duration. The patient was diagnosed with liver cirrhosis 3 years ago. He follows by refrigerated national truck driver at [facility]. He was on the liver transplant list initially, but recently was taken off the list because of recent episode of severe but according to his he was taken off liver transplant list because of history of immunoglobulin deficiency. For the last 3 days he has been having progressive abdominal distention with vague abdominal discomfort. He did have a large in the past. Last one was done about 6 months ago. He denies any fever, chills, night sweats. He reports no nausea, vomiting, no rectal bleeding or melena. He has history of hepatic encephalopathy and has been maintained on Xifaxan on outpatient basis. He also takes oral lactulose but lately has been having diarrhea and been discontinued the Lactulose. 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 PAST SURGICAL HISTORY: Bilateral cataract surgery, bilateral myringotomies, multiple EGDs and colonoscopies in the past, multiple left leg surgeries for necrotizing fasciitis, MediPort placement. MEDICATIONS: The Lomotil, Xifaxan, Ultram, Cytotec, Marinol, citalopram, Bumex, Lopressor, Neurontin, Lanoxin, Singulair. ALLERGIES: IV DYE AND LEVAQUIN. SOCIAL HISTORY: Former smoker. Remote history of alcohol use. FAMILY HISTORY: Father had hypothyroidism. Mother had chronic hepatitis C infection. REVIEW OF SYSTEMS: Cardiopulmonary: He does complain of . : No dysuria or hematuria. Musculoskeletal: Unremarkable. History of necrotizing fasciitis as mentioned above. Neurology unremarkable. Psychiatric unremarkable. ENT vision unremarkable. Constitutional no recent weight loss. No fever, chills, night sweats. GI as mentioned above. Endocrine: Unremarkable. PHYSICAL EXAMINATION: He appears comfortable. No apparent distress vital signs is stable. Blood pressure is 102/53, pulse rate 92, temperature 98 HEENT examination unremarkable. Conjunctivae pink. Sclerae anicteric. Oral cavity no lesions. NECK: No JVD or lymph node enlargement. CHEST: Clear to auscultation. CARDIOVASCULAR: Heart regular rate and rhythm. ABDOMEN: Soft, it was distended. The umbilical hernia noted. There was significant amount of free fluid noted in the the abdomen. EXTREMITIES: 1+ pedal edema. SKIN: No rashes. NEURO: He is alert and oriented x3. No focal deficits. LAB DATA: Done at the time of admission to the hospital: WBC hemoglobin 10.6, platelets of 49,000. Basic metabolic panel shows BUN of 61, creatinine 2.83, sodium 139, potassium 3.3, chloride 103, CO2 29, AST 80, ALT 30, T bilirubin 5.7, alkaline phosphatase 219, albumin is 2.1. ASSESSMENT: 1. Cirrhosis of the liver related to prior history of alcohol use with gradual decompensation lately presently follows with refrigerated national truck driver at [facility]. 2. Ascites, presently on new diuretics because of chronic kidney disease. Last large volume paracentesis was done about 3-4 months ago. 3. Generalized weakness and fatigue, probably related to gradual decompensation of liver disease. 4. History of hepatic encephalopathy. Presently maintained on oral Xifaxan on an outpatient basis. 5. Chronic kidney disease. 6. Chronic variable immunoglobulin deficiency follows with Dr. Scott and receives IVIG every 3 weeks. 7. Episode of severe necrotizing fasciitis involving the left leg requiring multiple surgeries at [facility]. RECOMMENDATIONS: 1. Gentle IV hydration. 2. Start him on a low-salt diet. 3. We will schedule him for large volume paracentesis tomorrow. 4. Continue with oral Xifaxan and will hold lactulose because of the diarrhea. 5. Repeat labs in the morning . MMODL / IJN: [id number] /
[2018-10-03 06:34] LABS: Anisocytosis Slight; Basophils % (A) 0 %; Eosinophils # (A) 0.2 k/uL (0-0.7); Eosinophils % (A) 4 %; HCT 31.6 % (39.0-53.0); HGB 9.9 gm/dL (13.0-17.5); Hypochromasia Moderate; Lymphocytes # (A) 2.3 k/uL (1.0-4.8); Lymphocytes % (A) 44 %; MCH 31.9 pg (25.0-35.0); MCHC 31.4 g/dL (31.0-37.0); MCV 101.5 fL (80.0-100.0); Macrocytosis Moderate; Mean Platelet Volume 8.2; Monocytes # (A) 0.2 k/uL (0-1.0); Monocytes % (A) 4 %; Neutrophils # (A) 2.4 k/uL (1.3-7.7); Neutrophils % (A) 46 %; Poikilocytosis Slight; RBC 3.11 m/uL (4.30-5.90); RDW 19.2 % (11.5-15.5); WBC 5.2 k/uL (3.8-10.6)
[2018-10-03 06:40] LABS: INR 1.9 (<1.2); Prothrombin Time 16.9 sec (9.0-12.0)
[2018-10-03 06:52] LABS: Albumin 1.7 g/dL (3.5-5.0); Calcium 7.5 mg/dL (8.4-10.2); Magnesium 1.9 mg/dL (1.6-2.3); Potassium 3.4 mmol/L (3.5-5.1); Total Bilirubin 5.2 mg/dL (0.2-1.3)
[2018-10-03 07:09] LABS: Platelet Count 33 k/uL (150-450)
[2018-10-03 07:39] LABS: RBC Fragments Present
[2018-10-03] MEDS: BUMETANIDE 1 MG TAB PO SCH (08:16)
[2018-10-03] MEDS: CHOLECALCIFEROL 1,000 UNIT TAB PO SCH (08:16)
[2018-10-03] MEDS: CITALOPRAM HYDROBROMIDE 10 MG TAB PO SCH (08:16)
[2018-10-03] MEDS: PIPERACILLIN-TAZOBACTAM 3.375 GM in SODIUM CHLORIDE 0.9% 100 ML IVPB SCH ×3 (08:16→23:28)
[2018-10-03] MEDS: GABAPENTIN 100 MG CAP PO SCH ×2 (08:17→20:17)
[2018-10-03] MEDS: RIFAXIMIN 550 MG TABLET PO SCH ×2 (08:17→20:19)
[2018-10-03] MEDS: LACTULOSE 20 GM/30 ML CUP PO SCH ×3 (08:17→20:08)
[2018-10-03] MEDS: METOPROLOL TARTRATE 25 MG TAB PO SCH ×2 (08:17→20:17)
[2018-10-03] MEDS: MISOPROSTOL 100 MCG TAB PO SCH ×2 (08:17→20:17)
[2018-10-03] MEDS: SODIUM BICARBONATE TAB 650 MG TAB PO SCH (08:18)
--- NOTE | 2018-10-03 09:14 | US ---
EXAMINATION TYPE: US abdomen limited DATE OF EXAM: 10/03/2018 COMPARISON: US CLINICAL HISTORY: ascites. All four abdominal quadrants were assessed for fluid with largest amount seen in RLQ = 7.7cm A/P. Low-level internal echoes noted within the fluid. IMPRESSION: There is moderate to extensive ascites. Limited exam.
--- NOTE | 2018-10-03 09:37 | P.PN ---
Subjective Progress Note Date: 10/03/18 Principal diagnosis: Cirrhosis of the liver history of EtOH abuse ascites Feels well. Ultrasound abdomen completed at bedside to assess ascites. Afebrile. Platelets 33,000. INR 1.9. Diagnostic therapeutic paracentesis requested. Total bilirubin 5.2. AST 59. ALT 20. AP 159. BUN 57. Creatinine 3.0. Objective - Vital Signs Vital signs: Vital Signs Temp 97.6 F 10/03/18 08:00 Pulse 64 10/03/18 08:00 Resp 16 10/03/18 08:00 BP 104/64 10/03/18 08:00 Pulse Ox 97 10/03/18 08:00 Intake & Output 10/02/18 10/03/18 10/03/18 18:59 06:59 18:59 Intake Total 1370 Balance 1370 Weight 71.123 kg 78.9 kg Intake: IV 1250 Azithromycin 500 mg In 250 Sodium Chloride 0.9% 250 ml @ 250 mls/hr IVPB ONCE STA Rx#:[id number] Sodium Chloride 0.9% 1, 1000 000 ml @ 999 mls/hr IV . Q1H1M ONE Rx#:[id number] Oral 120 Other: Voiding Method Urinal Urinal Urinal # Voids 1 1 # Bowel Movements 1 1 1 - Exam General appearance: The patient is alert, oriented, in no acute distress. HET: Head is normocephalic and atraumatic. Pupils are equal and reactive. Oropharynx is clear without lesions. Neck: Supple without lymphadenopathy. Trachea midline. Heart: S1 S2. Regular rate and rhythm. Lungs: No crackles or wheezes are heard. Abdomen: Soft, distended with moderate ascites reducible umbilical hernia with bowel sounds. No peritoneal signs. No palpable organomegaly or masses. Extremities: +2 bilateral lower extremity edema Neurological: No focal deficits. Strength and sensation are grossly intact. - Labs CBC & Chem 7: 10/03/18 05:59 10/03/18 05:59 Labs: Abnormal Lab Results - Last 24 Hours (Table) 10/02/18 10/02/18 10/02/18 Range/Units 13:14 13:14 13:14 RBC 3.27 L (4.30-5.90) m/uL Hgb 10.6 L (13.0-17.5) gm/dL Hct 32.6 L (39.0-53.0) % MCV (80.0-100.0) fL RDW 19.4 H (11.5-15.5) % Plt Count 49 L (150-450) k/uL PT 14.9 H (9.0-12.0) sec INR 1.6 H (<1.2) APTT 37.4 H (22.0-30.0) sec Potassium 3.3 L (3.5-5.1) mmol/L Carbon Dioxide (22-30) mmol/L BUN 61 H (9-20) mg/dL Creatinine 2.83 H (0.66-1.25) mg/dL Glucose (74-99) mg/dL Plasma Lactic Acid Sky (0.7-2.0) mmol/L Calcium 7.9 L (8.4-10.2) mg/dL Total Bilirubin 5.7 H (0.2-1.3) mg/dL AST 80 H (17-59) U/L Alkaline Phosphatase 219 H (38-126) U/L Ammonia (<30) umol/L Total Creatine Kinase (55-170) U/L Troponin I (0.000-0.034) ng/mL Total Protein 4.7 L (6.3-8.2) g/dL Albumin 2.1 L (3.5-5.0) g/dL Urine Protein (Negative) Urine Blood (Negative) Ur Leukocyte Esterase (Negative) Urine WBC (0-5) /hpf Urine WBC Clumps (None) /hpf Urine Bacteria (None) /hpf Hyaline Casts (0-2) /lpf Urine Yeast (Budding) (None) /hpf 10/02/18 10/02/18 10/02/18 Range/Units 13:14 13:14 13:14 RBC (4.30-5.90) m/uL Hgb (13.0-17.5) gm/dL Hct (39.0-53.0) % MCV (80.0-100.0) fL RDW (11.5-15.5) % Plt Count (150-450) k/uL PT (9.0-12.0) sec INR (<1.2) APTT (22.0-30.0) sec Potassium (3.5-5.1) mmol/L Carbon Dioxide (22-30) mmol/L BUN (9-20) mg/dL Creatinine (0.66-1.25) mg/dL Glucose (74-99) mg/dL Plasma Lactic Acid Sky 3.2 H* (0.7-2.0) mmol/L Calcium (8.4-10.2) mg/dL Total Bilirubin (0.2-1.3) mg/dL AST (17-59) U/L Alkaline Phosphatase (38-126) U/L Ammonia 60 H (<30) umol/L Total Creatine Kinase 31 L (55-170) U/L Troponin I 0.084 H* (0.000-0.034) ng/mL Total Protein (6.3-8.2) g/dL Albumin (3.5-5.0) g/dL Urine Protein Trace H (Negative) Urine Blood Trace H (Negative) Ur Leukocyte Esterase Moderate H (Negative) Urine WBC 17 H (0-5) /hpf Urine WBC Clumps Occasional H (None) /hpf Urine Bacteria Rare H (None) /hpf Hyaline Casts 27 H (0-2) /lpf Urine Yeast (Budding) Rare H (None) /hpf 10/02/18 10/03/18 10/03/18 Range/Units 17:58 05:59 05:59 RBC 3.11 L (4.30-5.90) m/uL Hgb 9.9 L (13.0-17.5) gm/dL Hct 31.6 L (39.0-53.0) % MCV 101.5 H (80.0-100.0) fL RDW 19.2 H (11.5-15.5) % Plt Count 33 L (150-450) k/uL PT 16.9 H (9.0-12.0) sec INR 1.9 H (<1.2) APTT (22.0-30.0) sec Potassium (3.5-5.1) mmol/L Carbon Dioxide (22-30) mmol/L BUN (9-20) mg/dL Creatinine (0.66-1.25) mg/dL Glucose (74-99) mg/dL Plasma Lactic Acid Sky 4.4 H* (0.7-2.0) mmol/L Calcium (8.4-10.2) mg/dL Total Bilirubin (0.2-1.3) mg/dL AST (17-59) U/L Alkaline Phosphatase (38-126) U/L Ammonia (<30) umol/L Total Creatine Kinase (55-170) U/L Troponin I (0.000-0.034) ng/mL Total Protein (6.3-8.2) g/dL Albumin (3.5-5.0) g/dL Urine Protein (Negative) Urine Blood (Negative) Ur Leukocyte Esterase (Negative) Urine WBC (0-5) /hpf Urine WBC Clumps (None) /hpf Urine Bacteria (None) /hpf Hyaline Casts (0-2) /lpf Urine Yeast (Budding) (None) /hpf 10/03/18 10/03/18 Range/Units 05:59 08:16 RBC (4.30-5.90) m/uL Hgb (13.0-17.5) gm/dL Hct (39.0-53.0) % MCV (80.0-100.0) fL RDW (11.5-15.5) % Plt Count (150-450) k/uL PT (9.0-12.0) sec INR (<1.2) APTT (22.0-30.0) sec Potassium 3.4 L (3.5-5.1) mmol/L Carbon Dioxide 31 H (22-30) mmol/L BUN 57 H (9-20) mg/dL Creatinine 3.02 H (0.66-1.25) mg/dL Glucose 107 H (74-99) mg/dL Plasma Lactic Acid Sky 3.8 H* (0.7-2.0) mmol/L Calcium 7.5 L (8.4-10.2) mg/dL Total Bilirubin 5.2 H (0.2-1.3) mg/dL AST (17-59) U/L Alkaline Phosphatase 159 H (38-126) U/L Ammonia (<30) umol/L Total Creatine Kinase (55-170) U/L Troponin I (0.000-0.034) ng/mL Total Protein 4.0 L (6.3-8.2) g/dL Albumin 1.7 L (3.5-5.0) g/dL Urine Protein (Negative) Urine Blood (Negative) Ur Leukocyte Esterase (Negative) Urine WBC (0-5) /hpf Urine WBC Clumps (None) /hpf Urine Bacteria (None) /hpf Hyaline Casts (0-2) /lpf Urine Yeast (Budding) (None) /hpf Microbiology - Last 24 Hours (Table) 10/02/18 13:14 Urine Culture - Preliminary Urine,Voided Assessment and Plan (1) Ascites due to alcoholic cirrhosis Narrative/Plan: 58-year-old male with a history of EtOH abuse admitted with elevated liver enzymes ascites decompensated alcohol liver failure with underlying chronic kidney disease, hepatic encephalopathy, portal hypertension and CVID. History of severe necrotizing fasciitis involving the left leg requiring multiple surgeries at . Current Visit: Yes Status: Acute Priority: High Code(s): K70.31 - ALCOHOLIC CIRRHOSIS OF LIVER WITH ASCITES SNOMED Code(s): 8530542843116724 (2) Chronic kidney disease Current Visit: Yes Status: Acute Code(s): N18.9 - CHRONIC KIDNEY DISEASE, UNSPECIFIED SNOMED Code(s): 070268014 Plan: 1. Continue present medical therapy. Case was discussed with interventional radiology patient will require platelet transfusion possible FFP prior to paracentesis most likely tomorrow. Will provide a dose of oral vitamin K today repeat PT/INR CBC CMP in a.m. Will follow closely with you. Assessment and plan a care discussed with Dr. Ty
[2018-10-03] MEDS ORDERED: Potassium Replacement Protocol 1 EACH MISC MISCELLANE PRN (10:09)
[2018-10-03] MEDS: POTASSIUM CHLORIDE ER 20 MEQ TAB.ER PO SCH ×2 (11:33→12:23)
[2018-10-03] MEDS: DIGOXIN 62.5 MCG TAB PO SCH (11:33)
--- NOTE | 2018-10-03 11:41 | P.CONS ---
History of Present Illness - Reason for Consult Consult date: 10/03/18 Known patient, common variable immunodeficiency Requesting physician: Renu Moss - Chief Complaint Confusion, weakness - History of Present Illness Mr. Bruner is a very pleasant male pt of Dr. Scott who is seen for common variable immunodeficiency for which he receives IVIG every 3-4 weeks-for many years, last dose was last week. 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 Long standing cirrhosis of the liver, no longer a transplant candidate after necrotizing fascitis? He had necrotizing fascitis in March 2018 that required extensive surgery/fasciotomy. 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 kemal pt to ER last night as he was weak, a little confused and his LLE was very painful, he also was "on the floor" but pt cannot give me any further detains as to how he got there-does not remember falling. Femur XRay did not show fracture, CXR possible pneumonia, he is on abx, leg pain is stable, no fevers, chills, nausea, vomiting, SOB, chest pain, abd is distended more, had a loose BM this AM, denied abd cramping, blood or mucus in the stool. Review of Systems 14 point review of systems is as stated in HPI, patient is noted to be slightly confused. Past Medical History Past Medical History: Atrial Fibrillation, Asthma, GI Bleed, Hypertension, Liver Disease, Pneumonia, Renal Disease Additional Past Medical History / Comment(s): Cirrhosis(no longer on transplant list), hypogammaglobulinemia, common variable immunoglobulin deficiency- receives IV IG with last infusion "monday"-gets infusions q 3 weeks, ascities, anemia, bronchitis, neuropathy in hands and legs but less so since gluten free diet, celiac disease, diverticulosis, rectal bleed , umbilical hernia, R inguinal hernia, necrotizing fascitis under L arm 20 yrs ago. hx lt clavical fx-no sx.wears brief/incont of stool at times. 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 bilateral cataract/lens surgery, removal of cervical lymph node- benign, BMA, colonoscopies and EGDs, bilateral myringotomy, abdominal paracentesis.lt leg-sx d/t soft tissue infection sx done at [facility] Past Anesthesia/Blood Transfusion Reactions: No Reported Reaction Additional Past Anesthesia/Blood Transfusion Reaction / Comm: no problems prior blood transfusion Smoking Status: Former smoker - Past Family History Father Family Medical History: Thyroid Disorder Additional Family Medical History / Comment(s): Father has hypothyroidism. Mother Family Medical History: Liver Disease Additional Family Medical History / Comment(s): Mother from hepatitis C at the age of 60. Medications and Allergies Home Medications Medication Instructions Recorded Confirmed Type Montelukast [Singulair] 10 mg PO HS 10/15/14 10/02/18 History Digoxin [Lanoxin] 62.5 mcg PO Q48H 06/13/18 10/02/18 History Gabapentin [Neurontin] 100 mg PO BID 06/13/18 10/02/18 History Metoprolol Tartrate [Lopressor] 25 mg PO BID 06/13/18 10/02/18 History Sodium Bicarbonate Tab 1,300 mg PO BID 06/13/18 10/02/18 History Bumetanide [BUMEX] 1 mg pe PO DAILY 07/20/18 10/02/18 History Citalopram Hydrobromide 10 mg PO DAILY 08/14/18 10/02/18 History [Citalopram HBr] Cholecalciferol [Vitamin D3] 1,000 unit PO DAILY 08/21/18 10/02/18 History Dronabinol [Marinol] 10 mg PO AC-SUPPER 08/21/18 10/02/18 History Misoprostol [Cytotec] 100 mcg PO BID 08/21/18 10/02/18 History Diphenoxylate HCl/Atropine 1 - 2 tab PO Q6H PRN 10/02/18 10/02/18 History [Lomotil 2.5-0.025 mg Tablet] Rifaximin [Xifaxan] 550 mg PO BID 10/02/18 10/02/18 History traMADol HCl [Ultram] 50 mg PO Q6HR PRN 10/02/18 10/02/18 History Allergies Allergy/AdvReac Type Severity Reaction Status Date / Time wheat AdvReac Severe Nausea & Verified 10/02/18 12:05 Vomiting & Diarrhea,flu like symptoms cephalexin [From Keflex] AdvReac Unknown Verified 10/02/18 12:05 gluten AdvReac Nausea & Verified 10/02/18 12:05 Vomiting & Diarrhea Iodinated Contrast- Oral and AdvReac KIDNEYS Verified 10/02/18 12:05 IV Dye levofloxacin [From Levaquin] AdvReac TENDON PAIN Verified 10/02/18 12:05 Physical Exam Vitals: Vital Signs Temp Pulse Pulse Resp BP BP Pulse Ox 10/03/18 08:00 97.6 F 64 16 104/64 97 10/03/18 04:00 98.8 F 66 20 93/60 94 L 10/03/18 03:28 75 20 10/03/18 00:00 98.2 F 75 20 96/61 93 L 10/02/18 20:00 97.8 F 110 H 18 95/56 92 L 10/02/18 16:00 98.1 F 80 16 105/54 91 L 10/02/18 15:30 80 18 104/56 10/02/18 15:00 79 17 101/49 94 L 10/02/18 14:30 82 17 102/53 92 L 10/02/18 14:00 89 19 95/65 91 L 10/02/18 13:56 99.1 F 10/02/18 13:30 89 16 106/58 95 10/02/18 13:00 93 17 126/65 96 10/02/18 12:30 91 18 126/65 95 10/02/18 12:00 94 19 122/70 97 10/02/18 11:30 92 16 140/76 94 L Intake and Output 10/02/18 10/03/18 10/03/18 22:59 06:59 14:59 Intake Total 1370 360 Balance 1370 360 Intake: IV 1250 Azithromycin 500 mg In 250 Sodium Chloride 0.9% 250 ml @ 250 mls/hr IVPB ONCE STA Rx#:[id number] Sodium Chloride 0.9% 1, 1000 000 ml @ 999 mls/hr IV . Q1H1M ONE Rx#:[id number] Oral 120 360 Other: Voiding Method Urinal Urinal Urinal # Voids 1 1 # Bowel Movements 1 1 1 Weight 78.9 kg 78.9 kg - Constitutional General appearance: cooperative, no acute distress, thin - EENT Dry mucous membranes Eyes: EOMI, scleral icterus ENT: hearing grossly normal - Neck Neck: no lymphadenopathy - Respiratory Respiratory: bilateral: CTA - Cardiovascular Rhythm: regular Heart sounds: normal: S1, S2 Abnormal Heart Sounds: systolic murmur leg Peripheral Edema: bilateral: None - Gastrointestinal General gastrointestinal: no absent bowel sounds, no decreased bowel sounds, distended, hepatomegaly, no hyperactive bowel sounds, normal bowel sounds, no organomegaly, no rigid, no scaphoid, soft, no splenomegaly, no tenderness, no umbilical hernia, no ventral hernia - Integumentary Integumentary: jaundiced - Neurologic Neurologic: CNII-XII intact - Musculoskeletal Musculoskeletal: generalized weakness - Psychiatric Psychiatric: A&O x's 3, appropriate affect, intact judgment & insight (Mild confusion, forgetting some questions) Results CBC & Chem 7: 10/03/18 05:59 10/03/18 05:59 Labs: Abnormal Lab Results - Last 24 Hours (Table) 10/02/18 10/02/18 10/02/18 Range/Units 13:14 13:14 13:14 RBC 3.27 L (4.30-5.90) m/uL Hgb 10.6 L (13.0-17.5) gm/dL Hct 32.6 L (39.0-53.0) % MCV (80.0-100.0) fL RDW 19.4 H (11.5-15.5) % Plt Count 49 L (150-450) k/uL PT 14.9 H (9.0-12.0) sec INR 1.6 H (<1.2) APTT 37.4 H (22.0-30.0) sec Potassium 3.3 L (3.5-5.1) mmol/L Carbon Dioxide (22-30) mmol/L BUN 61 H (9-20) mg/dL Creatinine 2.83 H (0.66-1.25) mg/dL Glucose (74-99) mg/dL Plasma Lactic Acid Sky (0.7-2.0) mmol/L Calcium 7.9 L (8.4-10.2) mg/dL Total Bilirubin 5.7 H (0.2-1.3) mg/dL AST 80 H (17-59) U/L Alkaline Phosphatase 219 H (38-126) U/L Ammonia (<30) umol/L Total Creatine Kinase (55-170) U/L Troponin I (0.000-0.034) ng/mL Total Protein 4.7 L (6.3-8.2) g/dL Albumin 2.1 L (3.5-5.0) g/dL Urine Protein (Negative) Urine Blood (Negative) Ur Leukocyte Esterase (Negative) Urine WBC (0-5) /hpf Urine WBC Clumps (None) /hpf Urine Bacteria (None) /hpf Hyaline Casts (0-2) /lpf Urine Yeast (Budding) (None) /hpf 10/02/18 10/02/18 10/02/18 Range/Units 13:14 13:14 13:14 RBC (4.30-5.90) m/uL Hgb (13.0-17.5) gm/dL Hct (39.0-53.0) % MCV (80.0-100.0) fL RDW (11.5-15.5) % Plt Count (150-450) k/uL PT (9.0-12.0) sec INR (<1.2) APTT (22.0-30.0) sec Potassium (3.5-5.1) mmol/L Carbon Dioxide (22-30) mmol/L BUN (9-20) mg/dL Creatinine (0.66-1.25) mg/dL Glucose (74-99) mg/dL Plasma Lactic Acid Sky 3.2 H* (0.7-2.0) mmol/L Calcium (8.4-10.2) mg/dL Total Bilirubin (0.2-1.3) mg/dL AST (17-59) U/L Alkaline Phosphatase (38-126) U/L Ammonia 60 H (<30) umol/L Total Creatine Kinase 31 L (55-170) U/L Troponin I 0.084 H* (0.000-0.034) ng/mL Total Protein (6.3-8.2) g/dL Albumin (3.5-5.0) g/dL Urine Protein Trace H (Negative) Urine Blood Trace H (Negative) Ur Leukocyte Esterase Moderate H (Negative) Urine WBC 17 H (0-5) /hpf Urine WBC Clumps Occasional H (None) /hpf Urine Bacteria Rare H (None) /hpf Hyaline Casts 27 H (0-2) /lpf Urine Yeast (Budding) Rare H (None) /hpf 10/02/18 10/03/18 10/03/18 Range/Units 17:58 05:59 05:59 RBC 3.11 L (4.30-5.90) m/uL Hgb 9.9 L (13.0-17.5) gm/dL Hct 31.6 L (39.0-53.0) % MCV 101.5 H (80.0-100.0) fL RDW 19.2 H (11.5-15.5) % Plt Count 33 L (150-450) k/uL PT 16.9 H (9.0-12.0) sec INR 1.9 H (<1.2) APTT (22.0-30.0) sec Potassium (3.5-5.1) mmol/L Carbon Dioxide (22-30) mmol/L BUN (9-20) mg/dL Creatinine (0.66-1.25) mg/dL Glucose (74-99) mg/dL Plasma Lactic Acid Sky 4.4 H* (0.7-2.0) mmol/L Calcium (8.4-10.2) mg/dL Total Bilirubin (0.2-1.3) mg/dL AST (17-59) U/L Alkaline Phosphatase (38-126) U/L Ammonia (<30) umol/L Total Creatine Kinase (55-170) U/L Troponin I (0.000-0.034) ng/mL Total Protein (6.3-8.2) g/dL Albumin (3.5-5.0) g/dL Urine Protein (Negative) Urine Blood (Negative) Ur Leukocyte Esterase (Negative) Urine WBC (0-5) /hpf Urine WBC Clumps (None) /hpf Urine Bacteria (None) /hpf Hyaline Casts (0-2) /lpf Urine Yeast (Budding) (None) /hpf 10/03/18 10/03/18 10/03/18 Range/Units 05:59 08:16 08:16 RBC (4.30-5.90) m/uL Hgb (13.0-17.5) gm/dL Hct (39.0-53.0) % MCV (80.0-100.0) fL RDW (11.5-15.5) % Plt Count (150-450) k/uL PT (9.0-12.0) sec INR (<1.2) APTT (22.0-30.0) sec Potassium 3.4 L (3.5-5.1) mmol/L Carbon Dioxide 31 H (22-30) mmol/L BUN 57 H (9-20) mg/dL Creatinine 3.02 H (0.66-1.25) mg/dL Glucose 107 H (74-99) mg/dL Plasma Lactic Acid Sky 3.8 H* (0.7-2.0) mmol/L Calcium 7.5 L (8.4-10.2) mg/dL Total Bilirubin 5.2 H (0.2-1.3) mg/dL AST (17-59) U/L Alkaline Phosphatase 159 H (38-126) U/L Ammonia 57 H (<30) umol/L Total Creatine Kinase (55-170) U/L Troponin I (0.000-0.034) ng/mL Total Protein 4.0 L (6.3-8.2) g/dL Albumin 1.7 L (3.5-5.0) g/dL Urine Protein (Negative) Urine Blood (Negative) Ur Leukocyte Esterase (Negative) Urine WBC (0-5) /hpf Urine WBC Clumps (None) /hpf Urine Bacteria (None) /hpf Hyaline Casts (0-2) /lpf Urine Yeast (Budding) (None) /hpf Microbiology - Last 24 Hours (Table) 10/02/18 13:14 Urine Culture - Preliminary Urine,Voided Chest x-ray: report reviewed US - abdomen: report reviewed Assessment and Plan (1) Coagulopathy Narrative/Plan: Secondary to liver disease. Oral vitamin K has been ordered, patient may require parenteral vitamin K as his absorption may be impaired orally is a severe ascites. Current Visit: Yes Status: Chronic Priority: High Code(s): D68.9 - COAGULATION DEFECT, UNSPECIFIED SNOMED Code(s): 31987003 (2) Thrombocytopenia Narrative/Plan: Thrombocytopenia worse on this admission. Possibly related to patient's progressive liver disease and reduction of thrombopoietin production. Reviewed gastroenterology notes. Plan is for platelet administration and reversal of coagulopathy prior to paracentesis. Current Visit: Yes Status: Acute Priority: High Code(s): D69.6 - THROMBOCYTOPENIA, UNSPECIFIED SNOMED Code(s): 934424613 (3) Anemia Narrative/Plan: Stable for patient. Monitor CBC. Transfuse for hemoglobin less than 7. Current Visit: No Status: Acute Code(s): D64.9 - ANEMIA, UNSPECIFIED SNOMED Code(s): 109296432 (4) Common variable immunodeficiency Narrative/Plan: Patient received an immunoglobulin infusion last week. Will check immunoglobulin levels, if indicated, patient would benefit from an additional dose. Current Visit: No Status: Chronic Priority: High Code(s): D83.9 - COMMON VARIABLE IMMUNODEFICIENCY, UNSPECIFIED SNOMED Code(s): 81227216 Plan: Nephrology is seeing patient for progressive renal failure Gastroenterology following for progressive liver dysfunction Patient is been following with wound care for of left leg wound secondary to fasciotomy for necrotizing fasciitis.
--- NOTE | 2018-10-03 12:18 | P.CRDCN ---
History of Present Illness Consult date: 10/03/18 Requesting physician: Renu Moss Consult reason: atrial fibrillation Chief complaint: Mental status changes History of present illness: This is a 58-year-old gentleman with history of liver cirrhosis diagnosis 3 years ago, he follows with a bioanalyst at [facility]. He was initially on the liver transplant list but was taken off because of frequent ear infections according to him. 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 Patient was noted to have bilateral pneumonia on chest x-ray, and features suggestive of sepsis, he is currently on IV antibiotics. EKG on presentation here showed a normal sinus rhythm with nonspecific ST-T wave changes. On review of his rhythm strips it does appear that the patient is in and out of atrial fibrillation. Patient is not on anticoagulation at home, and states that he cannot take blood thinners because of his liver problems. Chest x-ray and may reflect multifocal pneumonia with parapneumonic effusion. X-ray of the femur did not reveal any acute fracture or dislocation. Ultrasound of the abdomen showed moderate to extensive ascites. Blood pressure 104/60 with a heart rate in the 60s, 96% on room air. White blood cell count 5.2, hemoglobin 9.9, platelet count 33. INR this morning 1.9. Sodium 140, potassium 3.4, BUN 57 and creatinine 3.02. Magnesium level I.9. AST 59 ALT 28 alk phos 159. Plasma lactic acid 4.4 on admission. Troponin 0.084. Patient did have a temperature on arrival of 102.4. No blood cultures were obtained. This morning, patient feels overall well. He does not have an appetite, he denies any chest discomfort, breathing overall is stable. He is in and out of atrial fibrillation. Past Medical History Past Medical History: Atrial Fibrillation, Asthma, GI Bleed, Hypertension, Liver Disease, Pneumonia, Renal Disease Additional Past Medical History / Comment(s): Cirrhosis(no longer on transplant list), hypogammaglobulinemia, common variable immunoglobulin deficiency- receives IV IG with last infusion "monday"-gets infusions q 3 weeks, ascities, anemia, bronchitis, neuropathy in hands and legs but less so since gluten free diet, celiac disease, diverticulosis, rectal bleed , umbilical hernia, R inguinal hernia, necrotizing fascitis under L arm 20 yrs ago. hx lt clavical fx-no sx.wears brief/incont of stool at times. wounds lt leg History of Any Multi-Drug Resistant Organisms: CRE, MRSA, VRE Date of last positivie culture/infection: 05/31/18 CRE-Enterobacter cloacae; VRE, per mrsa leg wounds 2018 MDRO Source:: Sputum-CRE; Blood VRE Additional Past Surgical History / Comment(s): vasectomy, mediport placement and removed. bilateral cataract/lens surgery, removal of cervical lymph node- benign, BMA, colonoscopies and EGDs, bilateral myringotomy, abdominal paracentesis.lt leg-sx d/t soft tissue infection sx done at [facility] Past Anesthesia/Blood Transfusion Reactions: No Reported Reaction Additional Past Anesthesia/Blood Transfusion Reaction / Comment(s): no problems prior blood transfusion Smoking Status: Former smoker - Past Family History Father Family Medical History: Thyroid Disorder Additional Family Medical History / Comment(s): Father has hypothyroidism. Mother Family Medical History: Liver Disease Additional Family Medical History / Comment(s): Mother from hepatitis C at the age of 60. Medications and Allergies Home Medications Medication Instructions Recorded Confirmed Type Montelukast [Singulair] 10 mg PO HS 10/15/14 10/02/18 History Digoxin [Lanoxin] 62.5 mcg PO Q48H 06/13/18 10/02/18 History Gabapentin [Neurontin] 100 mg PO BID 06/13/18 10/02/18 History Metoprolol Tartrate [Lopressor] 25 mg PO BID 06/13/18 10/02/18 History Sodium Bicarbonate Tab 1,300 mg PO BID 06/13/18 10/02/18 History Bumetanide [BUMEX] 1 mg pe PO DAILY 07/20/18 10/02/18 History Citalopram Hydrobromide 10 mg PO DAILY 08/14/18 10/02/18 History [Citalopram HBr] Cholecalciferol [Vitamin D3] 1,000 unit PO DAILY 08/21/18 10/02/18 History Dronabinol [Marinol] 10 mg PO AC-SUPPER 08/21/18 10/02/18 History Misoprostol [Cytotec] 100 mcg PO BID 08/21/18 10/02/18 History Diphenoxylate HCl/Atropine 1 - 2 tab PO Q6H PRN 10/02/18 10/02/18 History [Lomotil 2.5-0.025 mg Tablet] Rifaximin [Xifaxan] 550 mg PO BID 10/02/18 10/02/18 History traMADol HCl [Ultram] 50 mg PO Q6HR PRN 10/02/18 10/02/18 History Allergies Allergy/AdvReac Type Severity Reaction Status Date / Time wheat AdvReac Severe Nausea & Verified 10/02/18 12:05 Vomiting & Diarrhea,flu like symptoms cephalexin [From Keflex] AdvReac Unknown Verified 10/02/18 12:05 gluten AdvReac Nausea & Verified 10/02/18 12:05 Vomiting & Diarrhea Iodinated Contrast- Oral and AdvReac KIDNEYS Verified 10/02/18 12:05 IV Dye levofloxacin [From Levaquin] AdvReac TENDON PAIN Verified 10/02/18 12:05 Physical Exam Vitals: Vital Signs Temp Pulse Pulse Resp BP BP Pulse Ox 10/03/18 11:54 62 18 94/56 96 10/03/18 08:00 97.6 F 64 16 104/64 97 10/03/18 04:00 98.8 F 66 20 93/60 94 L 10/03/18 03:28 75 20 10/03/18 00:00 98.2 F 75 20 96/61 93 L 10/02/18 20:00 97.8 F 110 H 18 95/56 92 L 10/02/18 16:00 98.1 F 80 16 105/54 91 L 10/02/18 15:30 80 18 104/56 10/02/18 15:00 79 17 101/49 94 L 10/02/18 14:30 82 17 102/53 92 L 10/02/18 14:00 89 19 95/65 91 L 10/02/18 13:56 99.1 F 10/02/18 13:30 89 16 106/58 95 10/02/18 13:00 93 17 126/65 96 10/02/18 12:30 91 18 126/65 95 10/02/18 12:00 94 19 122/70 97 Intake and Output 10/02/18 10/03/18 10/03/18 22:59 06:59 14:59 Intake Total 1370 360 Balance 1370 360 Intake: IV 1250 Azithromycin 500 mg In 250 Sodium Chloride 0.9% 250 ml @ 250 mls/hr IVPB ONCE STA Rx#:[id number] Sodium Chloride 0.9% 1, 1000 000 ml @ 999 mls/hr IV . Q1H1M ONE Rx#:[id number] Oral 120 360 Other: Voiding Method Urinal Urinal Urinal # Voids 1 1 # Bowel Movements 1 1 1 Weight 78.9 kg 78.9 kg PHYSICAL EXAMINATION: GENERAL: 58-year-old gentleman in no acute distress at the time of my examination HEENT: Head is atraumatic, normocephalic. Pupils equal, round. Sclera anicteric. Conjunctiva are clear. Mucous membranes of the mouth are moist. Neck is supple. There is no elevated jugular venous pressure. No carotid bruit is heard. HEART EXAMINATION: Heart S1 and S2 irregularly irregular systolic ejection murmur is heard. CHEST EXAMINATION: Lungs reveal scattered coarse rhonchi with diminished air entry to the bases. ABDOMEN: Soft, diffusely distended, positive ascites.. EXTREMITIES:[ 2+ peripheral pulses with 1+ evidence of peripheral edema, patient has significant discoloration and bruising of the skin, he also has a large area on his lateral left thigh from his necrotizing fasciitis NEUROLOGIC patient is awake, alert and oriented 3 . . Results 10/03/18 05:59 10/03/18 05:59 Cardiac Enzymes 10/02/18 10/02/18 10/03/18 Range/Units 13:14 13:14 05:59 AST 80 H 59 (17-59) U/L CK-MB (CK-2) 0.3 (0.0-2.4) ng/mL Troponin I 0.084 H* (0.000-0.034) ng/mL Coagulation 10/02/18 10/03/18 Range/Units 13:14 05:59 PT 14.9 H 16.9 H (9.0-12.0) sec APTT 37.4 H (22.0-30.0) sec CBC 10/02/18 10/03/18 Range/Units 13:14 05:59 WBC 5.4 5.2 (3.8-10.6) k/uL RBC 3.27 L 3.11 L (4.30-5.90) m/uL Hgb 10.6 L 9.9 L (13.0-17.5) gm/dL Hct 32.6 L 31.6 L (39.0-53.0) % Plt Count 49 L 33 L (150-450) k/uL Comprehensive Metabolic Panel 10/02/18 10/03/18 Range/Units 13:14 05:59 Sodium 139 140 (137-145) mmol/L Potassium 3.3 L 3.4 L (3.5-5.1) mmol/L Chloride 103 106 (98-107) mmol/L Carbon Dioxide 29 31 H (22-30) mmol/L BUN 61 H 57 H (9-20) mg/dL Creatinine 2.83 H 3.02 H (0.66-1.25) mg/dL Glucose 96 107 H (74-99) mg/dL Calcium 7.9 L 7.5 L (8.4-10.2) mg/dL AST 80 H 59 (17-59) U/L ALT 30 28 (21-72) U/L Alkaline Phosphatase 219 H 159 H (38-126) U/L Total Protein 4.7 L 4.0 L (6.3-8.2) g/dL Albumin 2.1 L 1.7 L (3.5-5.0) g/dL Current Medications Generic Name Dose Route Start Last Admin Trade Name Jairoq PRN Reason Stop Dose Admin Bumetanide 1 mg 10/03/18 09:00 10/03/18 08:16 Bumex PO 1 mg DAILY LLUVIA Administration Cholecalciferol 1,000 unit 10/03/18 09:00 10/03/18 08:16 Vitamin D3 PO 1,000 unit DAILY LLUVIA Administration Citalopram Hydrobromide 10 mg 10/03/18 09:00 10/03/18 08:16 Celexa PO 10 mg DAILY LLUVIA Administration Digoxin 62.5 mcg 10/03/18 09:00 10/03/18 11:33 Lanoxin PO 62.5 mcg Q48H LLUVIA Administration Gabapentin 100 mg 10/02/18 21:00 10/03/18 08:17 Neurontin PO 100 mg BID LLUVIA Administration Azithromycin 500 mg/ Sodium 250 mls @ 250 mls/hr 10/03/18 12:00 Chloride IVPB Q24H LLUVIA Piperacillin Sod/Tazobactam 100 mls @ 25 mls/hr 10/03/18 00:00 10/03/18 08:16 Sod 3.375 gm/ Sodium Chloride IVPB 25 mls/hr Q8HR LLUVIA Administration Sodium Chloride 1,000 mls @ 75 mls/hr 10/02/18 14:30 10/02/18 23:47 Saline 0.9% IV Not Given .[id number] LLUVIA Lactulose 20 gm 10/02/18 17:45 10/03/18 08:17 Cephulac PO Not Given TID LLUVIA Metoprolol Tartrate 25 mg 10/02/18 21:00 10/03/18 08:17 Lopressor PO 25 mg BID LLUVIA Administration Miscellaneous Information 1 each 10/03/18 10:09 Potassium Per Protocol MISCELLANE DAILY PRN Per Protocol Protocol Misoprostol 100 mcg 10/02/18 21:00 10/03/18 08:17 Cytotec PO 100 mcg BID LLUVIA Administration Montelukast Sodium 10 mg 10/02/18 21:00 10/02/18 21:49 Singulair PO 10 mg HS LLUVIA Administration Phytonadione 10 mg 10/03/18 14:00 Vitamin K Oral PO 10/03/18 14:01 ONCE ONE Potassium Chloride 20 meq 10/03/18 11:00 10/03/18 11:33 K-Dur 20 PO 10/03/18 12:01 20 meq Q1HR LLUVIA Administration Protocol Rifaximin 550 mg 10/02/18 21:00 10/03/18 08:17 Xifaxan PO 550 mg BID LLUVIA Administration Sodium Bicarbonate 1,300 mg 10/02/18 21:00 10/03/18 08:18 Sodium Bicarbonate Tab PO 1,300 mg BID LLUVIA Administration Tramadol HCl 50 mg 10/02/18 17:46 Ultram PO Q6HR PRN Pain Intake and Output 10/02/18 10/03/18 10/03/18 22:59 06:59 14:59 Intake Total 1370 360 Balance 1370 360 Intake: IV 1250 Azithromycin 500 mg In 250 Sodium Chloride 0.9% 250 ml @ 250 mls/hr IVPB ONCE STA Rx#:[id number] Sodium Chloride 0.9% 1, 1000 000 ml @ 999 mls/hr IV . Q1H1M ONE Rx#:[id number] Oral 120 360 Other: Voiding Method Urinal Urinal Urinal # Voids 1 1 # Bowel Movements 1 1 1 Weight 78.9 kg 78.9 kg Patient Weight 10/04/18 06:59 Weight 78.9 kg 10/03/18 05:59 10/03/18 05:59 EKG Interpretations (text) Initial EKG shows normal sinus rhythm with nonspecific ST-T wave changes. Assessment and Plan Plan: Assessment and plan #1 mental status change likely secondary to acute hepatic encephalopathy #2 cirrhosis of the liver #3 possible acute sepsis with evidence of pneumonia #4 abnormal troponin, likely secondary to sepsis #5 acute on chronic renal failure #6 paroxysmal atrial fibrillation, patient is not a candidate for anticoagulation. #7 prior history of EtOH use #8 coagulopathy, secondary to liver disease #9 asthma #10 hypertension #11 thrombocytopenia #12 common variable immunodeficiency Plan We will obtain an echocardiogram with Doppler study. Patient is in and out of atrial fibrillation, his rate is well controlled. And he is not a candidate for anticoagulation. We will check a TSH level, continue current therapy. DNP note has been reviewed, I agree with a documented findings and plan of care. Patient was seen and examined.
[2018-10-03] MEDS: AZITHROMYCIN 500 MG in SODIUM CHLORIDE 0.9% 250 ML IVPB SCH (12:23)
[2018-10-03] MEDS ORDERED: PHYTONADIONE ORAL 5 MG/5 ML ORAL.SYRG PO ONE (14:00)
--- NOTE | 2018-10-03 14:01 | P.PN ---
Subjective This is a pleasant 58 years old male with past medical history of atrial fibrillation, asthma, GI place, hypertension, liver disease, cirrhosis, hypogammaglobulinemia and common variable immunodeficiency that needs IVIG every 3-4 weeks. Also has cystitis, anemia and neuropathy. Presents because of weakness and left flank pain as he has prior fasciotomy . On admission patient was confused, mostly secondary to hepatic encephalopathy in view of her cirrhosis of the liver. Also there are suspicions of right pneumonia and patient was started on antibiotics. Cardiology and gastroenterology are seeing the patient as well as hematology for her immunodeficiency and blood cells abnormalities. Airplane Pilot are planning for thoracocentesis with FFB coverage. Objective - Vital Signs Vital signs: Vital Signs Temp 97.6 F 10/03/18 08:00 Pulse 62 10/03/18 11:55 Resp 18 10/03/18 11:55 BP 94/56 10/03/18 11:54 Pulse Ox 96 10/03/18 11:54 Intake & Output 10/02/18 10/03/18 10/03/18 18:59 06:59 18:59 Intake Total 1370 720 Balance 1370 720 Weight 71.123 kg 78.9 kg 78.9 kg Intake: IV 1250 Azithromycin 500 mg In 250 Sodium Chloride 0.9% 250 ml @ 250 mls/hr IVPB ONCE STA Rx#:[id number] Sodium Chloride 0.9% 1, 1000 000 ml @ 999 mls/hr IV . Q1H1M ONE Rx#:[id number] Oral 120 720 Other: Voiding Method Urinal Urinal Urinal # Voids 1 1 # Bowel Movements 1 1 1 - Exam GENERAL: The patient is alert and oriented x2-3, not in any acute distress. Well developed, well nourished. HEENT: Pupils are round and equally reacting to light. EOMI. No scleral icterus. No conjunctival pallor. Normocephalic, atraumatic. No pharyngeal erythema. No thyromegaly. CARDIOVASCULAR: S1 and S2 present. No murmurs, rubs, or gallops. PULMONARY: Chest is clear to auscultation, no wheezing or crackles. -ABDOMEN: Soft, nontender, distended, normoactive bowel sounds. No palpable organomegaly. MUSCULOSKELETAL: No joint swelling or deformity. EXTREMITIES: No cyanosis, clubbing, or pedal edema. NEUROLOGICAL: Gross neurological examination did not reveal any focal deficits. SKIN: No rashes. - Labs CBC & Chem 7: 10/03/18 05:59 10/03/18 05:59 Labs: Abnormal Lab Results - Last 24 Hours (Table) 10/02/18 10/02/18 10/02/18 Range/Units 13:14 13:14 13:14 RBC 3.27 L (4.30-5.90) m/uL Hgb 10.6 L (13.0-17.5) gm/dL Hct 32.6 L (39.0-53.0) % MCV (80.0-100.0) fL RDW 19.4 H (11.5-15.5) % Plt Count 49 L (150-450) k/uL PT (9.0-12.0) sec INR (<1.2) Potassium (3.5-5.1) mmol/L Carbon Dioxide (22-30) mmol/L BUN (9-20) mg/dL Creatinine (0.66-1.25) mg/dL Glucose (74-99) mg/dL Plasma Lactic Acid Sky 3.2 H* (0.7-2.0) mmol/L Calcium (8.4-10.2) mg/dL Total Bilirubin (0.2-1.3) mg/dL Alkaline Phosphatase (38-126) U/L Ammonia 60 H (<30) umol/L Total Creatine Kinase 31 L (55-170) U/L Troponin I 0.084 H* (0.000-0.034) ng/mL Total Protein (6.3-8.2) g/dL Albumin (3.5-5.0) g/dL 10/02/18 10/03/18 10/03/18 Range/Units 17:58 05:59 05:59 RBC 3.11 L (4.30-5.90) m/uL Hgb 9.9 L (13.0-17.5) gm/dL Hct 31.6 L (39.0-53.0) % MCV 101.5 H (80.0-100.0) fL RDW 19.2 H (11.5-15.5) % Plt Count 33 L (150-450) k/uL PT 16.9 H (9.0-12.0) sec INR 1.9 H (<1.2) Potassium (3.5-5.1) mmol/L Carbon Dioxide (22-30) mmol/L BUN (9-20) mg/dL Creatinine (0.66-1.25) mg/dL Glucose (74-99) mg/dL Plasma Lactic Acid Sky 4.4 H* (0.7-2.0) mmol/L Calcium (8.4-10.2) mg/dL Total Bilirubin (0.2-1.3) mg/dL Alkaline Phosphatase (38-126) U/L Ammonia (<30) umol/L Total Creatine Kinase (55-170) U/L Troponin I (0.000-0.034) ng/mL Total Protein (6.3-8.2) g/dL Albumin (3.5-5.0) g/dL 10/03/18 10/03/18 10/03/18 Range/Units 05:59 08:16 08:16 RBC (4.30-5.90) m/uL Hgb (13.0-17.5) gm/dL Hct (39.0-53.0) % MCV (80.0-100.0) fL RDW (11.5-15.5) % Plt Count (150-450) k/uL PT (9.0-12.0) sec INR (<1.2) Potassium 3.4 L (3.5-5.1) mmol/L Carbon Dioxide 31 H (22-30) mmol/L BUN 57 H (9-20) mg/dL Creatinine 3.02 H (0.66-1.25) mg/dL Glucose 107 H (74-99) mg/dL Plasma Lactic Acid Sky 3.8 H* (0.7-2.0) mmol/L Calcium 7.5 L (8.4-10.2) mg/dL Total Bilirubin 5.2 H (0.2-1.3) mg/dL Alkaline Phosphatase 159 H (38-126) U/L Ammonia 57 H (<30) umol/L Total Creatine Kinase (55-170) U/L Troponin I (0.000-0.034) ng/mL Total Protein 4.0 L (6.3-8.2) g/dL Albumin 1.7 L (3.5-5.0) g/dL 12/05/18 Range/Units 12:52 RBC (4.30-5.90) m/uL Hgb (13.0-17.5) gm/dL Hct (39.0-53.0) % MCV (80.0-100.0) fL RDW (11.5-15.5) % Plt Count (150-450) k/uL PT (9.0-12.0) sec INR (<1.2) Potassium (3.5-5.1) mmol/L Carbon Dioxide (22-30) mmol/L BUN (9-20) mg/dL Creatinine (0.66-1.25) mg/dL Glucose (74-99) mg/dL Plasma Lactic Acid Sky 2.8 H* (0.7-2.0) mmol/L Calcium (8.4-10.2) mg/dL Total Bilirubin (0.2-1.3) mg/dL Alkaline Phosphatase (38-126) U/L Ammonia (<30) umol/L Total Creatine Kinase (55-170) U/L Troponin I (0.000-0.034) ng/mL Total Protein (6.3-8.2) g/dL Albumin (3.5-5.0) g/dL Microbiology - Last 24 Hours (Table) 10/02/18 13:14 Urine Culture - Preliminary Urine,Voided Assessment and Plan Assessment: Hepatic encephalopathy Cirrhosis of the liver Ascites secondary to above Alcohol abuse Chronic kidney disease Committee acquired pneumonia Coagulopathy Thrombocytopenia Common variable immunodeficiency Plan: This is a pleasant 58 years old male who presents because of bursitis alcohol abuse and liver cirrhosis. Continue with antibiotics. Gastroenterology, cardiology and hematology consults are following the patient . Labs and medication were reviewed.. Continue same treatment. Continue with symptomatic treatment. Resume home medication. Monitor lytes and vitals. DVT and GI prophylaxis. Further recommendations of the clinical course of the patient DVT prophylaxis: no heparin in view of his coagulopathy GI Prophylaxis: Pepcid PT/OT: Pending Prognosis is guarded
--- NOTE | 2018-10-03 14:07 | CONS ---
CONSULTATION REASON FOR CONSULT: Renal failure. HISTORY OF PRESENT ILLNESS: The patient is a 58-year-old male who was admitted to the hospital with complaints of weakness, not feeling well. Patient has an underlying history of liver cirrhosis. He also had altered mentation at the time of admission. Ammonia level was elevated at 60. Lactic acid was high at 4.4. Patient is hypotensive with systolic blood pressure in the 90s. He is currently receiving IV fluids. Serum creatinine was 2.8 yesterday. It is at 3.0 today. Previous creatinine was 2.4 on 09/12 and 1.7 on 08/14/2018. Patient denies use of any nonsteroidal anti-inflammatory agents. He is maintained on Bumex at home. PAST MEDICAL HISTORY: Chronic liver disease associated with use, history of common variable immunoglobulin deficiency, history of necrotizing fasciitis in March of this year. Chronic kidney disease with previous creatinine 1.7 on 08/14/2018, most likely associated with underlying fluid shifts with liver cirrhosis and hypoperfusion. PAST SURGICAL HISTORY: Significant for MediPort placement, removal of cervical lymph nodes, colonoscopies, bilaterally myringotomy, paracentesis, surgery for necrotizing fasciitis in the leg. SOCIAL HISTORY: Patient is a former smoker. He states he is not consuming alcohol anymore. REVIEW OF SYSTEMS: As per HPI, other systems negative. MEDICATIONS: At home prior to admission include Singulair, digoxin, Neurontin, Lopressor, Bumex, sodium bicarb, vitamin D3, Marinol, Cytotec, Ultram, rifaximin, Lomotil. ALLERGIES: Include GLUTEN, KEFLEX, ORAL AND IV CONTRAST, LEVAQUIN which caused tendon pain. PHYSICAL EXAMINATION: Patient is currently comfortable. He is awake. He is not in any acute distress. Blood pressure was 94/56 this morning. Heart rate 62 per minute. Patient is afebrile. Examination of the heart, S1, S2. Examination of the lungs, bilateral breath sounds are heard. Abdomen is soft, distended with ascites, Examination of the lower extremities shows edema 2+ bilaterally. LEAD GAME DESIGNER exam is grossly intact. Patient is moving all 4 extremities. LABS: Show sodium of 140, potassium 3.4, BUN 57, serum creatinine 3.02. Lactic acid 3.8, albumin 1.7. UA shows trace protein, trace blood, hyaline casts are seen. ASSESSMENT: 1. Acute kidney injury, most likely acute tubular necrosis, currently nonoliguric. We will monitor the urine output accurately. I will also order a random urine sodium. Patient's blood pressure is low, which is further contributing to the acute kidney injury. He did receive IV fluids initially. Currently, he is not getting any fluids. Patient does have significant edema. He is maintained on Bumex. I will add midodrine to help with the blood pressure. 2. Metabolic acidosis. Maintained on oral sodium bicarb. CO2 is currently at 31. I will discontinue the bicarb. This is also probably contributing to the edema. 3. Elevated lactic acid level. Rule out underlying sepsis infection. Patient is maintained on empiric antibiotics. 4. History of common variable immunodeficiency, maintained on immune globulin infusions. 5. Hypokalemia associated with diuresis. PLAN: Add midodrine. Repeat labs in a.m. Avoid any other nephrotoxic agents. DC sodium bicarb, DC Motrin. Thank you for this consultation. We will continue to follow the patient with you during his hospitalization. MMODL / IJN: [id number] /
--- NOTE | 2018-10-03 15:18 | ECHOF ---
Referral Reason:abn trop. afib MEASUREMENTS -------- HEIGHT: 182.9 cm WEIGHT: 78.5 kg BP: 104/64 RVIDd: 4.3 cm (< 3.3) IVSd: 1.0 cm (0.6 - 1.1) LVIDd: 3.7 cm (3.9 - 5.3) LVPWd: 1.0 cm (0.6 - 1.1) IVSs: 1.3 cm LVIDs: 2.4 cm LVPWs: 1.7 cm LAESV Index (A-L): 34.90 ml/m Ao Diam: 3.2 cm (2.0 - 3.7) AV Cusp: 1.4 cm (1.5 - 2.6) LA Diam: 3.7 cm (2.7 - 3.8) MV EXCURSION: 12.842 mm (> 18.000) MV EF SLOPE: 69 mm/s (70 - 150) EPSS: 0.8 cm MV E Yossi: 1.11 m/s MV DecT: 350 ms MV A Yossi: 0.99 m/s MV E/A Ratio: 1.12 AV maxP.95 mmHg AV meanP.40 mmHg RAP: 5.00 mmHg RVSP: 34.22 mmHg FINDINGS -------- Sinus rhythm. This was a technically adequate study. The left ventricular size is normal. Left ventricular wall thickness is normal. Overall left vent ricular systolic function is normal with, an EF between 55 - 60 %. The right ventricle is moderate to severely enlarged. LA is moderately dilated 34-39 ml/m2 RA appears enlarged. Aortic valve is trileaflet and is moderately thickened. There is moderate aortic stenosis present. Peak/mean gradient across the Aortic Valve is 44.95mmHg / 23.40mmHg. The mitral valve leaflets are mildly thickened. Moderate mitral annular calcification present. Mi ld mitral regurgitation is present. Mild tricuspid regurgitation present. There is no evidence of pulmonary hypertension. The right v entricular systolic pressure, as measured by Doppler, is 34.22mmHg. There is no pulmonic regurgitation present. The aortic root size is normal. Normal inferior vena cava with normal inspiratory collapse consistent with estimated right atrial pre ssure of 5 mmHg. There is no pericardial effusion. Large Pleural Effusion. CONCLUSIONS -------- 1. Sinus rhythm. 2. This was a technically adequate study. 3. The left ventricular size is normal. 4. Left ventricular wall thickness is normal. 5. Overall left ventricular systolic function is normal with, an EF between 55 - 60 %. 6. The right ventricle is moderate to severely enlarged. 7. LA is moderately dilated 34-39 ml/m2 8. RA appears enlarged. 9. Aortic valve is trileaflet and is moderately thickened. 10. There is moderate aortic stenosis present. 11. Peak/mean gradient across the Aortic Valve is 44.95mmHg / 23.40mmHg. 12. The mitral valve leaflets are mildly thickened. 13. Moderate mitral annular calcification present. 14. Mild mitral regurgitation is present. 15. Mild tricuspid regurgitation present. 16. There is no evidence of pulmonary hypertension. 17. There is no pulmonic regurgitation present. 18. The aortic root size is normal. 19. Normal inferior vena cava with normal inspiratory collapse consistent with estimated right atrial pressure of 5 mmHg. 20. There is no pericardial effusion. 21. Large Pleural Effusion. PARATRANSIT OPERATOR: Marcela Suarez RDCS
--- NOTE | 2018-10-03 16:08 | P.CNPUL ---
History of Present Illness Consult date: 10/03/18 Reason for consult: pneumonia History of present illness: 58-year-old patient came into the hospital because of fever and generalized weakness. This patient is a quite debilitated 58-year-old male patient with extensive medical history. 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 He was in our hospital back in March 2018 at that time he was found to have cellulitis which do not to be necrotizing patient's of the left lower extremity. He was chest at the [facility] and the patient was to use for overwhelming sepsis, respiratory failure and the patient had decompression and fasciotomy involving the left lower extremity. He end up in hospital for a total of one half months being on a mechanical ventilator for a total of 3 weeks. He was eventually extubated. He was discharged to rehabilitation. He had a hospitalization following that for fever and he developed a pneumonia secondary to VRE enterococcus. He was readmitted and treated and discharged home. He then came to our hospital at [facility] in May 2018 complaining of fever and chest congestion and cough or sputum production. He was thought to have pneumonia and the patient was found to have bilateral pulmonary infiltrates. He was treated for pneumonia and the patient was discharged home. He was being followed up at the wound center because of an ongoing wound in the left lower extremity. The wound itself for now is looking healthy. The base is dry and there is healthy granulation tissue. This wound is on the lateral aspect of the left thigh and it is a longitudinal once usually created by the decompression fasciotomy that was done at [facility]. The secretions from the wound are rather clear and nonpurulent at this point in time. The patient is also known to have liver cirrhosis. He has a chronic liver cirrhosis and he has a history of ascites and he carries umbilical hernia. His last paracentesis was done in July 2018 where more than 5 L of abdominal ascitic fluid was aspirated. Currently doesn't have any abdominal pain or distention noted has any nausea vomiting. He was having however some limited diarrhea, liquidy and this obviously raises the concern for C. diff colitis first that he has received antibiotics in the past. The patient is not having any dysuria clicks or urgency. No significant cough or sputum production. Nevertheless, the chest x-ray shows a right upper lobe consolidation in addition to small effusion the lower lobes more so on the right. He is hemodynamically stable. Nevertheless, he comes in with some mild elevation of lactic acid level at 4.4 which dropped down to 2.8. He also comes with an acute on top of chronic renal failure and the creatinine is up to 3.02. BUN is a 57. He was given IV fluids and currently is on normal saline at rate of 75 mL an hour. Is covered with IV Zosyn. He is also on Xifaxan regarding hepatic encephalopathy and he was given a dose of lactulose also. He is alert and awake and communicating. No altered mentation. No other complaints otherwise for now. Review of Systems Constitutional: Reports fatigue, Reports poor appetite, Reports weakness Eyes: denies blurred vision, denies bulging eye, denies decreased vision Ears: deny: decreased hearing, ear discharge, earache, tinnitus Ears, nose, mouth and throat: Denies headache, Denies sore throat Cardiovascular: Reports decreased exercise tolerance, Reports dyspnea on exertion Respiratory: Reports dyspnea Gastrointestinal: Reports as per HPI (Ascites and umbilical hernia), Reports bloating, Reports diarrhea, Reports loss of appetite Genitourinary: Reports as per HPI Musculoskeletal: Reports as per HPI Musculoskeletal: absent: ankle pain, ankle stiffness, ankle swelling Integumentary: Reports wounds, Denies pruritus, Denies rash Neurological: Reports weakness Psychiatric: Reports as per HPI Endocrine: Reports fatigue Hematologic/Lymphatic: Reports as per HPI Allergic/Immunologic: Reports as per HPI Past Medical History Past Medical History: Atrial Fibrillation, Asthma, GI Bleed, Hypertension, Liver Disease, Pneumonia, Renal Disease Additional Past Medical History / Comment(s): Cirrhosis(no longer on transplant list), hypogammaglobulinemia, common variable immunoglobulin deficiency- receives IV IG with last infusion "monday"-gets infusions q 3 weeks, ascities, anemia, bronchitis, neuropathy in hands and legs but less so since gluten free diet, celiac disease, diverticulosis, rectal bleed , umbilical hernia, R inguinal hernia, necrotizing fascitis under L arm 20 yrs ago. hx lt clavical fx-no sx.wears brief/incont of stool at times. wounds lt leg History of Any Multi-Drug Resistant Organisms: CRE, MRSA, VRE Date of last positivie culture/infection: 05/31/18 CRE-Enterobacter cloacae; VRE, per mrsa leg wounds 2018 MDRO Source:: Sputum-CRE; Blood VRE Additional Past Surgical History / Comment(s): vasectomy, mediport placement and removed. bilateral cataract/lens surgery, removal of cervical lymph node- benign, BMA, colonoscopies and EGDs, bilateral myringotomy, abdominal paracentesis.lt leg-sx d/t soft tissue infection sx done at [facility] Past Anesthesia/Blood Transfusion Reactions: No Reported Reaction Additional Past Anesthesia/Blood Transfusion Reaction / Comment(s): no problems prior blood transfusion Smoking Status: Former smoker - Past Family History Father Family Medical History: Thyroid Disorder Additional Family Medical History / Comment(s): Father has hypothyroidism. Mother Family Medical History: Liver Disease Additional Family Medical History / Comment(s): Mother from hepatitis C at the age of 60. Medications and Allergies Home Medications Medication Instructions Recorded Confirmed Type Montelukast [Singulair] 10 mg PO HS 10/15/14 10/02/18 History Digoxin [Lanoxin] 62.5 mcg PO Q48H 06/13/18 10/02/18 History Gabapentin [Neurontin] 100 mg PO BID 06/13/18 10/02/18 History Metoprolol Tartrate [Lopressor] 25 mg PO BID 06/13/18 10/02/18 History Sodium Bicarbonate Tab 1,300 mg PO BID 06/13/18 10/02/18 History Bumetanide [BUMEX] 1 mg pe PO DAILY 07/20/18 10/02/18 History Citalopram Hydrobromide 10 mg PO DAILY 08/14/18 10/02/18 History [Citalopram HBr] Cholecalciferol [Vitamin D3] 1,000 unit PO DAILY 08/21/18 10/02/18 History Dronabinol [Marinol] 10 mg PO AC-SUPPER 08/21/18 10/02/18 History Misoprostol [Cytotec] 100 mcg PO BID 08/21/18 10/02/18 History Diphenoxylate HCl/Atropine 1 - 2 tab PO Q6H PRN 10/02/18 10/02/18 History [Lomotil 2.5-0.025 mg Tablet] Rifaximin [Xifaxan] 550 mg PO BID 10/02/18 10/02/18 History traMADol HCl [Ultram] 50 mg PO Q6HR PRN 10/02/18 10/02/18 History Allergies Allergy/AdvReac Type Severity Reaction Status Date / Time wheat AdvReac Severe Nausea & Verified 10/02/18 12:05 Vomiting & Diarrhea,flu like symptoms cephalexin [From Keflex] AdvReac Unknown Verified 10/02/18 12:05 gluten AdvReac Nausea & Verified 10/02/18 12:05 Vomiting & Diarrhea Iodinated Contrast- Oral and AdvReac KIDNEYS Verified 10/02/18 12:05 IV Dye levofloxacin [From Levaquin] AdvReac TENDON PAIN Verified 10/02/18 12:05 Physical Exam Vitals: Vital Signs Temp Pulse Resp BP Pulse Ox 10/03/18 11:55 62 18 10/03/18 11:54 62 18 94/56 96 10/03/18 08:00 97.6 F 64 16 104/64 97 10/03/18 04:00 98.8 F 66 20 93/60 94 L 10/03/18 03:28 75 20 10/03/18 00:00 98.2 F 75 20 96/61 93 L 10/02/18 20:00 97.8 F 110 H 18 95/56 92 L 10/02/18 16:00 98.1 F 80 16 105/54 91 L Intake and Output 10/03/18 10/03/18 10/03/18 06:59 14:59 22:59 Intake Total 720 Balance 720 Intake: Oral 720 Other: Voiding Method Urinal Urinal # Voids 1 # Bowel Movements 1 1 Weight 78.9 kg 78.9 kg GENERAL EXAM: Alert, active, comfortable in no apparent distress. HEAD: Normocephalic. EYES: Normal reaction of pupils, equal size. NOSE: Clear with pink turbinates. THROAT: No erythema or exudates. NECK: No masses, no JVD. CHEST: No chest wall deformity. LUNGS: Equal air entry with faint crackles in the posterior bases, faint end expiratory wheeze. Diminished. CVS: S1 and S2 normal with no audible murmur, regular rhythm. ABDOMEN: No hepatosplenomegaly, normal bowel sounds, no guarding or rigidity. The patient has fluid wave and shifting dullness in addition to an umbilical hernia. SPINE: No scoliosis or deformity SKIN: No rashes, scars of previous surgeries noted in the left lower extremity. The patient has sites of the compression patient to me. There is a longitudinal scar/wound which is still open and not completely healed and its superior half running across the left lateral aspect of the left lower extremity , along the lateral thigh, just under the quadriceps muscles. The base is covered with healthy granulation tissue. No purulent discharge. CENTRAL NERVOUS SYSTEM: No focal deficits, tone is normal in all 4 extremities. EXTREMITIES: There is no peripheral edema. No clubbing, no cyanosis. Peripheral pulses are intact. Results - Laboratory Findings CBC and BMP: 10/03/18 05:59 10/03/18 05:59 PT/INR, D-dimer PT 16.9 sec (9.0-12.0) H 10/03/18 05:59 INR 1.9 (<1.2) H 10/03/18 05:59 Abnormal lab findings: Abnormal Labs 10/02/18 10/02/18 10/02/18 13:14 13:14 13:14 RBC 3.27 L Hgb 10.6 L Hct 32.6 L MCV RDW 19.4 H Plt Count 49 L PT 14.9 H INR 1.6 H APTT 37.4 H Potassium 3.3 L Carbon Dioxide BUN 61 H Creatinine 2.83 H Glucose Plasma Lactic Acid Sky Calcium 7.9 L Total Bilirubin 5.7 H AST 80 H Alkaline Phosphatase 219 H Ammonia Total Creatine Kinase Troponin I Total Protein 4.7 L Albumin 2.1 L Urine Protein Urine Blood Ur Leukocyte Esterase Urine WBC Urine WBC Clumps Urine Bacteria Hyaline Casts Urine Yeast (Budding) 10/02/18 10/02/18 10/02/18 13:14 13:14 13:14 RBC Hgb Hct MCV RDW Plt Count PT INR APTT Potassium Carbon Dioxide BUN Creatinine Glucose Plasma Lactic Acid Sky 3.2 H* Calcium Total Bilirubin AST Alkaline Phosphatase Ammonia 60 H Total Creatine Kinase 31 L Troponin I 0.084 H* Total Protein Albumin Urine Protein Trace H Urine Blood Trace H Ur Leukocyte Esterase Moderate H Urine WBC 17 H Urine WBC Clumps Occasional H Urine Bacteria Rare H Hyaline Casts 27 H Urine Yeast (Budding) Rare H 10/02/18 10/03/18 10/03/18 17:58 05:59 05:59 RBC 3.11 L Hgb 9.9 L Hct 31.6 L MCV 101.5 H RDW 19.2 H Plt Count 33 L PT 16.9 H INR 1.9 H APTT Potassium Carbon Dioxide BUN Creatinine Glucose Plasma Lactic Acid Sky 4.4 H* Calcium Total Bilirubin AST Alkaline Phosphatase Ammonia Total Creatine Kinase Troponin I Total Protein Albumin Urine Protein Urine Blood Ur Leukocyte Esterase Urine WBC Urine WBC Clumps Urine Bacteria Hyaline Casts Urine Yeast (Budding) 10/03/18 10/03/18 10/03/18 05:59 08:16 08:16 RBC Hgb Hct MCV RDW Plt Count PT INR APTT Potassium 3.4 L Carbon Dioxide 31 H BUN 57 H Creatinine 3.02 H Glucose 107 H Plasma Lactic Acid Sky 3.8 H* Calcium 7.5 L Total Bilirubin 5.2 H AST Alkaline Phosphatase 159 H Ammonia 57 H Total Creatine Kinase Troponin I Total Protein 4.0 L Albumin 1.7 L Urine Protein Urine Blood Ur Leukocyte Esterase Urine WBC Urine WBC Clumps Urine Bacteria Hyaline Casts Urine Yeast (Budding) 10/03/18 12:52 RBC Hgb Hct MCV RDW Plt Count PT INR APTT Potassium Carbon Dioxide BUN Creatinine Glucose Plasma Lactic Acid Sky 2.8 H* Calcium Total Bilirubin AST Alkaline Phosphatase Ammonia Total Creatine Kinase Troponin I Total Protein Albumin Urine Protein Urine Blood Ur Leukocyte Esterase Urine WBC Urine WBC Clumps Urine Bacteria Hyaline Casts Urine Yeast (Budding) - Diagnostic Findings Chest x-ray: image reviewed Assessment and Plan Plan: Assessment 1 fever along with generalized weakness and mild lactic acidosis, consider an underlying infectious source and the potential sources of infection are multiple including lungs, left lower extremity wound, abdomen (spontaneous bacterial peritonitis) and GI tract knowing that the patient is having some loose liquidy diarrhea and is up with raises the concern for C. diff colitis. Currently the patient is well resuscitated. Lactic acid level is improving. The patient is also covered with a broad-spectrum antibiotic coverage 2 altered mentation, improved his and this was probably related to hepatic encephalopathy 3 alcoholic liver cirrhosis 4 chronic ascites requiring paracentesis and periodic basis and addition to an umbilical hernia stigmata of chronic liver failure. 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 Plan Cover this patient with broad-spectrum antibiotics. Currently is on Zosyn and Zithromax. Monitor chest x-ray findings. Consult ID. Local wound care to the left lower extremity. UA and urine culture. Stool for C. diff if developed any significant diarrhea. No need for paracentesis at this point in time. We' ll continue to follow. Monitor renal function.
[2018-10-03] MEDS: SODIUM CHLORIDE 0.9% 1,000 ML IV SCH (16:44)
--- NOTE | 2018-10-03 17:52 | CONS ---
CONSULTATION DATE OF SERVICE: 10/03/2018 REASON FOR CONSULTATION: Sepsis. HISTORY OF PRESENT ILLNESS: The patient is a 58-year-old male with a past medical history significant for alcoholic cirrhosis for the last 3 years, and apparently the patient was on the transplant list at [place] and follows with a creative writing teacher at [facility]. The patient also has had admission to that facility with fascitis involving his left leg that lead to multiple surgeries. Most of his wounds have healed up except the wound on the left lateral leg area. The patient is presenting to the [facility] ER with the chief complaint of generalized weakness, no energy. His symptoms had been getting worse for the last few days before he was brought into the hospital. According to his , he was having some mental status changes as well. On presentation, the patient did have a fever of 102 degrees Fahrenheit. The patient denies significant headache or URI symptoms. He denies having any chest pain. He did have some cough but was not bringing up any sputum. The patient is also complaining of some abdominal pain; however, he mentioned that he has had this pain for a prolonged time. No recent worsening, though. He has felt nauseated but no vomiting. He did have multiple loose stools, but the patient says this is not abnormal for him. No blood or mucus in the stools, though. The patient's lateral thigh wound is not healing. However, he denies significant pain to the wound area or any drainage from it. It did have mild redness, but there is no redness around it; just mild swelling. It is not very clear what kind of dressing has been applied for the local wound care to that area. Because of his fever, elevated lactic acid, a positive UA and a chest x-ray that was suggestive of a multifocal pneumonia and his MULTIPLE ANTIBIOTIC ALLERGIES, I was asked to see the patient for further antibiotic recommendations as well as local wound care to the left lateral thigh wound. REVIEW OF SYSTEMS: CONSTITUTIONAL: Positive for weakness along with a fever. EYES: No complaint. ENT: No complaint. RESPIRATORY: As per HPI. CARDIOVASCULAR: No complaint. GENITOURINARY: No complaint. GASTROINTESTINAL: As per HPI. MUSCULOSKELETAL: No complaint. INTEGUMENTARY: No complaint. PSYCHOLOGICAL: No complaint. ENDOCRINE: No complaint. NEUROLOGICAL: No complaint. PAST MEDICAL HISTORY: Significant for: 1. Alcoholic cirrhosis. 2. Hepatic encephalopathy. 3. Necrotizing fascitis to the left leg. 4. Atrial fibrillation. 5. Asthma. 6. GI bleed. 7. Hypertension. 8. Pneumonia. 9. History of CRE Enterobacter cloacae bacteremia. PAST SURGICAL HISTORY: 1. Vasectomy. 2. MediPort placement and subsequent removal. 3. Bilateral cataract surgery. 4. Removal of cervical lymph node. 5. Colonoscopy. 6. EGD. 7. Multiple surgeries to the left leg/fasciotomies. 8. Abdominal paracentesis. SOCIAL HISTORY: Remote history of drinking as well as smoking. No drug use. FAMILY HISTORY: Father with history of hypothyroidism. Mother with history of hepatitis C; at age of 60 from it. ALLERGIES: 1. WHEAT. 2. CEPHALEXIN. 3. GLUTEN. 4. IODINATED CONTRAST DYE. 5. LEVOFLOXACIN. MEDICATIONS: The patient is currently on: 1. Bumex. 2. Vitamin D3. 3. Celexa. 4. Lanoxin. 5. Neurontin. 6. Lactulose. 7. Lopressor. 8. Singulair. 9. Zosyn 3.375 grams q.8. 10.Xifaxan. 11.Ultram. PHYSICAL EXAMINATION: Blood pressure is 94/56, pulse of 62, temperature 97.6, T-max 102. He is 96% on room air. General description is a middle-aged male lying in bed in no distress. No tachypnea or accessory muscle of respiration use. HEENT examination shows slight pallor. No scleral icterus. Oral mucosa membrane is dry. No pharyngeal erythema or thrush. NECK: Trachea is central. No thyromegaly. LUNGS: Unlabored breathing. Clear to auscultation anteriorly. No wheeze or crackle. HEART: S1, S2. Regular rate and rhythm. ABDOMEN: Soft, mildly distended. No guarding or rigidity. EXTREMITIES: Chronic swelling of the leg. Left lateral thigh did have a wound with no slough tissue. No surrounding swelling, redness or any foul-smelling drainage. Neurologically the patient is awake, alert, oriented x3. Mood and affect normal. LABS: Hemoglobin 9.9, white count 5.2, BUN of 37, creatinine of 3.02. Potassium was 3.4, lactic acid 4.4. Bilirubin 5.2. Urine has shown moderate leukocyte esterases, 17 WBCs with occasional WBC clumps. Blood and urine cultures are currently pending. Chest x-ray with multifocal pneumonia. DIAGNOSTIC IMPRESSION AND PLAN: 1. Patient admitted to hospital with generalized weakness, no energy, in a patient who did have a fever of 102 degrees Fahrenheit with the source of the fever possibly subacute peritonitis in this patient who does have a history of liver cirrhosis with associated ascites with some vague abdominal pain. He also has some shortness of breath with minimal cough. pneumonia as well as UTI not entirely excluded. Clinically doubt any infection of the left lateral thigh wound, which looks currently clean, with no evidence of any slough tissue or cellulitis. 2. Patient who does have MULTIPLE ANTIBIOTIC ALLERGIES. That will limit the number of antibiotics that could be safely used. 3. Elevated creatinine. That will contraindicate the use of some antibiotics for treatment of his underlying infection. PLAN: 1. We will try to obtain sputum for Gram stain and culture and sensitivity. 2. Will keep the patient on Zosyn 3.375 grams q. ; dose to be adjusted to his kidney function; and the Zithromax. 3. Aquacel Silver packing of the left lateral thigh wound. 4. We will await abdominal paracentesis, and the fluid should be sent for Gram stain and cultures, cell count and differential. 5. Will follow up on clinical condition to further adjust his medication if needed. Thank you for this consultation. We will follow this patient along with you. MMODL / IJN: [id number] /
[2018-10-03] MEDS: MONTELUKAST 10 MG TAB PO SCH (20:17)
[2018-10-04] MEDS: traMADol 50 MG TAB PO PRN (02:06)
[2018-10-04] MEDS: SODIUM CHLORIDE 0.9% 1,000 ML IV SCH (05:42)
[2018-10-04 06:23] LABS: INR 1.6 (<1.2); Prothrombin Time 15.9 sec (9.0-12.0)
[2018-10-04 06:27] LABS: Albumin 1.6 g/dL (3.5-5.0); Calcium 7.2 mg/dL (8.4-10.2); Potassium 3.4 mmol/L (3.5-5.1); Total Bilirubin 5.5 mg/dL (0.2-1.3)
[2018-10-04 07:10] LABS: Anisocytosis Slight; Basophils % (A) 1 %; Eosinophils # (A) 0.3 k/uL (0-0.7); Eosinophils % (A) 5 %; HCT 29.6 % (39.0-53.0); HGB 9.4 gm/dL (13.0-17.5); Hypochromasia Moderate; Lymphocytes # (A) 2.3 k/uL (1.0-4.8); Lymphocytes % (A) 33 %; MCH 32.1 pg (25.0-35.0); MCHC 31.8 g/dL (31.0-37.0); MCV 100.8 fL (80.0-100.0); Macrocytosis Moderate; Mean Platelet Volume 11.2; Monocytes # (A) 0.3 k/uL (0-1.0); Monocytes % (A) 5 %; Neutrophils # (A) 3.8 k/uL (1.3-7.7); Neutrophils % (A) 55 %; Poikilocytosis Slight; RBC 2.93 m/uL (4.30-5.90); RDW 18.9 % (11.5-15.5); WBC 6.9 k/uL (3.8-10.6)
[2018-10-04 07:11] LABS: Platelet Count 44 k/uL (150-450)
[2018-10-04 07:23] LABS: Ovalocytes Present; Poikilocytosis (M) Present; Target Cells Present
[2018-10-04] MEDS: PIPERACILLIN-TAZOBACTAM 3.375 GM in SODIUM CHLORIDE 0.9% 100 ML IVPB SCH ×3 (08:50→23:40)
[2018-10-04] MEDS: METOPROLOL TARTRATE 25 MG TAB PO SCH ×2 (08:51→21:18)
[2018-10-04] MEDS: GABAPENTIN 100 MG CAP PO SCH ×2 (08:51→21:17)
[2018-10-04] MEDS: CHOLECALCIFEROL 1,000 UNIT TAB PO SCH (08:51)
[2018-10-04] MEDS: CITALOPRAM HYDROBROMIDE 10 MG TAB PO SCH (08:51)
[2018-10-04] MEDS: RIFAXIMIN 550 MG TABLET PO SCH ×2 (08:52→21:17)
[2018-10-04] MEDS: MISOPROSTOL 100 MCG TAB PO SCH ×2 (08:52→21:17)
[2018-10-04] MEDS: LACTULOSE 20 GM/30 ML CUP PO SCH ×3 (08:53→21:19)
--- NOTE | 2018-10-04 09:54 | P.PN ---
Subjective This is a pleasant 58 years old male with past medical history of atrial fibrillation, asthma, GI place, hypertension, liver disease, cirrhosis, hypogammaglobulinemia and common variable immunodeficiency that needs IVIG every 3-4 weeks. Also has cystitis, anemia and neuropathy. Presents because of weakness and left flank pain as he has prior fasciotomy . On admission patient was confused, mostly secondary to hepatic encephalopathy in view of her cirrhosis of the liver. Also there are suspicions of right pneumonia and patient was started on antibiotics. Cardiology and gastroenterology are seeing the patient as well as hematology for her immunodeficiency and blood cells abnormalities. Track Repairer are planning for thoracocentesis with FFB coverage. 10/04/2018 Patient is fully awake and oriented to time place and person. He still have abdominal pain all over with tenderness, no nausea vomiting however he has good bowel movement. Patient's has a little dyspneic but no chest pain. He has mild cough with some white phlegm. He has wound in his left lateral thighs, with no surrounding cellulitis. Patient still has diarrhea he had 6 bowel movements yesterday's and 2 since last night. Echo shows ejection fraction of 55-60% with moderate aortic stenosis. Platelets 44. Creatinine 3.1. Lactic acid is back to normal at 1.6. INR is down to 1.6. Patient might be going for paracentesis better on. Objective - Vital Signs Vital signs: Vital Signs Temp 98.4 F 10/04/18 04:00 Pulse 84 10/04/18 04:00 Resp 18 10/04/18 04:00 BP 109/62 10/04/18 04:00 Pulse Ox 95 10/04/18 04:00 Intake & Output 10/03/18 10/04/18 10/04/18 18:59 06:59 18:59 Intake Total 7561 013 1876 Balance 0425 228 4788 Weight 78.9 kg 79.2 kg Intake: Intake, IV Titration 400 Amount Piperacillin-Tazobactam 3 100 .375 gm In Sodium Chloride 0.9% 100 ml @ 25 mls/hr IVPB Q8HR [facility] Rx# :[id number] Sodium Chloride 0.9% 1, 300 000 ml @ 75 mls/hr IV . [id number] [facility] Rx#:[id number] Oral 1162 [id number] 1987 Other: Voiding Method Urinal Urinal # Voids 1 2 # Bowel Movements 1 - Exam GENERAL: The patient is alert and oriented x2-3, not in any acute distress. Well developed, well nourished. HEENT: Pupils are round and equally reacting to light. EOMI. No scleral icterus. No conjunctival pallor. Normocephalic, atraumatic. No pharyngeal erythema. No thyromegaly. CARDIOVASCULAR: S1 and S2 present. No murmurs, rubs, or gallops. PULMONARY: Chest is clear to auscultation, no wheezing or crackles. -ABDOMEN: Soft, nontender, distended, normoactive bowel sounds. No palpable organomegaly. MUSCULOSKELETAL: No joint swelling or deformity. EXTREMITIES: No cyanosis, clubbing, or pedal edema. NEUROLOGICAL: Gross neurological examination did not reveal any focal deficits. SKIN: No rashes. - Labs CBC & Chem 7: 10/04/18 05:34 10/04/18 05:34 Labs: Abnormal Lab Results - Last 24 Hours (Table) 10/03/18 10/03/18 10/04/18 Range/Units 08:16 12:52 05:34 RBC 2.93 L (4.30-5.90) m/uL Hgb 9.4 L (13.0-17.5) gm/dL Hct 29.6 L (39.0-53.0) % MCV 100.8 H (80.0-100.0) fL RDW 18.9 H (11.5-15.5) % Plt Count 44 L (150-450) k/uL PT (9.0-12.0) sec INR (<1.2) Potassium (3.5-5.1) mmol/L BUN (9-20) mg/dL Creatinine (0.66-1.25) mg/dL Glucose (74-99) mg/dL Plasma Lactic Acid Sky 2.8 H* (0.7-2.0) mmol/L Calcium (8.4-10.2) mg/dL Total Bilirubin (0.2-1.3) mg/dL Alkaline Phosphatase (38-126) U/L Ammonia 57 H (<30) umol/L Total Protein (6.3-8.2) g/dL Albumin (3.5-5.0) g/dL 10/04/18 10/04/18 Range/Units 05:34 05:34 RBC (4.30-5.90) m/uL Hgb (13.0-17.5) gm/dL Hct (39.0-53.0) % MCV (80.0-100.0) fL RDW (11.5-15.5) % Plt Count (150-450) k/uL PT 15.9 H (9.0-12.0) sec INR 1.6 H (<1.2) Potassium 3.4 L (3.5-5.1) mmol/L BUN 60 H (9-20) mg/dL Creatinine 3.11 H (0.66-1.25) mg/dL Glucose 121 H (74-99) mg/dL Plasma Lactic Acid Sky (0.7-2.0) mmol/L Calcium 7.2 L (8.4-10.2) mg/dL Total Bilirubin 5.5 H (0.2-1.3) mg/dL Alkaline Phosphatase 176 H (38-126) U/L Ammonia (<30) umol/L Total Protein 4.0 L (6.3-8.2) g/dL Albumin 1.6 L (3.5-5.0) g/dL Microbiology - Last 24 Hours (Table) 10/02/18 13:14 Blood Culture - Preliminary Blood No Growth after 24 hours 10/02/18 11:45 Blood Culture - Preliminary Blood No Growth after 24 hours Assessment and Plan Assessment: Hepatic encephalopathy Cirrhosis of the liver Ascites secondary to above Alcohol abuse Chronic kidney disease Committee acquired pneumonia Coagulopathy Thrombocytopenia Common variable immunodeficiency Plan: This is a pleasant 58 years old male who presents because of bursitis alcohol abuse and liver cirrhosis. Continue with antibiotics. Gastroenterology, cardiology and hematology consults are following the patient . Labs and medication were reviewed.. Continue same treatment. Continue with symptomatic treatment. Resume home medication. Monitor lytes and vitals. DVT and GI prophylaxis. Further recommendations of the clinical course of the patient DVT prophylaxis: no heparin in view of his coagulopathy GI Prophylaxis: Pepcid PT/OT: Pending Prognosis is guarded
[2018-10-04 11:38] LABS: Immunoglobulin A <25.5 mg/dL (60.0-350.0); Immunoglobulin M <16.9 mg/dL (40.0-280.0)
[2018-10-04] MEDS ORDERED: ALBUMIN HUMAN 25% 50 ML in EMPTY BAG 1 BAG IVPB SCH (13:00)
[2018-10-04] MEDS ORDERED: IPRATROPIUM-ALBUTEROL 3 ML NEB INHALATION PRN (13:02)
[2018-10-04] MEDS: AZITHROMYCIN 500 MG in SODIUM CHLORIDE 0.9% 250 ML IVPB SCH (13:14)
[2018-10-04] MEDS: BUMETANIDE 1 MG TAB PO SCH (13:18)
[2018-10-04] MEDS ORDERED: ALBUMIN HUMAN 25% 50 ML in EMPTY BAG 1 BAG IVPB ONE (14:00)
--- NOTE | 2018-10-04 14:03 | US ---
EXAMINATION TYPE: US paracentesis abd w/image DATE OF EXAM: 10/04/2018 COMPARISON: NONE HISTORY: Ascites. PROCEDURE: Maximal barrier technique was utilized. The skin overlying a suitable pocket of fluid was localized with ultrasound and the overlying skin was prepped and draped. Ultrasound was utilized with sterile technique. Lidocaine was used for local anesthesia and a skin zamzam made with a scalpel. Catheter was advanced under direct ultrasound guidance into a suitable pocket of fluid and approximately 7.6 liter s of serous fluid were removed. Catheter was withdrawn and hemostasis achieved. There is no immedia te complication; the patient is discharged in stable condition. IMPRESSION: STATUS POST ULTRASOUND GUIDED PARACENTESIS FOR PALLIATION OF ASCITES. THIS PROCEDURE WA S PERFORMED BY THE UNDERSIGNED. Specimen submitted for laboratory analysis.
--- NOTE | 2018-10-04 14:14 | XR ---
EXAMINATION TYPE: XR chest 2V DATE OF EXAM: 10/04/2018 COMPARISON: Prior chest x-ray 10/02/2018 HISTORY: Shortness of breath TECHNIQUE: Frontal and lateral views of the chest are obtained. FINDINGS: There is blunting of the left costophrenic angle. Interstitium is mildly increased. Lung v olumes are low. Cardiomediastinal silhouette, pulmonary vascularity and racquel within normal limits. No evident pneumothorax. There are overlying cardiac leads. Abnormal density in the posterior costophre rakan angle has improved in the interval. IMPRESSION: Improvement in aeration.
[2018-10-04] MEDS ORDERED: POTASSIUM CHLORIDE ER 20 MEQ TAB.ER PO STA (14:31)
--- NOTE | 2018-10-04 14:31 | P.PN ---
Subjective Progress Note Date: 10/04/18 This is a 58-year-old gentleman with history of liver cirrhosis diagnosis 3 years ago, he follows with a title insurance agent at [facility]. He was initially on the liver transplant list but was taken off because of frequent ear infections according to him. 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 Patient was noted to have bilateral pneumonia on chest x-ray, and features suggestive of sepsis, he is currently on IV antibiotics. EKG on presentation here showed a normal sinus rhythm with nonspecific ST-T wave changes. On review of his rhythm strips it does appear that the patient is in and out of atrial fibrillation. Patient is not on anticoagulation at home, and states that he cannot take blood thinners because of his liver problems. Chest x-ray and may reflect multifocal pneumonia with parapneumonic effusion. X-ray of the femur did not reveal any acute fracture or dislocation. Ultrasound of the abdomen showed moderate to extensive ascites. Blood pressure 104/60 with a heart rate in the 60s, 96% on room air. White blood cell count 5.2, hemoglobin 9.9, platelet count 33. INR this morning 1.9. Sodium 140, potassium 3.4, BUN 57 and creatinine 3.02. Magnesium level I.9. AST 59 ALT 28 alk phos 159. Plasma lactic acid 4.4 on admission. Troponin 0.084. Patient did have a temperature on arrival of 102.4. No blood cultures were obtained. This morning, patient feels overall well. He does not have an appetite, he denies any chest discomfort, breathing overall is stable. He is in and out of atrial fibrillation. 10/04/2018 Patient was seen and examined this morning, feels well, very poor appetite. Underwent a paracentesis for over 7 L of fluid. Continues to be in atrial fibrillation, rate under adequate control. Echo showed normal left ventricular systolic function. Blood pressure 95/48, heart rate in the 70s, 94% on room air. Patient is not a candidate for anticoagulation. Objective - Vital Signs Vital signs: Vital Signs Temp 98.3 F 10/04/18 12:50 Pulse 71 10/04/18 12:50 Resp 14 10/04/18 12:50 BP 95/48 10/04/18 12:50 Pulse Ox 94 L 10/04/18 12:50 Intake & Output 10/03/18 10/04/18 10/04/18 18:59 06:59 18:59 Intake Total 5822 870 2940 Balance 3388 158 1878 Weight 78.9 kg 79.2 kg Intake: IV 20 Invasive Line 1 10 Invasive Line 3 10 Intake, IV Titration 400 Amount Piperacillin-Tazobactam 3 100 .375 gm In Sodium Chloride 0.9% 100 ml @ 25 mls/hr IVPB Q8HR [facility] Rx# :[id number] Sodium Chloride 0.9% 1, 300 000 ml @ 75 mls/hr IV . [id number] [facility] Rx#:[id number] Oral 9900 155 1780 Blood Product 289 Platelet Irr Pheresis 289 Acda1 Unit [id number] Other: Voiding Method Urinal Urinal Urinal # Voids 1 2 # Bowel Movements 1 - Exam PHYSICAL EXAMINATION: GENERAL: 58-year-old gentleman in no acute distress at the time of my examination HEENT: Head is atraumatic, normocephalic. Pupils equal, round. Sclera anicteric. Conjunctiva are clear. Mucous membranes of the mouth are moist. Neck is supple. There is no elevated jugular venous pressure. No carotid bruit is heard. HEART EXAMINATION: Heart S1 and S2 irregularly irregular systolic ejection murmur is heard. CHEST EXAMINATION: Lungs reveal scattered coarse rhonchi with diminished air entry to the bases. ABDOMEN: Soft, diffusely distended, positive ascites.. EXTREMITIES:[ 2+ peripheral pulses with 1+ evidence of peripheral edema, patient has significant discoloration and bruising of the skin, he also has a large area on his lateral left thigh from his necrotizing fasciitis NEUROLOGIC patient is awake, alert and oriented 3 . - Labs CBC & Chem 7: 10/04/18 05:34 10/04/18 05:34 Labs: Abnormal Lab Results - Last 24 Hours (Table) 10/03/18 10/04/18 10/04/18 Range/Units 05:59 05:34 05:34 RBC 2.93 L (4.30-5.90) m/uL Hgb 9.4 L (13.0-17.5) gm/dL Hct 29.6 L (39.0-53.0) % MCV 100.8 H (80.0-100.0) fL RDW 18.9 H (11.5-15.5) % Plt Count 44 L (150-450) k/uL PT 15.9 H (9.0-12.0) sec INR 1.6 H (<1.2) Potassium (3.5-5.1) mmol/L BUN (9-20) mg/dL Creatinine (0.66-1.25) mg/dL Glucose (74-99) mg/dL Calcium (8.4-10.2) mg/dL Total Bilirubin (0.2-1.3) mg/dL Alkaline Phosphatase (38-126) U/L Total Protein (6.3-8.2) g/dL Albumin (3.5-5.0) g/dL IgA <25.5 L (60.0-350.0) mg/dL IgM <16.9 L (40.0-280.0) mg/dL 10/04/18 Range/Units 05:34 RBC (4.30-5.90) m/uL Hgb (13.0-17.5) gm/dL Hct (39.0-53.0) % MCV (80.0-100.0) fL RDW (11.5-15.5) % Plt Count (150-450) k/uL PT (9.0-12.0) sec INR (<1.2) Potassium 3.4 L (3.5-5.1) mmol/L BUN 60 H (9-20) mg/dL Creatinine 3.11 H (0.66-1.25) mg/dL Glucose 121 H (74-99) mg/dL Calcium 7.2 L (8.4-10.2) mg/dL Total Bilirubin 5.5 H (0.2-1.3) mg/dL Alkaline Phosphatase 176 H (38-126) U/L Total Protein 4.0 L (6.3-8.2) g/dL Albumin 1.6 L (3.5-5.0) g/dL IgA (60.0-350.0) mg/dL IgM (40.0-280.0) mg/dL Microbiology - Last 24 Hours (Table) 10/02/18 11:45 Blood Culture - Preliminary Blood No Growth after 48 hours 10/02/18 13:14 Blood Culture - Preliminary Blood No Growth after 24 hours Assessment and Plan Plan: Assessment and plan #1 mental status change likely secondary to acute hepatic encephalopathy #2 cirrhosis of the liver #3 possible acute sepsis with evidence of pneumonia #4 abnormal troponin, likely secondary to sepsis #5 acute on chronic renal failure #6 paroxysmal atrial fibrillation, patient is not a candidate for anticoagulation. #7 prior history of EtOH use #8 coagulopathy, secondary to liver disease #9 asthma #10 hypertension #11 thrombocytopenia #12 common variable immunodeficiency Plan Echocardiogram with Doppler study revealed a normal left ventricular systolic function appeared rate is under adequate control. We will continue with current medications. DNP note has been reviewed, I agree with a documented findings and plan of care. Patient was seen and examined.
--- NOTE | 2018-10-04 14:32 | P.PN ---
Subjective Patient is seen in follow-up for acute kidney injury. Recently his creatinine has been in the range of 1.7-2. Creatinine was 3.02 yesterday and is 3.11 today. He has been waiting. Oral intake is poor. He had paracentesis done this morning is 7.6 L removed. Oral intake is poor. Admits to edema in lower extremities. Vital signs are stable. General: The patient appeared well nourished and normally developed. HEENT: Head exam is unremarkable. Neck is without jugular venous distension. LUNGS: Lungs are clear to auscultation and percussion. Breath sounds decreased. HEART: Rate and Rhythm are regular. First and second heart sounds normal. No murmurs, rubs or gallops. ABDOMEN: Bowel sounds present. Distention noted. EXTREMITITES: 2+ edema. Objective - Vital Signs Vital signs: Vital Signs Temp 98.3 F 10/04/18 12:50 Pulse 71 10/04/18 12:50 Resp 14 10/04/18 12:50 BP 95/48 10/04/18 12:50 Pulse Ox 94 L 10/04/18 12:50 Intake & Output 10/03/18 10/04/18 10/04/18 18:59 06:59 18:59 Intake Total 6126 287 0889 Balance 9904 694 6711 Weight 78.9 kg 79.2 kg Intake: IV 20 Invasive Line 1 10 Invasive Line 3 10 Intake, IV Titration 400 Amount Piperacillin-Tazobactam 3 100 .375 gm In Sodium Chloride 0.9% 100 ml @ 25 mls/hr IVPB Q8HR [facility] Rx# :[id number] Sodium Chloride 0.9% 1, 300 000 ml @ 75 mls/hr IV . [id number] [facility] Rx#:[id number] Oral [id number] [id number] Blood Product 289 Platelet Irr Pheresis 289 Acda1 Unit [id number] Other: Voiding Method Urinal Urinal Urinal # Voids 1 2 # Bowel Movements 1 - Labs CBC & Chem 7: 10/04/18 05:34 10/04/18 05:34 Labs: Abnormal Lab Results - Last 24 Hours (Table) 10/03/18 10/04/18 10/04/18 Range/Units 05:59 05:34 05:34 RBC 2.93 L (4.30-5.90) m/uL Hgb 9.4 L (13.0-17.5) gm/dL Hct 29.6 L (39.0-53.0) % MCV 100.8 H (80.0-100.0) fL RDW 18.9 H (11.5-15.5) % Plt Count 44 L (150-450) k/uL PT 15.9 H (9.0-12.0) sec INR 1.6 H (<1.2) Potassium (3.5-5.1) mmol/L BUN (9-20) mg/dL Creatinine (0.66-1.25) mg/dL Glucose (74-99) mg/dL Calcium (8.4-10.2) mg/dL Total Bilirubin (0.2-1.3) mg/dL Alkaline Phosphatase (38-126) U/L Total Protein (6.3-8.2) g/dL Albumin (3.5-5.0) g/dL IgA <25.5 L (60.0-350.0) mg/dL IgM <16.9 L (40.0-280.0) mg/dL 10/04/18 Range/Units 05:34 RBC (4.30-5.90) m/uL Hgb (13.0-17.5) gm/dL Hct (39.0-53.0) % MCV (80.0-100.0) fL RDW (11.5-15.5) % Plt Count (150-450) k/uL PT (9.0-12.0) sec INR (<1.2) Potassium 3.4 L (3.5-5.1) mmol/L BUN 60 H (9-20) mg/dL Creatinine 3.11 H (0.66-1.25) mg/dL Glucose 121 H (74-99) mg/dL Calcium 7.2 L (8.4-10.2) mg/dL Total Bilirubin 5.5 H (0.2-1.3) mg/dL Alkaline Phosphatase 176 H (38-126) U/L Total Protein 4.0 L (6.3-8.2) g/dL Albumin 1.6 L (3.5-5.0) g/dL IgA (60.0-350.0) mg/dL IgM (40.0-280.0) mg/dL Microbiology - Last 24 Hours (Table) 10/02/18 11:45 Blood Culture - Preliminary Blood No Growth after 48 hours 10/02/18 13:14 Blood Culture - Preliminary Blood No Growth after 24 hours Assessment and Plan Plan: Assessment: 1. Acute kidney injury secondary to ATN secondary to hypotension. Creatinine up to 3.11 today. 2. Hypokalemia secondary to diuresis. 3. Rule out chronic kidney disease. Recent creatinine has been in the range of 1.7-2. 4. Liver cirrhosis. 5. Volume overload. 6. Ascites status post paracentesis today to 7.6 L drained. Plan: Replace potassium. 40 mg once today. Hep-Lock IV fluids. I will give him 50 g of IV albumin today. Change Bumex to 1 mg IV daily. Repeat electrolytes in the morning. Check magnesium level as well.
[2018-10-04] MEDS: ALBUMIN HUMAN 25% 50 ML in EMPTY BAG 1 BAG IVPB SCH ×4 (15:02→16:40)
[2018-10-04 15:09] LABS: Appearance,BF Cloudy; Nucleated Cells, Body Fluid 1750 /uL; RBC, Body Fluid 6850 /uL
[2018-10-04 15:11] LABS: Mononuclear WBC,Body Fluid 32 %; Polynuclear WBC,Body Fluid 68 %; Total Cells Counted,Body Fluid 100
--- NOTE | 2018-10-04 15:20 | P.PN ---
Subjective Progress Note Date: 10/04/18 Principal diagnosis: CVID, anemia of CKD Pt seen in f/u, at bedside. Pt feels more alert today, denied fever, nausea, appetite is poor but is drinking plenty of fluids, no MOE, SOB, abd is very distended, he is having paracentesis today. He has refused the lactulose because of diarrhea, too many episodes for him to count, no blood, rectal pain, his legs are both "sore". Objective - Vital Signs Vital signs: Vital Signs Temp 98.0 F 10/04/18 14:51 Pulse 71 10/04/18 14:51 Resp 16 10/04/18 14:51 BP 92/53 10/04/18 14:51 Pulse Ox 95 10/04/18 14:51 Intake & Output 10/03/18 10/04/18 10/04/18 18:59 06:59 18:59 Intake Total 0557 982 2267 Balance 8033 679 4179 Weight 78.9 kg 79.2 kg Intake: IV 20 Invasive Line 1 10 Invasive Line 3 10 Intake, IV Titration 400 Amount Piperacillin-Tazobactam 3 100 .375 gm In Sodium Chloride 0.9% 100 ml @ 25 mls/hr IVPB Q8HR [facility] Rx# :[id number] Sodium Chloride 0.9% 1, 300 000 ml @ 75 mls/hr IV . [id number] [facility] Rx#:[id number] Oral 0078 [id number] [id number] Blood Product 289 Platelet Irr Pheresis 289 Acda1 Unit [id number] Other: Voiding Method Urinal Urinal Urinal # Voids 1 2 # Bowel Movements 1 - Constitutional Constitutional Comment(s): muscle wasting, frail, cachetic look General appearance: Present: cooperative, thin - EENT Eyes: Present: EOMI, scleral icterus ENT: Present: hearing grossly normal - Respiratory Respiratory: bilateral: CTA, diminished - Cardiovascular Rhythm: regular Heart sounds: normal: S1, S2 Abnormal Heart Sounds: Absent: systolic murmur, diastolic murmur, rub, S3 Gallop , S4 Gallop, click, other - Peripheral edema leg Peripheral Edema: bilateral: 2+, Pitting - Gastrointestinal General gastrointestinal: Present: distended, umbilical hernia - Integumentary Integumentary: Present: jaundiced - Neurologic Neurologic: Present: CNII-XII intact - Musculoskeletal Musculoskeletal: Present: generalized weakness - Psychiatric Psychiatric Comment(s): randomly will make comments that do not make sense Psychiatric: Present: A&O x's 3, appropriate affect, intact judgment & insight - Labs CBC & Chem 7: 10/04/18 05:34 10/04/18 05:34 Labs: Abnormal Lab Results - Last 24 Hours (Table) 10/03/18 10/04/18 10/04/18 Range/Units 05:59 05:34 05:34 RBC 2.93 L (4.30-5.90) m/uL Hgb 9.4 L (13.0-17.5) gm/dL Hct 29.6 L (39.0-53.0) % MCV 100.8 H (80.0-100.0) fL RDW 18.9 H (11.5-15.5) % Plt Count 44 L (150-450) k/uL PT 15.9 H (9.0-12.0) sec INR 1.6 H (<1.2) Potassium (3.5-5.1) mmol/L BUN (9-20) mg/dL Creatinine (0.66-1.25) mg/dL Glucose (74-99) mg/dL Calcium (8.4-10.2) mg/dL Total Bilirubin (0.2-1.3) mg/dL Alkaline Phosphatase (38-126) U/L Total Protein (6.3-8.2) g/dL Albumin (3.5-5.0) g/dL IgA <25.5 L (60.0-350.0) mg/dL IgM <16.9 L (40.0-280.0) mg/dL 10/04/18 Range/Units 05:34 RBC (4.30-5.90) m/uL Hgb (13.0-17.5) gm/dL Hct (39.0-53.0) % MCV (80.0-100.0) fL RDW (11.5-15.5) % Plt Count (150-450) k/uL PT (9.0-12.0) sec INR (<1.2) Potassium 3.4 L (3.5-5.1) mmol/L BUN 60 H (9-20) mg/dL Creatinine 3.11 H (0.66-1.25) mg/dL Glucose 121 H (74-99) mg/dL Calcium 7.2 L (8.4-10.2) mg/dL Total Bilirubin 5.5 H (0.2-1.3) mg/dL Alkaline Phosphatase 176 H (38-126) U/L Total Protein 4.0 L (6.3-8.2) g/dL Albumin 1.6 L (3.5-5.0) g/dL IgA (60.0-350.0) mg/dL IgM (40.0-280.0) mg/dL Microbiology - Last 24 Hours (Table) 10/02/18 11:45 Blood Culture - Preliminary Blood No Growth after 48 hours 10/02/18 13:14 Blood Culture - Preliminary Blood No Growth after 24 hours Assessment and Plan (1) Coagulopathy Narrative/Plan: Secondary to liver dysfunction. INR 1.6 today. 2.5mg IV vit K will be given as plt <50,000 Current Visit: Yes Status: Chronic Priority: High Code(s): D68.9 - COAGULATION DEFECT, UNSPECIFIED SNOMED Code(s): 88961242 (2) Thrombocytopenia Narrative/Plan: Plt stable today, no acute intervention Current Visit: Yes Status: Acute Priority: High Code(s): D69.6 - THROMBOCYTOPENIA, UNSPECIFIED SNOMED Code(s): 498948933 (3) Anemia Narrative/Plan: Hgb dropped in admit, suspect from hydration dilution. Hgb is typically 10 range, he is on procrit weekly, due today for a dose. Will order to be given. Monitor CBC. Current Visit: No Status: Chronic Priority: Medium Code(s): D64.9 - ANEMIA , UNSPECIFIED SNOMED Code(s): 366953772 (4) Common variable immunodeficiency Narrative/Plan: Patient received an immunoglobulin infusion last week. IgG 1200. No additional doses of IVIg at this time. Keep plans for next infusion. Current Visit: No Status: Chronic Priority: High Code(s): D83.9 - COMMON VARIABLE IMMUNODEFICIENCY, UNSPECIFIED SNOMED Code(s): 54635323 Plan: We discussed the concerns for pt decline being r/t liver failure. Did confirm with pt the reason he was taken of the liver transplant list was because of the necrotizing fascitis. I explained that his condition needs to be evaluated and treated with GI. 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 She will adjust lactulose dose to try and make more tolerable for pt so he will at least take it. There were already plans for albumin post para. She will reinforce info with pt and when she sees them. F/U with Dr. Scott in chart. Time with Patient: Greater than 30 (35 min spent, >50% conseling and coordinating care)
--- NOTE | 2018-10-04 16:05 | P.PN ---
Subjective Progress Note Date: 10/04/18 58-year-old patient came into the hospital because of fever and generalized weakness. This patient is a quite debilitated 58-year-old male patient with extensive medical history. 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 He was in our hospital back in March 2018 at that time he was found to have cellulitis which do not to be necrotizing patient's of the left lower extremity. He was chest at the [facility] and the patient was to use for overwhelming sepsis, respiratory failure and the patient had decompression and fasciotomy involving the left lower extremity. He end up in hospital for a total of one half months being on a mechanical ventilator for a total of 3 weeks. He was eventually extubated. He was discharged to rehabilitation. He had a hospitalization following that for fever and he developed a pneumonia secondary to VRE enterococcus. He was readmitted and treated and discharged home. He then came to our hospital at [facility] in May 2018 complaining of fever and chest congestion and cough or sputum production. He was thought to have pneumonia and the patient was found to have bilateral pulmonary infiltrates. He was treated for pneumonia and the patient was discharged home. He was being followed up at the wound center because of an ongoing wound in the left lower extremity. The wound itself for now is looking healthy. The base is dry and there is healthy granulation tissue. This wound is on the lateral aspect of the left thigh and it is a longitudinal once usually created by the decompression fasciotomy that was done at [facility]. The secretions from the wound are rather clear and nonpurulent at this point in time. The patient is also known to have liver cirrhosis. He has a chronic liver cirrhosis and he has a history of ascites and he carries umbilical hernia. His last paracentesis was done in July 2018 where more than 5 L of abdominal ascitic fluid was aspirated. Currently doesn't have any abdominal pain or distention noted has any nausea vomiting. He was having however some limited diarrhea, liquidy and this obviously raises the concern for C. diff colitis first that he has received antibiotics in the past. The patient is not having any dysuria clicks or urgency. No significant cough or sputum production. Nevertheless, the chest x-ray shows a right upper lobe consolidation in addition to small effusion the lower lobes more so on the right. He is hemodynamically stable. Nevertheless, he comes in with some mild elevation of lactic acid level at 4.4 which dropped down to 2.8. He also comes with an acute on top of chronic renal failure and the creatinine is up to 3.02. BUN is a 57. He was given IV fluids and currently is on normal saline at rate of 75 mL an hour. Is covered with IV Zosyn. He is also on Xifaxan regarding hepatic encephalopathy and he was given a dose of lactulose also. He is alert and awake and communicating. No altered mentation. No other complaints otherwise for now. on 10/04/2080 I'm seeing this patient for a follow-up. the patient is doing well. He is afebrile. His hemodynamics is stable. He still having liquidy loose diarrhea and the lactulose has been discontinued. Stool for C. diff has been negative. More than 7.0 liters of Ascitic fluid was aspirated from the patient's abdomen today and the fluid was sent for analysis. The possibility of an underlying spontaneous bacterial peritonitis cannot be completely excluded. Meanwhile, the patient is doing well. Local wound care is being applied to his left lower extremity. No dysuria frequency or urgency. He remains in remission. No nausea. No vomiting. No diarrhea. Vague limited abdominal pain. Whitel cnt s t .9an hemglb is at 9.4 Objective - Vital Signs Vital signs: Vital Signs Temp 98.0 F 10/04/18 14:51 Pulse 70 10/04/18 15:53 Resp 16 10/04/18 15:53 BP 92/53 10/04/18 14:51 Pulse Ox 95 10/04/18 14:51 Intake & Output 10/03/18 10/04/18 10/04/18 18:59 06:59 18:59 Intake Total 2577 682 3610 Balance 4770 289 6899 Weight 78.9 kg 79.2 kg Intake: IV 20 Invasive Line 1 10 Invasive Line 3 10 Intake, IV Titration 400 Amount Piperacillin-Tazobactam 3 100 .375 gm In Sodium Chloride 0.9% 100 ml @ 25 mls/hr IVPB Q8HR [facility] Rx# :[id number] Sodium Chloride 0.9% 1, 300 000 ml @ 75 mls/hr IV . [id number] [facility] Rx#:[id number] Oral 7747 398 4070 Blood Product 289 Platelet Irr Pheresis 289 Acda1 Unit [id number] Other: Voiding Method Urinal Urinal Urinal # Voids 1 2 # Bowel Movements 1 - Exam GENERAL EXAM: Alert, active, comfortable in no apparent distress. HEAD: Normocephalic. EYES: Normal reaction of pupils, equal size. NOSE: Clear with pink turbinates. THROAT: No erythema or exudates. NECK: No masses, no JVD. CHEST: No chest wall deformity. LUNGS: Equal air entry with faint crackles in the posterior bases, faint end expiratory wheeze. Diminished. CVS: S1 and S2 normal with no audible murmur, regular rhythm. ABDOMEN: No hepatosplenomegaly, normal bowel sounds, no guarding or rigidity. The patient has fluid wave and shifting dullness in addition to an umbilical hernia. The abdomen is less distended post paracentesis SPINE: No scoliosis or deformity SKIN: No rashes, scars of previous surgeries noted in the left lower extremity. The patient has sites of the compression patient to mi. There is a longitudinal scar/wound which is still open and not completely healed and its superior half running across the left lateral aspect of the left lower extremity , along the lateral thigh, just under the quadriceps muscles. The base is covered with healthy granulation tissue. No purulent discharge. CENTRAL NERVOUS SYSTEM: No focal deficits, tone is normal in all 4 extremities. EXTREMITIES: There is no peripheral edema. No clubbing, no cyanosis. Peripheral pulses are intact. - Labs CBC & Chem 7: 10/04/18 05:34 10/04/18 05:34 Labs: Abnormal Lab Results - Last 24 Hours (Table) 10/03/18 10/04/18 10/04/18 Range/Units 05:59 05:34 05:34 RBC 2.93 L (4.30-5.90) m/uL Hgb 9.4 L (13.0-17.5) gm/dL Hct 29.6 L (39.0-53.0) % MCV 100.8 H (80.0-100.0) fL RDW 18.9 H (11.5-15.5) % Plt Count 44 L (150-450) k/uL PT 15.9 H (9.0-12.0) sec INR 1.6 H (<1.2) Potassium (3.5-5.1) mmol/L BUN (9-20) mg/dL Creatinine (0.66-1.25) mg/dL Glucose (74-99) mg/dL Calcium (8.4-10.2) mg/dL Total Bilirubin (0.2-1.3) mg/dL Alkaline Phosphatase (38-126) U/L Total Protein (6.3-8.2) g/dL Albumin (3.5-5.0) g/dL IgA <25.5 L (60.0-350.0) mg/dL IgM <16.9 L (40.0-280.0) mg/dL 10/04/18 Range/Units 05:34 RBC (4.30-5.90) m/uL Hgb (13.0-17.5) gm/dL Hct (39.0-53.0) % MCV (80.0-100.0) fL RDW (11.5-15.5) % Plt Count (150-450) k/uL PT (9.0-12.0) sec INR (<1.2) Potassium 3.4 L (3.5-5.1) mmol/L BUN 60 H (9-20) mg/dL Creatinine 3.11 H (0.66-1.25) mg/dL Glucose 121 H (74-99) mg/dL Calcium 7.2 L (8.4-10.2) mg/dL Total Bilirubin 5.5 H (0.2-1.3) mg/dL Alkaline Phosphatase 176 H (38-126) U/L Total Protein 4.0 L (6.3-8.2) g/dL Albumin 1.6 L (3.5-5.0) g/dL IgA (60.0-350.0) mg/dL IgM (40.0-280.0) mg/dL Microbiology - Last 24 Hours (Table) 10/02/18 13:14 Blood Culture - Preliminary Blood No Growth after 48 hours 10/02/18 11:45 Blood Culture - Preliminary Blood No Growth after 48 hours Assessment and Plan Plan: Assessment 1 fever along with generalized weakness and mild lactic acidosis, consider an underlying infectious source and the potential sources of infection are multiple including lungs, left lower extremity wound, abdomen (spontaneous bacterial peritonitis) and GI tract knowing that the patient is having some loose liquidy diarrhea and is up with raises the concern for C. diff colitis. Currently the patient is well resuscitated. Lactic acid level is improving. The patient is also covered with a broad-spectrum antibiotic coverage On 10/04/2018, I'm more leaning towards spontaneous bacterial peritonitis. Her centimeters was done. Fluid analysis still pending. The patient remains on broad-spectrum antibiotics. The patient on Zosyn and Zithromax. Stool for C. diff was negative. No indication for an underlying pneumonia and the repeat chest x-ray will be done. 2 altered mentation, improved his and this was probably related to hepatic encephalopathy 3 alcoholic liver cirrhosis 4 chronic ascites requiring paracentesis and periodic basis and addition to an umbilical hernia stigmata of chronic liver failure. 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 Plan Suspect spontaneous bacterial peritonitis. Continue IV Zosyn. Repeat chest x- ray today. Clinically improved. Underwent paracentesis. Hold lactulose for now. Monitor diarrhea. No altered mentation. We'll continue to follow.
[2018-10-04] MEDS: DARBEPOETIN ALFA 100MCG/0.5ML SYRINGE SQ SCH (17:14)
[2018-10-04] MEDS: IPRATROPIUM-ALBUTEROL 3 ML NEB INHALATION SCH (19:09)
[2018-10-04] MEDS: MONTELUKAST 10 MG TAB PO SCH (21:17)
[2018-10-04 21:57] LABS: Total Protein, Body Fluid 760 mg/dL
--- NOTE | 2018-10-04 23:59 | PN ---
PROGRESS NOTE DATE OF SERVICE: 10/04/2018 REASON FOR FOLLOWUP: 1. Fever, likely peritonitis. 2. Left thigh wound. INTERVAL HISTORY: The patient overall feels better and has improved. He has been breathing comfortably. No significant chest pain or shortness of breath. Occasional cough. His abdominal pain improved after he had paracentesis; more than 7 L of fluid removed. The patient denies having any pain to the left lateral thigh wound area. PHYSICAL EXAMINATION: Blood pressure 97/35 with a pulse of 74, temperature 97.9. He is 94% on room air. General description is a middle-aged male lying in bed in no distress. RESPIRATORY SYSTEM: Unlabored breathing. Clear to auscultation anteriorly. HEART: S1, S2. Regular rate and rhythm. ABDOMEN: Soft. Mildly distended. No guarding or rigidity. Left thigh wound is currently dressed up. No obvious drainage on the dressing. LABS: Hemoglobin 9.4, white count 6.9, BUN of 16, creatinine 3.11. Patient's peritoneal fluid was cloudy; 6850 RBCs and 1752 WBCs, PMNs. DIAGNOSTIC IMPRESSION AND PLAN: 1. Patient admitted to hospital with a fever, abdominal pain, likely secondary to spontaneous bacterial peritonitis in this patient who does have underlying alcoholic liver cirrhosis and likely from enteric gram-negative pathogen. Clinical suspicion is low for underlying pneumonia. He did have a positive UA with underlying UTI not entirely excluded, either. The patient at this time will continue on Zosyn while waiting for the culture to finalize. 2. Left lateral thigh wound. To continue local wound care with an Aquacel Silver dressing to be changed daily. Continue with supportive care. MMODL / IJN: [id number] /
[2018-10-05 06:56] LABS: Albumin 1.8 g/dL (3.5-5.0); Anisocytosis Slight; Basophils % (A) 1 %; Calcium 7.5 mg/dL (8.4-10.2); Eosinophils # (A) 0.2 k/uL (0-0.7); Eosinophils % (A) 5 %; HCT 28.2 % (39.0-53.0); HGB 8.9 gm/dL (13.0-17.5); Hypochromasia Moderate; Lymphocytes # (A) 1.9 k/uL (1.0-4.8); Lymphocytes % (A) 45 %; MCH 31.8 pg (25.0-35.0); MCHC 31.6 g/dL (31.0-37.0); MCV 100.5 fL (80.0-100.0); Macrocytosis Moderate; Magnesium 1.7 mg/dL (1.6-2.3); Mean Platelet Volume 8.1; Monocytes # (A) 0.2 k/uL (0-1.0); Monocytes % (A) 4 %; Neutrophils # (A) 1.9 k/uL (1.3-7.7); Neutrophils % (A) 44 %; Platelet Count 33 k/uL (150-450); Poikilocytosis Slight; Potassium 3.5 mmol/L (3.5-5.1); RDW 18.9 % (11.5-15.5); Total Bilirubin 5.5 mg/dL (0.2-1.3); WBC 4.3 k/uL (3.8-10.6)
[2018-10-05 06:57] LABS: INR 1.5 (<1.2); Prothrombin Time 15.2 sec (9.0-12.0)
[2018-10-05] MEDS: DIGOXIN 62.5 MCG TAB PO SCH (08:50)
[2018-10-05] MEDS: RIFAXIMIN 550 MG TABLET PO SCH ×2 (08:50→20:50)
[2018-10-05] MEDS: PIPERACILLIN-TAZOBACTAM 3.375 GM in SODIUM CHLORIDE 0.9% 100 ML IVPB SCH ×2 (08:50→15:12)
[2018-10-05] MEDS: CITALOPRAM HYDROBROMIDE 10 MG TAB PO SCH (08:50)
[2018-10-05] MEDS: GABAPENTIN 100 MG CAP PO SCH ×2 (08:50→20:50)
[2018-10-05] MEDS: METOPROLOL TARTRATE 25 MG TAB PO SCH ×2 (08:50→20:49)
[2018-10-05] MEDS: BUMETANIDE 0.25 MG/ML 4 ML VIAL IVP SCH (08:51)
[2018-10-05] MEDS: MISOPROSTOL 100 MCG TAB PO SCH ×2 (08:51→20:50)
[2018-10-05] MEDS: CHOLECALCIFEROL 1,000 UNIT TAB PO SCH (08:51)
[2018-10-05] MEDS: LACTULOSE 20 GM/30 ML CUP PO SCH ×3 (08:51→20:42)
[2018-10-05] MEDS ORDERED: AZITHROMYCIN 500 MG TAB PO SCH (09:00)
[2018-10-05] MEDS: IPRATROPIUM-ALBUTEROL 3 ML NEB INHALATION SCH ×3 (09:05→20:50)
--- NOTE | 2018-10-05 12:44 | P.PN ---
Subjective Progress Note Date: 10/05/18 Principal diagnosis: Cirrhosis of the liver history of EtOH abuse ascites Feels well. Status post therapeutic diagnostic paracentesis yesterday 7.6 L removal. Received albumin post procedure 62.5 g. Feels well today. Denies abdominal pain. Total bilirubin 5.5. Transaminases stable. BUN 56. Creatinine 2.9. Objective - Vital Signs Vital signs: Vital Signs Temp 97.7 F 10/05/18 08:00 Pulse 89 10/05/18 12:00 Resp 16 10/05/18 12:00 BP 98/55 10/05/18 08:00 Pulse Ox 93 L 10/05/18 08:00 Intake & Output 10/04/18 10/05/18 10/05/18 18:59 06:59 18:59 Intake Total 3119 80 1008 Balance 3119 80 1008 Weight 77.6 kg 77.6 kg Intake: IV 20 10 Invasive Line 1 10 10 Invasive Line 3 10 Intake, IV Titration 300 100 Amount Albumin Human 25% 50 ml 200 In Empty Bag 1 bag @ 100 mls/hr IVPB Q15M [facility] Rx#: [id number] Piperacillin-Tazobactam 3 100 100 .375 gm In Sodium Chloride 0.9% 100 ml @ 25 mls/hr IVPB Q8HR [facility] Rx# :[id number] Oral 2510 80 898 Blood Product 289 Platelet Irr Pheresis 289 Acda1 Unit [id number] Other: Voiding Method Urinal Urinal Urinal # Voids 2 1 1 - Exam General appearance: The patient is alert, oriented, in no acute distress. HET: Head is normocephalic and atraumatic. Pupils are equal and reactive. Oropharynx is clear without lesions. Neck: Supple without lymphadenopathy. Trachea midline. Heart: S1 S2. Regular rate and rhythm. Lungs: No crackles or wheezes are heard. Abdomen: Soft, mild ascites reducible umbilical hernia with bowel sounds. No peritoneal signs. No palpable organomegaly or masses. Extremities: +2 bilateral lower extremity edema Neurological: No focal deficits. Strength and sensation are grossly intact. - Labs CBC & Chem 7: 10/05/18 06:01 10/05/18 06:01 Labs: Abnormal Lab Results - Last 24 Hours (Table) 10/05/18 10/05/18 10/05/18 Range/Units 06:01 06:01 06:01 RBC 2.80 L (4.30-5.90) m/uL Hgb 8.9 L (13.0-17.5) gm/dL Hct 28.2 L (39.0-53.0) % MCV 100.5 H (80.0-100.0) fL RDW 18.9 H (11.5-15.5) % Plt Count 33 L (150-450) k/uL PT 15.2 H (9.0-12.0) sec INR 1.5 H (<1.2) BUN 56 H (9-20) mg/dL Creatinine 2.99 H (0.66-1.25) mg/dL Calcium 7.5 L (8.4-10.2) mg/dL Total Bilirubin 5.5 H (0.2-1.3) mg/dL Alkaline Phosphatase 148 H (38-126) U/L Total Protein 4.0 L (6.3-8.2) g/dL Albumin 1.8 L (3.5-5.0) g/dL Microbiology - Last 24 Hours (Table) 10/04/18 11:35 Gram Stain - Preliminary Peritoneal Fluid Body Fluid Culture - Preliminary 10/02/18 13:14 Urine Culture - Final Urine,Voided Makenna albicans 10/04/18 11:35 Anaerobic Culture - Preliminary Peritoneal Fluid 10/02/18 13:14 Blood Culture - Preliminary Blood No Growth after 48 hours 10/02/18 11:45 Blood Culture - Preliminary Blood No Growth after 48 hours Assessment and Plan (1) Ascites due to alcoholic cirrhosis Narrative/Plan: 58-year-old male with a history of EtOH abuse admitted with elevated liver enzymes ascites decompensated alcohol liver failure with underlying chronic kidney disease, hepatic encephalopathy, portal hypertension and CVID. History of severe necrotizing fasciitis involving the left leg requiring multiple surgeries at [facility]. Current Visit: Yes Status: Acute Priority: High Code(s): K70.31 - ALCOHOLIC CIRRHOSIS OF LIVER WITH ASCITES SNOMED Code(s): 2196658897784878 (2) Chronic kidney disease Current Visit: Yes Status: Acute Code(s): N18.9 - CHRONIC KIDNEY DISEASE, UNSPECIFIED SNOMED Code(s): 829481247 Plan: 1. Continue present medical therapy. Patient states he has a follow-up appointment this month with a [facility]. Assessment and plan a care discussed with Dr. Ty
--- NOTE | 2018-10-05 13:36 | P.PN ---
Subjective This is a pleasant 58 years old male with past medical history of atrial fibrillation, asthma, GI place, hypertension, liver disease, cirrhosis, hypogammaglobulinemia and common variable immunodeficiency that needs IVIG every 3-4 weeks. Also has cystitis, anemia and neuropathy. Presents because of weakness and left flank pain as he has prior fasciotomy . On admission patient was confused, mostly secondary to hepatic encephalopathy in view of her cirrhosis of the liver. Also there are suspicions of right pneumonia and patient was started on antibiotics. Cardiology and gastroenterology are seeing the patient as well as hematology for her immunodeficiency and blood cells abnormalities. Urinalysis Technician are planning for thoracocentesis with FFB coverage. 10/04/2018 Patient is fully awake and oriented to time place and person. He still have abdominal pain all over with tenderness, no nausea vomiting however he has good bowel movement. Patient's has a little dyspneic but no chest pain. He has mild cough with some white phlegm. He has wound in his left lateral thighs, with no surrounding cellulitis. Patient still has diarrhea he had 6 bowel movements yesterday's and 2 since last night. Echo shows ejection fraction of 55-60% with moderate aortic stenosis. Platelets 44. Creatinine 3.1. Lactic acid is back to normal at 1.6. INR is down to 1.6. Patient might be going for paracentesis better on. 09/05/2018 Patient is status post paracentesis yesterday. His abdominal pain has been resolved, no more abdominal tenderness and his exam looks more benign. No dysuria or urinary symptoms like states frequency. He had been little bit dyspneic however he feels better today. With same little white phlegm. No chest pain. Has bilateral leg pain for about a week. Platelets today at 33. INR 1.5. Creatinine is 2.99. Patient had bad diarrhea yesterday every 2 hours which improved overnight to only 3. C. diff is negative. Objective - Vital Signs Vital signs: Vital Signs Temp 97.7 F 10/05/18 08:00 Pulse 84 10/05/18 13:17 Resp 16 10/05/18 12:00 BP 98/55 10/05/18 08:00 Pulse Ox 93 L 10/05/18 08:00 Intake & Output 10/04/18 10/05/18 10/05/18 18:59 06:59 18:59 Intake Total 3119 80 1230 Balance 3119 80 1230 Weight 77.6 kg 77.6 kg Intake: IV 20 10 Invasive Line 1 10 10 Invasive Line 3 10 Intake, IV Titration 300 100 Amount Albumin Human 25% 50 ml 200 In Empty Bag 1 bag @ 100 mls/hr IVPB Q15M [facility] Rx#: [id number] Piperacillin-Tazobactam 3 100 100 .375 gm In Sodium Chloride 0.9% 100 ml @ 25 mls/hr IVPB Q8HR [facility] Rx# :[id number] Oral 2510 80 1120 Blood Product 289 Platelet Irr Pheresis 289 Acda1 Unit [id number] Other: Voiding Method Urinal Urinal Urinal # Voids 2 1 1 - Exam GENERAL: The patient is alert and oriented x2-3, not in any acute distress. Well developed, well nourished. HEENT: Pupils are round and equally reacting to light. EOMI. No scleral icterus. No conjunctival pallor. Normocephalic, atraumatic. No pharyngeal erythema. No thyromegaly. CARDIOVASCULAR: S1 and S2 present. No murmurs, rubs, or gallops. PULMONARY: Chest is clear to auscultation, no wheezing or crackles. -ABDOMEN: Soft, nontender, distended, normoactive bowel sounds. No palpable organomegaly. MUSCULOSKELETAL: No joint swelling or deformity. EXTREMITIES: No cyanosis, clubbing, or pedal edema. NEUROLOGICAL: Gross neurological examination did not reveal any focal deficits. SKIN: No rashes. - Labs CBC & Chem 7: 10/05/18 06:01 10/05/18 06:01 Labs: Abnormal Lab Results - Last 24 Hours (Table) 10/05/18 10/05/18 10/05/18 Range/Units 06:01 06:01 06:01 RBC 2.80 L (4.30-5.90) m/uL Hgb 8.9 L (13.0-17.5) gm/dL Hct 28.2 L (39.0-53.0) % MCV 100.5 H (80.0-100.0) fL RDW 18.9 H (11.5-15.5) % Plt Count 33 L (150-450) k/uL PT 15.2 H (9.0-12.0) sec INR 1.5 H (<1.2) BUN 56 H (9-20) mg/dL Creatinine 2.99 H (0.66-1.25) mg/dL Calcium 7.5 L (8.4-10.2) mg/dL Total Bilirubin 5.5 H (0.2-1.3) mg/dL Alkaline Phosphatase 148 H (38-126) U/L Total Protein 4.0 L (6.3-8.2) g/dL Albumin 1.8 L (3.5-5.0) g/dL Microbiology - Last 24 Hours (Table) 10/04/18 11:35 Gram Stain - Preliminary Peritoneal Fluid Body Fluid Culture - Preliminary 10/02/18 13:14 Urine Culture - Final Urine,Voided Makenna albicans 10/04/18 11:35 Anaerobic Culture - Preliminary Peritoneal Fluid 10/02/18 13:14 Blood Culture - Preliminary Blood No Growth after 48 hours 10/02/18 11:45 Blood Culture - Preliminary Blood No Growth after 48 hours Assessment and Plan Assessment: Hepatic encephalopathy Cirrhosis of the liver Ascites secondary to above Alcohol abuse Chronic kidney disease Committee acquired pneumonia Coagulopathy Thrombocytopenia Common variable immunodeficiency Plan: This is a pleasant 58 years old male who presents because of bursitis alcohol abuse and liver cirrhosis. Continue with antibiotics. Gastroenterology, cardiology and hematology consults are following the patient . Labs and medication were reviewed.. Continue same treatment. Continue with symptomatic treatment. Resume home medication. Monitor lytes and vitals. DVT and GI prophylaxis. Further recommendations of the clinical course of the patient DVT prophylaxis: no heparin in view of his coagulopathy GI Prophylaxis: Pepcid PT/OT: Pending Prognosis is guarded
--- NOTE | 2018-10-05 14:40 | US ---
EXAMINATION TYPE: US venous doppler duplex LE DATE OF EXAM: 10/05/2018 2:15 PM COMPARISON: NONE CLINICAL HISTORY: Rule out DVT. Edema SIDE PERFORMED: bilateral TECHNIQUE: The lower extremity deep venous system is examined utilizing real time linear array sonog selene with graded compression, doppler sonography and color-flow sonography. VESSELS IMAGED: External Iliac Vein (EIV) Common Femoral Vein Deep Femoral Vein Greater Saphenous Vein * Femoral Vein Popliteal Vein Small Saphenous Vein * Proximal Calf Veins (* superficial vessels) Large amount of soft tissue edema noted bilaterally Right Leg: no evidence of DVT Left Leg: no evidence of DVT IMPRESSION: 1. No diagnostic evidence of DVT as visualized.
--- NOTE | 2018-10-05 15:29 | P.PN ---
Subjective Progress Note Date: 10/05/18 Principal diagnosis: Febrile illness of unclear etiology suspect bacterial peritonitis. This is a very pleasant 58-year-old patient came into the hospital because of fever and generalized weakness. This patient is a quite debilitated 58-year- old male patient with extensive medical history. 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 He was in our hospital back in March 2018 at that time he was found to have cellulitis which do not to be necrotizing patient's of the left lower extremity. He was chest at the [facility] and the patient was to use for overwhelming sepsis, respiratory failure and the patient had decompression and fasciotomy involving the left lower extremity. He end up in hospital for a total of one half months being on a mechanical ventilator for a total of 3 weeks. He was eventually extubated. He was discharged to rehabilitation. He had a hospitalization following that for fever and he developed a pneumonia secondary to VRE enterococcus. He was readmitted and treated and discharged home. He then came to our hospital at [facility] in May 2018 complaining of fever and chest congestion and cough or sputum production. He was thought to have pneumonia and the patient was found to have bilateral pulmonary infiltrates. He was treated for pneumonia and the patient was discharged home. He was being followed up at the wound center because of an ongoing wound in the left lower extremity. The wound itself for now is looking healthy. The base is dry and there is healthy granulation tissue. This wound is on the lateral aspect of the left thigh and it is a longitudinal once usually created by the decompression fasciotomy that was done at [facility]. The secretions from the wound are rather clear and nonpurulent at this point in time. The patient is also known to have liver cirrhosis. He has a chronic liver cirrhosis and he has a history of ascites and he carries umbilical hernia. His last paracentesis was done in July 2018 where more than 5 L of abdominal ascitic fluid was aspirated. Currently doesn't have any abdominal pain or distention noted has any nausea vomiting. He was having however some limited diarrhea, liquidy and this obviously raises the concern for C. diff colitis first that he has received antibiotics in the past. The patient is not having any dysuria clicks or urgency. No significant cough or sputum production. Nevertheless, the chest x-ray shows a right upper lobe consolidation in addition to small effusion the lower lobes more so on the right. He is hemodynamically stable. Nevertheless, he comes in with some mild elevation of lactic acid level at 4.4 which dropped down to 2.8. He also comes with an acute on top of chronic renal failure and the creatinine is up to 3.02. BUN is a 57. He was given IV fluids and currently is on normal saline at rate of 75 mL an hour. Is covered with IV Zosyn. He is also on Xifaxan regarding hepatic encephalopathy and he was given a dose of lactulose also. He is alert and awake and communicating. No altered mentation. No other complaints otherwise for now. on 10/04/2080 I'm seeing this patient for a follow-up. the patient is doing well. He is afebrile. His hemodynamics is stable. He still having liquidy loose diarrhea and the lactulose has been discontinued. Stool for C. diff has been negative. More than 7.0 liters of Ascitic fluid was aspirated from the patient's abdomen today and the fluid was sent for analysis. The possibility of an underlying spontaneous bacterial peritonitis cannot be completely excluded. Meanwhile, the patient is doing well. Local wound care is being applied to his left lower extremity. No dysuria frequency or urgency. He remains in remission. No nausea. No vomiting. No diarrhea. Vague limited abdominal pain. Whitel cnt s t .9an hemglb is at 9.4 The patient is seen today 10/05/2018 in follow-up on the regular medical floor. He is awake and alert in no acute distress. He is feeling better today as compared to yesterday. Feeling a bit stronger. Up ambulating in his room. He denies any worsening shortness of breath, cough or congestion. Peritoneal fluid cultures are pending. Blood cultures reveal no growth to date. White count 4.3. Hemoglobin 8.9. Platelet count 33,000. INR 1.5. Creatinine 2.99. He remains on Zosyn and azithromycin. Objective - Vital Signs Vital signs: Vital Signs Temp 98.0 F 10/05/18 15:10 Pulse 81 10/05/18 15:10 Resp 17 10/05/18 15:10 BP 101/60 10/05/18 15:10 Pulse Ox 93 L 10/05/18 15:10 Intake & Output 10/04/18 10/05/18 10/05/18 18:59 06:59 18:59 Intake Total 3119 80 1230 Balance 3119 80 1230 Weight 77.6 kg 77.6 kg Intake: IV 20 10 Invasive Line 1 10 10 Invasive Line 3 10 Intake, IV Titration 300 100 Amount Albumin Human 25% 50 ml 200 In Empty Bag 1 bag @ 100 mls/hr IVPB Q15M [facility] Rx#: [id number] Piperacillin-Tazobactam 3 100 100 .375 gm In Sodium Chloride 0.9% 100 ml @ 25 mls/hr IVPB Q8HR [facility] Rx# :[id number] Oral 2510 80 1120 Blood Product 289 Platelet Irr Pheresis 289 Acda1 Unit [id number] Other: Voiding Method Urinal Urinal Urinal # Voids 2 1 1 - Exam GENERAL EXAM: Alert, active, comfortable in no apparent distress. On room air. HEAD: Normocephalic. EYES: Normal reaction of pupils, equal size. NOSE: Clear with pink turbinates. THROAT: No erythema or exudates. NECK: No masses, no JVD. CHEST: No chest wall deformity. LUNGS: Equal air entry with faint crackles in the posterior bases, faint end expiratory wheeze. Diminished. CVS: S1 and S2 normal with no audible murmur, regular rhythm. ABDOMEN: No hepatosplenomegaly, normal bowel sounds, no guarding or rigidity. The abdomen is less distended post paracentesis SPINE: No scoliosis or deformity SKIN: No rashes, scars of previous surgeries noted in the left lower extremity. The patient has sites of the compression patient to me. There is a longitudinal scar/wound which is still open and not completely healed and its superior half running across the left lateral aspect of the left lower extremity , along the lateral thigh, just under the quadriceps muscles. The base is covered with healthy granulation tissue. No purulent discharge. CENTRAL NERVOUS SYSTEM: No focal deficits, tone is normal in all 4 extremities. EXTREMITIES: There is no peripheral edema. No clubbing, no cyanosis. Peripheral pulses are intact. - Labs CBC & Chem 7: 10/05/18 06:01 10/05/18 06:01 Labs: Abnormal Lab Results - Last 24 Hours (Table) 10/05/18 10/05/18 10/05/18 Range/Units 06:01 06:01 06:01 RBC 2.80 L (4.30-5.90) m/uL Hgb 8.9 L (13.0-17.5) gm/dL Hct 28.2 L (39.0-53.0) % MCV 100.5 H (80.0-100.0) fL RDW 18.9 H (11.5-15.5) % Plt Count 33 L (150-450) k/uL PT 15.2 H (9.0-12.0) sec INR 1.5 H (<1.2) BUN 56 H (9-20) mg/dL Creatinine 2.99 H (0.66-1.25) mg/dL Calcium 7.5 L (8.4-10.2) mg/dL Total Bilirubin 5.5 H (0.2-1.3) mg/dL Alkaline Phosphatase 148 H (38-126) U/L Total Protein 4.0 L (6.3-8.2) g/dL Albumin 1.8 L (3.5-5.0) g/dL Microbiology - Last 24 Hours (Table) 10/02/18 11:45 Blood Culture - Preliminary Blood No Growth after 72 hours 10/04/18 11:35 Gram Stain - Preliminary Peritoneal Fluid Body Fluid Culture - Preliminary 10/02/18 13:14 Urine Culture - Final Urine,Voided Makenna albicans 10/04/18 11:35 Anaerobic Culture - Preliminary Peritoneal Fluid 10/02/18 13:14 Blood Culture - Preliminary Blood No Growth after 48 hours Assessment and Plan Assessment: Assessment 1 fever along with generalized weakness and mild lactic acidosis, consider an underlying infectious source and the potential sources of infection are multiple including lungs, left lower extremity wound, abdomen (spontaneous bacterial peritonitis) and GI tract knowing that the patient is having some loose liquidy diarrhea, C. difficile screen was negative. The patient is also covered with a broad-spectrum antibiotic coverage 2 altered mentation, improved his and this was probably related to hepatic encephalopathy 3 alcoholic liver cirrhosis 4 chronic ascites requiring paracentesis and periodic basis and addition to an umbilical hernia stigmata of chronic liver failure. 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 Plan The patient was seen and evaluated by Dr. Mcintyre. He is improved today as compared to yesterday. We'll continue with his current antibiotics in the form of Zosyn and azithromycin. We will continue to follow and make further recommendations based on his clinical status. I, the cosigning physician, performed a history & physical examination of the patient. Lungs sounds with crackles in the posterior bases. Maintaining good O2 saturations in the 90s on room air. I discussed the assessment and plan of care with my nurse practitioner, Padmini Andrade. I attest to the above note as dictated by her.
--- NOTE | 2018-10-05 17:03 | PN ---
PROGRESS NOTE Patient is seen for followup for acute kidney injury. Patient is currently comfortable. He denies any significant complaints. His renal function is fairly stable. Creatinine has been at about 3.1 to 2.9 mg/dL. His initial creatinine was 2.8 on admission. Patient has been voiding in a urinal. Patient is currently not on any IV fluids. He did have paracentesis, and blood pressure has been on the lower side. On examination today, blood pressure was 101/68, heart rate 75 per minute. Patient is afebrile. EXAMINATION OF THE HEART: S1, S2. EXAMINATION OF LUNGS: Bilateral breath sounds are heard. ABDOMEN: Soft, non-tender, distended. Examination of lower extremities shows edema 1+ bilaterally. CLOTH WASHER exam is grossly intact. Labs show sodium 140, potassium 3.5, chloride 107, BUN 56, serum creatinine 2.9, hemoglobin 8.9 g/dL. ASSESSMENT: 1. Acute kidney injury, currently nonoliguric. Serum creatinine is about the same for the last 3 days. We will check a post-void residual to rule out underlying urine retention. Previous ultrasound of the kidneys done on 08/30/2018 did not show any evidence of hydronephrosis. No nephrotoxic agents on board. 2. Chronic kidney disease with previous creatinine about 1.7 mg/dL, most likely related to nephrosclerosis. UA shows trace protein. 3. Liver cirrhosis and ascites, status post paracentesis. 4. Hypokalemia associated with diuresis and decreased oral intake. 5. Anemia of chronic disease, maintained on Aranesp. PLAN: May continue with the Bumex for now. Repeat labs in a.m. and check post-void residual. MMODL / IJN: [id number] /
[2018-10-05] MEDS: MONTELUKAST 10 MG TAB PO SCH (20:50)
--- NOTE | 2018-10-05 23:38 | PN ---
PROGRESS NOTE DATE OF SERVICE: 10/05/2018. REASON FOR FOLLOWUP: 1. Fever, likely spontaneous bacterial peritonitis. 2. UTI. 3. Left thigh wound. INTERVAL HISTORY: The patient is currently afebrile. He seems to be breathing more comfortably. Denies significant chest pain, occasional cough. His abdominal pain has improved. No nausea, vomiting or diarrhea and no pain to the left thigh wound area. EXAMINATION: Blood pressure 108/65 with a pulse of 77, temperature 98.2. He is 93% on room air. General description is a middle-aged male lying in bed in no distress. Respiratory system: Unlabored breathing. Clear to auscultation anteriorly. Heart S1, S2. Regular rate and rhythm. Abdomen is tender. No rigidity. Left thigh wound is currently dressed up. No obvious drainage on the dressing. LABS: Hemoglobin is 8.9, white count 4.3 with a BUN of 56, creatinine is 2.99. DIAGNOSTIC IMPRESSION AND PLAN: 1. Patient admitted to the hospital with fever, source likely spontaneous bacterial peritonitis. We are waiting for the fluid culture to finalize. Also did have a component of urinary tract infection. Patient is currently covered with Zosyn that will be continued for now. Waiting for the culture to finalize. Clinically doubt pneumonia. Zithromax will be discontinued. 2. Patient with left thigh wound with a recent history of necrotizing fasciitis. Local care to continue with the Aquacel silver packing of the wound to be changed daily. 3. Continue supportive care. MMODL / IJN: [id number] /
[2018-10-06] MEDS: PIPERACILLIN-TAZOBACTAM 3.375 GM in SODIUM CHLORIDE 0.9% 100 ML IVPB SCH ×4 (00:10→23:05)
[2018-10-06 07:30] LABS: INR 1.4 (<1.2); Prothrombin Time 13.9 sec (9.0-12.0)
[2018-10-06 07:42] LABS: Albumin 1.9 g/dL (3.5-5.0); Calcium 7.8 mg/dL (8.4-10.2); Potassium 3.5 mmol/L (3.5-5.1); Total Protein 4.2 g/dL (6.3-8.2)
[2018-10-06 07:55] LABS: Anisocytosis Slight; Basophils % (A) 1 %; Eosinophils # (A) 0.3 k/uL (0-0.7); Eosinophils % (A) 6 %; HCT 31.5 % (39.0-53.0); HGB 9.6 gm/dL (13.0-17.5); Hypochromasia Moderate; Lymphocytes # (A) 2.1 k/uL (1.0-4.8); Lymphocytes % (A) 38 %; MCH 31.5 pg (25.0-35.0); MCHC 30.5 g/dL (31.0-37.0); MCV 103.1 fL (80.0-100.0); Macrocytosis Moderate; Mean Platelet Volume 8.3; Monocytes # (A) 0.3 k/uL (0-1.0); Monocytes % (A) 6 %; Neutrophils # (A) 2.6 k/uL (1.3-7.7); Neutrophils % (A) 48 %; Poikilocytosis Slight; RBC 3.06 m/uL (4.30-5.90); RDW 19.2 % (11.5-15.5); WBC 5.5 k/uL (3.8-10.6)
[2018-10-06] MEDS: IPRATROPIUM-ALBUTEROL 3 ML NEB INHALATION SCH ×3 (07:59→20:55)
[2018-10-06 08:01] LABS: Platelet Count 41 k/uL (150-450)
--- NOTE | 2018-10-06 09:59 | P.PN ---
Subjective This is a pleasant 58 years old male with past medical history of atrial fibrillation, asthma, GI place, hypertension, liver disease, cirrhosis, hypogammaglobulinemia and common variable immunodeficiency that needs IVIG every 3-4 weeks. Also has cystitis, anemia and neuropathy. Presents because of weakness and left flank pain as he has prior fasciotomy . On admission patient was confused, mostly secondary to hepatic encephalopathy in view of her cirrhosis of the liver. Also there are suspicions of right pneumonia and patient was started on antibiotics. Cardiology and gastroenterology are seeing the patient as well as hematology for her immunodeficiency and blood cells abnormalities. Direct Mail Clerk are planning for thoracocentesis with FFB coverage. 10/04/2018 Patient is fully awake and oriented to time place and person. He still have abdominal pain all over with tenderness, no nausea vomiting however he has good bowel movement. Patient's has a little dyspneic but no chest pain. He has mild cough with some white phlegm. He has wound in his left lateral thighs, with no surrounding cellulitis. Patient still has diarrhea he had 6 bowel movements yesterday's and 2 since last night. Echo shows ejection fraction of 55-60% with moderate aortic stenosis. Platelets 44. Creatinine 3.1. Lactic acid is back to normal at 1.6. INR is down to 1.6. Patient might be going for paracentesis better on. 10/05/2018 Patient is status post paracentesis yesterday. His abdominal pain has been resolved, no more abdominal tenderness and his exam looks more benign. No dysuria or urinary symptoms like states frequency. He had been little bit dyspneic however he feels better today. With same little white phlegm. No chest pain. Has bilateral leg pain for about a week. Platelets today at 33. INR 1.5. Creatinine is 2.99. Patient had bad diarrhea yesterday every 2 hours which improved overnight to only 3. C. diff is negative. 10/06/2018 Patient still feeling relates and generally weak and tired. She still have frequent bowel movements with 4 movements since yesterday last night. However his abdominal pain has subsided. No wish dyspnea and is breathing quietly. No chest pain or coughing. Her symptoms. Vitas looks stable. Hemoglobin stable and platelets at 41. WB C5 0.5. INR is 1.4 ends improving. Creatinine is still high at 2.9. Sodium 138 and potassium 3.5. Objective - Vital Signs Vital signs: Vital Signs Temp 98.2 F 10/06/18 09:30 Pulse 84 10/06/18 09:30 Resp 24 10/06/18 09:30 BP 114/67 10/06/18 09:30 Pulse Ox 96 10/06/18 09:30 Intake & Output 10/05/18 10/06/18 10/06/18 18:59 06:59 18:59 Intake Total 1940 220 Output Total 1260 Balance 1940 -1040 Weight 77.6 kg 81.6 kg Intake: IV 20 Invasive Line 1 20 Intake, IV Titration 200 Amount Piperacillin-Tazobactam 3 200 .375 gm In Sodium Chloride 0.9% 100 ml @ 25 mls/hr IVPB Q8HR [facility] Rx# :[id number] Oral 1720 220 Output: Urine 260 Uretheral (Dunham) 200 Stool 1000 Other: Voiding Method Urinal Urinal # Voids 2 1 - Exam GENERAL: The patient is alert and oriented x2-3, not in any acute distress. Well developed, well nourished. HEENT: Pupils are round and equally reacting to light. EOMI. No scleral icterus. No conjunctival pallor. Normocephalic, atraumatic. No pharyngeal erythema. No thyromegaly. CARDIOVASCULAR: S1 and S2 present. No murmurs, rubs, or gallops. PULMONARY: Chest is clear to auscultation, no wheezing or crackles. -ABDOMEN: Soft, nontender, distended, normoactive bowel sounds. No palpable organomegaly. MUSCULOSKELETAL: No joint swelling or deformity. EXTREMITIES: No cyanosis, clubbing, or pedal edema. NEUROLOGICAL: Gross neurological examination did not reveal any focal deficits. SKIN: No rashes. - Labs CBC & Chem 7: 10/06/18 06:23 10/06/18 06:23 Labs: Abnormal Lab Results - Last 24 Hours (Table) 10/06/18 10/06/18 10/06/18 Range/Units 06:23 06:23 06:23 RBC 3.06 L (4.30-5.90) m/uL Hgb 9.6 L (13.0-17.5) gm/dL Hct 31.5 L (39.0-53.0) % MCV 103.1 H (80.0-100.0) fL MCHC 30.5 L (31.0-37.0) g/dL RDW 19.2 H (11.5-15.5) % Plt Count 41 L (150-450) k/uL PT 13.9 H (9.0-12.0) sec INR 1.4 H (<1.2) BUN 50 H (9-20) mg/dL Creatinine 2.95 H (0.66-1.25) mg/dL Glucose 103 H (74-99) mg/dL Calcium 7.8 L (8.4-10.2) mg/dL Total Bilirubin 5.0 H (0.2-1.3) mg/dL Alkaline Phosphatase 156 H (38-126) U/L Total Protein 4.2 L (6.3-8.2) g/dL Albumin 1.9 L (3.5-5.0) g/dL Microbiology - Last 24 Hours (Table) 10/02/18 13:14 Blood Culture - Preliminary Blood No Growth after 72 hours 10/02/18 11:45 Blood Culture - Preliminary Blood No Growth after 72 hours 10/04/18 11:35 Gram Stain - Preliminary Peritoneal Fluid Body Fluid Culture - Preliminary Assessment and Plan Assessment: Hepatic encephalopathy Cirrhosis of the liver Ascites secondary to above Alcohol abuse Chronic kidney disease Committee acquired pneumonia Coagulopathy Thrombocytopenia Common variable immunodeficiency Plan: This is a pleasant 58 years old male who presents because of bursitis alcohol abuse and liver cirrhosis. Continue with antibiotics. Gastroenterology, cardiology and hematology consults are following the patient . Labs and medication were reviewed.. Continue same treatment. Continue with symptomatic treatment. Resume home medication. Monitor lytes and vitals. DVT and GI prophylaxis. Further recommendations of the clinical course of the patient DVT prophylaxis: no heparin in view of his coagulopathy GI Prophylaxis: Pepcid PT/OT: Pending Prognosis is guarded
[2018-10-06] MEDS: BUMETANIDE 0.25 MG/ML 4 ML VIAL IVP SCH (10:19)
[2018-10-06] MEDS: CITALOPRAM HYDROBROMIDE 10 MG TAB PO SCH (10:19)
[2018-10-06] MEDS: GABAPENTIN 100 MG CAP PO SCH ×2 (10:19→20:21)
[2018-10-06] MEDS: METOPROLOL TARTRATE 25 MG TAB PO SCH ×2 (10:19→20:21)
[2018-10-06] MEDS: CHOLECALCIFEROL 1,000 UNIT TAB PO SCH (10:20)
[2018-10-06] MEDS: RIFAXIMIN 550 MG TABLET PO SCH ×2 (10:20→20:21)
[2018-10-06] MEDS: LACTULOSE 20 GM/30 ML CUP PO SCH ×3 (10:20→20:10)
[2018-10-06] MEDS: MISOPROSTOL 100 MCG TAB PO SCH ×2 (10:21→20:21)
[2018-10-06] MEDS: POTASSIUM CHLORIDE ER 20 MEQ TAB.ER PO SCH ×2 (10:21→12:55)
--- NOTE | 2018-10-06 10:21 | P.PN ---
Subjective Patient is seen in follow-up for acute kidney injury. Recently his creatinine has been in the range of 1.7-2. Renal function stable with creatinine at 2.95 today. Oral intake is poor. He had paracentesis done on October 04 with 7.6 L removed. He did receive IV albumin. Oral intake is poor. Maintained on IV Bumex. No changes overnight. Vital signs are stable. General: The patient appeared well nourished and normally developed. HEENT: Head exam is unremarkable. Neck is without jugular venous distension. LUNGS: Lungs are clear to auscultation and percussion. Breath sounds decreased. HEART: Rate and Rhythm are regular. First and second heart sounds normal. No murmurs, rubs or gallops. ABDOMEN: Bowel sounds present. Distention noted. EXTREMITITES: 2+ edema. Objective - Vital Signs Vital signs: Vital Signs Temp 98.2 F 10/06/18 09:30 Pulse 84 10/06/18 09:30 Resp 24 10/06/18 09:30 BP 114/67 10/06/18 09:30 Pulse Ox 96 10/06/18 09:30 Intake & Output 10/05/18 10/06/18 10/06/18 18:59 06:59 18:59 Intake Total 1940 220 Output Total 1260 Balance 1940 -1040 Weight 77.6 kg 81.6 kg Intake: IV 20 Invasive Line 1 20 Intake, IV Titration 200 Amount Piperacillin-Tazobactam 3 200 .375 gm In Sodium Chloride 0.9% 100 ml @ 25 mls/hr IVPB Q8HR [facility] Rx# :[id number] Oral 1720 220 Output: Urine 260 Uretheral (Dunham) 200 Stool 1000 Other: Voiding Method Urinal Urinal # Voids 2 1 - Labs CBC & Chem 7: 10/06/18 06:23 10/06/18 06:23 Labs: Abnormal Lab Results - Last 24 Hours (Table) 10/06/18 10/06/18 10/06/18 Range/Units 06:23 06:23 06:23 RBC 3.06 L (4.30-5.90) m/uL Hgb 9.6 L (13.0-17.5) gm/dL Hct 31.5 L (39.0-53.0) % MCV 103.1 H (80.0-100.0) fL MCHC 30.5 L (31.0-37.0) g/dL RDW 19.2 H (11.5-15.5) % Plt Count 41 L (150-450) k/uL PT 13.9 H (9.0-12.0) sec INR 1.4 H (<1.2) BUN 50 H (9-20) mg/dL Creatinine 2.95 H (0.66-1.25) mg/dL Glucose 103 H (74-99) mg/dL Calcium 7.8 L (8.4-10.2) mg/dL Total Bilirubin 5.0 H (0.2-1.3) mg/dL Alkaline Phosphatase 156 H (38-126) U/L Total Protein 4.2 L (6.3-8.2) g/dL Albumin 1.9 L (3.5-5.0) g/dL Microbiology - Last 24 Hours (Table) 10/02/18 13:14 Blood Culture - Preliminary Blood No Growth after 72 hours 10/02/18 11:45 Blood Culture - Preliminary Blood No Growth after 72 hours 10/04/18 11:35 Gram Stain - Preliminary Peritoneal Fluid Body Fluid Culture - Preliminary Assessment and Plan Plan: Assessment: 1. Acute kidney injury secondary to ATN secondary to hypotension. Creatinine stable at 2.95 today. 2. Hypokalemia secondary to diuresis. 3. Rule out chronic kidney disease. Recent creatinine has been in the range of 1.7-2. 4. Liver cirrhosis. 5. Volume overload. 6. Ascites status post paracentesis with 7.6 L drained on October 04. Plan: Replace potassium. 40 mg once today. Maintain Bumex 1 mg IV daily. Repeat electrolytes in the morning. Discontinue Dunham catheter. No evidence of retention at this time. Encouraged oral intake.
[2018-10-06] MEDS ORDERED: MAGNESIUM SULFATE-D5W PMX 1 GM in DEXTROSE/WATER 1 100ML.BAG IVPB ONE (10:30)
--- NOTE | 2018-10-06 12:22 | PN ---
PROGRESS NOTE DATE OF DICTATION: 10/06/2018 Patient is a 58-year-old pleasant white male who was admitted to the hospital with abdominal pain, abdominal distention and altered mental status, history of alcoholic cirrhosis of the liver diagnosed several years ago. He underwent large-volume paracentesis and 7 L of fluid was removed 2 days ago. He is feeling much better today. The abdominal pain has resolved. He reports no nausea or vomiting. Denies any symptoms. He still complains of some fatigue and weakness. PHYSICAL EXAMINATION: He appears comfortable. No apparent distress. Vital signs are stable. Blood pressure is 114/67, pulse rate 84, temperature 98.2. HEENT EXAMINATION: Unremarkable. Conjunctivae pink, sclerae anicteric, oral cavity no lesions. NECK: No JVD or lymph node enlargement. Chest was clear to auscultation. HEART: Regular rate and rhythm. Abdomen is distended. Bowel sounds are positive. There was some free fluid noted. EXTREMITIES: One plus pedal edema. SKIN: No rashes. NEURO: He is alert and oriented x3. No focal deficits. LABS: Labs from today show WBC 5.5, hemoglobin 9.6, platelets 41,000. INR is 1.4. BUN 50, creatinine 2.95. AST and ALT of 43 and 28, respectively. T-bilirubin is 5.8, alkaline phosphatase 156. Albumin 1.9. IMPRESSION: 1. Alcoholic cirrhosis of the liver with gradual decompensation. 2. Ascites, status post large-volume paracentesis 2 days ago and 7 L of fluid was removed. Diuretics on hold because of worsening renal insufficiency. 3. Chronic kidney disease. Nephrology is following the patient closely. 4. Pancytopenia related to cirrhosis/portal hypertension. RECOMMENDATIONS: 1. Continue with symptomatic and supportive care. 2. Low-salt diet. 3. Paracentesis as needed based on his symptoms. 4. Continue Xifaxan 550 mg twice daily. 5. Lactulose as needed. Thank you for this consultation. We will follow the patient closely during his hospital stay. MMODL / IJN: [id number] /
--- NOTE | 2018-10-06 13:30 | P.PN ---
Subjective Progress Note Date: 10/06/18 Febrile illness of unclear etiology suspect bacterial peritonitis. This is a very pleasant 58-year-old patient came into the hospital because of fever and generalized weakness. This patient is a quite debilitated 58-year- old male patient with extensive medical history. 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 He was in our hospital back in March 2018 at that time he was found to have cellulitis which do not to be necrotizing patient's of the left lower extremity. He was chest at the [facility] and the patient was to use for overwhelming sepsis, respiratory failure and the patient had decompression and fasciotomy involving the left lower extremity. He end up in hospital for a total of one half months being on a mechanical ventilator for a total of 3 weeks. He was eventually extubated. He was discharged to rehabilitation. He had a hospitalization following that for fever and he developed a pneumonia secondary to VRE enterococcus. He was readmitted and treated and discharged home. He then came to our hospital at [facility] in May 2018 complaining of fever and chest congestion and cough or sputum production. He was thought to have pneumonia and the patient was found to have bilateral pulmonary infiltrates. He was treated for pneumonia and the patient was discharged home. He was being followed up at the wound center because of an ongoing wound in the left lower extremity. The wound itself for now is looking healthy. The base is dry and there is healthy granulation tissue. This wound is on the lateral aspect of the left thigh and it is a longitudinal once usually created by the decompression fasciotomy that was done at [facility]. The secretions from the wound are rather clear and nonpurulent at this point in time. The patient is also known to have liver cirrhosis. He has a chronic liver cirrhosis and he has a history of ascites and he carries umbilical hernia. His last paracentesis was done in July 2018 where more than 5 L of abdominal ascitic fluid was aspirated. Currently doesn't have any abdominal pain or distention noted has any nausea vomiting. He was having however some limited diarrhea, liquidy and this obviously raises the concern for C. diff colitis first that he has received antibiotics in the past. The patient is not having any dysuria clicks or urgency. No significant cough or sputum production. Nevertheless, the chest x-ray shows a right upper lobe consolidation in addition to small effusion the lower lobes more so on the right. He is hemodynamically stable. Nevertheless, he comes in with some mild elevation of lactic acid level at 4.4 which dropped down to 2.8. He also comes with an acute on top of chronic renal failure and the creatinine is up to 3.02. BUN is a 57. He was given IV fluids and currently is on normal saline at rate of 75 mL an hour. Is covered with IV Zosyn. He is also on Xifaxan regarding hepatic encephalopathy and he was given a dose of lactulose also. He is alert and awake and communicating. No altered mentation. No other complaints otherwise for now. on 10/04/2080 I'm seeing this patient for a follow-up. the patient is doing well. He is afebrile. His hemodynamics is stable. He still having liquidy loose diarrhea and the lactulose has been discontinued. Stool for C. diff has been negative. More than 7.0 liters of Ascitic fluid was aspirated from the patient's abdomen today and the fluid was sent for analysis. The possibility of an underlying spontaneous bacterial peritonitis cannot be completely excluded. Meanwhile, the patient is doing well. Local wound care is being applied to his left lower extremity. No dysuria frequency or urgency. He remains in remission. No nausea. No vomiting. No diarrhea. Vague limited abdominal pain. Whitel cnt s t .9an hemglb is at 9.4 The patient is seen today 10/05/2018 in follow-up on the regular medical floor. He is awake and alert in no acute distress. He is feeling better today as compared to yesterday. Feeling a bit stronger. Up ambulating in his room. He denies any worsening shortness of breath, cough or congestion. Peritoneal fluid cultures are pending. Blood cultures reveal no growth to date. White count 4.3. Hemoglobin 8.9. Platelet count 33,000. INR 1.5. Creatinine 2.99. He remains on Zosyn and azithromycin. On 10/06/2018 the patient is resting comfortably in bed. The patient is afebrile. Limited congested cough. No significant sputum productions. Suspected to have SBP. Heart on broad-spectrum antibiotics. Still on Zosyn and Zithromax. No hepatic encephalopathy. No hemodynamic instability. Renal function remains stable. Nephrology is on the case. IDs also on the case. No bleeding complications. INR is at 1.4. Hemoglobin is at 9.6. Creatinine is at 2.95. No other significant events overnight. The patient is currently on room air. He is on DuoNeb about 2 months on the clock. Doppler of the lower extremity showed no evidence of any DVT. Ascitic fluid cytology came back negative for any malignancy. Objective - Vital Signs Vital signs: Vital Signs Temp 97.4 F L 10/06/18 12:00 Pulse 82 10/06/18 12:00 Resp 20 10/06/18 12:00 BP 108/64 10/06/18 12:00 Pulse Ox 93 L 10/06/18 12:00 Intake & Output 10/05/18 10/06/18 10/06/18 18:59 06:59 18:59 Intake Total 1940 220 Output Total 1260 200 Balance 1940 -1040 -200 Weight 77.6 kg 81.6 kg Intake: IV 20 Invasive Line 1 20 Intake, IV Titration 200 Amount Piperacillin-Tazobactam 3 200 .375 gm In Sodium Chloride 0.9% 100 ml @ 25 mls/hr IVPB Q8HR [facility] Rx# :[id number] Oral 1720 220 Output: Urine 260 200 Uretheral ([place]) 200 Stool 1000 Other: Voiding Method Urinal Urinal Indwelling Catheter # Voids 2 1 - Exam GENERAL EXAM: Alert, active, comfortable in no apparent distress. HEAD: Normocephalic. EYES: Normal reaction of pupils, equal size. NOSE: Clear with pink turbinates. THROAT: No erythema or exudates. NECK: No masses, no JVD. CHEST: No chest wall deformity. LUNGS: Equal air entry with faint crackles in the posterior bases, faint end expiratory wheeze. Diminished. CVS: S1 and S2 normal with no audible murmur, regular rhythm. ABDOMEN: No hepatosplenomegaly, normal bowel sounds, no guarding or rigidity. The patient has fluid wave and shifting dullness in addition to an umbilical hernia. The abdomen is less distended post paracentesis SPINE: No scoliosis or deformity SKIN: No rashes, scars of previous surgeries noted in the left lower extremity. The patient has sites of the compression patient to me. There is a longitudinal scar/wound which is still open and not completely healed and its superior half running across the left lateral aspect of the left lower extremity , along the lateral thigh, just under the quadriceps muscles. The base is covered with healthy granulation tissue. No purulent discharge. CENTRAL NERVOUS SYSTEM: No focal deficits, tone is normal in all 4 extremities. EXTREMITIES: There is no peripheral edema. No clubbing, no cyanosis. Peripheral pulses are intact. - Labs CBC & Chem 7: 10/06/18 06:23 10/06/18 06:23 Labs: Abnormal Lab Results - Last 24 Hours (Table) 10/06/18 10/06/18 10/06/18 Range/Units 06:23 06:23 06:23 RBC 3.06 L (4.30-5.90) m/uL Hgb 9.6 L (13.0-17.5) gm/dL Hct 31.5 L (39.0-53.0) % MCV 103.1 H (80.0-100.0) fL MCHC 30.5 L (31.0-37.0) g/dL RDW 19.2 H (11.5-15.5) % Plt Count 41 L (150-450) k/uL PT 13.9 H (9.0-12.0) sec INR 1.4 H (<1.2) BUN 50 H (9-20) mg/dL Creatinine 2.95 H (0.66-1.25) mg/dL Glucose 103 H (74-99) mg/dL Calcium 7.8 L (8.4-10.2) mg/dL Total Bilirubin 5.0 H (0.2-1.3) mg/dL Alkaline Phosphatase 156 H (38-126) U/L Total Protein 4.2 L (6.3-8.2) g/dL Albumin 1.9 L (3.5-5.0) g/dL Microbiology - Last 24 Hours (Table) 10/02/18 13:14 Blood Culture - Preliminary Blood No Growth after 72 hours 10/02/18 11:45 Blood Culture - Preliminary Blood No Growth after 72 hours 10/04/18 11:35 Gram Stain - Preliminary Peritoneal Fluid Body Fluid Culture - Preliminary Assessment and Plan Plan: Assessment 1 fever along with generalized weakness and mild lactic acidosis, consider on today's bacterial peritonitis. Cultures of been negative. The patient improved with antibiotics. Fever subsided. There may be some limited pulmonary infiltration and the patient is remains on room air oxygen and the patient is on broad-spectrum antibiotic coverage. No signs of any respiratory failure. 2 altered mentation, improved his and this was probably related to hepatic encephalopathy recovered 3 alcoholic liver cirrhosis, stable 4 chronic ascites requiring paracentesis and periodic basis and addition to an umbilical hernia stigmata of chronic liver failure. 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 Plan Condition is stable. Continue same antibiotic coverage. Increased level of activity as tolerated. Increased diet. We'll follow. Renal function remains stable. The fights on the case. Chest x-ray from today's ago showing improvement in the aeration and volume status. Doppler of the lower extremity was negative for DVT.
--- NOTE | 2018-10-06 13:43 | P.PN ---
Subjective Progress Note Date: 10/06/18 Principal diagnosis: Febrile illness of unclear etiology suspect bacterial peritonitis. This is a very pleasant 58-year-old patient came into the hospital because of fever and generalized weakness. This patient is a quite debilitated 58-year- old male patient with extensive medical history. 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 He was in our hospital back in March 2018 at that time he was found to have cellulitis which do not to be necrotizing patient's of the left lower extremity. He was chest at the [facility] and the patient was to use for overwhelming sepsis, respiratory failure and the patient had decompression and fasciotomy involving the left lower extremity. He end up in hospital for a total of one half months being on a mechanical ventilator for a total of 3 weeks. He was eventually extubated. He was discharged to rehabilitation. He had a hospitalization following that for fever and he developed a pneumonia secondary to VRE enterococcus. He was readmitted and treated and discharged home. He then came to our hospital at [facility] in May 2018 complaining of fever and chest congestion and cough or sputum production. He was thought to have pneumonia and the patient was found to have bilateral pulmonary infiltrates. He was treated for pneumonia and the patient was discharged home. He was being followed up at the wound center because of an ongoing wound in the left lower extremity. The wound itself for now is looking healthy. The base is dry and there is healthy granulation tissue. This wound is on the lateral aspect of the left thigh and it is a longitudinal once usually created by the decompression fasciotomy that was done at [facility]. The secretions from the wound are rather clear and nonpurulent at this point in time. The patient is also known to have liver cirrhosis. He has a chronic liver cirrhosis and he has a history of ascites and he carries umbilical hernia. His last paracentesis was done in July 2018 where more than 5 L of abdominal ascitic fluid was aspirated. Currently doesn't have any abdominal pain or distention noted has any nausea vomiting. He was having however some limited diarrhea, liquidy and this obviously raises the concern for C. diff colitis first that he has received antibiotics in the past. The patient is not having any dysuria clicks or urgency. No significant cough or sputum production. Nevertheless, the chest x-ray shows a right upper lobe consolidation in addition to small effusion the lower lobes more so on the right. He is hemodynamically stable. Nevertheless, he comes in with some mild elevation of lactic acid level at 4.4 which dropped down to 2.8. He also comes with an acute on top of chronic renal failure and the creatinine is up to 3.02. BUN is a 57. He was given IV fluids and currently is on normal saline at rate of 75 mL an hour. Is covered with IV Zosyn. He is also on Xifaxan regarding hepatic encephalopathy and he was given a dose of lactulose also. He is alert and awake and communicating. No altered mentation. No other complaints otherwise for now. on 10/04/2080 I'm seeing this patient for a follow-up. the patient is doing well. He is afebrile. His hemodynamics is stable. He still having liquidy loose diarrhea and the lactulose has been discontinued. Stool for C. diff has been negative. More than 7.0 liters of Ascitic fluid was aspirated from the patient's abdomen today and the fluid was sent for analysis. The possibility of an underlying spontaneous bacterial peritonitis cannot be completely excluded. Meanwhile, the patient is doing well. Local wound care is being applied to his left lower extremity. No dysuria frequency or urgency. He remains in remission. No nausea. No vomiting. No diarrhea. Vague limited abdominal pain. Whitel cnt s t .9an hemglb is at 9.4 The patient is seen today 10/05/2018 in follow-up on the regular medical floor. He is awake and alert in no acute distress. He is feeling better today as compared to yesterday. Feeling a bit stronger. Up ambulating in his room. He denies any worsening shortness of breath, cough or congestion. Peritoneal fluid cultures are pending. Blood cultures reveal no growth to date. White count 4.3. Hemoglobin 8.9. Platelet count 33,000. INR 1.5. Creatinine 2.99. He remains on Zosyn and azithromycin. The patient is seen today 10/06/2018 in follow-up on the regular medical floor. He is currently resting quite comfortably in bed. He is awake and alert in no acute distress. He is maintaining good O2 saturations in the low 90s on room air. He's been afebrile. Hemodynamically stable. White count 5.5. Hemoglobin 9.6. Creatinine 2.95. Albumin 1.9. Continue fluid results are pending. Blood cultures reveal no growth. He remains on bronchodilators and Zosyn. Objective - Vital Signs Vital signs: Vital Signs Temp 97.4 F L 10/06/18 12:00 Pulse 82 10/06/18 12:00 Resp 20 10/06/18 12:00 BP 108/64 10/06/18 12:00 Pulse Ox 93 L 10/06/18 12:00 Intake & Output 10/05/18 10/06/18 10/06/18 18:59 06:59 18:59 Intake Total 1940 220 Output Total 1260 200 Balance 1940 -1040 -200 Weight 77.6 kg 81.6 kg Intake: IV 20 Invasive Line 1 20 Intake, IV Titration 200 Amount Piperacillin-Tazobactam 3 200 .375 gm In Sodium Chloride 0.9% 100 ml @ 25 mls/hr IVPB Q8HR [facility] Rx# :[id number] Oral 1720 220 Output: Urine 260 200 Uretheral ([place]) 200 Stool 1000 Other: Voiding Method Urinal Urinal Indwelling Catheter # Voids 2 1 - Exam GENERAL EXAM: Alert, active, comfortable in no apparent distress. Feeling stronger today. On room air. HEAD: Normocephalic. EYES: Normal reaction of pupils, equal size. NOSE: Clear with pink turbinates. THROAT: No erythema or exudates. NECK: No masses, no JVD. CHEST: No chest wall deformity. LUNGS: Equal air entry with faint crackles in the posterior bases, faint end expiratory wheeze. Diminished. CVS: S1 and S2 normal with no audible murmur, regular rhythm. ABDOMEN: No hepatosplenomegaly, normal bowel sounds, no guarding or rigidity. The abdomen is less distended post paracentesis SPINE: No scoliosis or deformity SKIN: No rashes, scars of previous surgeries noted in the left lower extremity. The patient has sites of the compression patient to me. There is a longitudinal scar/wound which is still open and not completely healed and its superior half running across the left lateral aspect of the left lower extremity , along the lateral thigh, just under the quadriceps muscles. The base is covered with healthy granulation tissue. No purulent discharge. CENTRAL NERVOUS SYSTEM: No focal deficits, tone is normal in all 4 extremities. EXTREMITIES: There is no peripheral edema. No clubbing, no cyanosis. Peripheral pulses are intact. - Labs CBC & Chem 7: 10/06/18 06:23 10/06/18 06:23 Labs: Abnormal Lab Results - Last 24 Hours (Table) 10/06/18 10/06/18 10/06/18 Range/Units 06:23 06:23 06:23 RBC 3.06 L (4.30-5.90) m/uL Hgb 9.6 L (13.0-17.5) gm/dL Hct 31.5 L (39.0-53.0) % MCV 103.1 H (80.0-100.0) fL MCHC 30.5 L (31.0-37.0) g/dL RDW 19.2 H (11.5-15.5) % Plt Count 41 L (150-450) k/uL PT 13.9 H (9.0-12.0) sec INR 1.4 H (<1.2) BUN 50 H (9-20) mg/dL Creatinine 2.95 H (0.66-1.25) mg/dL Glucose 103 H (74-99) mg/dL Calcium 7.8 L (8.4-10.2) mg/dL Total Bilirubin 5.0 H (0.2-1.3) mg/dL Alkaline Phosphatase 156 H (38-126) U/L Total Protein 4.2 L (6.3-8.2) g/dL Albumin 1.9 L (3.5-5.0) g/dL Microbiology - Last 24 Hours (Table) 10/02/18 13:14 Blood Culture - Preliminary Blood No Growth after 72 hours 10/02/18 11:45 Blood Culture - Preliminary Blood No Growth after 72 hours 10/04/18 11:35 Gram Stain - Preliminary Peritoneal Fluid Body Fluid Culture - Preliminary Assessment and Plan Assessment: Assessment 1 fever along with generalized weakness and mild lactic acidosis, consider an underlying infectious source and the potential sources of infection are multiple including lungs, left lower extremity wound, abdomen (spontaneous bacterial peritonitis) and GI tract knowing that the patient is having some loose liquidy diarrhea, C. difficile screen was negative. The patient is also covered with a broad-spectrum antibiotic coverage 2 altered mentation, improved his and this was probably related to hepatic encephalopathy 3 alcoholic liver cirrhosis 4 chronic ascites requiring paracentesis and periodic basis and addition to an umbilical hernia stigmata of chronic liver failure. 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 Plan The patient was seen and evaluated by Dr. Mcintyre. He is currently stable from the pulmonary standpoint. We'll follow with the patient on as-needed basis. I, the cosigning physician, performed a history & physical examination of the patient. Lungs sounds with crackles in the posterior bases. Maintaining good O2 saturations in the 90s on room air. I discussed the assessment and plan of care with my nurse practitioner, Padmini Andrade. I attest to the above note as dictated by her.
[2018-10-06] MEDS: ONDANSETRON 4 MG/2 ML VIAL IVP PRN (16:11)
[2018-10-06] MEDS: MONTELUKAST 10 MG TAB PO SCH (20:21)
--- NOTE | 2018-10-06 23:49 | PN ---
PROGRESS NOTE DATE OF SERVICE: 10/06/2018. REASON FOR FOLLOW UP: 1. Spontaneous bacterial peritonitis. 2. UTI. 3. Left thigh wound. INTERVAL HISTORY: The patient is afebrile. He has been breathing comfortably. Denies significant chest pain occasional cough not bringing up any sputum. Abdominal pain is currently increased intensity. No nausea, vomiting, or any worsening diarrhea. Denies any pain to the left lateral thigh wound area. EXAMINATION: Blood pressure is 111/67 with a pulse of 73, temperature 98.4. He is 94% on room air. General description is a middle-aged male lying in bed in no distress. Respiratory system: Unlabored breathing. Clear to auscultation anteriorly. Heart S1, S2. Regular rate and rhythm. Abdomen soft, no guarding or rigidity. Left thigh wound currently with no redness or any drainage. LABS: Hemoglobin 11.6, white count 5.5, BUN of 15, creatinine is 2.95. DIAGNOSTIC IMPRESSION AND PLAN: 1. Patient admitted to the hospital with fever, source likely is spontaneous bacterial peritonitis, significantly positive. Ascitic fluid cultures currently pending. Patient is covered with Zosyn to continue while waiting for the culture to finalize. 2. Left lateral thigh wound, continue local wound care with Aquacel Silver dressing. 3. Continue supportive care. MMODL / IJN: [id number] /
[2018-10-07 06:17] LABS: Anisocytosis Slight; Basophils % (A) 1 %; Eosinophils # (A) 0.5 k/uL (0-0.7); Eosinophils % (A) 8 %; HCT 30.7 % (39.0-53.0); HGB 9.9 gm/dL (13.0-17.5); Hypochromasia Slight; Lymphocytes # (A) 2.7 k/uL (1.0-4.8); Lymphocytes % (A) 43 %; MCH 32.3 pg (25.0-35.0); MCHC 32.2 g/dL (31.0-37.0); MCV 100.5 fL (80.0-100.0); Macrocytosis Moderate; Mean Platelet Volume 7.9; Monocytes # (A) 0.4 k/uL (0-1.0); Monocytes % (A) 6 %; Neutrophils # (A) 2.5 k/uL (1.3-7.7); Neutrophils % (A) 40 %; Poikilocytosis Slight; RBC 3.06 m/uL (4.30-5.90); RDW 19.2 % (11.5-15.5); WBC 6.3 k/uL (3.8-10.6)
[2018-10-07 06:20] LABS: INR 1.4 (<1.2); Prothrombin Time 13.8 sec (9.0-12.0)
[2018-10-07 06:24] LABS: Platelet Count 42 k/uL (150-450)
[2018-10-07 06:35] LABS: Albumin 1.9 g/dL (3.5-5.0); Calcium 7.8 mg/dL (8.4-10.2); Magnesium 1.8 mg/dL (1.6-2.3); Potassium 3.8 mmol/L (3.5-5.1); Total Protein 4.2 g/dL (6.3-8.2)
[2018-10-07] MEDS: IPRATROPIUM-ALBUTEROL 3 ML NEB INHALATION SCH ×3 (07:55→19:25)
[2018-10-07] MEDS: PIPERACILLIN-TAZOBACTAM 3.375 GM in SODIUM CHLORIDE 0.9% 100 ML IVPB SCH ×4 (09:15→23:44)
[2018-10-07] MEDS: BUMETANIDE 0.25 MG/ML 4 ML VIAL IVP SCH (09:17)
[2018-10-07] MEDS: RIFAXIMIN 550 MG TABLET PO SCH ×2 (09:17→21:06)
[2018-10-07] MEDS: CHOLECALCIFEROL 1,000 UNIT TAB PO SCH (09:17)
[2018-10-07] MEDS: DIGOXIN 62.5 MCG TAB PO SCH (09:17)
[2018-10-07] MEDS: GABAPENTIN 100 MG CAP PO SCH ×2 (09:17→21:06)
[2018-10-07] MEDS: CITALOPRAM HYDROBROMIDE 10 MG TAB PO SCH (09:17)
[2018-10-07] MEDS: MISOPROSTOL 100 MCG TAB PO SCH ×2 (09:18→21:06)
[2018-10-07] MEDS: LACTULOSE 20 GM/30 ML CUP PO SCH ×3 (09:19→21:00)
--- NOTE | 2018-10-07 09:53 | P.PN ---
Subjective Patient is seen in follow-up for acute kidney injury. Recently his creatinine has been in the range of 1.7-2. Renal function better with creatinine at 2.68 today. Oral intake is poor. He had paracentesis done on October 04 with 7.6 L removed. He did receive IV albumin. Oral intake is poor. Maintained on IV Bumex. No changes overnight. Vital signs are stable. General: The patient appeared well nourished and normally developed. HEENT: Head exam is unremarkable. Neck is without jugular venous distension. LUNGS: Lungs are clear to auscultation and percussion. Breath sounds decreased. HEART: Rate and Rhythm are regular. First and second heart sounds normal. No murmurs, rubs or gallops. ABDOMEN: Bowel sounds present. Distention noted. EXTREMITITES: 1+ edema. Objective - Vital Signs Vital signs: Vital Signs Temp 98 F 10/07/18 08:00 Pulse 73 10/07/18 08:04 Resp 24 10/07/18 08:00 BP 104/58 10/07/18 08:00 Pulse Ox 96 10/07/18 08:00 Intake & Output 10/06/18 10/07/18 10/07/18 18:59 06:59 18:59 Intake Total 560 Output Total 200 2352 Balance 360 -2352 Weight 77.7 kg Intake: Intake, IV Titration 200 Amount Magnesium Sulfate-D5w Pmx 100 1 gm In Dextrose/Water 1 100ml.bag @ 100 mls/hr IVPB ONCE ONE Rx#: [id number] Piperacillin-Tazobactam 3 100 .375 gm In Sodium Chloride 0.9% 100 ml @ 25 mls/hr IVPB Q8HR [facility] Rx# :[id number] Oral 360 Output: Urine 200 350 Stool 2000 Urine/Stool Mix 2 Other: Voiding Method Toilet Toilet Urinal Urinal Incontinent Incontinent # Voids 1 1 # Bowel Movements 1 1 - Labs CBC & Chem 7: 10/07/18 05:50 10/07/18 05:50 Labs: Abnormal Lab Results - Last 24 Hours (Table) 10/07/18 10/07/18 10/07/18 Range/Units 05:50 05:50 05:50 RBC 3.06 L (4.30-5.90) m/uL Hgb 9.9 L (13.0-17.5) gm/dL Hct 30.7 L (39.0-53.0) % MCV 100.5 H (80.0-100.0) fL RDW 19.2 H (11.5-15.5) % Plt Count 42 L (150-450) k/uL PT 13.8 H (9.0-12.0) sec INR 1.4 H (<1.2) BUN 48 H (9-20) mg/dL Creatinine 2.68 H (0.66-1.25) mg/dL Calcium 7.8 L (8.4-10.2) mg/dL Total Bilirubin 5.0 H (0.2-1.3) mg/dL Alkaline Phosphatase 143 H (38-126) U/L Total Protein 4.2 L (6.3-8.2) g/dL Albumin 1.9 L (3.5-5.0) g/dL Microbiology - Last 24 Hours (Table) 10/02/18 13:14 Blood Culture - Preliminary Blood No Growth after 96 hours 10/04/18 11:35 Gram Stain - Preliminary Peritoneal Fluid Body Fluid Culture - Preliminary 10/02/18 11:45 Blood Culture - Preliminary Blood No Growth after 96 hours Assessment and Plan Plan: Assessment: 1. Acute kidney injury secondary to ATN secondary to hypotension. Creatinine better at 2.68 today. 2. Hypokalemia secondary to diuresis. Improved post replacement. 3. Rule out chronic kidney disease. Recent creatinine has been in the range of 1.7-2. 4. Liver cirrhosis. 5. Volume overload. 6. Ascites status post paracentesis with 7.6 L drained on October 04. Plan: Maintain Bumex 1 mg IV daily. Add Aldactone 25 mg once daily. Repeat electrolytes in the morning. Dunham catheter removed. No evidence of retention at this time. Encouraged oral intake.
[2018-10-07] MEDS: METOPROLOL TARTRATE 25 MG TAB PO SCH ×2 (12:12→21:06)
--- NOTE | 2018-10-07 12:15 | P.PN ---
Subjective This is a pleasant 58 years old male with past medical history of atrial fibrillation, asthma, GI place, hypertension, liver disease, cirrhosis, hypogammaglobulinemia and common variable immunodeficiency that needs IVIG every 3-4 weeks. Also has cystitis, anemia and neuropathy. Presents because of weakness and left flank pain as he has prior fasciotomy . On admission patient was confused, mostly secondary to hepatic encephalopathy in view of her cirrhosis of the liver. Also there are suspicions of right pneumonia and patient was started on antibiotics. Cardiology and gastroenterology are seeing the patient as well as hematology for her immunodeficiency and blood cells abnormalities. [employer] are planning for thoracocentesis with FFB coverage. 10/04/2018 Patient is fully awake and oriented to time place and person. He still have abdominal pain all over with tenderness, no nausea vomiting however he has good bowel movement. Patient's has a little dyspneic but no chest pain. He has mild cough with some white phlegm. He has wound in his left lateral thighs, with no surrounding cellulitis. Patient still has diarrhea he had 6 bowel movements yesterday's and 2 since last night. Echo shows ejection fraction of 55-60% with moderate aortic stenosis. Platelets 44. Creatinine 3.1. Lactic acid is back to normal at 1.6. INR is down to 1.6. Patient might be going for paracentesis better on. 10/05/2018 Patient is status post paracentesis yesterday. His abdominal pain has been resolved, no more abdominal tenderness and his exam looks more benign. No dysuria or urinary symptoms like states frequency. He had been little bit dyspneic however he feels better today. With same little white phlegm. No chest pain. Has bilateral leg pain for about a week. Platelets today at 33. INR 1.5. Creatinine is 2.99. Patient had bad diarrhea yesterday every 2 hours which improved overnight to only 3. C. diff is negative. 10/06/2018 Patient still feeling relates and generally weak and tired. She still have frequent bowel movements with 4 movements since yesterday last night. However his abdominal pain has subsided. No wish dyspnea and is breathing quietly. No chest pain or coughing. Her symptoms. Vitas looks stable. Hemoglobin stable and platelets at 41. WB C5 0.5. INR is 1.4 ends improving. Creatinine is still high at 2.9. Sodium 138 and potassium 3.5. 10/07/18 Patient still complaining from diarrhea. No abdominal pain or tenderness. No chest pain. Patient states that his pain without difficulty. Labs are reviewed and they look stable hemoglobin. INR is 1.4. Creatinine is down to 2.6. Total bilirubin is still high at 5.0. Liver enzymes are within normal. Urine culture showing Makenna, but Patient is asymptomatic. Objective - Vital Signs Vital signs: Vital Signs Temp 98.3 F 10/07/18 11:32 Pulse 75 10/07/18 11:32 Resp 24 10/07/18 11:32 BP 106/62 10/07/18 11:32 Pulse Ox 93 L 10/07/18 11:32 Intake & Output 10/06/18 10/07/18 10/07/18 18:59 06:59 18:59 Intake Total 560 200 Output Total 200 2352 Balance 360 -2352 200 Weight 77.7 kg Intake: Intake, IV Titration 200 200 Amount Magnesium Sulfate-D5w Pmx 100 1 gm In Dextrose/Water 1 100ml.bag @ 100 mls/hr IVPB ONCE ONE Rx#: [id number] Piperacillin-Tazobactam 3 100 200 .375 gm In Sodium Chloride 0.9% 100 ml @ 25 mls/hr IVPB Q8HR [facility] Rx# :[id number] Oral 360 Output: Urine 200 350 Stool 2000 Urine/Stool Mix 2 Other: Voiding Method Toilet Toilet Toilet Urinal Urinal Urinal Incontinent Incontinent Incontinent # Voids 1 1 1 # Bowel Movements 1 1 - Exam GENERAL: The patient is alert and oriented x2-3, not in any acute distress. Well developed, well nourished. HEENT: Pupils are round and equally reacting to light. EOMI. No scleral icterus. No conjunctival pallor. Normocephalic, atraumatic. No pharyngeal erythema. No thyromegaly. CARDIOVASCULAR: S1 and S2 present. No murmurs, rubs, or gallops. PULMONARY: Chest is clear to auscultation, no wheezing or crackles. -ABDOMEN: Soft, nontender, distended, normoactive bowel sounds. No palpable organomegaly. MUSCULOSKELETAL: No joint swelling or deformity. EXTREMITIES: No cyanosis, clubbing, or pedal edema. NEUROLOGICAL: Gross neurological examination did not reveal any focal deficits. SKIN: No rashes. - Labs CBC & Chem 7: 10/07/18 05:50 10/07/18 05:50 Labs: Abnormal Lab Results - Last 24 Hours (Table) 10/07/18 10/07/18 10/07/18 Range/Units 05:50 05:50 05:50 RBC 3.06 L (4.30-5.90) m/uL Hgb 9.9 L (13.0-17.5) gm/dL Hct 30.7 L (39.0-53.0) % MCV 100.5 H (80.0-100.0) fL RDW 19.2 H (11.5-15.5) % Plt Count 42 L (150-450) k/uL PT 13.8 H (9.0-12.0) sec INR 1.4 H (<1.2) BUN 48 H (9-20) mg/dL Creatinine 2.68 H (0.66-1.25) mg/dL Calcium 7.8 L (8.4-10.2) mg/dL Total Bilirubin 5.0 H (0.2-1.3) mg/dL Alkaline Phosphatase 143 H (38-126) U/L Total Protein 4.2 L (6.3-8.2) g/dL Albumin 1.9 L (3.5-5.0) g/dL Microbiology - Last 24 Hours (Table) 10/02/18 13:14 Blood Culture - Preliminary Blood No Growth after 96 hours 10/04/18 11:35 Gram Stain - Preliminary Peritoneal Fluid Body Fluid Culture - Preliminary 10/02/18 11:45 Blood Culture - Preliminary Blood No Growth after 96 hours Assessment and Plan Assessment: Hepatic encephalopathy Cirrhosis of the liver Ascites secondary to above Alcohol abuse Chronic kidney disease Committee acquired pneumonia Coagulopathy Thrombocytopenia Common variable immunodeficiency Plan: This is a pleasant 58 years old male who presents because of bursitis alcohol abuse and liver cirrhosis. Continue with antibiotics. Gastroenterology, cardiology and hematology consults are following the patient . Labs and medication were reviewed.. Continue same treatment. Continue with symptomatic treatment. Resume home medication. Monitor lytes and vitals. DVT and GI prophylaxis. Further recommendations of the clinical course of the patient DVT prophylaxis: no heparin in view of his coagulopathy GI Prophylaxis: Pepcid PT/OT: Pending Prognosis is guarded
--- NOTE | 2018-10-07 12:20 | PN ---
PROGRESS NOTE DATE OF SERVICE: 10/07/2018. HISTORY: The patient is a 58-year-old pleasant white male admitted to the hospital with a history of liver cirrhosis related to alcohol use. He was admitted to the hospital with ascites, weakness, fatigue, and altered mental status. He underwent large volume paracentesis 3 days ago and several liters of fluid was aspirated. He is feeling better. He complains of worsening abdominal distention since yesterday. He reports no abdominal pain. No fevers, chills, night sweats. No nausea or vomiting. PHYSICAL EXAMINATION: He appears comfortable. No apparent distress. Vital signs stable. Blood pressure is 104/58, pulse is 74, temperature 98. HEENT examination unremarkable. Conjunctivae pink. Sclerae slightly icteric. Oral cavity no lesions. Neck, no JVD or lymph node enlargement. The chest is clear to auscultation. Heart regular rate and rhythm. Abdomen soft. There is an umbilical hernia noted. There is some ascites noted. Extremities, no pedal edema. Skin no rashes. Neurologic, alert and oriented x3. No focal deficits. LABS: From today, WBC 6.3, hemoglobin 9.9, platelets 42,000, INR 1.4. BUN 48, creatinine 2.68. IMPRESSION: 1. Alcoholic cirrhosis of the liver with portal hypertension and ascites with gradual decompensation. 2. Ascites, status post large volume paracentesis, 7 L removed 3 days ago, now having worsening abdominal distention. 3. History of hepatic encephalopathy, on oral Xifaxan and lactulose. 4. Thrombocytopenia related to portal hypertension/hypersplenism from underlying liver disease. RECOMMENDATIONS: 1. Continue with current management. 2. If his abdominal distention worsens, we will consider another paracentesis prior to discharge or on an outpatient basis. 3. Continue Xifaxan and oral lactulose. Thank you for this consultation. MMODL / IJN: [id number] /
[2018-10-07] MEDS: ONDANSETRON 4 MG/2 ML VIAL IVP PRN (16:30)
[2018-10-07] MEDS: MONTELUKAST 10 MG TAB PO SCH (21:06)
--- NOTE | 2018-10-07 22:23 | PN ---
PROGRESS NOTE DATE OF SERVICE: 10/07/2018. REASON FOR FOLLOWUP: 1. Spontaneous bacterial peritonitis. 2. UTI. 3. Left thigh wound. INTERVAL HISTORY: The patient is afebrile. He seems to be breathing comfortably. Denies significant chest pain. Occasional cough. Abdominal pain has improved. No nausea, vomiting. He did have diarrhea though. EXAMINATION: Blood pressure 130/60 with a pulse of 77, temperature 98.2. He is 93% on room air. General description is a middle-aged male lying in bed in no distress. Respiratory system: Unlabored breathing clear to auscultation anteriorly. Heart S1, S2. Regular rate and rhythm. Abdomen soft, no tenderness. Left thigh wound is currently dressed up. No obvious drainage on the dressing. LABS: Hemoglobin 9.8, white count 6.3 with a BUN of 48, creatinine is 2.68. The peritoneal fluid cultures currently pending. DIAGNOSTIC IMPRESSION AND PLAN: 1. Patient admitted to the hospital with a fever, abdominal pain in a patient who did have alcoholic liver cirrhosis with underlying spontaneous bacterial peritonitis. The patient currently covered with Zosyn with concern for UTI as well. We will continue with these antibiotics while waiting for the culture to finalize. 2. Patient with a left thigh wound. Local wound care with Aquacel silver packing of the wound. 3. Continue supportive care. MMODL / IJN: [id number] /
[2018-10-08 07:25] LABS: INR 1.4 (<1.2)
[2018-10-08] MEDS: IPRATROPIUM-ALBUTEROL 3 ML NEB INHALATION SCH ×3 (07:31→20:13)
[2018-10-08 07:35] LABS: Albumin 1.9 g/dL (3.5-5.0); Calcium 7.8 mg/dL (8.4-10.2); Potassium 3.5 mmol/L (3.5-5.1); Total Protein 4.1 g/dL (6.3-8.2)
[2018-10-08 08:02] LABS: Anisocytosis Slight; Basophils # (A) 0.1 k/uL (0-0.2); Basophils % (A) 1 %; Eosinophils # (A) 0.5 k/uL (0-0.7); Eosinophils % (A) 8 %; HCT 29.7 % (39.0-53.0); HGB 9.7 gm/dL (13.0-17.5); Hypochromasia Slight; Lymphocytes % (A) 45 %; MCH 32.3 pg (25.0-35.0); MCHC 32.7 g/dL (31.0-37.0); MCV 98.9 fL (80.0-100.0); Macrocytosis Slight; Mean Platelet Volume 7.9; Monocytes # (A) 0.4 k/uL (0-1.0); Monocytes % (A) 6 %; Neutrophils # (A) 2.6 k/uL (1.3-7.7); Neutrophils % (A) 38 %; Poikilocytosis Slight; RBC 3.01 m/uL (4.30-5.90); RDW 19.3 % (11.5-15.5); WBC 6.7 k/uL (3.8-10.6)
[2018-10-08 08:15] LABS: Platelet Count 42 k/uL (150-450)
[2018-10-08] MEDS: GABAPENTIN 100 MG CAP PO SCH ×2 (08:18→20:08)
[2018-10-08] MEDS: CHOLECALCIFEROL 1,000 UNIT TAB PO SCH (08:18)
[2018-10-08] MEDS: RIFAXIMIN 550 MG TABLET PO SCH ×2 (08:18→20:08)
[2018-10-08] MEDS: METOPROLOL TARTRATE 25 MG TAB PO SCH ×2 (08:19→20:08)
[2018-10-08] MEDS: LACTULOSE 20 GM/30 ML CUP PO SCH ×3 (08:19→20:01)
[2018-10-08] MEDS: BUMETANIDE 0.25 MG/ML 4 ML VIAL IVP SCH (08:19)
[2018-10-08] MEDS: CITALOPRAM HYDROBROMIDE 10 MG TAB PO SCH (08:19)
[2018-10-08] MEDS: MISOPROSTOL 100 MCG TAB PO SCH ×2 (08:19→20:08)
--- NOTE | 2018-10-08 08:50 | P.PN ---
Subjective This is a pleasant 58 years old male with past medical history of atrial fibrillation, asthma, GI place, hypertension, liver disease, cirrhosis, hypogammaglobulinemia and common variable immunodeficiency that needs IVIG every 3-4 weeks. Also has cystitis, anemia and neuropathy. Presents because of weakness and left flank pain as he has prior fasciotomy . On admission patient was confused, mostly secondary to hepatic encephalopathy in view of her cirrhosis of the liver. Also there are suspicions of right pneumonia and patient was started on antibiotics. Cardiology and gastroenterology are seeing the patient as well as hematology for her immunodeficiency and blood cells abnormalities. [employer] are planning for thoracocentesis with FFB coverage. 10/04/2018 Patient is fully awake and oriented to time place and person. He still have abdominal pain all over with tenderness, no nausea vomiting however he has good bowel movement. Patient's has a little dyspneic but no chest pain. He has mild cough with some white phlegm. He has wound in his left lateral thighs, with no surrounding cellulitis. Patient still has diarrhea he had 6 bowel movements yesterday's and 2 since last night. Echo shows ejection fraction of 55-60% with moderate aortic stenosis. Platelets 44. Creatinine 3.1. Lactic acid is back to normal at 1.6. INR is down to 1.6. Patient might be going for paracentesis better on. 10/05/2018 Patient is status post paracentesis yesterday. His abdominal pain has been resolved, no more abdominal tenderness and his exam looks more benign. No dysuria or urinary symptoms like states frequency. He had been little bit dyspneic however he feels better today. With same little white phlegm. No chest pain. Has bilateral leg pain for about a week. Platelets today at 33. INR 1.5. Creatinine is 2.99. Patient had bad diarrhea yesterday every 2 hours which improved overnight to only 3. C. diff is negative. 10/06/2018 Patient still feeling relates and generally weak and tired. She still have frequent bowel movements with 4 movements since yesterday last night. However his abdominal pain has subsided. No wish dyspnea and is breathing quietly. No chest pain or coughing. Her symptoms. Vitas looks stable. Hemoglobin stable and platelets at 41. WB C5 0.5. INR is 1.4 ends improving. Creatinine is still high at 2.9. Sodium 138 and potassium 3.5. 10/07/18 Patient still complaining from diarrhea. No abdominal pain or tenderness. No chest pain. Patient states that his pain without difficulty. Labs are reviewed and they look stable hemoglobin. INR is 1.4. Creatinine is down to 2.6. Total bilirubin is still high at 5.0. Liver enzymes are within normal. Urine culture showing Makenna, but Patient is asymptomatic. 10/08/2018 Patient has a little bit more abdominal distention but no abdominal pain or tenderness. He is more alert and awake and oriented. Distal have diarrhea about 8 times per day. At baseline patient states his last bowel movement about 4-5 times per day and more formed, sometimes up to 8 and his been going on for the last 4 weeks prior to admission to the hospital. He said usually he can deal with it at home. Patient states he can't be with no problem. Platelet count today is 42. Creatinine is 2.66 and INR this is stable at 1.4 Objective - Vital Signs Vital signs: Vital Signs Temp 97.6 F 10/08/18 08:26 Pulse 83 10/08/18 08:26 Resp 16 10/08/18 08:26 BP 99/53 10/08/18 08:26 Pulse Ox 92 L 10/08/18 08:26 Intake & Output 10/07/18 10/08/18 10/08/18 18:59 06:59 18:59 Intake Total 200 247 Output Total 150 500 Balance 200 97 -500 Weight 77.7 kg Intake: Intake, IV Titration 200 Amount Piperacillin-Tazobactam 3 200 .375 gm In Sodium Chloride 0.9% 100 ml @ 25 mls/hr IVPB Q8HR [facility] Rx# :[id number] Oral 247 Output: Urine 150 Stool 500 Other: Voiding Method Toilet Toilet Toilet Urinal Urinal Urinal Incontinent Incontinent Incontinent # Voids 1 1 # Bowel Movements 1 - Exam GENERAL: The patient is alert and oriented x2-3, not in any acute distress. Well developed, well nourished. HEENT: Pupils are round and equally reacting to light. EOMI. No scleral icterus. No conjunctival pallor. Normocephalic, atraumatic. No pharyngeal erythema. No thyromegaly. CARDIOVASCULAR: S1 and S2 present. No murmurs, rubs, or gallops. PULMONARY: Chest is clear to auscultation, no wheezing or crackles. -ABDOMEN: Soft, nontender, distended, normoactive bowel sounds. No palpable organomegaly. MUSCULOSKELETAL: No joint swelling or deformity. EXTREMITIES: No cyanosis, clubbing, or pedal edema. NEUROLOGICAL: Gross neurological examination did not reveal any focal deficits. SKIN: No rashes. - Labs CBC & Chem 7: 10/08/18 06:07 10/08/18 06:07 Labs: Abnormal Lab Results - Last 24 Hours (Table) 10/08/18 10/08/18 10/08/18 Range/Units 06:07 06:07 06:07 RBC 3.01 L (4.30-5.90) m/uL Hgb 9.7 L (13.0-17.5) gm/dL Hct 29.7 L (39.0-53.0) % RDW 19.3 H (11.5-15.5) % Plt Count 42 L (150-450) k/uL PT 14.0 H (9.0-12.0) sec INR 1.4 H (<1.2) Sodium 136 L (137-145) mmol/L BUN 45 H (9-20) mg/dL Creatinine 2.66 H (0.66-1.25) mg/dL Calcium 7.8 L (8.4-10.2) mg/dL Total Bilirubin 4.0 H (0.2-1.3) mg/dL Alkaline Phosphatase 141 H (38-126) U/L Total Protein 4.1 L (6.3-8.2) g/dL Albumin 1.9 L (3.5-5.0) g/dL Microbiology - Last 24 Hours (Table) 10/04/18 11:35 Gram Stain - Final Peritoneal Fluid Body Fluid Culture - Final 10/02/18 13:14 Blood Culture - Preliminary Blood No Growth after 120 hours 10/02/18 11:45 Blood Culture - Preliminary Blood No Growth after 120 hours 10/04/18 11:35 Anaerobic Culture - Preliminary Peritoneal Fluid Assessment and Plan Assessment: Hepatic encephalopathy Cirrhosis of the liver Ascites secondary to above Alcohol abuse Chronic kidney disease Committee acquired pneumonia Coagulopathy Thrombocytopenia Common variable immunodeficiency Plan: This is a pleasant 58 years old male who presents because of bursitis alcohol abuse and liver cirrhosis. Continue with antibiotics. Gastroenterology, cardiology and hematology consults are following the patient . Labs and medication were reviewed.. Continue same treatment. Continue with symptomatic treatment. Resume home medication. Monitor lytes and vitals. DVT and GI prophylaxis. Further recommendations of the clinical course of the patient DVT prophylaxis: no heparin in view of his coagulopathy GI Prophylaxis: Pepcid PT/OT: Pending Prognosis is guarded
[2018-10-08 09:35] LABS: RBC Fragments Present
[2018-10-08] MEDS: PIPERACILLIN-TAZOBACTAM 3.375 GM in SODIUM CHLORIDE 0.9% 100 ML IVPB SCH ×3 (09:51→23:50)
--- NOTE | 2018-10-08 19:36 | P.PN ---
Subjective Progress Note Date: 10/08/18 Principal diagnosis: Weakness, decompensated alcohol cirrhosis, ascites, hepatic encephalopathy Patient seen lying in bed, reporting that he is feeling somewhat better. He is still having loose bowel movements. He feels that stomach is less distended. He is tolerating his diet. Objective - Vital Signs Vital signs: Vital Signs Temp 97.5 F L 10/08/18 11:46 Pulse 72 10/08/18 13:48 Resp 20 10/08/18 13:48 BP 103/52 10/08/18 11:46 Pulse Ox 94 L 10/08/18 11:46 Intake & Output 10/08/18 10/08/18 10/09/18 06:59 18:59 06:59 Intake Total 247 Output Total 150 1600 Balance 97 -1600 Weight 77.7 kg Intake: Oral 247 Output: Urine 150 600 Stool 1000 Other: Voiding Method Toilet Toilet Urinal Urinal Incontinent Incontinent # Voids 1 2 - Exam On physical examination, patient appears comfortable in no apparent distress. HEAD: Normocephalic, atraumatic. EYES: No scleral icterus. No conjunctival injection. MOUTH: No lesions, tongue midline. NECK: Trachea midline, no gross abnormalities. CHEST: Decreased breath sounds. HEART: Regular rate and rhythm. ABDOMEN: Soft, obese, mildly distended with positive fluid wave. Bowel sounds are positive. No organomegaly. No guarding or rigidity. EXTREMITIES: No pedal edema. SKIN: No rashes, no jaundice. NEUROLOGIC: Alert and oriented with no asterixis. No focal deficits. - Labs CBC & Chem 7: 10/08/18 06:07 10/08/18 06:07 Labs: Abnormal Lab Results - Last 24 Hours (Table) 10/08/18 10/08/18 10/08/18 Range/Units 06:07 06:07 06:07 RBC 3.01 L (4.30-5.90) m/uL Hgb 9.7 L (13.0-17.5) gm/dL Hct 29.7 L (39.0-53.0) % RDW 19.3 H (11.5-15.5) % Plt Count 42 L (150-450) k/uL PT 14.0 H (9.0-12.0) sec INR 1.4 H (<1.2) Sodium 136 L (137-145) mmol/L BUN 45 H (9-20) mg/dL Creatinine 2.66 H (0.66-1.25) mg/dL Calcium 7.8 L (8.4-10.2) mg/dL Total Bilirubin 4.0 H (0.2-1.3) mg/dL Alkaline Phosphatase 141 H (38-126) U/L Total Protein 4.1 L (6.3-8.2) g/dL Albumin 1.9 L (3.5-5.0) g/dL Microbiology - Last 24 Hours (Table) 10/02/18 13:14 Blood Culture - Final Blood No Growth after 144 hours 10/02/18 11:45 Blood Culture - Final Blood No Growth after 144 hours 10/04/18 11:35 Anaerobic Culture - Final Peritoneal Fluid 10/04/18 11:35 Gram Stain - Final Peritoneal Fluid Body Fluid Culture - Final Assessment and Plan (1) Ascites due to alcoholic cirrhosis Narrative/Plan: Decompensated alcoholic cirrhosis with known history of hepatic encephalopathy, and ascites. Patient is status post large-volume paracentesis with 7 L of ascitic fluid removed during his hospitalization. Currently he feels his abdomen is less distended with diuretic therapy. Current Visit: Yes Status: Acute Priority: High Code(s): K70.31 - ALCOHOLIC CIRRHOSIS OF LIVER WITH ASCITES SNOMED Code(s): 8564646899608395 (2) Hyperbilirubinemia Narrative/Plan: Secondary to liver disease. Current Visit: Yes Status: Acute Priority: High Code(s): E80.6 - OTHER DISORDERS OF BILIRUBIN METABOLISM SNOMED Code(s): 61521968 (3) Thrombocytopenia Current Visit: Yes Status: Acute Priority: High Code(s): D69.6 - THROMBOCYTOPENIA, UNSPECIFIED SNOMED Code(s): 483777876 (4) Coagulopathy Current Visit: Yes Status: Chronic Priority: High Code(s): D68.9 - COAGULATION DEFECT, UNSPECIFIED SNOMED Code(s): 74985291 (5) Anemia, chronic disease Current Visit: No Status: Acute Code(s): D63.8 - ANEMIA IN OTHER CHRONIC DISEASES CLASSIFIED ELSEWHERE SNOMED Code(s): 704095216 (6) Alcohol abuse Current Visit: No Status: Chronic Priority: High Code(s): F10.10 - ALCOHOL ABUSE, UNCOMPLICATED SNOMED Code(s): 18369366 Plan: Supportive care 2 g sodium diet discussed with the patient Continue gentle diuresis, currently on Bumex appreciate recommendations by nephrology Monitor liver enzymes Monitor INR Alcohol abstinence Continue lactulose titrated for 2-3 bowel movements and Xifaxan Thank you for allowing us to participate in the care of this patient, we will continue to follow
--- NOTE | 2018-10-08 19:50 | PN ---
PROGRESS NOTE Patient is seen for followup for acute kidney injury. Renal function has been stable, with creatinine at about 2.6 for the last couple of days. Patient has been voiding. He is currently not on any IV fluids. Paracentesis was done during this hospitalization. Patient is maintained on Bumex 1 mg IV daily. On examination this morning, blood pressure was 103/52, heart rate 71 per minute. He is afebrile. EXAMINATION OF THE HEART: S1, S2. EXAMINATION OF LUNGS: Bilateral breath sounds are heard. Decreased breath sounds at bases. ABDOMEN: Soft, non-tender. Examination of lower extremities shows 1+ edema bilaterally. [employer] exam is grossly intact. Labs show sodium 136, potassium 3.5, BUN 45, serum creatinine 2.6, hemoglobin 9.7 g/dL. ASSESSMENT: 1. Acute kidney injury, currently improved, with creatinine down from 3.1 to 2.6 now. Patient has been voiding. He is maintained on IV Bumex, which we can continue until discharge and then switch to oral diuretics. 2. Hypokalemia secondary to diuresis, status post replacement. 3. Chronic kidney disease. Serum creatinine previously had been about 1.7 to 2 mg/dL. Etiology likely nephrosclerosis, NKF stage IIIB. 4. Liver cirrhosis. 5. Ascites, status post paracentesis on 10/04/2018. 6. Alcoholic liver disease with portal hypertension and gradual decompensation. 7. Thrombocytopenia secondary to portal hypertension, hypersplenism. PLAN: Continue with Bumex. Patient can be discharged from nephrology standpoint with oral Bumex 1 mg daily with repeat labs to be done as outpatient. MMODL / IJN: [id number] /
[2018-10-08] MEDS: MONTELUKAST 10 MG TAB PO SCH (20:08)
--- NOTE | 2018-10-08 23:17 | PN ---
PROGRESS NOTE DATE OF SERVICE: 10/08/2018. REASON FOR FOLLOW UP: 1. Spontaneous bacterial peritonitis. 2. Left thigh wound. INTERVAL HISTORY: The patient is afebrile. He has been breathing comfortably. Denies significant chest pain or shortness of breath. No cough. Abdominal pain has decreased intensity. No nausea, vomiting. Did have some diarrhea. EXAMINATION: Blood pressure is 103/52 with a pulse of 67, temperature 97.5. He is 94% on room air. General description is a middle-aged male lying in bed in no distress. Respiratory system: Unlabored breathing, clear to auscultation anteriorly. Heart S1-S2 regular rate and rhythm. Abdomen soft, no tenderness. Left thigh wound is currently dressed up. No obvious drainage on the dressing. LABS: Hemoglobin is 9.7, white count 6.7 with a BUN of 45, creatinine 2.6. DIAGNOSTIC IMPRESSION AND PLAN: 1. Patient with admission to the hospital with fever, source is likely combination of spontaneous bacterial peritonitis in a patient who did have significantly positive ascitic fluid though culture has been negative. The patient at this time will be continued on Zosyn, transition to oral antibiotic on discharge. 2. The patient left thigh wound. Local wound care to continue with the Aquacel silver packing of the wound. 3. Continue supportive care. MMODL / IJN: [id number] /
[2018-10-09] MEDS: IPRATROPIUM-ALBUTEROL 3 ML NEB INHALATION SCH ×3 (07:38→19:34)
[2018-10-09] MEDS: PIPERACILLIN-TAZOBACTAM 3.375 GM in SODIUM CHLORIDE 0.9% 100 ML IVPB SCH ×2 (08:11→16:41)
[2018-10-09] MEDS: METOPROLOL TARTRATE 25 MG TAB PO SCH ×2 (08:11→20:42)
[2018-10-09] MEDS: LACTULOSE 20 GM/30 ML CUP PO SCH (08:11)
[2018-10-09] MEDS: CHOLECALCIFEROL 1,000 UNIT TAB PO SCH (08:11)
[2018-10-09] MEDS: GABAPENTIN 100 MG CAP PO SCH ×2 (08:11→20:42)
[2018-10-09] MEDS: MISOPROSTOL 100 MCG TAB PO SCH ×2 (08:11→20:43)
[2018-10-09] MEDS: RIFAXIMIN 550 MG TABLET PO SCH ×2 (08:11→20:43)
[2018-10-09] MEDS: BUMETANIDE 0.25 MG/ML 4 ML VIAL IVP SCH (08:11)
[2018-10-09] MEDS: CITALOPRAM HYDROBROMIDE 10 MG TAB PO SCH (08:12)
[2018-10-09] MEDS: DIGOXIN 62.5 MCG TAB PO SCH (08:13)
--- NOTE | 2018-10-09 10:49 | P.PN ---
Subjective This is a pleasant 58 years old male with past medical history of atrial fibrillation, asthma, GI place, hypertension, liver disease, cirrhosis, hypogammaglobulinemia and common variable immunodeficiency that needs IVIG every 3-4 weeks. Also has cystitis, anemia and neuropathy. Presents because of weakness and left flank pain as he has prior fasciotomy . On admission patient was confused, mostly secondary to hepatic encephalopathy in view of her cirrhosis of the liver. Also there are suspicions of right pneumonia and patient was started on antibiotics. Cardiology and gastroenterology are seeing the patient as well as hematology for her immunodeficiency and blood cells abnormalities. Confidential Investigator are planning for thoracocentesis with FFB coverage. 10/04/2018 Patient is fully awake and oriented to time place and person. He still have abdominal pain all over with tenderness, no nausea vomiting however he has good bowel movement. Patient's has a little dyspneic but no chest pain. He has mild cough with some white phlegm. He has wound in his left lateral thighs, with no surrounding cellulitis. Patient still has diarrhea he had 6 bowel movements yesterday's and 2 since last night. Echo shows ejection fraction of 55-60% with moderate aortic stenosis. Platelets 44. Creatinine 3.1. Lactic acid is back to normal at 1.6. INR is down to 1.6. Patient might be going for paracentesis better on. 10/05/2018 Patient is status post paracentesis yesterday. His abdominal pain has been resolved, no more abdominal tenderness and his exam looks more benign. No dysuria or urinary symptoms like states frequency. He had been little bit dyspneic however he feels better today. With same little white phlegm. No chest pain. Has bilateral leg pain for about a week. Platelets today at 33. INR 1.5. Creatinine is 2.99. Patient had bad diarrhea yesterday every 2 hours which improved overnight to only 3. C. diff is negative. 10/06/2018 Patient still feeling relates and generally weak and tired. She still have frequent bowel movements with 4 movements since yesterday last night. However his abdominal pain has subsided. No wish dyspnea and is breathing quietly. No chest pain or coughing. Her symptoms. Vitas looks stable. Hemoglobin stable and platelets at 41. WB C5 0.5. INR is 1.4 ends improving. Creatinine is still high at 2.9. Sodium 138 and potassium 3.5. 10/07/18 Patient still complaining from diarrhea. No abdominal pain or tenderness. No chest pain. Patient states that his pain without difficulty. Labs are reviewed and they look stable hemoglobin. INR is 1.4. Creatinine is down to 2.6. Total bilirubin is still high at 5.0. Liver enzymes are within normal. Urine culture showing Makenna, but Patient is asymptomatic. 10/08/2018 Patient has a little bit more abdominal distention but no abdominal pain or tenderness. He is more alert and awake and oriented. Distal have diarrhea about 8 times per day. At baseline patient states his last bowel movement about 4-5 times per day and more formed, sometimes up to 8 and his been going on for the last 4 weeks prior to admission to the hospital. He said usually he can deal with it at home. Patient states he can't be with no problem. Platelet count today is 42. Creatinine is 2.66 and INR this is stable at 1.4 10/09/2018 Patient still have diarrhea but no abdominal pain or distention. GI follow-up is appreciated and the recommend to adjust lactulose for bowel movement 2-3 per day however patient has more frequent bowel movement. We are going to lower lactulose to 20 mg by mouth daily. Vital are stable. Objective - Vital Signs Vital signs: Vital Signs Temp 98.7 F 10/09/18 08:00 Pulse 73 10/09/18 08:00 Resp 16 10/09/18 08:00 BP 104/51 10/09/18 08:00 Pulse Ox 95 10/09/18 08:00 Intake & Output 10/08/18 10/09/18 10/09/18 18:59 06:59 18:59 Intake Total 200 Output Total 1600 600 Balance -1600 200 -600 Weight 83.5 kg Intake: Oral 200 Output: Urine 600 100 Stool 1000 500 Other: Voiding Method Toilet Urinal Urinal Urinal Diaper Diaper Incontinent Incontinent Incontinent # Voids 2 2 1 # Bowel Movements 3 1 - Exam GENERAL: The patient is alert and oriented x2-3, not in any acute distress. Well developed, well nourished. HEENT: Pupils are round and equally reacting to light. EOMI. No scleral icterus. No conjunctival pallor. Normocephalic, atraumatic. No pharyngeal erythema. No thyromegaly. CARDIOVASCULAR: S1 and S2 present. No murmurs, rubs, or gallops. PULMONARY: Chest is clear to auscultation, no wheezing or crackles. -ABDOMEN: Soft, nontender, distended, normoactive bowel sounds. No palpable organomegaly. MUSCULOSKELETAL: No joint swelling or deformity. EXTREMITIES: No cyanosis, clubbing, or pedal edema. NEUROLOGICAL: Gross neurological examination did not reveal any focal deficits. SKIN: No rashes. - Labs CBC & Chem 7: 10/08/18 06:07 10/08/18 06:07 Labs: Microbiology - Last 24 Hours (Table) 10/02/18 13:14 Blood Culture - Final Blood No Growth after 144 hours 10/02/18 11:45 Blood Culture - Final Blood No Growth after 144 hours 10/04/18 11:35 Anaerobic Culture - Final Peritoneal Fluid 10/04/18 11:35 Gram Stain - Final Peritoneal Fluid Body Fluid Culture - Final Assessment and Plan Assessment: Hepatic encephalopathy Cirrhosis of the liver Ascites secondary to above Alcohol abuse Chronic kidney disease Committee acquired pneumonia Coagulopathy Thrombocytopenia Common variable immunodeficiency Plan: This is a pleasant 58 years old male who presents because of bursitis alcohol abuse and liver cirrhosis. Continue with antibiotics. Gastroenterology, cardiology and hematology consults are following the patient . Labs and medication were reviewed.. Continue same treatment. Continue with symptomatic treatment. Resume home medication. Monitor lytes and vitals. DVT and GI prophylaxis. Further recommendations of the clinical course of the patient DVT prophylaxis: no heparin in view of his coagulopathy GI Prophylaxis: Pepcid PT/OT: Pending Prognosis is guarded
[2018-10-09 13:30] LABS: Calcium 7.9 mg/dL (8.4-10.2); Potassium 3.4 mmol/L (3.5-5.1)
--- NOTE | 2018-10-09 20:10 | PN ---
PROGRESS NOTE Patient is seen for followup for acute kidney injury. Patient's renal function has been fairly stable. He is maintained on a small dose of IV Bumex. He has had good urine output, although it is not accurately charted. This morning when patient was seen he was sleeping but arousable. Blood pressure was 112/68, heart rate 70 per minute. Patient is afebrile. EXAMINATION OF THE HEART: S1, S2. EXAMINATION OF LUNGS: Bilateral breath sounds are heard. Decreased breath sounds in the bases. ABDOMEN: Soft, distended, non-tender. Examination of lower extremities shows edema 1+ bilaterally. Labs show sodium 137, potassium 3.4, chloride 106, BUN 43, serum creatinine 2.57, hemoglobin 9.7 g/dL. ASSESSMENT: 1. Acute kidney injury, mainly acute tubular necrosis, nonoliguric, currently improved. Continue with the Bumex. 2. Hypokalemia secondary to diuretics, status post replacement. 3. Chronic kidney disease, stage IIIB, with baseline creatinine 1.7 to 2 mg/dL. 4. Liver cirrhosis secondary to alcoholic liver disease. 5. Portal hypertension. 6. Thrombocytopenia secondary to portal hypertension. PLAN: Continue with IV Bumex. Continue to avoid nephrotoxic agents. Switch to p.o. Bumex at time of discharge. Overall prognosis is guarded. MMODL / IJN: [id number] /
[2018-10-09] MEDS: MONTELUKAST 10 MG TAB PO SCH (20:43)
[2018-10-09] MEDS: traMADol 50 MG TAB PO PRN (20:48)
--- NOTE | 2018-10-09 23:01 | PN ---
PROGRESS NOTE DATE OF SERVICE: 10/09/2018 REASON FOR FOLLOWUP: 1. Spontaneous bacterial peritonitis. 2. Left thigh wound. INTERVAL HISTORY: The patient is afebrile. He seems to be breathing more comfortably. Denies having any chest pain. Occasional cough. His abdominal pain has improved. No nausea or vomiting. He still is complaining of some diarrhea. Denies pain to the left thigh wound area. PHYSICAL EXAMINATION: Blood pressure 117/63 with a pulse of 78, temperature 98.1. He is 93% on room air. General description is a middle-aged male lying in bed in no distress. RESPIRATORY SYSTEM: Unlabored breathing. Clear to auscultation anteriorly. HEART: S1, S2. Regular rate and rhythm. ABDOMEN: Soft. Mildly distended. Left thigh wound is currently dressed up. No obvious drainage on the dressing. LABS: BUN of 43, creatinine 2.57. Peritoneal fluid culture so far negative. DIAGNOSTIC IMPRESSION AND PLAN: 1. Patient admitted to hospital with a fever and abdominal pain in a patient who did have cloudy peritoneal fluid and elevated white count, likely spontaneous bacterial peritonitis. He has been on Zosyn and Unasyn and has diarrhea. Antibiotic will be switched over to Augmentin 500 twice a day to finish a course of therapy. 2. Left thigh wound. Local wound care with Aquacel Silver packing. Continue with supportive care. MMODL / IJN: [id number] /
[2018-10-10] MEDS ORDERED: LACTULOSE 20 GM/30 ML CUP PO SCH (09:00)
[2018-10-10] MEDS: IPRATROPIUM-ALBUTEROL 3 ML NEB INHALATION SCH ×3 (09:06→19:37)
[2018-10-10] MEDS: METOPROLOL TARTRATE 25 MG TAB PO SCH ×2 (10:33→21:51)
[2018-10-10] MEDS: GABAPENTIN 100 MG CAP PO SCH ×2 (10:33→21:51)
[2018-10-10] MEDS: CHOLECALCIFEROL 1,000 UNIT TAB PO SCH (10:33)
[2018-10-10] MEDS: BUMETANIDE 0.25 MG/ML 4 ML VIAL IVP SCH (10:34)
[2018-10-10] MEDS: AMOXIC-POT CLAV 500-125 MG 1 EACH TAB PO SCH ×2 (10:34→21:51)
[2018-10-10] MEDS: MISOPROSTOL 100 MCG TAB PO SCH ×2 (10:35→21:51)
[2018-10-10] MEDS: RIFAXIMIN 550 MG TABLET PO SCH ×2 (10:35→21:51)
[2018-10-10] MEDS: CITALOPRAM HYDROBROMIDE 10 MG TAB PO SCH (10:37)
--- NOTE | 2018-10-10 12:03 | P.PN ---
Subjective Progress Note Date: 10/10/18 Principal diagnosis: Cirrhosis of the liver history of EtOH abuse ascites Feels well. Paracentesis last week fluid analysis consistent with SBP. Increased ascites today. Possible discharge tomorrow. Afebrile. Diarrhea improved. Objective - Vital Signs Vital signs: Vital Signs Temp 98.0 F 10/10/18 04:00 Pulse 70 10/10/18 04:00 Resp 16 10/10/18 04:00 BP 94/49 10/10/18 04:00 Pulse Ox 91 L 10/10/18 04:00 Intake & Output 10/09/18 10/10/18 10/10/18 18:59 06:59 18:59 Intake Total 500 400 240 Output Total 1600 200 Balance -1100 400 40 Intake: Intake, IV Titration 100 Amount Piperacillin-Tazobactam 3 100 .375 gm In Sodium Chloride 0.9% 100 ml @ 25 mls/hr IVPB Q8HR [facility] Rx# :[id number] Oral 500 300 240 Output: Urine 100 200 Stool 1500 Other: Voiding Method Urinal Urinal Diaper Diaper Incontinent Incontinent # Voids 1 # Bowel Movements 1 - Exam General appearance: The patient is alert, oriented, in no acute distress. HET: Head is normocephalic and atraumatic. Pupils are equal and reactive. Oropharynx is clear without lesions. Neck: Supple without lymphadenopathy. Trachea midline. Heart: S1 S2. Regular rate and rhythm. Lungs: No crackles or wheezes are heard. Abdomen: Soft, moderate ascites reducible umbilical hernia with bowel sounds. No peritoneal signs. No palpable organomegaly or masses. Extremities: +2 bilateral lower extremity edema Neurological: No focal deficits. Strength and sensation are grossly intact. - Labs CBC & Chem 7: 10/08/18 06:07 10/09/18 12:22 Labs: Abnormal Lab Results - Last 24 Hours (Table) 10/09/18 10/09/18 Range/Units 12:22 12:22 APTT 44.5 H (22.0-30.0) sec Potassium 3.4 L (3.5-5.1) mmol/L BUN 43 H (9-20) mg/dL Creatinine 2.57 H (0.66-1.25) mg/dL Calcium 7.9 L (8.4-10.2) mg/dL Assessment and Plan (1) Ascites due to alcoholic cirrhosis Narrative/Plan: 58-year-old male with a history of EtOH abuse admitted with elevated liver enzymes ascites decompensated alcohol liver failure with underlying chronic kidney disease, hepatic encephalopathy, portal hypertension and CVID. History of severe necrotizing fasciitis involving the left leg requiring multiple surgeries at [facility]. Current Visit: Yes Status: Acute Priority: High Code(s): K70.31 - ALCOHOLIC CIRRHOSIS OF LIVER WITH ASCITES SNOMED Code(s): 5885988669034097 (2) Chronic kidney disease Current Visit: Yes Status: Acute Code(s): N18.9 - CHRONIC KIDNEY DISEASE, UNSPECIFIED SNOMED Code(s): 791420532 (3) Spontaneous bacterial peritonitis Narrative/Plan: Fever elevated cell count per ascitic analysis Current Visit: Yes Status: Acute Code(s): K65.2 - SPONTANEOUS BACTERIAL PERITONITIS SNOMED Code(s): 65956860 Plan: 1. Antibiotics per ID. Continue present medical therapy. Increased ascites will proceed with therapeutic paracentesis prior to discharge and reevaluate cell count/differential. Patient will require platelet transfusion prior to paracentesis. We'll obtain ultrasound at bedside today to assess ascites. Patient states he has a follow-up appointment soon with a [facility]. We'll continue to follow with you. Assessment and plan a care discussed with Dr. Matos
--- NOTE | 2018-10-10 12:03 | P.PN ---
Subjective This is a pleasant 58 years old male with past medical history of atrial fibrillation, asthma, GI place, hypertension, liver disease, cirrhosis, hypogammaglobulinemia and common variable immunodeficiency that needs IVIG every 3-4 weeks. Also has cystitis, anemia and neuropathy. Presents because of weakness and left flank pain as he has prior fasciotomy . On admission patient was confused, mostly secondary to hepatic encephalopathy in view of her cirrhosis of the liver. Also there are suspicions of right pneumonia and patient was started on antibiotics. Cardiology and gastroenterology are seeing the patient as well as hematology for her immunodeficiency and blood cells abnormalities. Planisher are planning for thoracocentesis with FFB coverage. 10/04/2018 Patient is fully awake and oriented to time place and person. He still have abdominal pain all over with tenderness, no nausea vomiting however he has good bowel movement. Patient's has a little dyspneic but no chest pain. He has mild cough with some white phlegm. He has wound in his left lateral thighs, with no surrounding cellulitis. Patient still has diarrhea he had 6 bowel movements yesterday's and 2 since last night. Echo shows ejection fraction of 55-60% with moderate aortic stenosis. Platelets 44. Creatinine 3.1. Lactic acid is back to normal at 1.6. INR is down to 1.6. Patient might be going for paracentesis better on. 10/05/2018 Patient is status post paracentesis yesterday. His abdominal pain has been resolved, no more abdominal tenderness and his exam looks more benign. No dysuria or urinary symptoms like states frequency. He had been little bit dyspneic however he feels better today. With same little white phlegm. No chest pain. Has bilateral leg pain for about a week. Platelets today at 33. INR 1.5. Creatinine is 2.99. Patient had bad diarrhea yesterday every 2 hours which improved overnight to only 3. C. diff is negative. 10/06/2018 Patient still feeling relates and generally weak and tired. She still have frequent bowel movements with 4 movements since yesterday last night. However his abdominal pain has subsided. No wish dyspnea and is breathing quietly. No chest pain or coughing. Her symptoms. Vitas looks stable. Hemoglobin stable and platelets at 41. WB C5 0.5. INR is 1.4 ends improving. Creatinine is still high at 2.9. Sodium 138 and potassium 3.5. 10/07/18 Patient still complaining from diarrhea. No abdominal pain or tenderness. No chest pain. Patient states that his pain without difficulty. Labs are reviewed and they look stable hemoglobin. INR is 1.4. Creatinine is down to 2.6. Total bilirubin is still high at 5.0. Liver enzymes are within normal. Urine culture showing Makenna, but Patient is asymptomatic. 10/08/2018 Patient has a little bit more abdominal distention but no abdominal pain or tenderness. He is more alert and awake and oriented. Distal have diarrhea about 8 times per day. At baseline patient states his last bowel movement about 4-5 times per day and more formed, sometimes up to 8 and his been going on for the last 4 weeks prior to admission to the hospital. He said usually he can deal with it at home. Patient states he can't be with no problem. Platelet count today is 42. Creatinine is 2.66 and INR this is stable at 1.4 10/09/2018 Patient still have diarrhea but no abdominal pain or distention. GI follow-up is appreciated and the recommend to adjust lactulose for bowel movement 2-3 per day however patient has more frequent bowel movement. We are going to lower lactulose to 20 mg by mouth daily. Vital are stable. 10/10/2018 Patient is diarrhea is improving, lactulose and hold. Distal have some abdominal distention buildup again. Discussed the case with the GI team. He might go for another Today. The plan as per patient and family requested subacute rehab this for evaluation by physical therapy and possible placement to physical Rehab. Objective - Vital Signs Vital signs: Vital Signs Temp 98.0 F 10/10/18 04:00 Pulse 70 10/10/18 04:00 Resp 16 10/10/18 04:00 BP 94/49 10/10/18 04:00 Pulse Ox 91 L 10/10/18 04:00 Intake & Output 10/09/18 10/10/18 10/10/18 18:59 06:59 18:59 Intake Total 500 400 240 Output Total 1600 200 Balance -1100 400 40 Intake: Intake, IV Titration 100 Amount Piperacillin-Tazobactam 3 100 .375 gm In Sodium Chloride 0.9% 100 ml @ 25 mls/hr IVPB Q8HR [facility] Rx# :[id number] Oral 500 300 240 Output: Urine 100 200 Stool 1500 Other: Voiding Method Urinal Urinal Diaper Diaper Incontinent Incontinent # Voids 1 # Bowel Movements 1 - Exam GENERAL: The patient is alert and oriented x2-3, not in any acute distress. Well developed, well nourished. HEENT: Pupils are round and equally reacting to light. EOMI. No scleral icterus. No conjunctival pallor. Normocephalic, atraumatic. No pharyngeal erythema. No thyromegaly. CARDIOVASCULAR: S1 and S2 present. No murmurs, rubs, or gallops. PULMONARY: Chest is clear to auscultation, no wheezing or crackles. -ABDOMEN: Soft, nontender, distended, normoactive bowel sounds. No palpable organomegaly. MUSCULOSKELETAL: No joint swelling or deformity. EXTREMITIES: No cyanosis, clubbing, or pedal edema. NEUROLOGICAL: Gross neurological examination did not reveal any focal deficits. SKIN: No rashes. - Labs CBC & Chem 7: 10/08/18 06:07 10/09/18 12:22 Labs: Abnormal Lab Results - Last 24 Hours (Table) 10/09/18 10/09/18 Range/Units 12:22 12:22 APTT 44.5 H (22.0-30.0) sec Potassium 3.4 L (3.5-5.1) mmol/L BUN 43 H (9-20) mg/dL Creatinine 2.57 H (0.66-1.25) mg/dL Calcium 7.9 L (8.4-10.2) mg/dL Assessment and Plan Assessment: Hepatic encephalopathy Cirrhosis of the liver Ascites secondary to above Alcohol abuse Chronic kidney disease Committee acquired pneumonia Coagulopathy Thrombocytopenia Common variable immunodeficiency Plan: This is a pleasant 58 years old male who presents because of bursitis alcohol abuse and liver cirrhosis. Continue with antibiotics. Gastroenterology, cardiology and hematology consults are following the patient . Labs and medication were reviewed.. Continue same treatment. Continue with symptomatic treatment. Resume home medication. Monitor lytes and vitals. DVT and GI prophylaxis. Further recommendations of the clinical course of the patient DVT prophylaxis: no heparin in view of his coagulopathy GI Prophylaxis: Pepcid PT/OT: Pending Prognosis is guarded
--- NOTE | 2018-10-10 15:14 | US ---
EXAMINATION TYPE: US abdomen limited DATE OF EXAM: 10/10/2018 COMPARISON: US CLINICAL HISTORY: assess ascites only for paracentesis. Ascites is seen in all four abdominal quadrants with largest pocket seen in LLQ at 12.1cm A/P, but fl oating bowel is noted in fluid pocket and in RLQ. IMPRESSION: Moderate ascites
--- NOTE | 2018-10-10 17:53 | PN ---
PROGRESS NOTE DATE OF SERVICE: 10/10/2018. REASON FOR FOLLOWUP: 1. Spontaneous bacterial peritonitis. 2. Left thigh wound. INTERVAL HISTORY: The patient is afebrile. He is breathing comfortably. Denies having any chest pain. No shortness of breath. No cough. Slight abdominal distention, but denies any worsening abdominal pain and no diarrhea. No worsening diarrhea. Denies pain to the left thigh wound. EXAMINATION: Blood pressure 104/55, pulse of 71, temperature of 97.9. He is 93% on room air. General description is a middle-aged male lying in bed in no distress. Respiratory system: Unlabored breathing, clear to auscultation anteriorly. Heart S1, S2. Regular rate and rhythm. ABDOMEN: Soft, mild tenderness, no guarding or rigidity. Left thigh wound is dressed up. No obvious drainage on the dressing. LABS: BUN of 43, creatinine 2.57. DIAGNOSTIC IMPRESSION AND PLAN: 1. Patient admitted to the hospital with fever, source is likely a spontaneous bacterial peritonitis. The patient's antibiotic has been switched to oral Augmentin continue for short duration to finish therapy. He will be scheduled for repeat abdominal paracentesis. Recommend repeating cell count and differential to make sure it is showing a downward trend. Plan of care was discussed with the nurse practitioner for the Gastroenterology team. 2. Left thigh wound. Local wound care with Aquacel silver packing of the wound. Continue supportive care. MMODL / IJN: [id number] /
--- NOTE | 2018-10-10 18:47 | P.PN ---
Subjective Progress Note Date: 10/10/18 Principal diagnosis: CVID, anemia of CKD Pt seen in f/u. Pt feels ok, his abd distension persists, no nausea, MOE, denied any severe diarrhea, bleeding, he is weak. Objective - Vital Signs Vital signs: Vital Signs Temp 97.9 F 10/10/18 08:00 Pulse 72 10/10/18 13:03 Resp 16 10/10/18 12:00 BP 105/61 10/10/18 12:00 Pulse Ox 94 L 10/10/18 12:00 Intake & Output 10/09/18 10/10/18 10/10/18 18:59 06:59 18:59 Intake Total 500 400 702 Output Total 1600 1100 Balance -1100 400 -398 Intake: Intake, IV Titration 100 Amount Piperacillin-Tazobactam 3 100 .375 gm In Sodium Chloride 0.9% 100 ml @ 25 mls/hr IVPB Q8HR [facility] Rx# :[id number] Oral 500 300 702 Output: Urine 100 600 Stool 1500 500 Other: Voiding Method Urinal Urinal Urinal Diaper Diaper Diaper Incontinent Incontinent Incontinent # Voids 1 # Bowel Movements 1 - Constitutional Constitutional Comment(s): progressive debilitation, cachetic, muscle wasting - EENT Eyes: Present: EOMI ENT: Present: hearing grossly normal - Respiratory Respiratory: bilateral: CTA - Cardiovascular Heart sounds: normal: S1, S2 - Gastrointestinal General gastrointestinal: Present: distended, soft - Neurologic Neurologic: Present: CNII-XII intact - Musculoskeletal Musculoskeletal: Present: generalized weakness - Psychiatric Psychiatric: Present: A&O x's 3, appropriate affect, intact judgment & insight - Labs CBC & Chem 7: 10/08/18 06:07 10/09/18 12:22 Assessment and Plan (1) Coagulopathy Narrative/Plan: Secondary to liver dysfunction. No gross evidence of bleeding, Hgb stable, pt is not on any anticoagulation or antiplatelet therapy Current Visit: Yes Status: Chronic Priority: High Code(s): D68.9 - COAGULATION DEFECT, UNSPECIFIED SNOMED Code(s): 48189200 (2) Thrombocytopenia Narrative/Plan: Secondary to liver disease, Plt stable today, no acute intervention Current Visit: Yes Status: Acute Priority: High Code(s): D69.6 - THROMBOCYTOPENIA, UNSPECIFIED SNOMED Code(s): 655565039 (3) Anemia Narrative/Plan: Hgb is typically 10 range, he is on procrit weekly, due tomorrow for a dose. F/ U appt for next week. CBC while inpatient Current Visit: No Status: Chronic Priority: Medium Code(s): D64.9 - ANEMIA , UNSPECIFIED SNOMED Code(s): 291369028 (4) Common variable immunodeficiency Narrative/Plan: Patient due for immunoglobulin infusion in about 1.5 weeks. Keep plans for next infusion. Current Visit: No Status: Chronic Priority: High Code(s): D83.9 - COMMON VARIABLE IMMUNODEFICIENCY, UNSPECIFIED SNOMED Code(s): 29220101
[2018-10-10] MEDS: LACTULOSE 20 GM/30 ML CUP PO SCH (21:45)
[2018-10-10] MEDS: MONTELUKAST 10 MG TAB PO SCH (21:51)
--- NOTE | 2018-10-10 21:53 | PN ---
PROGRESS NOTE Patient is seen for followup for acute kidney injury. The patient's renal function has been stable and slowly improving. He continues to have significant edema and is maintained on a small dose of IV Bumex, which he is tolerating well. Serum creatinine yesterday was down to 2.5, we do not have labs from today. There are plans for possible discharge. PHYSICAL EXAMINATION: This morning blood pressure was 104/55, heart rate about 90 per minute, patient is afebrile. Examination of the heart S1, S2. Examination of lungs bilateral breath sounds are heard. Abdomen is soft, nontender and distended with ascites. Examination lower extremity shows edema 1+ bilaterally. Chronic skin changes are noted. TOW PICKER exam is grossly intact. LABS: Not available from today. Serum creatinine was 2.57 yesterday, which is down from a peak of 3.1. ASSESSMENT: 1. Acute kidney injury, mainly prerenal, currently stable and somewhat improved. 2. Chronic kidney disease with previous creatinine lowest at about 1.7 mg/dL in July of 2018. NKF stage IIIB. 3. Hypokalemia associated with diuresis, status post replacement. 4. Chronic liver disease, mainly alcoholic liver disease with portal hypertension and ascites. 5. Left thigh wound being followed by ID, currently being packed. 6. 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 We need to make sure it is no sucrose containing given his renal failure. PLAN: Continue with Bumex. The patient is stable for discharge from Nephrology standpoint. MMODL / IJN: [id number] /
[2018-10-10] MEDS: traMADol 50 MG TAB PO PRN (21:55)
[2018-10-11 06:41] LABS: Anisocytosis Moderate; HCT 29.3 % (39.0-53.0); HGB 9.5 gm/dL (13.0-17.5); Hypochromasia Slight; MCH 32.6 pg (25.0-35.0); MCHC 32.5 g/dL (31.0-37.0); MCV 100.2 fL (80.0-100.0); Macrocytosis Moderate; Poikilocytosis Slight; RBC 2.92 m/uL (4.30-5.90); RDW 20.3 % (11.5-15.5); WBC 7.3 k/uL (3.8-10.6)
[2018-10-11 06:53] LABS: Platelet Count 47 k/uL (150-450)
[2018-10-11 06:57] LABS: INR 1.5 (<1.2); Prothrombin Time 15.4 sec (9.0-12.0)
[2018-10-11 07:29] LABS: Calcium 7.5 mg/dL (8.4-10.2); Potassium 3.2 mmol/L (3.5-5.1)
[2018-10-11] MEDS: IPRATROPIUM-ALBUTEROL 3 ML NEB INHALATION SCH ×3 (07:38→19:33)
[2018-10-11 08:16] LABS: Eosinophils # (M) 0.29 k/uL (0-0.7); Lymphocytes # (M) 3.65 k/uL (1.0-4.8); Monocytes # (M) 0.29 k/uL (0-1.0); Myelocytes # (M) 0.07 k/uL (0); Myelocytes % 1 %; Neutrophils # (M) 3.07 k/uL (1.3-7.7); Neutrophils % (M) 42 %; Nucleated Red Blood Cells 0 /100 WBC (0-0); Total Cells Counted 200
[2018-10-11 08:17] LABS: RBC Fragments Present
[2018-10-11 08:18] LABS: Polychromasia Present
[2018-10-11] MEDS: CHOLECALCIFEROL 1,000 UNIT TAB PO SCH (10:00)
[2018-10-11] MEDS: GABAPENTIN 100 MG CAP PO SCH ×2 (10:00→19:37)
[2018-10-11] MEDS: CITALOPRAM HYDROBROMIDE 10 MG TAB PO SCH (10:00)
[2018-10-11] MEDS: METOPROLOL TARTRATE 25 MG TAB PO SCH ×2 (10:00→19:37)
[2018-10-11] MEDS: DIGOXIN 62.5 MCG TAB PO SCH (10:01)
[2018-10-11] MEDS: RIFAXIMIN 550 MG TABLET PO SCH ×2 (10:01→19:37)
[2018-10-11] MEDS: MISOPROSTOL 100 MCG TAB PO SCH ×2 (10:01→19:36)
[2018-10-11] MEDS: AMOXIC-POT CLAV 500-125 MG 1 EACH TAB PO SCH ×2 (10:01→19:37)
[2018-10-11] MEDS: BUMETANIDE 0.25 MG/ML 4 ML VIAL IVP SCH (10:02)
[2018-10-11] MEDS: LACTULOSE 20 GM/30 ML CUP PO SCH ×2 (10:02→19:30)
--- NOTE | 2018-10-11 12:25 | P.PN ---
Progress Note - Text Progress Note Date: 10/11/18 Patient off floor for paracentesis.
--- NOTE | 2018-10-11 14:32 | US ---
EXAMINATION TYPE: US paracentesis abd w/image DATE OF EXAM: 10/11/2018 COMPARISON: NONE HISTORY: Ascites. PROCEDURE: Maximal barrier technique was utilized. The skin overlying a suitable pocket of fluid was localized with ultrasound and the overlying skin was prepped and draped. Ultrasound was utilized with sterile technique. Lidocaine was used for local anesthesia and a skin zamzam made with a scalpel. Catheter was advanced under direct ultrasound guidance into a suitable pocket of fluid and approximately 4.8 liter s of serous fluid were removed. Catheter was withdrawn and hemostasis achieved. There is no immedia te complication; the patient is discharged in stable condition. IMPRESSION: STATUS POST ULTRASOUND GUIDED PARACENTESIS FOR PALLIATION OF ASCITES. THIS PROCEDURE WA S PERFORMED BY THE UNDERSIGNED. Specimen sent for laboratory analysis
[2018-10-11] MEDS: ALBUMIN HUMAN 25% 50 ML in EMPTY BAG 1 BAG IVPB SCH ×3 (14:40→15:53)
--- NOTE | 2018-10-11 14:57 | P.PN ---
Subjective This is a pleasant 58 years old male with past medical history of atrial fibrillation, asthma, GI place, hypertension, liver disease, cirrhosis, hypogammaglobulinemia and common variable immunodeficiency that needs IVIG every 3-4 weeks. Also has cystitis, anemia and neuropathy. Presents because of weakness and left flank pain as he has prior fasciotomy . On admission patient was confused, mostly secondary to hepatic encephalopathy in view of her cirrhosis of the liver. Also there are suspicions of right pneumonia and patient was started on antibiotics. Cardiology and gastroenterology are seeing the patient as well as hematology for her immunodeficiency and blood cells abnormalities. Boiler Control Technician are planning for thoracocentesis with FFB coverage. 10/04/2018 Patient is fully awake and oriented to time place and person. He still have abdominal pain all over with tenderness, no nausea vomiting however he has good bowel movement. Patient's has a little dyspneic but no chest pain. He has mild cough with some white phlegm. He has wound in his left lateral thighs, with no surrounding cellulitis. Patient still has diarrhea he had 6 bowel movements yesterday's and 2 since last night. Echo shows ejection fraction of 55-60% with moderate aortic stenosis. Platelets 44. Creatinine 3.1. Lactic acid is back to normal at 1.6. INR is down to 1.6. Patient might be going for paracentesis better on. 10/05/2018 Patient is status post paracentesis yesterday. His abdominal pain has been resolved, no more abdominal tenderness and his exam looks more benign. No dysuria or urinary symptoms like states frequency. He had been little bit dyspneic however he feels better today. With same little white phlegm. No chest pain. Has bilateral leg pain for about a week. Platelets today at 33. INR 1.5. Creatinine is 2.99. Patient had bad diarrhea yesterday every 2 hours which improved overnight to only 3. C. diff is negative. 10/06/2018 Patient still feeling relates and generally weak and tired. She still have frequent bowel movements with 4 movements since yesterday last night. However his abdominal pain has subsided. No wish dyspnea and is breathing quietly. No chest pain or coughing. Her symptoms. Vitas looks stable. Hemoglobin stable and platelets at 41. WB C5 0.5. INR is 1.4 ends improving. Creatinine is still high at 2.9. Sodium 138 and potassium 3.5. 10/07/18 Patient still complaining from diarrhea. No abdominal pain or tenderness. No chest pain. Patient states that his pain without difficulty. Labs are reviewed and they look stable hemoglobin. INR is 1.4. Creatinine is down to 2.6. Total bilirubin is still high at 5.0. Liver enzymes are within normal. Urine culture showing Makenna, but Patient is asymptomatic. 10/08/2018 Patient has a little bit more abdominal distention but no abdominal pain or tenderness. He is more alert and awake and oriented. Distal have diarrhea about 8 times per day. At baseline patient states his last bowel movement about 4-5 times per day and more formed, sometimes up to 8 and his been going on for the last 4 weeks prior to admission to the hospital. He said usually he can deal with it at home. Patient states he can't be with no problem. Platelet count today is 42. Creatinine is 2.66 and INR this is stable at 1.4 10/09/2018 Patient still have diarrhea but no abdominal pain or distention. GI follow-up is appreciated and the recommend to adjust lactulose for bowel movement 2-3 per day however patient has more frequent bowel movement. We are going to lower lactulose to 20 mg by mouth daily. Vital are stable. 10/10/2018 Patient is diarrhea is improving, lactulose and hold. Distal have some abdominal distention buildup again. Discussed the case with the GI team. He might go for another Today. The plan as per patient and family requested subacute rehab this for evaluation by physical therapy and possible placement to physical Rehab. 10/11/18 pt undergone paracentasis today , result for the fluid like WBC is pending, which is imprortant to monitor his response to antibiotic, he is getting albumin also as per GI team, pt wanted regular diet witch is also recommended by dietitian to get more calorie possible dc in 24-48 hr Objective - Vital Signs Vital signs: Vital Signs Temp 97.9 F 10/11/18 12:38 Pulse 76 10/11/18 12:38 Resp 18 10/11/18 12:38 BP 123/64 10/11/18 12:38 Pulse Ox 92 L 10/11/18 12:00 Intake & Output 10/10/18 10/11/18 10/11/18 18:59 06:59 18:59 Intake Total 702 318 Output Total 1600 4800 Balance -748 -7835 Weight 78 kg 78 kg Intake: IV 10 Invasive Line 4 10 Oral 702 Blood Product 308 Platelet Pheresis Acda1 308 Unit [id number] Output: Urine 600 Stool 1000 Other 4800 Other: Voiding Method Urinal Diaper Incontinent # Voids 1 0 # Bowel Movements 0 - Exam GENERAL: The patient is alert and oriented x2-3, not in any acute distress. Well developed, well nourished. HEENT: Pupils are round and equally reacting to light. EOMI. No scleral icterus. No conjunctival pallor. Normocephalic, atraumatic. No pharyngeal erythema. No thyromegaly. CARDIOVASCULAR: S1 and S2 present. No murmurs, rubs, or gallops. PULMONARY: Chest is clear to auscultation, no wheezing or crackles. -ABDOMEN: Soft, nontender, distended, normoactive bowel sounds. No palpable organomegaly. MUSCULOSKELETAL: No joint swelling or deformity. EXTREMITIES: No cyanosis, clubbing, or pedal edema. NEUROLOGICAL: Gross neurological examination did not reveal any focal deficits. SKIN: No rashes. - Labs CBC & Chem 7: 10/11/18 05:33 10/11/18 06:03 Labs: Abnormal Lab Results - Last 24 Hours (Table) 10/11/18 10/11/18 10/11/18 Range/Units 05:33 05:33 06:03 RBC 2.92 L (4.30-5.90) m/uL Hgb 9.5 L (13.0-17.5) gm/dL Hct 29.3 L (39.0-53.0) % MCV 100.2 H (80.0-100.0) fL RDW 20.3 H (11.5-15.5) % Plt Count 47 L (150-450) k/uL Myelocytes # (Manual) 0.07 H (0) k/uL PT 15.4 H (9.0-12.0) sec INR 1.5 H (<1.2) Sodium 136 L (137-145) mmol/L Potassium 3.2 L (3.5-5.1) mmol/L BUN 41 H (9-20) mg/dL Creatinine 2.44 H (0.66-1.25) mg/dL Calcium 7.5 L (8.4-10.2) mg/dL Assessment and Plan Assessment: Hepatic encephalopathy Cirrhosis of the liver Ascites secondary to above Alcohol abuse Chronic kidney disease Committee acquired pneumonia Coagulopathy Thrombocytopenia Common variable immunodeficiency Plan: This is a pleasant 58 years old male who presents because of bursitis alcohol abuse and liver cirrhosis. Continue with antibiotics. Gastroenterology, cardiology and hematology consults are following the patient . Labs and medication were reviewed.. Continue same treatment. Continue with symptomatic treatment. Resume home medication. Monitor lytes and vitals. DVT and GI prophylaxis. Further recommendations of the clinical course of the patient DVT prophylaxis: no heparin in view of his coagulopathy GI Prophylaxis: Pepcid PT/OT: Pending Prognosis is guarded
[2018-10-11] MEDS: DARBEPOETIN ALFA 100MCG/0.5ML SYRINGE SQ SCH (15:36)
[2018-10-11] MEDS ORDERED: POTASSIUM CHLORIDE ER 20 MEQ TAB.ER PO STA (16:38)
[2018-10-11 17:48] LABS: Appearance,BF Clear; Nucleated Cells, Body Fluid 205 /uL; RBC, Body Fluid 615 /uL
[2018-10-11 17:49] LABS: Mononuclear WBC,Body Fluid 93 %; Polynuclear WBC,Body Fluid 7 %; Total Cells Counted,Body Fluid 100
[2018-10-11] MEDS: MONTELUKAST 10 MG TAB PO SCH (19:37)
--- NOTE | 2018-10-11 22:39 | PN ---
PROGRESS NOTE DATE OF SERVICE: 10/11/2018. REASON FOR FOLLOW UP: 1. Spontaneous bacterial peritonitis. 2. Left thigh wound. INTERVAL HISTORY: The patient is afebrile. He has been breathing comfortably. The patient did have repeat paracentesis done today. The patient abdominal pain has currently decreased in intensity. He denies any nausea, vomiting, or any worsening diarrhea. PHYSICAL EXAMINATION: His white count is stable, T-max is 98. General description is a middle-aged male lying in bed in no distress. Respiratory system: Unlabored breathing. Clear to auscultation anteriorly. Heart S1, S2. Regular rate and rhythm. Abdomen soft. No tenderness. Left thigh wound is currently dressed up. No obvious drainage on the dressing. DIAGNOSTIC IMPRESSION AND PLAN: 1. Patient with fever with significantly cloudy peritoneal fluid, with elevated white count likely spontaneous bacterial peritonitis. The peritoneal fluid culture did not show any resistant pathogen currently on oral Augmentin that will continue for a week to finish a course of therapy. 2. Left thigh wound. Local wound care with Aquacel silver dressing. 3. Continue supportive care. MMODL / IJN: [id number] /
--- NOTE | 2018-10-11 23:44 | PN ---
PROGRESS NOTE Patient is seen for followup for the acute kidney injury associated with liver cirrhosis. Renal function has been stable. The patient had paracentesis done again. The blood pressure has been on the lower side with systolic about 101 mmHg this afternoon. The heart rate 60 per minute. Patient is afebrile. Examination of the heart S1, S2. Examination of lungs bilateral breath sounds are heard. Abdomen is soft, nontender, not much distended. Examination of lower extremity shows chronic skin changes. Edema 1+ bilaterally. LABS: Show sodium of 136, potassium 3.2, BUN 41, serum creatinine 2.4 mg/dL. ASSESSMENT: 1. Acute kidney injury, nonoliguric initially, mainly prerenal and also associated with hemodynamic fluctuation with liver cirrhosis and paracentesis. The renal function is improved compared to on initial admission. Continue to avoid significant hypotension. 2. CKD stage IIIB with creatinine 1.7 in July of 2018. 3. Hypokalemia associated with diuresis. 4. Chronic liver disease secondary to alcoholic liver disease with portal hypertension and ascites. 5. Left thigh wound being followed by ID. 6. History of common variable immune deficiency, maintained on immunoglobulin IV Ig. PLAN: Repeat labs in a.m. Patient can be switched to p.o. Bumex at the time of discharge. MMODL / IJN: [id number] /
[2018-10-12] MEDS: IPRATROPIUM-ALBUTEROL 3 ML NEB INHALATION SCH ×2 (08:13→12:48)
[2018-10-12] MEDS: CHOLECALCIFEROL 1,000 UNIT TAB PO SCH (09:32)
[2018-10-12] MEDS: AMOXIC-POT CLAV 500-125 MG 1 EACH TAB PO SCH (09:32)
[2018-10-12] MEDS: METOPROLOL TARTRATE 25 MG TAB PO SCH (09:33)
[2018-10-12] MEDS: GABAPENTIN 100 MG CAP PO SCH (09:33)
[2018-10-12] MEDS: LACTULOSE 20 GM/30 ML CUP PO SCH (09:33)
[2018-10-12] MEDS: CITALOPRAM HYDROBROMIDE 10 MG TAB PO SCH (09:33)
[2018-10-12] MEDS: RIFAXIMIN 550 MG TABLET PO SCH (09:34)
[2018-10-12] MEDS: MISOPROSTOL 100 MCG TAB PO SCH (09:34)
[2018-10-12] MEDS: BUMETANIDE 0.25 MG/ML 4 ML VIAL IVP SCH (09:35)
--- NOTE | 2018-10-12 11:32 | P.PN ---
Subjective Progress Note Date: 10/12/18 Principal diagnosis: coagulopathy Patient seen and examined, no acute events Objective - Vital Signs Vital signs: Vital Signs Temp 98.8 F 10/12/18 04:00 Pulse 70 10/12/18 04:00 Resp 18 10/12/18 04:00 BP 101/60 10/12/18 04:00 Pulse Ox 96 10/12/18 04:00 Intake & Output 10/11/18 10/12/18 10/12/18 18:59 06:59 18:59 Intake Total 936 480 Output Total 5300 500 Balance -4364 -20 Weight 78 kg 73.6 kg Intake: IV 30 Invasive Line 4 30 Oral 598 480 Blood Product 308 Platelet Pheresis Acda1 308 Unit [id number] Output: Stool 500 500 Other 4800 Other: Voiding Method Urinal Urinal Diaper Diaper Incontinent Incontinent # Voids 0 2 # Bowel Movements 0 1 - Exam - Constitutional Constitutional Comment(s): progressive debilitation, cachetic, muscle wasting - EENT Eyes: Present: EOMI ENT: Present: hearing grossly normal - Respiratory Respiratory: bilateral: CTA - Cardiovascular Heart sounds: normal: S1, S2 - Gastrointestinal General gastrointestinal: Present: distended, soft - Neurologic Neurologic: Present: CNII-XII intact - Musculoskeletal Musculoskeletal: Present: generalized weakness - Psychiatric Psychiatric: Present: A&O x's 3, appropriate affect, intact judgment & insight - Labs CBC & Chem 7: 10/12/18 12:38 10/12/18 12:38 Labs: Microbiology - Last 24 Hours (Table) 10/11/18 12:00 Gram Stain - Preliminary Ascites Fluid Body Fluid Culture - Preliminary 10/11/18 12:00 Anaerobic Culture - Preliminary Ascites Fluid Assessment and Plan Plan: (1) Coagulopathy Narrative/Plan: - Secondary to liver dysfunction. - No gross evidence of bleeding, Hgb stable, pt is not on any anticoagulation or antiplatelet therapy Current Visit: Yes Status: Chronic Priority: High Code(s): D68.9 - COAGULATION DEFECT, UNSPECIFIED SNOMED Code(s): 50299336 (2) Thrombocytopenia Narrative/Plan: - Secondary to liver disease, Plt stable today, no acute intervention Current Visit: Yes Status: Acute Priority: High Code(s): D69.6 - THROMBOCYTOPENIA, UNSPECIFIED SNOMED Code(s): 581673137 (3) Anemia Narrative/Plan: - Hgb is typically 10 range, - Continues on procrit weekly - Due today - F/U appt for next week. CBC while inpatient Current Visit: No Status: Chronic Priority: Medium Code(s): D64.9 - ANEMIA , UNSPECIFIED SNOMED Code(s): 083906877 (4) Common variable immunodeficiency Narrative/Plan: - Patient due for immunoglobulin infusion in about 1.5 weeks. - Plan to continue IVIG Current Visit: No Status: Chronic Priority: High Code(s): D83.9 - COMMON VARIABLE IMMUNODEFICIENCY, UNSPECIFIED SNOMED Code(s): 23246526
--- NOTE | 2018-10-12 11:58 | PN ---
PROGRESS NOTE Patient is seen for followup for acute kidney injury. Prerenal associated with hypotension and chronic liver disease and portal hypertension with change in renal function based on fluctuation in hemodynamics and blood pressure. Patient had paracentesis 2 days ago. He is currently doing fairly well. There are plans for discharge today. PHYSICAL EXAMINATION: Blood pressure was 101/60, heart rate 70 per minute. Patient is afebrile. Examination of the heart, S1, S2. Examination of the lungs, bilateral breath sounds are heard. Abdomen is soft, distended, nontender. Examination of the lower extremities shows chronic skin changes, chronic edema, seems to have decreased since initial admission. ANIMAL CARE WORKER exam is grossly intact. LABS: Reveal sodium of 136, potassium 3.2, chloride 105, BUN 41, serum creatinine 2.4. Hemoglobin was 9.5 g/dL. ASSESSMENT: 1. Acute kidney injury, nonoliguric, mainly prerenal, currently improved. Patient is stable for discharge from Nephrology standpoint. 2. Chronic kidney disease stage IIIB with baseline creatinine 1.7 in July of 2018. 3. Hypokalemia associated with diuresis. 4. Chronic liver disease secondary to alcoholic liver disease with portal hypertension and ascites. 5. Left thigh wound, being followed by ID, currently improved. 6. History of common variable immune deficiency, maintained on IVIG. PLAN: Patient continue with Bumex. We can change it to p.o. 1 mg daily and patient will need to follow up as outpatient in about 1-2 weeks' time. He will need labs to be done in 2- 3 days to follow up on the hypokalemia. MMODL / IJN: [id number] /
[2018-10-12 13:29] LABS: INR 1.6 (<1.2); Prothrombin Time 15.7 sec (9.0-12.0)
[2018-10-12 13:43] LABS: Anisocytosis Moderate; HCT 29.7 % (39.0-53.0); HGB 9.4 gm/dL (13.0-17.5); Hypochromasia Slight; MCH 31.1 pg (25.0-35.0); MCHC 31.6 g/dL (31.0-37.0); MCV 98.4 fL (80.0-100.0); Macrocytosis Slight; Mean Platelet Volume 8.3; Poikilocytosis Slight; RBC 3.02 m/uL (4.30-5.90); WBC 6.4 k/uL (3.8-10.6)
[2018-10-12 13:46] LABS: Platelet Count 49 k/uL (150-450)
[2018-10-12 13:51] LABS: Calcium 7.6 mg/dL (8.4-10.2); Magnesium 1.6 mg/dL (1.6-2.3); Potassium 3.5 mmol/L (3.5-5.1); Total Bilirubin 3.9 mg/dL (0.2-1.3)
[2018-10-12 14:23] VITALS: BMI 22.6
--- NOTE | 2018-10-12 14:40 | PN ---
PROGRESS NOTE DATE OF SERVICE: 10/12/2018 REASON FOR FOLLOW UP: 1. Spontaneous bacterial peritonitis. 2. Left thigh wound. INTERVAL HISTORY: The patient is currently afebrile. He is breathing comfortably. Denies having any chest pain. No shortness of breath or cough. Abdominal pain has improved. No nausea, vomiting, diarrhea has slowed down. No pain to the left thigh wound area. PHYSICAL EXAMINATION: Blood pressure 101/60 with a pulse of 73, temperature 98.8. He is 96% on room air. General description is a middle-aged male, lying in bed in no distress. RESPIRATORY SYSTEM: Unlabored breathing, clear to auscultation anteriorly. HEART: S1, S2. Regular rate and rhythm. ABDOMEN: Soft, no tenderness. Left thigh wound is currently dressed up. No obvious drainage on the dressing. LABS: No new labs have been obtained today. Ascitic fluid obtained yesterday was clear, otherwise white count is down 205, comparing to 1750 on initial draw. DIAGNOSTIC IMPRESSION AND PLAN: 1. Patient with spontaneous bacterial peritonitis to continue with oral Augmentin for about a week to finish a course of therapy. 2. Left thigh wound. Local care with Aquacel Silver packing and close outpatient followup. MMODL / IJN: [id number] /
[2018-10-12 15:23] LABS: Eosinophils # (M) 0.26 k/uL (0-0.7); Lymphocytes # (M) 2.82 k/uL (1.0-4.8); Monocytes # (M) 0.38 k/uL (0-1.0); Neutrophils # (M) 2.94 k/uL (1.3-7.7); Neutrophils % (M) 46 %; Nucleated Red Blood Cells 0 /100 WBC (0-0); Total Cells Counted 100
[2018-10-12 15:58] VITALS: BP 96/48; PULSE 72; RESP 18; TEMP 99.1
[2018-10-12] MEDS ORDERED: AMOXIC-POT CLAV 875-125MG 1 EACH TAB PO SCH (21:00)
== END 2018-10-12 17:58 | disposition home health service (06) | DRG 371 ==
LOC: EC 10:52 → 3SCARD 14:29
PROVIDERS: ADMIT Internal Medicine; ATTEND Internal Medicine
PROC: 0W9G3ZX Drainage of Peritoneal Cavity, Percutaneous Approach, Diagnostic (ICD-10-PCS; principal; 2018-10-04)
PROC: 0W9G3ZZ Drainage of Peritoneal Cavity, Percutaneous Approach (ICD-10-PCS; 2018-10-11)
DX: K65.2 Spontaneous bacterial peritonitis (principal); N17.0 Acute kidney failure with tubular necrosis; J18.9 Pneumonia, unspecified organism; J96.00 Acute respiratory failure, unspecified whether with hypoxia or hypercapnia; D80.1 Nonfamilial hypogammaglobulinemia; D83.9 Common variable immunodeficiency, unspecified; D68.4 Acquired coagulation factor deficiency; D61.818 Other pancytopenia; E87.2 Acidosis; K76.6 Portal hypertension; G62.9 Polyneuropathy, unspecified; I48.0 Paroxysmal atrial fibrillation; E87.70 Fluid overload, unspecified; N30.90 Cystitis, unspecified without hematuria; K70.31 Alcoholic cirrhosis of liver with ascites; N18.3 Chronic kidney disease, stage 3 (moderate); K70.40 Alcoholic hepatic failure without coma; F10.21 Alcohol dependence, in remission; D46.9 Myelodysplastic syndrome, unspecified; D63.1 Anemia in chronic kidney disease; I35.0 Nonrheumatic aortic (valve) stenosis; T50.2X5A Adverse effect of carbonic-anhydrase inhibitors, benzothiadiazides and other diuretics, initial encounter; D73.1 Hypersplenism; E80.7 Disorder of bilirubin metabolism, unspecified; E87.6 Hypokalemia; K90.0 Celiac disease; I12.9 Hypertensive chronic kidney disease with stage 1 through stage 4 chronic kidney disease, or unspecified chronic kidney disease; J45.909 Unspecified asthma, uncomplicated; K57.90 Diverticulosis of intestine, part unspecified, without perforation or abscess without bleeding; K42.9 Umbilical hernia without obstruction or gangrene; H35.00 Unspecified background retinopathy; K40.90 Unilateral inguinal hernia, without obstruction or gangrene, not specified as recurrent; Z79.899 Other long term (current) drug therapy; Z87.891 Personal history of nicotine dependence; Z86.19 Personal history of other infectious and parasitic diseases; Z87.01 Personal history of pneumonia (recurrent); Z86.14 Personal history of Methicillin resistant Staphylococcus aureus infection; Z87.39 Personal history of other diseases of the musculoskeletal system and connective tissue; Z87.81 Personal history of (healed) traumatic fracture; Z98.42 Cataract extraction status, left eye; Z98.41 Cataract extraction status, right eye; Z96.1 Presence of intraocular lens; Z98.52 Vasectomy status; Z88.1 Allergy status to other antibiotic agents; Z91.041 Radiographic dye allergy status; Z91.018 Allergy to other foods; Z83.49 Family history of other endocrine, nutritional and metabolic diseases; Z83.1 Family history of other infectious and parasitic diseases; Z83.79 Family history of other diseases of the digestive system
CPT/HCPCS: 36415; 49083; 71046; 76705; 80048; 80053; 81001; 82140; 82550; 82553; 82784; 82945; 83605; 83735; 84100; 84157; 84484; 85025; 85610; 85730; 86850; 86900; 86901; 87040; 87070; 87075; 87086; 87205; 87324; 88108; 88305; 89050; 93005; 93306; 93970; 94640; 94760; 96360; 96365; 99291

== ENCOUNTER → 2018-11-05 | Outpatient (CLI) | payer BC ==
[2018-11-05 13:18] LABS: Anisocytosis Moderate; HCT 33.6 % (39.0-53.0); HGB 10.7 gm/dL (13.0-17.5); Hypochromasia Moderate; MCH 32.8 pg (25.0-35.0); MCHC 31.9 g/dL (31.0-37.0); MCV 102.8 fL (80.0-100.0); Macrocytosis Marked; Mean Platelet Volume 7.7; Poikilocytosis Moderate; RBC 3.27 m/uL (4.30-5.90); WBC 6.5 k/uL (3.8-10.6)
[2018-11-05 13:24] LABS: Platelet Count 54 k/uL (150-450)
[2018-11-05 13:27] LABS: Appearance,Urine Clear (Clear); Bilirubin,Urine Negative (Negative); Blood,Urine Trace (Negative); Color,Urine Yellow; Glucose,Urine (UA) Negative (Negative); Ketones,Urine Negative (Negative); Leukocyte Esterase,Urine Small (Negative); Mucus,Urine Rare /hpf; Nitrite,Urine Negative (Negative); PH, Urine 5.5 (5.0-8.0); Protein,Urine Negative (Negative); RBC,Urine 1 /hpf (0-5); Specific Gravity,Urine 1.009 (1.001-1.035); Urobilinogen,Urine <2.0 mg/dL (<2.0); WBC,Urine 16 /hpf (0-5)
[2018-11-05 18:56] LABS: Parathyroid Hormone Intact 115.5 pg/mL (14.0-72.0)
[2018-11-05 19:10] LABS: Vitamin D 25 Hydroxy 37.3 ng/mL (30.0-100.0)
[2018-11-05 19:17] LABS: Iron Saturation 39.31 (15.00-50.00)
[2018-11-05 21:14] LABS: Albumin 2.5 g/dL (3.80-4.90); Anion Gap 10.4 mmol/L (4.00-12.00); Calcium 7.7 mg/dL (8.7-10.3); Carbon Dioxide 28.6 mmol/L (21.6-31.8); Magnesium 1.5 mg/dL (1.5-2.4); Phosphorus 4.2 mg/dL (2.4-5.1)
[2018-11-06 07:30] LABS: Uric Acid 19.5 mg/dL (3.7-8.7)
== END | disposition home or self-care (01) ==
LOC: LABWHC1 12:37
PROVIDERS: ATTEND Nurse Practitioner Family
DX: M10.9 Gout, unspecified (principal); E83.39 Other disorders of phosphorus metabolism; R80.9 Proteinuria, unspecified; D64.9 Anemia, unspecified; N17.9 Acute kidney failure, unspecified; D61.818 Other pancytopenia; E56.9 Vitamin deficiency, unspecified
CPT/HCPCS: 36415; 80048; 81001; 82040; 82306; 82728; 83540; 83550; 83735; 83970; 84100; 84550; 85027

== ENCOUNTER 2018-11-15 00:56 | Inpatient (IN) | payer BC ==
[2018-11-15 01:50] LABS: Anisocytosis Moderate; HCT 35.6 % (39.0-53.0); HGB 11.5 gm/dL (13.0-17.5); Hypochromasia Moderate; MCHC 32.4 g/dL (31.0-37.0); MCV 104.9 fL (80.0-100.0); Macrocytosis Marked; Mean Platelet Volume 9.6; Poikilocytosis Moderate; RDW 21.2 % (11.5-15.5)
[2018-11-15 02:01] LABS: Albumin 2.6 g/dL (3.5-5.0); Calcium 7.6 mg/dL (8.4-10.2); INR 1.3 (<1.2); Prothrombin Time 12.9 sec (9.0-12.0); Total Bilirubin 9.9 mg/dL (0.2-1.3); Total Protein 4.9 g/dL (6.3-8.2)
[2018-11-15 02:05] LABS: Band Neutrophils % 1 %; Eosinophils # (M) 0.22 k/uL (0-0.7); Large Platelets Present; Lymphocytes # (M) 1.21 k/uL (1.0-4.8); Monocytes # (M) 0.11 k/uL (0-1.0); Neutrophils % (M) 85 %; Nucleated Red Blood Cells 0 /100 WBC (0-0); RBC Fragments Present; Total Cells Counted 100
[2018-11-15 02:06] LABS: Ovalocytes Present; Target Cells Present
[2018-11-15 02:07] LABS: Platelet Count 89 k/uL (150-450)
[2018-11-15] MEDS ORDERED: traMADol 50 MG TAB PO STA (02:11)
--- NOTE | 2018-11-15 02:13 | XR ---
EXAMINATION TYPE: XR chest 1V portable DATE OF EXAM: 11/15/2018 COMPARISON: 10/04/2018 HISTORY: Asthma. Short of breath TECHNIQUE: Single frontal view of the chest is obtained. FINDINGS: There is some linear density at the left lung base. Heart size is normal. There is no hear t failure. There are chest leads. IMPRESSION: There is increasing atelectasis at the left lung base compared to last exam. No heart fa ilure. There could be some degree of left lower lobe pneumonia.
[2018-11-15 02:25] LABS: Creatine Kinase MB 1.8 ng/mL (0.0-2.4)
[2018-11-15 02:28] LABS: Troponin I 0.092 ng/mL (0.000-0.034)
[2018-11-15] MEDS ORDERED: SODIUM CHLORIDE 0.9% 500 ML 500 ML IV STA (03:31)
[2018-11-15] MEDS ORDERED: ALBUMIN HUMAN 25% 50 ML in EMPTY BAG 1 BAG IVPB ONE (03:55)
[2018-11-15] MEDS ORDERED: MORPHINE SULFATE 4 MG/ML SYRINGE IV STA (04:48)
[2018-11-15] MEDS ORDERED: MORPHINE SULFATE 4 MG/ML SYRINGE IV PRN (06:14)
[2018-11-15] MEDS ORDERED: NALOXONE 0.4 MG/ML 1 ML VIAL IV PRN (06:14)
[2018-11-15] MEDS ORDERED: traMADol 50 MG TAB PO PRN (06:17)
[2018-11-15] MEDS ORDERED: DIPHENOX-ATROP 2.5-0.025 MG 1 EACH TAB PO PRN (06:17)
--- NOTE | 2018-11-15 07:11 | ED ---
SOB HPI - General Chief Complaint: Shortness of Breath Stated Complaint: Shortness of Breath Time Seen by Provider: 11/15/18 01:21 Source: EMS Mode of arrival: EMS Limitations: no limitations - History of Present Illness Initial Comments: This patient is a 58-year-old man with history of end-stage liver disease. He presents with the complaint that he feels like his breathing is getting worse. He states that he recently had a large volume paracentesis and he feels like his abdomen is accumulating fluid to the extent that he may need another paracentesis. The patient states he is feeling pressure in the upper abdomen as he did when he had the last paracentesis. Patient denies chest pain. No fever or chills. No productive cough. Denies leg pain. States that his leg swelling has actually decreased. No change in bowel movements, including no blood or dark tarry stools. States that urine may be a shade darker but otherwise unchanged. MD Complaint: shortness of breath Onset/Timin -: days(s) Consistency: constant Improves With: upright position Worsens With: lying flat Known History Of: COPD, other (Ascites) Associated Symptoms: denies other symptoms Treatments Prior to Arrival: none - Related Data Home Medications Medication Instructions Recorded Confirmed Montelukast [Singulair] 10 mg PO HS 10/15/14 11/16/18 Digoxin [Lanoxin] 62.5 mcg PO Q48H 06/13/18 11/16/18 Metoprolol Tartrate [Lopressor] 25 mg PO BID 06/13/18 11/16/18 Sodium Bicarbonate Tab 1,300 mg PO BID 06/13/18 11/16/18 Bumetanide [BUMEX] 1 mg PO DAILY 07/20/18 11/16/18 Citalopram Hydrobromide 10 mg PO DAILY 08/14/18 11/16/18 [Citalopram HBr] Cholecalciferol [Vitamin D3] 1,000 unit PO DAILY 08/21/18 11/16/18 Dronabinol [Marinol] 10 mg PO AC-SUPPER 08/21/18 11/16/18 Misoprostol [Cytotec] 100 mcg PO BID 08/21/18 11/16/18 Diphenoxylate HCl/Atropine 1 - 2 tab PO Q6H PRN 10/02/18 11/16/18 [Lomotil 2.5-0.025 mg Tablet] Rifaximin [Xifaxan] 550 mg PO BID 10/02/18 11/16/18 traMADol HCl [Ultram] 50 mg PO Q6HR PRN 10/02/18 11/16/18 Allergies Allergy/AdvReac Type Severity Reaction Status Date / Time wheat AdvReac Severe Nausea & Verified 11/16/18 15:35 Vomiting & Diarrhea,flu like symptoms cephalexin [From Keflex] AdvReac Unknown Verified 11/16/18 15:35 gluten AdvReac Nausea & Verified 11/16/18 15:35 Vomiting & Diarrhea Iodinated Contrast- Oral and AdvReac KIDNEYS Verified 11/16/18 15:35 IV Dye levofloxacin [From Levaquin] AdvReac TENDON PAIN Verified 11/16/18 15:35 Review of Systems ROS Statement: Those systems with pertinent positive or pertinent negative responses have been documented in the HPI. ROS Other: All systems not noted in ROS Statement are negative. Constitutional: Reports: weakness (Generalized). Denies: fever, chills Respiratory: Reports: dyspnea. Denies: cough, wheezes, hemoptysis Cardiovascular: Denies: chest pain, palpitations, syncope Gastrointestinal: Reports: as per HPI, abdominal pain (Pressure at the upper abdomen). Denies: nausea, vomiting, diarrhea, constipation Genitourinary: Reports: other (Urine darker). Denies: dysuria, frequency, hematuria Musculoskeletal: Denies: back pain Skin: Denies: rash Neurological: Denies: headache, weakness, numbness Past Medical History Past Medical History: Atrial Fibrillation, Asthma, GI Bleed, Hypertension, Liver Disease, Pneumonia, Renal Disease Additional Past Medical History / Comment(s): Cirrhosis(no longer on transplant list), hypogammaglobulinemia, common variable immunoglobulin deficiency- receives IV IG with last infusion "monday"-gets infusions q 3 weeks, ascities, anemia, bronchitis, neuropathy in hands and legs but less so since gluten free diet, celiac disease, diverticulosis, rectal bleed , umbilical hernia, R inguinal hernia, necrotizing fascitis under L arm 20 yrs ago. hx lt clavical fx-no sx.wears brief/incont of stool at times. wounds lt leg History of Any Multi-Drug Resistant Organisms: CRE, MRSA, VRE Date of last positivie culture/infection: 05/31/18 CRE-Enterobacter cloacae; VRE, per [facility] leg wounds 2018 MDRO Source:: Sputum-CRE; Blood VRE Additional Past Surgical History / Comment(s): vasectomy, mediport placement and removed. bilateral cataract/lens surgery, removal of cervical lymph node- benign, BMA, colonoscopies and EGDs, bilateral myringotomy, abdominal paracentesis.lt leg-sx d/t soft tissue infection sx done at [facility] Past Anesthesia/Blood Transfusion Reactions: No Reported Reaction Additional Past Anesthesia/Blood Transfusion Reaction / Comment(s): no problems prior blood transfusion Past Psychological History: No Psychological Hx Reported Smoking Status: Former smoker Past Alcohol Use History: None Reported Past Drug Use History: None Reported - Past Family History Father Family Medical History: Thyroid Disorder Additional Family Medical History / Comment(s): Father has hypothyroidism. Mother Family Medical History: Liver Disease Additional Family Medical History / Comment(s): Mother from hepatitis C at the age of 60. General Exam Limitations: no limitations General appearance: alert, other (Patient is mildly jaundiced.) Head exam: Present: atraumatic, normocephalic Eye exam: Present: normal appearance. Absent: scleral icterus, conjunctival injection ENT exam: Present: mucous membranes dry Neck exam: Present: normal inspection, full ROM Respiratory exam: Present: wheezes. Absent: respiratory distress, rales, rhonchi, stridor Cardiovascular Exam: Present: regular rate, normal rhythm, normal heart sounds. Absent: systolic murmur, diastolic murmur, rubs, gallop GI/Abdominal exam: Present: soft, distended (Ascites). Absent: tenderness, guarding, rebound, rigid, mass Extremities exam: Present: normal inspection, normal capillary refill. Absent: pedal edema, calf tenderness Back exam: Present: normal inspection. Absent: CVA tenderness (R), CVA tenderness (L) Neurological exam: Present: alert Skin exam: Present: warm, dry, intact, other (Jaundice). Absent: rash Course Vital Signs 11/15/18 11/15/18 11/15/18 01:00 04:57 06:00 Temperature 98.0 F 97.5 F L Pulse Rate 106 H 98 93 Respiratory 30 H 32 H 27 H Rate Blood Pressure 135/79 139/79 117/72 O2 Sat by Pulse 92 L 90 L Oximetry 11/15/18 06:58 Temperature 97.5 F L Pulse Rate 93 Respiratory 28 H Rate Blood Pressure 129/83 O2 Sat by Pulse 95 Oximetry Medical Decision Making - Medical Decision Making Patient is a 58-year-old man with history of end-stage liver disease,, CV immune deficiency, who is in with ascites, feeling that this is limiting his respiratory effort. On admission he does look intravascularly depleted and given albumin and small amount of saline. He does not appear to have active infection though will attempt to have interventional radiology obtain a sample of ascites to rule out peritonitis. Case discussed with hospitalist group for admission and also with hematology on- call. GI also paged but have not heard back at times shift change. Treatment recommendations incorporated. - Lab Data Result diagrams: 11/16/18 05:30 11/16/18 05:30 Lab Results 11/15/18 11/15/18 11/15/18 Range/Units 01:20 01:20 01:20 WBC 11.0 H (3.8-10.6) k/uL RBC 3.40 L (4.30-5.90) m/uL Hgb 11.5 L (13.0-17.5) gm/dL Hct 35.6 L (39.0-53.0) % MCV 104.9 H (80.0-100.0) fL MCH 34.0 (25.0-35.0) pg MCHC 32.4 (31.0-37.0) g/dL RDW 21.2 H (11.5-15.5) % Plt Count 89 L D (150-450) k/uL Neutrophils % (Manual) 85 % Band Neutrophils % 1 % Lymphocytes % (Manual) 11 % Monocytes % (Manual) 1 % Eosinophils % (Manual) 2 % Neutrophils # (Manual) 9.40 H (1.3-7.7) k/uL Lymphocytes # (Manual) 1.21 (1.0-4.8) k/uL Monocytes # (Manual) 0.11 (0-1.0) k/uL Eosinophils # (Manual) 0.22 (0-0.7) k/uL Nucleated RBCs 0 (0-0) /100 WBC Manual Slide Review Performed Large Platelets Present Hypochromasia Moderate Poikilocytosis Moderate Anisocytosis Moderate Macrocytosis Marked Target Cells Present Ovalocytes Present Fragmented RBCs Present PT (9.0-12.0) sec INR (<1.2) APTT (22.0-30.0) sec Sodium 134 L (137-145) mmol/L Potassium 3.0 L (3.5-5.1) mmol/L Chloride 95 L (98-107) mmol/L Carbon Dioxide 24 (22-30) mmol/L Anion Gap 15 mmol/L BUN 126 H* (9-20) mg/dL Creatinine 2.96 H (0.66-1.25) mg/dL Est GFR (CKD-EPI)AfAm 26 (>60 ml/min/1.73 sqM) Est GFR (CKD-EPI)NonAf 22 (>60 ml/min/1.73 sqM) Glucose 102 H (74-99) mg/dL Lactic Ac Sepsis Rflx Plasma Lactic Acid Sky (0.7-2.0) mmol/L Calcium 7.6 L (8.4-10.2) mg/dL Total Bilirubin 9.9 H (0.2-1.3) mg/dL AST 77 H (17-59) U/L ALT 56 (21-72) U/L Alkaline Phosphatase 237 H (38-126) U/L Ammonia (<30) umol/L Total Creatine Kinase 67 (55-170) U/L CK-MB (CK-2) 1.8 (0.0-2.4) ng/mL CK-MB (CK-2) Rel Index 2.7 Troponin I 0.092 H* (0.000-0.034) ng/mL Total Protein 4.9 L (6.3-8.2) g/dL Albumin 2.6 L (3.5-5.0) g/dL Amylase 44 (30-110) U/L Lipase 70 (23-300) U/L 11/15/18 11/15/18 11/15/18 Range/Units 01:20 01:20 02:10 WBC (3.8-10.6) k/uL RBC (4.30-5.90) m/uL Hgb (13.0-17.5) gm/dL Hct (39.0-53.0) % MCV (80.0-100.0) fL MCH (25.0-35.0) pg MCHC (31.0-37.0) g/dL RDW (11.5-15.5) % Plt Count (150-450) k/uL Neutrophils % (Manual) % Band Neutrophils % % Lymphocytes % (Manual) % Monocytes % (Manual) % Eosinophils % (Manual) % Neutrophils # (Manual) (1.3-7.7) k/uL Lymphocytes # (Manual) (1.0-4.8) k/uL Monocytes # (Manual) (0-1.0) k/uL Eosinophils # (Manual) (0-0.7) k/uL Nucleated RBCs (0-0) /100 WBC Manual Slide Review Large Platelets Hypochromasia Poikilocytosis Anisocytosis Macrocytosis Target Cells Ovalocytes Fragmented RBCs PT 12.9 H (9.0-12.0) sec INR 1.3 H (<1.2) APTT 33.0 H (22.0-30.0) sec Sodium (137-145) mmol/L Potassium (3.5-5.1) mmol/L Chloride (98-107) mmol/L Carbon Dioxide (22-30) mmol/L Anion Gap mmol/L BUN (9-20) mg/dL Creatinine (0.66-1.25) mg/dL Est GFR (CKD-EPI)AfAm (>60 ml/min/1.73 sqM) Est GFR (CKD-EPI)NonAf (>60 ml/min/1.73 sqM) Glucose (74-99) mg/dL Lactic Ac Sepsis Rflx Y Plasma Lactic Acid Sky 5.2 H* (0.7-2.0) mmol/L Calcium (8.4-10.2) mg/dL Total Bilirubin (0.2-1.3) mg/dL AST (17-59) U/L ALT (21-72) U/L Alkaline Phosphatase (38-126) U/L Ammonia (<30) umol/L Total Creatine Kinase (55-170) U/L CK-MB (CK-2) (0.0-2.4) ng/mL CK-MB (CK-2) Rel Index Troponin I (0.000-0.034) ng/mL Total Protein (6.3-8.2) g/dL Albumin (3.5-5.0) g/dL Amylase (30-110) U/L Lipase (23-300) U/L 11/15/18 11/15/18 Range/Units 02:10 05:29 WBC (3.8-10.6) k/uL RBC (4.30-5.90) m/uL Hgb (13.0-17.5) gm/dL Hct (39.0-53.0) % MCV (80.0-100.0) fL MCH (25.0-35.0) pg MCHC (31.0-37.0) g/dL RDW (11.5-15.5) % Plt Count (150-450) k/uL Neutrophils % (Manual) % Band Neutrophils % % Lymphocytes % (Manual) % Monocytes % (Manual) % Eosinophils % (Manual) % Neutrophils # (Manual) (1.3-7.7) k/uL Lymphocytes # (Manual) (1.0-4.8) k/uL Monocytes # (Manual) (0-1.0) k/uL Eosinophils # (Manual) (0-0.7) k/uL Nucleated RBCs (0-0) /100 WBC Manual Slide Review Large Platelets Hypochromasia Poikilocytosis Anisocytosis Macrocytosis Target Cells Ovalocytes Fragmented RBCs PT (9.0-12.0) sec INR (<1.2) APTT (22.0-30.0) sec Sodium (137-145) mmol/L Potassium (3.5-5.1) mmol/L Chloride (98-107) mmol/L Carbon Dioxide (22-30) mmol/L Anion Gap mmol/L BUN (9-20) mg/dL Creatinine (0.66-1.25) mg/dL Est GFR (CKD-EPI)AfAm (>60 ml/min/1.73 sqM) Est GFR (CKD-EPI)NonAf (>60 ml/min/1.73 sqM) Glucose (74-99) mg/dL Lactic Ac Sepsis Rflx Plasma Lactic Acid Sky 3.7 H* (0.7-2.0) mmol/L Calcium (8.4-10.2) mg/dL Total Bilirubin (0.2-1.3) mg/dL AST (17-59) U/L ALT (21-72) U/L Alkaline Phosphatase (38-126) U/L Ammonia 20 (<30) umol/L Total Creatine Kinase (55-170) U/L CK-MB (CK-2) (0.0-2.4) ng/mL CK-MB (CK-2) Rel Index Troponin I (0.000-0.034) ng/mL Total Protein (6.3-8.2) g/dL Albumin (3.5-5.0) g/dL Amylase (30-110) U/L Lipase (23-300) U/L Critical Care Time Critical Care Time: Yes (30 minutes) Disposition Clinical Impression: Liver failure, Chronic kidney disease, Ascites Disposition: ADMITTED IP TO THIS [facility] Condition: Poor
[2018-11-15] MEDS ORDERED: CITALOPRAM HYDROBROMIDE 10 MG TAB PO SCH (09:00)
[2018-11-15] MEDS ORDERED: AMOXIC-POT CLAV 500-125 MG 1 EACH TAB PO SCH (09:00)
[2018-11-15] MEDS ORDERED: BUMETANIDE 1 MG TAB PO SCH (09:00)
[2018-11-15] MEDS ORDERED: CHOLECALCIFEROL 1,000 UNIT TAB PO SCH (09:00)
[2018-11-15] MEDS: METOPROLOL TARTRATE 25 MG TAB PO SCH ×2 (09:23→21:05)
[2018-11-15] MEDS: SODIUM BICARBONATE TAB 650 MG TAB PO SCH ×2 (09:24→21:06)
[2018-11-15] MEDS: DIGOXIN 125 MCG TAB PO SCH ×2 (09:24→09:44)
[2018-11-15] MEDS: GABAPENTIN 100 MG CAP PO SCH ×3 (09:24→21:05)
[2018-11-15] MEDS: LACTULOSE 20 GM/30 ML CUP PO SCH ×2 (09:25→21:03)
[2018-11-15] MEDS: RIFAXIMIN 550 MG TABLET PO SCH ×2 (09:25→21:05)
[2018-11-15] MEDS: MISOPROSTOL 100 MCG TAB PO SCH ×2 (09:25→21:06)
[2018-11-15] MEDS: SODIUM CHLORIDE 0.9% 1,000 ML IV SCH (09:28)
--- NOTE | 2018-11-15 13:54 | P.CONS ---
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 Consultation requested for history of cirrhosis end-stage liver disease. Patient states he did paracentesis performed last Monday with 9 L removed. Admission white count 11. Hemoglobin 11.5. Platelet 89,000. INR 1.3. Lactic acid 5.2 with hydration 3.7. Total bilirubin 9.9. AST 77. ALT 56. AP to 37. Previous bilirubin ranged between 3 and 5. BUN 126. Creatinine 2.9. Denies hematemesis hematochezia melena. Afebrile. Increase abdominal distention and ascites over the last week. Home medications include Xifaxan and Bumex. Chest x-ray increasing atelectasis left lung base no heart failure. Some degree of left lower lobe pneumonia. Review of Systems Constitutional: Denies fever, chills, sweats, weight gain, or loss. HEENT: Negative for migraines, blurred vision or loss, earaches, drainage, tinnitus, oral mucosal lesions, dysphagia, or odynophagia. Cardiac: Negative for chest pain, arrhythmias, or palpitation. Respiratory: Admitted with shortness of breath, denies hemoptysis, cough, or sputum production. Gastrointestinal: See HPI for pertinent findings. Genitourinary: Negative for hematuria, urgency, frequency, polyuria, dysuria, or penile discharge. Musculoskeletal: Negative for muscle aches, swelling, arthritis, and arthralgias. Neurologic: Negative for stroke or TIA. Endocrine: Negative for thyroid problems. Skin: Negative for rash or itching. Psychiatric: Negative history for depression and anxiety Past Medical History Past Medical History: Atrial Fibrillation, Asthma, GI Bleed, Hypertension, Liver Disease, Pneumonia, Renal Disease Additional Past Medical History / Comment(s): Cirrhosis(no longer on transplant list), hypogammaglobulinemia, common variable immunoglobulin deficiency- receives IV IG with last infusion "monday"-gets infusions q 3 weeks, ascities, anemia, bronchitis, neuropathy in hands and legs but less so since gluten free diet, celiac disease, diverticulosis, rectal bleed , umbilical hernia, R inguinal hernia, necrotizing fascitis under L arm 20 yrs ago. 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 bilateral cataract/lens surgery, removal of cervical lymph node- benign, BMA, colonoscopies and EGDs, bilateral myringotomy, abdominal paracentesis.lt leg-sx d/t soft tissue infection sx done at located within [facility], debridements L thigh wounds Past Anesthesia/Blood Transfusion Reactions: No Reported Reaction Additional Past Anesthesia/Blood Transfusion Reaction / Comm: no problems prior blood transfusion Smoking Status: Former smoker - Past Family History Father Family Medical History: Thyroid Disorder Additional Family Medical History / Comment(s): Father has hypothyroidism. Mother Family Medical History: Liver Disease Additional Family Medical History / Comment(s): Mother from hepatitis C at the age of 60. Medications and Allergies Home Medications Medication Instructions Recorded Confirmed Type Montelukast [Singulair] 10 mg PO HS 10/15/14 11/15/18 History Digoxin [Lanoxin] 62.5 mcg PO Q48H 06/13/18 11/15/18 History Metoprolol Tartrate [Lopressor] 25 mg PO BID 06/13/18 11/15/18 History Sodium Bicarbonate Tab 1,300 mg PO BID 06/13/18 11/15/18 History Bumetanide [BUMEX] 1 mg PO DAILY 07/20/18 11/15/18 History Citalopram Hydrobromide 10 mg PO DAILY 08/14/18 11/15/18 History [Citalopram HBr] Cholecalciferol [Vitamin D3] 1,000 unit PO DAILY 08/21/18 11/15/18 History Dronabinol [Marinol] 10 mg PO AC-SUPPER 08/21/18 11/15/18 History Misoprostol [Cytotec] 100 mcg PO BID 08/21/18 11/15/18 History Diphenoxylate HCl/Atropine 1 - 2 tab PO Q6H PRN 10/02/18 11/15/18 History [Lomotil 2.5-0.025 mg Tablet] Rifaximin [Xifaxan] 550 mg PO BID 10/02/18 11/15/18 History traMADol HCl [Ultram] 50 mg PO Q6HR PRN 10/02/18 11/15/18 History Allergies Allergy/AdvReac Type Severity Reaction Status Date / Time wheat AdvReac Severe Nausea & Verified 11/15/18 06:49 Vomiting & Diarrhea,flu like symptoms cephalexin [From Keflex] AdvReac Unknown Verified 11/15/18 06:49 gluten AdvReac Nausea & Verified 11/15/18 06:49 Vomiting & Diarrhea Iodinated Contrast- Oral and AdvReac KIDNEYS Verified 11/15/18 06:49 IV Dye levofloxacin [From Levaquin] AdvReac TENDON PAIN Verified 11/15/18 06:49 Physical Exam Vitals: Vital Signs Temp Pulse Pulse Resp BP BP Pulse Ox 11/15/18 09:35 97.7 F 100 18 121/66 94 L 11/15/18 06:58 97.5 F L 93 28 H 129/83 95 11/15/18 06:00 93 27 H 117/72 11/15/18 04:57 97.5 F L 98 32 H 139/79 90 L 11/15/18 01:00 98.0 F 106 H 30 H 135/79 92 L Intake and Output 11/14/18 11/15/18 11/15/18 22:59 06:59 14:59 Other: Voiding Method Diaper Weight 70.307 kg General appearance: The patient is alert, oriented, in no acute distress. Jaundice. HET: Head is normocephalic and atraumatic. Pupils are equal and reactive. Sclerae icterus. Oropharynx is clear without lesions. Neck: Supple without lymphadenopathy. Trachea midline. Heart: S1 S2. Regular rate and rhythm. Lungs: No crackles or wheezes are heard. Abdomen: Soft, distended with moderate ascites with bowel sounds. No peritoneal signs. No palpable organomegaly or masses. Extremities: Normal skin color and turgor. No cyanosis, rash, ulceration, clubbing, or edema. Radial and pedal pulses are 2/4 bilaterally. Neurological: No focal deficits. Strength and sensation are grossly intact. Results CBC & Chem 7: 11/15/18 01:11/15/18 01:20 Labs: Abnormal Lab Results - Last 24 Hours (Table) 11/15/18 11/15/18 11/15/18 Range/Units 01:20 01:20 01:20 WBC 11.0 H (3.8-10.6) k/uL RBC 3.40 L (4.30-5.90) m/uL Hgb 11.5 L (13.0-17.5) gm/dL Hct 35.6 L (39.0-53.0) % MCV 104.9 H (80.0-100.0) fL RDW 21.2 H (11.5-15.5) % Plt Count 89 L D (150-450) k/uL Neutrophils # (Manual) 9.40 H (1.3-7.7) k/uL PT (9.0-12.0) sec INR (<1.2) APTT (22.0-30.0) sec Sodium 134 L (137-145) mmol/L Potassium 3.0 L (3.5-5.1) mmol/L Chloride 95 L (98-107) mmol/L BUN 126 H* (9-20) mg/dL Creatinine 2.96 H (0.66-1.25) mg/dL Glucose 102 H (74-99) mg/dL Plasma Lactic Acid Sky (0.7-2.0) mmol/L Calcium 7.6 L (8.4-10.2) mg/dL Total Bilirubin 9.9 H (0.2-1.3) mg/dL AST 77 H (17-59) U/L Alkaline Phosphatase 237 H (38-126) U/L Troponin I 0.092 H* (0.000-0.034) ng/mL Total Protein 4.9 L (6.3-8.2) g/dL Albumin 2.6 L (3.5-5.0) g/dL 11/15/18 11/15/18 11/15/18 Range/Units 01:20 01:20 05:29 WBC (3.8-10.6) k/uL RBC (4.30-5.90) m/uL Hgb (13.0-17.5) gm/dL Hct (39.0-53.0) % MCV (80.0-100.0) fL RDW (11.5-15.5) % Plt Count (150-450) k/uL Neutrophils # (Manual) (1.3-7.7) k/uL PT 12.9 H (9.0-12.0) sec INR 1.3 H (<1.2) APTT 33.0 H (22.0-30.0) sec Sodium (137-145) mmol/L Potassium (3.5-5.1) mmol/L Chloride (98-107) mmol/L BUN (9-20) mg/dL Creatinine (0.66-1.25) mg/dL Glucose (74-99) mg/dL Plasma Lactic Acid Sky 5.2 H* 3.7 H* (0.7-2.0) mmol/L Calcium (8.4-10.2) mg/dL Total Bilirubin (0.2-1.3) mg/dL AST (17-59) U/L Alkaline Phosphatase (38-126) U/L Troponin I (0.000-0.034) ng/mL Total Protein (6.3-8.2) g/dL Albumin (3.5-5.0) g/dL Chest x-ray: report reviewed (Dr. Matos) Assessment and Plan (1) Ascites due to alcoholic cirrhosis Narrative/Plan: 58-year-old gentleman admitted with shortness of breath possible pneumonia with underlying end-stage liver disease alcohol cirrhosis with decompensation refractory ascites. Current Visit: Yes Status: Acute Code(s): K70.31 - ALCOHOLIC CIRRHOSIS OF LIVER WITH ASCITES SNOMED Code(s): 6736425922763595 (2) Liver failure Current Visit: Yes Status: Acute Code(s): K72.90 - HEPATIC FAILURE, UNSPECIFIED WITHOUT COMA SNOMED Code(s): 59998376 (3) Portal hypertension Current Visit: Yes Status: Acute Code(s): K76.6 - PORTAL HYPERTENSION SNOMED Code(s): 14981969 (4) Chronic kidney disease Current Visit: Yes Status: Acute Code(s): N18.9 - CHRONIC KIDNEY DISEASE, UNSPECIFIED SNOMED Code(s): 988581956 (5) Common variable immunodeficiency Current Visit: Yes Status: Acute Code(s): D83.9 - COMMON VARIABLE IMMUNODEFICIENCY, UNSPECIFIED SNOMED Code(s): 47208029 (6) Thrombocytopenia Current Visit: Yes Status: Acute Code(s): D69.6 - THROMBOCYTOPENIA, UNSPECIFIED SNOMED Code(s): 165510493 Plan: 1. Therapeutic paracentesis requested. 2. Recommend nephrology consult; appreciate their assistance with diuretics history of underlying chronic disease stage III B. 3. Daily monitoring a CMP PT/INR. We'll follow with you. Thank you for this kind referral and the opportunity to participate in the care of your patient. This consultation was discussed with Dr. Matos. The impression and plan of care have been directed as dictated.
[2018-11-15] MEDS ORDERED: SCOPOLAMINE 1.5MG/72HR PATCH TRANSDERM SCH (15:00)
[2018-11-15] MEDS ORDERED: DRONABINOL 10 MG PO SCH (17:30)
--- NOTE | 2018-11-15 17:41 | P.CONS ---
History of Present Illness - Reason for Consult Consult date: 11/15/18 longterm patient anemia Requesting physician: Devni Helm - Chief Complaint SOB, Abdominal ascites, FTT - History of Present Illness Mr. Bruner is a very pleasant male pt of Dr. Scott who is seen for common variable immunodeficiency for which he receives IVIG every 3-4 weeks-for many years, last dose was last week. 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 Long standing cirrhosis of the liver, no longer a transplant candidate after necrotizing fascitis? He had necrotizing fascitis in March 2018 that required extensive surgery/fasciotomy. 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 <julio c Bruner has progressively been worsening, his overall co-morbidies have progressed and overall prognosis is poor. WHen seen at last follow-up in office we discussed the goals of care palliative versus hospice, his met with Palliative care the very next day, although Franc was apprehensive at that time. He continues to lose weight, he is congested, ascites and encephalopathy worsening. Review of Systems A 14 point review was assessed and completed and all neg except HPI Past Medical History Past Medical History: Atrial Fibrillation, Asthma, GI Bleed, Hypertension, Liver Disease, Pneumonia, Renal Disease Additional Past Medical History / Comment(s): Cirrhosis(no longer on transplant list), hypogammaglobulinemia, common variable immunoglobulin deficiency- receives IV IG with last infusion "monday"-gets infusions q 3 weeks, ascities, anemia, bronchitis, neuropathy in hands and legs but less so since gluten free diet, celiac disease, diverticulosis, rectal bleed , umbilical hernia, R inguinal hernia, necrotizing fascitis under L arm 20 yrs ago. 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 bilateral cataract/lens surgery, removal of cervical lymph node- benign, BMA, colonoscopies and EGDs, bilateral myringotomy, abdominal paracentesis.lt leg-sx d/t soft tissue infection sx done at [facility], debridements L thigh wounds Past Anesthesia/Blood Transfusion Reactions: No Reported Reaction Additional Past Anesthesia/Blood Transfusion Reaction / Comm: no problems prior blood transfusion Smoking Status: Former smoker - Past Family History Father Family Medical History: Thyroid Disorder Additional Family Medical History / Comment(s): Father has hypothyroidism. Mother Family Medical History: Liver Disease Additional Family Medical History / Comment(s): Mother from hepatitis C at the age of 60. Medications and Allergies Home Medications Medication Instructions Recorded Confirmed Type Montelukast [Singulair] 10 mg PO HS 10/15/14 11/15/18 History Digoxin [Lanoxin] 62.5 mcg PO Q48H 06/13/18 11/15/18 History Metoprolol Tartrate [Lopressor] 25 mg PO BID 06/13/18 11/15/18 History Sodium Bicarbonate Tab 1,300 mg PO BID 06/13/18 11/15/18 History Bumetanide [BUMEX] 1 mg PO DAILY 07/20/18 11/15/18 History Citalopram Hydrobromide 10 mg PO DAILY 08/14/18 11/15/18 History [Citalopram HBr] Cholecalciferol [Vitamin D3] 1,000 unit PO DAILY 08/21/18 11/15/18 History Dronabinol [Marinol] 10 mg PO AC-SUPPER 08/21/18 11/15/18 History Misoprostol [Cytotec] 100 mcg PO BID 08/21/18 11/15/18 History Diphenoxylate HCl/Atropine 1 - 2 tab PO Q6H PRN 10/02/18 11/15/18 History [Lomotil 2.5-0.025 mg Tablet] Rifaximin [Xifaxan] 550 mg PO BID 10/02/18 11/15/18 History traMADol HCl [Ultram] 50 mg PO Q6HR PRN 10/02/18 11/15/18 History Allergies Allergy/AdvReac Type Severity Reaction Status Date / Time wheat AdvReac Severe Nausea & Verified 11/15/18 06:49 Vomiting & Diarrhea,flu like symptoms cephalexin [From Keflex] AdvReac Unknown Verified 11/15/18 06:49 gluten AdvReac Nausea & Verified 11/15/18 06:49 Vomiting & Diarrhea Iodinated Contrast- Oral and AdvReac KIDNEYS Verified 11/15/18 06:49 IV Dye levofloxacin [From Levaquin] AdvReac TENDON PAIN Verified 11/15/18 06:49 Physical Exam Vitals: Vital Signs Temp Pulse Pulse Resp BP BP Pulse Ox 11/15/18 17:10 18 11/15/18 16:25 76 18 117/58 96 11/15/18 16:00 77 18 115/61 95 11/15/18 15:55 77 18 115/63 96 11/15/18 15:33 82 18 122/66 98 11/15/18 15:28 89 18 116/67 97 11/15/18 12:21 97.6 F 86 18 124/64 96 11/15/18 09:35 97.7 F 100 18 121/66 94 L 11/15/18 06:58 97.5 F L 93 28 H 129/83 95 11/15/18 06:00 93 27 H 117/72 11/15/18 04:57 97.5 F L 98 32 H 139/79 90 L 11/15/18 01:00 98.0 F 106 H 30 H 135/79 92 L Intake and Output 11/15/18 11/15/18 11/15/18 06:59 14:59 22:59 Intake Total 100 Output Total 100 Balance 0 Intake: Oral 100 Output: Urine 100 Other: Voiding Method Diaper Diaper # Voids 1 Weight 70.307 kg Constitutional Constitutional Comment(s): progressive debilitation, cachetic, muscle wasting - EENT Eyes: Present: EOMI ENT: Present: hearing grossly normal - Respiratory Respiratory: bilateral: CTA - Cardiovascular Heart sounds: normal: S1, S2 - Gastrointestinal General gastrointestinal: Present: distended, soft - Neurologic Neurologic: Present: CNII-XII intact - Musculoskeletal Musculoskeletal: Present: generalized weakness - Psychiatric Psychiatric: Present: A&O x's 3, appropriate affect, intact judgment & insight Results CBC & Chem 7: 11/15/18 01:20 11/15/18 01:20 Labs: Abnormal Lab Results - Last 24 Hours (Table) 11/15/18 11/15/18 11/15/18 Range/Units 01:20 01:20 01:20 WBC 11.0 H (3.8-10.6) k/uL RBC 3.40 L (4.30-5.90) m/uL Hgb 11.5 L (13.0-17.5) gm/dL Hct 35.6 L (39.0-53.0) % MCV 104.9 H (80.0-100.0) fL RDW 21.2 H (11.5-15.5) % Plt Count 89 L D (150-450) k/uL Neutrophils # (Manual) 9.40 H (1.3-7.7) k/uL PT (9.0-12.0) sec INR (<1.2) APTT (22.0-30.0) sec Sodium 134 L (137-145) mmol/L Potassium 3.0 L (3.5-5.1) mmol/L Chloride 95 L (98-107) mmol/L BUN 126 H* (9-20) mg/dL Creatinine 2.96 H (0.66-1.25) mg/dL Glucose 102 H (74-99) mg/dL Plasma Lactic Acid Sky (0.7-2.0) mmol/L Calcium 7.6 L (8.4-10.2) mg/dL Total Bilirubin 9.9 H (0.2-1.3) mg/dL AST 77 H (17-59) U/L Alkaline Phosphatase 237 H (38-126) U/L Troponin I 0.092 H* (0.000-0.034) ng/mL Total Protein 4.9 L (6.3-8.2) g/dL Albumin 2.6 L (3.5-5.0) g/dL 11/15/18 11/15/18 11/15/18 Range/Units 01:20 01:20 05:29 WBC (3.8-10.6) k/uL RBC (4.30-5.90) m/uL Hgb (13.0-17.5) gm/dL Hct (39.0-53.0) % MCV (80.0-100.0) fL RDW (11.5-15.5) % Plt Count (150-450) k/uL Neutrophils # (Manual) (1.3-7.7) k/uL PT 12.9 H (9.0-12.0) sec INR 1.3 H (<1.2) APTT 33.0 H (22.0-30.0) sec Sodium (137-145) mmol/L Potassium (3.5-5.1) mmol/L Chloride (98-107) mmol/L BUN (9-20) mg/dL Creatinine (0.66-1.25) mg/dL Glucose (74-99) mg/dL Plasma Lactic Acid Sky 5.2 H* 3.7 H* (0.7-2.0) mmol/L Calcium (8.4-10.2) mg/dL Total Bilirubin (0.2-1.3) mg/dL AST (17-59) U/L Alkaline Phosphatase (38-126) U/L Troponin I (0.000-0.034) ng/mL Total Protein (6.3-8.2) g/dL Albumin (3.5-5.0) g/dL Assessment and Plan Plan: Assessment and Plan Plan: (1) Coagulopathy Narrative/Plan: - Secondary to liver dysfunction. - No gross evidence of bleeding, Hgb stable, pt is not on any anticoagulation or antiplatelet therapy Current Visit: Yes Status: Chronic Priority: High Code(s): D68.9 - COAGULATION DEFECT, UNSPECIFIED SNOMED Code(s): 04496960 (2) Thrombocytopenia Narrative/Plan: - Secondary to liver disease, Plt stable today, no acute intervention Current Visit: Yes Status: Acute Priority: High Code(s): D69.6 - THROMBOCYTOPENIA, UNSPECIFIED SNOMED Code(s): 183750691 (3) Anemia Narrative/Plan: - Hgb is typically 10 range, - Procrit as outpatient Current Visit: No Status: Chronic Priority: Medium Code(s): D64.9 - ANEMIA , UNSPECIFIED SNOMED Code(s): 648154069 (4) Common variable immunodeficiency Narrative/Plan: - Patient due for immunoglobulin infusion in about 1.5 weeks. - Home IVIG Plan: Patient has had rapid decline since hospitalization this past summer with leg. His overall prognosis very poor and patient does not seem to be ready for hospice, realistic long discussion with her earlier. - I will meet with family in am and we will plan for comfort/Palliative goals and discussion as this is in patients best interest for overall prognosis
[2018-11-15] MEDS ORDERED: IPRATROPIUM-ALBUTEROL 3 ML NEB INHALATION PRN (18:07)
[2018-11-15] MEDS: ALBUMIN HUMAN 25% 50 ML in EMPTY BAG 1 BAG IVPB SCH ×4 (18:11→23:07)
--- NOTE | 2018-11-15 18:53 | XR ---
EXAMINATION TYPE: XR abdomen 1V DATE OF EXAM: 11/15/2018 COMPARISON: 11/15/2018 HISTORY: Atrial fibrillation TECHNIQUE: Single view FINDINGS: There is no sign of intestinal obstruction or pneumoperitoneum. Fecal pattern is normal. Th ere are no pathologic calcifications over the kidneys. IMPRESSION: Nonacute abdomen.
--- NOTE | 2018-11-15 19:02 | HP ---
HISTORY AND PHYSICAL DATE OF SERVICE: 11/15/2018 CHIEF COMPLAINT: Shortness of breath. HISTORY OF PRESENT ILLNESS: This 58-year-old gentleman with a past medical history of cirrhosis of the liver , history of hepatic encephalopathy, previous alcohol abuse, history of community- acquired pneumonia, being followed by Dr. Scott in the outpatient setting, was previously admitted to [facility] multiple times. Patient has multiple large- volume paracenteses. The last one was almost 10 liters. The patient also has a history of sepsis and bacterial peritonitis previously. Currently the patient is complaining of shortness of breath and patient has abdominal distention. Patient came to [facility] and was admitted for further evaluation and treatment. A diagnostic and therapeutic paracentesis is being arranged at this time. There is no history of any fever, rigors or chills at this time. Gastroenterology evaluation is in progress at this time. The chest x-ray which was reviewed personally by me showed slight atelectasis in the left lower lobe. Not much pleural effusion was noted. PAST MEDICAL HISTORY: 1. History of cirrhosis of the liver. 2. History of ascites. 3. History of atrial fibrillation. 4. History of pneumonia. 5. History of hypogammaglobinemia. 6. CRE, MRSA and VRE. HOME MEDICATIONS: 1. Ultram 50 mg q.6 p.r.n. 2. Sodium bicarb 1300 mg p.o. b.i.d. 3. Rifaximin 550 mg p.o. b.i.d. 4. Singulair 10 mg p.o. at bedtime. 5. Cytotec 100 mcg p.o. b.i.d. 6. Lopressor 25 mg b.i.d. 7. Marinol 10 mg before supper. 8. Lomotil 2.5 q.6 p.r.n. 9. Lanoxin 62.5 mcg p.o. q.48 hours. 10.Celexa 10 mg p.o. daily. 11.Vitamin D3 1000 daily. 12.Bumex 1 mg p.o. daily. FAMILY HISTORY: History of hepatitis C. SOCIAL HISTORY: Previous history of smoking. No history of alcohol intake. No history of substance abuse. REVIEW OF SYSTEMS: ENT: Diminished hearing. Diminished vision. CARDIOVASCULAR SYSTEM: As mentioned earlier. RESPIRATORY SYSTEM: As mentioned earlier. GI: As mentioned earlier. : No dysuria or retention. NERVOUS SYSTEM: As mentioned earlier. ALLERGY/IMMUNOLOGY: No asthma, hayfever. MUSCULOSKELETAL: As mentioned earlier. HEMATOLOGY/ONCOLOGY: No history of anemia. ENDOCRINE: As mentioned earlier. CONSTITUTIONAL: As mentioned earlier. DERMATOLOGY: Negative. RHEUMATOLOGY: Negative. PSYCHIATRY: As mentioned earlier. ALLERGIES: 1. WHEAT. 2. CEPHALEXIN. 3. GLUTEN. 4. IODINATED CONTRAST DYES. 5. LEVAQUIN. FAMILY HISTORY: History of liver disease, hepatitis C. PHYSICAL EXAMINATION: Patient is alert, oriented x2. Pulse 76, blood pressure 117/58, respiration 18, temperature normal, pulse ox 96% on 2 L. HEENT: Conjunctivae mildly icteric. Oral mucosa icteric; otherwise moist. NECK: No jugular venous distention. No carotid bruit. No lymph node enlargement. CARDIOVASCULAR SYSTEM: S1, S2 muffled. No S3. No S4. RESPIRATORY SYSTEM: Breath sounds diminished at the bases. ABDOMEN: Soft, obese. Ascites present. Mild diffuse discomfort. No guarding. No rigidity. No mass palpable. Bowel sounds diminished. LEGS: Minimal edema bilaterally. NERVOUS SYSTEM: Higher functions as mentioned earlier. Moves all 4 limbs. No focal motor or sensory deficit. LYMPHATICS: No lymph node palpable in neck, axillae or groin. SKIN: No ulcer, rash, bleeding. LABS: WBC 11, hemoglobin 11.5, platelets 89. INR 1.3. Sodium 134, potassium 3. BUN is 126, creatinine 2.96. Lactic acid 5.2. Total bilirubin is 9.9, AST 77, ALT 56. Troponin 0.092. Total protein is 4.9. Albumin is 2.6. ASSESSMENT: 1. Acute recurrent ascites with discomfort, possibly secondary to cirrhosis of the liver and secondary to alcoholic liver disease. 2. Increased white count. 3. Anemia. 4. Microcytosis. 5. Mild coagulopathy secondary to chronic liver disease. 6. Hyponatremia. 7. Hypokalemia. 8. Increased creatinine with chronic kidney disease, stage III. 9. Increased bilirubin with possibly acute hepatitis. 10.secondary to cirrhosis of the liver. 11.Elevated plasma lactic acid. 12.Troponin 0.092, indeterminate. 13.History of atrial fibrillation. 14.History of gastrointestinal bleed. 15.Hypertension. 16.History of pneumonia. 17.History of hypogammaglobinemia and common variable immunodeficiency. 18.History of necrotizing fasciitis. 19.History of Carbapenem-Resistant Enterobacteriaceae, methicillin-resistant Staphylococcus aeruginosa, vancomycin-resistant Enterococcus. 20.Remote history of nicotine dependence. 21.FULL CODE. RECOMMENDATIONS AND DISCUSSION: In this 58-year-old gentleman who presented with multiple complex medical issues., we will monitor the patient closely, continue the current management, continue with symptomatic treatment. I recommend resuming the home medications. Consult Interventional Radiology for possible ascitic aspiration. Otherwise, continue to monitor. INR is 1.3. Resume the home medications. Prognosis guarded because of multiple complex medical issues. Further recommendations to follow. A copy of this dictation is being forwarded to Dr. Scott, who is the primary physician. ARTURO / LONNIE: [id number] / MTDD
[2018-11-15 19:17] LABS: Potassium 3.7 mmol/L (3.5-5.1)
[2018-11-15] MEDS ORDERED: IPRATROPIUM-ALBUTEROL 3 ML NEB INHALATION SCH (20:00)
[2018-11-15] MEDS ORDERED: LORazepam 0.5 MG TAB PO PRN (20:28)
[2018-11-15] MEDS ORDERED: MONTELUKAST 10 MG TAB PO SCH (21:00)
[2018-11-15] MEDS: IPRATROPIUM-ALBUTEROL 3 ML NEB INHALATION PRN (23:35)
[2018-11-16] MEDS: FUROSEMIDE 10 MG/ML 4 ML VIAL IV SCH ×2 (00:30→07:46)
[2018-11-16] MEDS: SPIRONOLACTONE 25 MG TAB PO SCH ×2 (00:31→12:07)
--- NOTE | 2018-11-16 02:02 | XR ---
EXAMINATION TYPE: XR chest 1V portable DATE OF EXAM: 11/16/2018 COMPARISON: Yesterday HISTORY: Difficulty breathing TECHNIQUE: Single frontal view of the chest is obtained. FINDINGS: Heart is enlarged. There is some pulmonary vascular congestion. There is blunting of left costophrenic angle. There are chest leads. There is probably infiltrate in the left lower lobe. IMPRESSION: Congestive heart failure. There is probably left lower lobe pneumonia. Chest appears wor se than last exam.
[2018-11-16] MEDS: IPRATROPIUM-ALBUTEROL 3 ML NEB INHALATION PRN (03:41)
[2018-11-16 05:19] VITALS: RESP 25
[2018-11-16] MEDS: SODIUM CHLORIDE 0.9% 1,000 ML IV SCH (05:33)
[2018-11-16 06:49] LABS: Anisocytosis Moderate; HCT 32.4 % (39.0-53.0); Hypochromasia Marked; MCH 33.5 pg (25.0-35.0); MCHC 30.9 g/dL (31.0-37.0); MCV 108.3 fL (80.0-100.0); Macrocytosis Marked; Mean Platelet Volume 9.2; Poikilocytosis Slight; RBC 2.99 m/uL (4.30-5.90); RDW 21.2 % (11.5-15.5); WBC 6.8 k/uL (3.8-10.6)
[2018-11-16 06:54] LABS: INR 1.6 (<1.2); Prothrombin Time 15.9 sec (9.0-12.0)
[2018-11-16 06:56] LABS: Platelet Count 45 k/uL (150-450)
[2018-11-16 07:06] LABS: Potassium 3.2 mmol/L (3.5-5.1)
[2018-11-16 07:07] LABS: Albumin 2.6 g/dL (3.5-5.0); Calcium 7.6 mg/dL (8.4-10.2); Total Bilirubin 9.8 mg/dL (0.2-1.3); Total Protein 4.5 g/dL (6.3-8.2)
[2018-11-16 07:21] LABS: Band Neutrophils % 13 %; Eosinophils # (M) 0.07 k/uL (0-0.7); Lymphocytes # (M) 0.68 k/uL (1.0-4.8); Monocytes # (M) 0.75 k/uL (0-1.0); Myelocytes % 3 %; Neutrophils % (M) 64 %; Nucleated Red Blood Cells 0 /100 WBC (0-0); Total Cells Counted 200
[2018-11-16 07:23] LABS: Poikilocytosis (M) Present; RBC Fragments Present
[2018-11-16 07:31] LABS: Glucose,Whole Blood 52 mg/dL (75-99)
[2018-11-16] MEDS ORDERED: DEXTROSE 50%-WATER 50 ML SYRINGE IVP STA (07:31)
[2018-11-16 07:50] LABS: Glucose,Whole Blood 161 mg/dL (75-99)
[2018-11-16] MEDS ORDERED: IPRATROPIUM-ALBUTEROL 3 ML NEB INHALATION SCH (08:00)
[2018-11-16 08:01] VITALS: BP 83/38; PULSE 84; TEMP 97.5
[2018-11-16] MEDS ORDERED: Potassium Replacement Protocol 1 EACH MISC MISCELLANE PRN (09:35)
[2018-11-16] MEDS ORDERED: methylPREDNISolone SOD SUCCI 40 MG/ML 1 ML VIAL IV SCH (09:45)
[2018-11-16] MEDS ORDERED: MORPHINE SULFATE 4 MG/ML SYRINGE IVP STA (10:02)
[2018-11-16] MEDS ORDERED: LORazepam 2 MG/ML INJ IV PRN (10:02)
--- NOTE | 2018-11-16 10:39 | P.PN ---
Subjective Progress Note Date: 11/16/18 Principal diagnosis: decompensated liver disease Therapeutic paracentesis yesterday evening 8 L removed received albumin. Patient had a difficult night became more obtunded weak minimally arousable. Prognosis poor. Family at bedside awaiting discussion with attending for possible hospice comfort care. Total bilirubin 9.8. Platelets 45,000. INR 1.6. Objective - Vital Signs Vital signs: Vital Signs Temp 97.5 F L 11/16/18 07:55 Pulse 84 11/16/18 07:55 Resp 25 H 11/16/18 07:55 BP 83/38 11/16/18 07:55 Pulse Ox 98 11/16/18 07:55 Intake & Output 11/15/18 11/16/18 11/16/18 18:59 06:59 18:59 Intake Total 100 50 0 Output Total 100 100 Balance 0 -50 0 Intake: Intake, IV Titration 50 Amount cefTRIAXone 1,000 mg In 50 Sodium Chloride 0.9% 50 ml @ 100 mls/hr IVPB Q24HR [facility] Rx#:[id number] Oral 100 0 Output: Urine 100 100 Other: Voiding Method Diaper Diaper Diaper # Voids 1 1 # Bowel Movements 0 0 - Exam General appearance: The patient is obtunded and unresponsive wearing Ventimask. HET: Head is normocephalic and atraumatic. Pupils are equal and reactive. Oropharynx is clear without lesions. Neck: Supple without lymphadenopathy. Trachea midline. Heart: S1 S2. Regular rate and rhythm. Lungs: Bibasilar crackles coarse breath sounds. Abdomen: Soft, mildly distended with mild ascites with bowel sounds. No peritoneal signs. No palpable organomegaly or masses. Extremities: Poor skin turgor. Neurological: Unable to assess patient not following commands - Labs CBC & Chem 7: 11/16/18 05:30 11/16/18 05:30 Labs: Abnormal Lab Results - Last 24 Hours (Table) 11/15/18 11/16/18 11/16/18 Range/Units 18:43 05:30 05:30 RBC 2.99 L (4.30-5.90) m/uL Hgb 10.0 L D (13.0-17.5) gm/dL Hct 32.4 L (39.0-53.0) % MCV 108.3 H (80.0-100.0) fL MCHC 30.9 L (31.0-37.0) g/dL RDW 21.2 H (11.5-15.5) % Plt Count 45 L (150-450) k/uL Lymphocytes # (Manual) 0.68 L (1.0-4.8) k/uL Myelocytes # (Manual) 0.20 H (0) k/uL PT 15.9 H (9.0-12.0) sec INR 1.6 H (<1.2) Sodium 136 L (137-145) mmol/L Potassium (3.5-5.1) mmol/L BUN (9-20) mg/dL Creatinine (0.66-1.25) mg/dL Glucose (74-99) mg/dL POC Glucose (mg/dL) (75-99) mg/dL Calcium (8.4-10.2) mg/dL Total Bilirubin (0.2-1.3) mg/dL Total Protein (6.3-8.2) g/dL Albumin (3.5-5.0) g/dL 11/16/18 11/16/18 11/16/18 Range/Units 05:30 07:28 07:48 RBC (4.30-5.90) m/uL Hgb (13.0-17.5) gm/dL Hct (39.0-53.0) % MCV (80.0-100.0) fL MCHC (31.0-37.0) g/dL RDW (11.5-15.5) % Plt Count (150-450) k/uL Lymphocytes # (Manual) (1.0-4.8) k/uL Myelocytes # (Manual) (0) k/uL PT (9.0-12.0) sec INR (<1.2) Sodium (137-145) mmol/L Potassium 3.2 L (3.5-5.1) mmol/L BUN 131 H* (9-20) mg/dL Creatinine 2.95 H (0.66-1.25) mg/dL Glucose 48 L* (74-99) mg/dL POC Glucose (mg/dL) 52 L 161 H (75-99) mg/dL Calcium 7.6 L (8.4-10.2) mg/dL Total Bilirubin 9.8 H (0.2-1.3) mg/dL Total Protein 4.5 L (6.3-8.2) g/dL Albumin 2.6 L (3.5-5.0) g/dL Assessment and Plan (1) Ascites due to alcoholic cirrhosis Narrative/Plan: 58-year-old gentleman admitted with shortness of breath possible pneumonia with underlying end-stage liver disease alcohol cirrhosis with decompensation refractory ascites. Current Visit: Yes Status: Acute Code(s): K70.31 - ALCOHOLIC CIRRHOSIS OF LIVER WITH ASCITES SNOMED Code(s): 8294857295404077 (2) Liver failure Current Visit: Yes Status: Acute Code(s): K72.90 - HEPATIC FAILURE, UNSPECIFIED WITHOUT COMA SNOMED Code(s): 47477844 (3) Portal hypertension Current Visit: Yes Status: Acute Code(s): K76.6 - PORTAL HYPERTENSION SNOMED Code(s): 59005946 (4) Chronic kidney disease Current Visit: Yes Status: Acute Code(s): N18.9 - CHRONIC KIDNEY DISEASE, UNSPECIFIED SNOMED Code(s): 860256230 (5) Common variable immunodeficiency Current Visit: Yes Status: Acute Code(s): D83.9 - COMMON VARIABLE IMMUNODEFICIENCY, UNSPECIFIED SNOMED Code(s): 59239116 (6) Thrombocytopenia Current Visit: Yes Status: Acute Code(s): D69.6 - THROMBOCYTOPENIA, UNSPECIFIED SNOMED Code(s): 516917080 Plan: Overall condition is poor. Family awaiting discussion with attending for possible hospice comfort care. We'll sign off and be available for additional questions or concerns. Assessment and plan a care discussed with Dr. Matos
--- NOTE | 2018-11-16 11:08 | P.PN ---
Subjective Progress Note Date: 11/16/18 Principal diagnosis: Recurrent ascites Patient had a quick decline overnight. He is now on NRB. Many family members at bedside. He is a no cpr, FULL DNR. Face to face discussion with patient and family, agreed that other son and if they feel appropriate grandson to come in. Patient is agitated when speaking, non-verbal moaning and opening eyes to stimuli. We have agreed on In patient hospice care as feel prognosis is poor and life limited to hours-1-2 days. Objective - Vital Signs Vital signs: Vital Signs Temp 97.5 F L 11/16/18 07:55 Pulse 84 11/16/18 07:55 Resp 25 H 11/16/18 07:55 BP 83/38 11/16/18 07:55 Pulse Ox 98 11/16/18 07:55 Intake & Output 11/15/18 11/16/18 11/16/18 18:59 06:59 18:59 Intake Total 100 50 0 Output Total 100 100 Balance 0 -50 0 Intake: Intake, IV Titration 50 Amount cefTRIAXone 1,000 mg In 50 Sodium Chloride 0.9% 50 ml @ 100 mls/hr IVPB Q24HR [facility] Rx#:[id number] Oral 100 0 Output: Urine 100 100 Other: Voiding Method Diaper Diaper Diaper # Voids 1 1 # Bowel Movements 0 0 - Exam Non-verbal, moans, cachetic, chronic ill, active dying, Traces with eyes. Increased respiratory effort with accessory muscle use. HR Tachy, Irreg Lungs diminished Abd soft, non-tender No edema. No strength Not able to follow commands. - Labs CBC & Chem 7: 11/16/18 05:30 11/16/18 05:30 Labs: Abnormal Lab Results - Last 24 Hours (Table) 11/15/18 11/16/18 11/16/18 Range/Units 18:43 05:30 05:30 RBC 2.99 L (4.30-5.90) m/uL Hgb 10.0 L D (13.0-17.5) gm/dL Hct 32.4 L (39.0-53.0) % MCV 108.3 H (80.0-100.0) fL MCHC 30.9 L (31.0-37.0) g/dL RDW 21.2 H (11.5-15.5) % Plt Count 45 L (150-450) k/uL Lymphocytes # (Manual) 0.68 L (1.0-4.8) k/uL Myelocytes # (Manual) 0.20 H (0) k/uL PT 15.9 H (9.0-12.0) sec INR 1.6 H (<1.2) Sodium 136 L (137-145) mmol/L Potassium (3.5-5.1) mmol/L BUN (9-20) mg/dL Creatinine (0.66-1.25) mg/dL Glucose (74-99) mg/dL POC Glucose (mg/dL) (75-99) mg/dL Calcium (8.4-10.2) mg/dL Total Bilirubin (0.2-1.3) mg/dL Total Protein (6.3-8.2) g/dL Albumin (3.5-5.0) g/dL 11/16/18 11/16/18 11/16/18 Range/Units 05:30 07:28 07:48 RBC (4.30-5.90) m/uL Hgb (13.0-17.5) gm/dL Hct (39.0-53.0) % MCV (80.0-100.0) fL MCHC (31.0-37.0) g/dL RDW (11.5-15.5) % Plt Count (150-450) k/uL Lymphocytes # (Manual) (1.0-4.8) k/uL Myelocytes # (Manual) (0) k/uL PT (9.0-12.0) sec INR (<1.2) Sodium (137-145) mmol/L Potassium 3.2 L (3.5-5.1) mmol/L BUN 131 H* (9-20) mg/dL Creatinine 2.95 H (0.66-1.25) mg/dL Glucose 48 L* (74-99) mg/dL POC Glucose (mg/dL) 52 L 161 H (75-99) mg/dL Calcium 7.6 L (8.4-10.2) mg/dL Total Bilirubin 9.8 H (0.2-1.3) mg/dL Total Protein 4.5 L (6.3-8.2) g/dL Albumin 2.6 L (3.5-5.0) g/dL Assessment and Plan Plan: Assessment and Plan Plan: (1) Coagulopathy Narrative/Plan: - Secondary to liver dysfunction. - No gross evidence of bleeding, Hgb stable, pt is not on any anticoagulation or antiplatelet therapy Current Visit: Yes Status: Chronic Priority: High Code(s): D68.9 - COAGULATION DEFECT, UNSPECIFIED SNOMED Code(s): 09176596 (2) Thrombocytopenia Narrative/Plan: - Secondary to liver disease, Plt stable today, no acute intervention Current Visit: Yes Status: Acute Priority: High Code(s): D69.6 - THROMBOCYTOPENIA, UNSPECIFIED SNOMED Code(s): 931963094 (3) Anemia Narrative/Plan: - Hgb is typically 10 range, - Procrit as outpatient Current Visit: No Status: Chronic Priority: Medium Code(s): D64.9 - ANEMIA , UNSPECIFIED SNOMED Code(s): 366573924 (4) Common variable immunodeficiency Narrative/Plan: - Patient due for immunoglobulin infusion in about 1.5 weeks. - Home IVIG Plan: PAdmit to hospice care and initiated hospice comfort orders. - Discussed in detail with family and patient and in agreement - Full No CPR, DNR - Active Decline, measured life less than 24 hours.
[2018-11-16 11:48] VITALS: BMI 21.6
[2018-11-16] MEDS: GABAPENTIN 100 MG CAP PO SCH (12:06)
[2018-11-16] MEDS: LACTULOSE 20 GM/30 ML CUP PO SCH (12:07)
[2018-11-16] MEDS: MISOPROSTOL 100 MCG TAB PO SCH (12:07)
[2018-11-16] MEDS: METOPROLOL TARTRATE 25 MG TAB PO SCH (12:07)
[2018-11-16] MEDS: RIFAXIMIN 550 MG TABLET PO SCH (12:07)
[2018-11-16] MEDS: SODIUM BICARBONATE TAB 650 MG TAB PO SCH (12:07)
--- NOTE | 2018-11-20 08:07 | US ---
EXAMINATION TYPE: US paracentesis abd w/image DATE OF EXAM: 11/15/2018 COMPARISON: NONE HISTORY: Ascites. PROCEDURE: Maximal barrier technique was utilized. The skin overlying a suitable pocket of fluid was localized with ultrasound and the overlying skin was prepped and draped. Ultrasound was utilized with sterile technique. Lidocaine was used for local anesthesia and a skin zamzam made with a scalpel. Catheter was advanced under direct ultrasound guidance into a suitable pocket of fluid and approximately 8 liters of serous fluid were removed. Catheter was withdrawn and hemostasis achieved. There is no immediate complication; the patient is discharged in stable condition. IMPRESSION: STATUS POST ULTRASOUND GUIDED PARACENTESIS FOR PALLIATION OF ASCITES. THIS PROCEDURE WA S PERFORMED BY THE UNDERSIGNED.
--- NOTE | 2018-11-20 19:33 | CDI ---
Date: 11/20/2018 7:25:16 PM From: Tavo Loaiza Email: Admit Date: 11/15/2018 6:14:00 AM Patient Name: Franc Echavarria Visit Number: [id number] Discharge Date: 11/16/2018 3:06:00 PM ATTENTION: The Clinical Documentation Specialists (CDI) and [facility] Coding Staff appreciate your assistance in clarifying documentation. Please respond to the clarification below the line at the bottom and electronically sign. The CDI & [facility] Coding staff will review the response and follow-up if needed. Please note: Queries are made part of the Legal Health Record. If you have any questions, please contact the author of this message via ITS. Dr. Renu Moss The patient developed increased respiratory effort with accessory muscle use. History/Risk Factors: Alcoholic cirrhosis of the liver, ascites, pneumonia Clinical Indicators: SOB, ascites, increased respiratory effort, accessory muscle use Vital signs: RR 18-32 Pulse oximetry: down to mid 80's on 4LNC Lung/Breathing assessment: increased effort with accessory muscle use Treatment: 100% NRB mask, IV Lasix, Bumex Breathing tx: A/A O2: 100% NRB In your professional opinion, can you please clarify if these findings signify one of the following conditions? Acuity Acute Chronic Acute on Chronic Specificity Respiratory Failure (further specify (if known)): With hypercapnia? (pCO2 >50 and pH <7.35) With hypoxia? (pO2 <60 mm Hg or SpO2 <91% on room air) Other Diagnosis, please specify Unable to determine acute hypoxic respiratory failure MTDD
== END 2018-11-16 15:06 | disposition expired | DRG 432 ==
LOC: EC 00:56 → 3SCARD 06:14
PROVIDERS: ADMIT Hospitalist; ATTEND Hospitalist
PROC: 0W9G3ZZ Drainage of Peritoneal Cavity, Percutaneous Approach (ICD-10-PCS; principal; 2018-11-15)
DX: K70.31 Alcoholic cirrhosis of liver with ascites (principal); J18.9 Pneumonia, unspecified organism; J96.01 Acute respiratory failure with hypoxia; D83.9 Common variable immunodeficiency, unspecified; E87.1 Hypo-osmolality and hyponatremia; J44.0 Chronic obstructive pulmonary disease with (acute) lower respiratory infection; J98.11 Atelectasis; K76.6 Portal hypertension; D68.9 Coagulation defect, unspecified; K70.40 Alcoholic hepatic failure without coma; D46.9 Myelodysplastic syndrome, unspecified; D69.6 Thrombocytopenia, unspecified; I48.91 Unspecified atrial fibrillation; E87.6 Hypokalemia; I12.9 Hypertensive chronic kidney disease with stage 1 through stage 4 chronic kidney disease, or unspecified chronic kidney disease; K90.0 Celiac disease; N18.3 Chronic kidney disease, stage 3 (moderate); G62.9 Polyneuropathy, unspecified; K57.90 Diverticulosis of intestine, part unspecified, without perforation or abscess without bleeding; R15.9 Full incontinence of feces; Z51.5 Encounter for palliative care; Z66 Do not resuscitate; Z79.899 Other long term (current) drug therapy; Z87.01 Personal history of pneumonia (recurrent); Z86.14 Personal history of Methicillin resistant Staphylococcus aureus infection; Z87.891 Personal history of nicotine dependence; Z88.1 Allergy status to other antibiotic agents; Z91.041 Radiographic dye allergy status; Z91.018 Allergy to other foods; Z83.79 Family history of other diseases of the digestive system
CPT/HCPCS: 36415; 49083; 71045; 74018; 80051; 80053; 82140; 82150; 82550; 82553; 83605; 83690; 83735; 84484; 85025; 85610; 85730; 87040; 93005; 94640; 94760; 96365; 96375; 99291

== ENCOUNTER 2018-11-16 10:47 | Inpatient (IN) | payer MEDICAID ==
[2018-11-16] MEDS ORDERED: ATROPINE OPHTH SOLN 1% 5ML BTL SUBLINGUAL PRN (11:53)
[2018-11-16] MEDS ORDERED: ONDANSETRON 4 MG/2 ML VIAL IVP PRN (11:53)
[2018-11-16] MEDS ORDERED: MORPHINE SULFATE 2 MG/ML SYRINGE IV PRN (11:53)
[2018-11-16] MEDS ORDERED: SCOPOLAMINE 1.5MG/72HR PATCH TRANSDERM SCH (12:00)
[2018-11-16] MEDS: LORazepam 2 MG/ML INJ IV SCH ×3 (15:48→23:22)
[2018-11-16] MEDS: MORPHINE SULFATE (100 MG/2 ML) 100 MG in SODIUM CHLORIDE 0.9% 100 ML IV SCH (16:21)
--- NOTE | 2018-11-17 03:23 | PN ---
PROGRESS NOTE This 58-year-old gentleman with a past medical history of multiple medical problems was admitted with shortness of breath and also acute recurrent ascites. The patient also had history of cirrhosis of the liver and hypo gamma globulinemia and multiple other medical issues. The patient had large volume paracentesis previously. Discussion was held with the family at this time. The patient being followed by Dr. Scott in the outpatient setting at this time. At this time, comfort care, hospice measures being followed. The patient is being closely monitored. EXAM: The patient is stuporous. Pulse 95. Blood pressure is noted. Respirations 16. HEENT: Conjunctivae normal. Oral mucosa moist. Neck is no jugular venous distention. Cardiac: S1, S2. Respirations: Breath sounds diminished in the bases. Scattered rhonchi and crackles. Abdomen is soft, nontender. Legs are no edema, no swelling. Central nervous system: No focal deficits. LABS: Noted. ASSESSMENT: 1. Acute recurrent ascites and discomfort, possibly secondary to cirrhosis of the liver and secondary to alcoholic liver disease, increased WBC. 2. Anemia. 3. Microcytosis. 4. Coagulopathy secondary to chronic liver disease. 5. Hyponatremia. 6. Hypokalemia. 7. Increased creatinine with chronic kidney stage III. 8. Increased bilirubin with possible acute hepatitis. 9. Increased plasma lactic acid. 10.Troponin 0.019 indeterminate. 11.History of atrial fibrillation. 12.History of gastrointestinal bleed. 13.Hypertension. 14.History of pneumonia. 15.History of hypogammaglobinemia and common variable immunodeficiency. 16.History of necrotizing fasciitis. 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 18.Remote history of nicotine dependence. 19.NO CODE, NO CPR, NO VENT and hospice care. RECOMMENDATIONS AND DISCUSSION: In this 58-year-old gentleman who presented with multiple medical issues, we will monitor the patient closely. Continue the hospice. Comfort measures. If the patient is restless and having more pain, I would recommend initiate morphine drip and continue to monitor. Discussed at length with the family who understands and agrees. Further recommendations to follow. MMODL / IJN: [id number] /
[2018-11-17] MEDS: LORazepam 2 MG/ML INJ IV SCH ×3 (05:04→15:37)
[2018-11-17] MEDS ORDERED: ACETAMINOPHEN IV (For NPO) 1,000 MG in EMPTY BAG 1 BAG IVPB PRN (12:32)
[2018-11-17] MEDS: MORPHINE SULFATE (100 MG/2 ML) 100 MG in SODIUM CHLORIDE 0.9% 100 ML IV SCH ×2 (12:58→18:46)
[2018-11-17 19:54] VITALS: PULSE 104; RESP 8
--- NOTE | 2018-11-17 19:58 | PN ---
PROGRESS NOTE DATE OF SERVICE: 11/17/2018 This [id number] gentleman who was admitted with acute recurrent ascites with possible cirrhosis of liver is on comfort measures at this time. The patient also running a fever. Patient is on morphine drip. EXAM: Patient is sedated. Pulse is 147. Respirations 14. The patient is on nonrebreather 15 L. HEENT: Conjunctivae normal. NECK: No jugular venous distention. CARDIOVASCULAR: S1, S2 muffled. RESPIRATORY: Breath sounds diminished in the bases. Bilateral scattered rhonchi and crackles. Abdomen is soft, obese. Ascites present. LEGS: No edema, no swelling. Central nervous system: No focal deficits. LABS: Not available. ASSESSMENT: 1. Acute recurrent ascites with discomfort, possibly secondary to cirrhosis of the liver and secondary to alcoholic liver disease. 2. Increased WBC. 3. Anemia. 4. Microcytosis. 5. Coagulopathy secondary to chronic liver disease. 6. Hyponatremia. 7. Hypokalemia. 8. Increased creatinine with chronic kidney disease stage III. 9. Increased Bilirubin with possible acute hepatitis. 10.Increased plasma lactic acid. 11.Troponin 0.0019 indeterminate. 12.History of atrial fibrillation. 13.History of gastrointestinal bleed. 14.Hypertension. 15.History of pneumonia. 16.History of hypogammaglobinemia with common variable immunodeficiency. 17.History of necrotizing fascitis. 18.History of CRE, MRSA as well as VRE. 19.Remote history of nicotine dependence. 20.NO CODE, NO CPR, NO VENT. 21.On hospice care and comfort measures. RECOMMENDATIONS AND DISCUSSION: In this 58-year-old gentleman who presented with multiple complex medical issues, we will continue the current medications, management, symptomatic treatment. Titrate the morphine drip according to the comfort. p.r.n. Tylenol for fever. Continue to monitor. Prognosis extremely guarded. Discussed with the family. Further recommendations to follow. MMODL / IJN: [id number] /
--- NOTE | 2018-11-19 00:50 | DS ---
DISCHARGE SUMMARY PRIMARY CAUSE OF : Cirrhosis of the liver with recurrent ascites, possibly alcoholic liver disease. OTHER DIAGNOSES: 1. Increased WBC. 2. Anemia. 3. Microcytosis. 4. Coagulopathy secondary to chronic liver disease. 5. Hyponatremia. 6. Hypokalemia. 7. Increased creatinine with chronic kidney stage III. 8. Increased bilirubin with possible acute hepatitis. 9. Increased plasma lactic acid. 10.Troponin 0.009 indeterminate. 11.History of atrial fibrillation. 12.History of gastrointestinal bleed. 13.Hypertension. 14.Pneumonia. 15.History hypogammaglobinemia and common variable immunodeficiency. 16.Necrotizing fasciitis. 17.History of CRE, MRSA and VRE. 18.Remote history of nicotine dependence. 19.NO CODE. NO CPR. NO VENT. 20.Hospice and comfort measures. HISTORY OF PRESENT ILLNESS: This 58 year old gentleman with a past medical history of multiple medical problems as mentioned earlier, being followed by Dr. Scott in the outpatient setting was admitted with acute recurrent ascites and discomfort. The patient was treated symptomatically initially but the patient continued to not improve. Case was discussed with the family on multiple occasions and Hematology/Oncology was also consulted and the patient and family decided to go with comfort measures at this time. The patient because of the multiple complex medical issues as mentioned earlier. Please refer to the multiple progress notes and consultation notes and history and physical and staff notes for further details. Prognosis remained extremely guarded throughout the hospital stay. The patient was transitioned to hospice and subsequently . MMNATALIE / LONNIE: [id number] /
== END 2018-11-17 23:36 | disposition expired | DRG 951 ==
LOC: 3SCARD 15:17
PROVIDERS: ADMIT Hospitalist; ATTEND Hospitalist
DX: Z51.5 Encounter for palliative care (principal); D68.9 Coagulation defect, unspecified; E87.1 Hypo-osmolality and hyponatremia; K70.31 Alcoholic cirrhosis of liver with ascites; D64.9 Anemia, unspecified; E87.6 Hypokalemia; I12.9 Hypertensive chronic kidney disease with stage 1 through stage 4 chronic kidney disease, or unspecified chronic kidney disease; N18.3 Chronic kidney disease, stage 3 (moderate); I48.91 Unspecified atrial fibrillation; Z66 Do not resuscitate; Z86.14 Personal history of Methicillin resistant Staphylococcus aureus infection; Z87.891 Personal history of nicotine dependence; Z87.01 Personal history of pneumonia (recurrent)